=== PATIENT | male | born 1940 | race Caucasian/White ===

== ENCOUNTER 2018-03-12 12:09 | Emergency (ER) | END 2018-03-12 15:51 | disposition home or self-care (01) ==

== ENCOUNTER 2018-11-06 20:41 | Inpatient (IN) | payer MEDICARE ==
[~2018-11-06] VITALS: Ht 170.2 cm; Wt 79.5 kg
[~2018-11-06 20:41] MED LIST: ACET500C5 PO
[2018-11-06] MEDS ORDERED: SOD CHLORIDE 0.9% 500 ML IV STA (22:49)
[2018-11-06] MEDS ORDERED: morphine 2 MG INJ IV STA (22:49)
[2018-11-06] MEDS ORDERED: ONDANSETRON 4 MG INJ IV STA (22:49)
--- NOTE | 2018-11-07 02:55 | ERD ---
ER Documentation Chief Complaint Chief Complaint VOMIT/ DIARRHEA X'S 5 DAYS HPI Is an 78-year-old male brought in by family complains of vomiting diarrhea for the past 5 days with abdominal distention. His abdomen is gotten more more distended over the past 2 weeks. Vomiting is nonbilious nonbloody. Diarrhea was 3-4 episodes per day nonbilious and nonbloody. No fevers or chills. No sick contacts. No other current complaints. ROS All systems reviewed and are negative except as per history of present illness. Medications Home Meds Active Scripts Acetaminophen* (Tylophen*) 500 Mg Capsule, 1 CAP PO Q6H PRN for PAIN AND OR ELEVATED TEMP, #20 CAP Prov:JERAMY LIMA. [employer] 03/12/18 Allergies Allergies: Coded Allergies: No Known Allergy (Unverified , 03/12/18) PMhx/Soc History of Surgery: Yes (open heart surgery double bypass) Anesthesia Reaction: No Hx Neurological Disorder: No Hx Respiratory Disorders: No Hx Cardiac Disorders: Yes (HEART DISEASE ) Hx Miscellaneous Medical Probl: Yes (DM II) Hx Alcohol Use: No Hx Tobacco Use: No Smoking Status: Never smoker Physical Exam Vitals Vital Signs Date Temp Pulse Resp B/P (MAP) Pulse Ox O2 O2 Flow FiO2 Time Delivery Rate 11/06/18 97.5 86 18 156/71 98 20:52 (99) Physical Exam Const: No acute distress Head: Atraumatic Eyes: Normal Conjunctiva ENT: Normal External Ears, Nose and Mouth. Neck: Full range of motion. No meningismus. Resp: Clear to auscultation bilaterally Cardio: Regular rate and rhythm, no murmurs Abd: Soft, non tender, non distended. Normal bowel sounds Skin: No petechiae or rashes Back: No midline or flank tenderness Ext: No cyanosis, or edema Neur: Awake and alert Psych: Normal Mood and Affect Result Diagram: 11/06/18 2332 11/06/18 2332 Results 24 hrs Laboratory Tests Test 11/06/18 23:32 11/07/18 01:42 White Blood Count 7.7 10^3/ul Red Blood Count 3.84 10^6/ul Hemoglobin 11.4 g/dl Hematocrit 36.1 % Mean Corpuscular Volume 94.0 fl Mean Corpuscular Hemoglobin 29.7 pg Mean Corpuscular Hemoglobin Concent 31.6 g/dl Red Cell Distribution Width 18.2 % Platelet Count 145 10^3/UL Mean Platelet Volume 13.4 fl Immature Granulocytes % 0.400 % Neutrophils % 70.6 % Lymphocytes % 16.6 % Monocytes % 7.5 % Eosinophils % 4.0 % Basophils % 0.9 % Nucleated Red Blood Cells % 0.0 /100WBC Immature Granulocytes # 0.030 10^3/ul Neutrophils # 5.5 10^3/ul Lymphocytes # 1.3 10^3/ul Monocytes # 0.6 10^3/ul Eosinophils # 0.3 10^3/ul Basophils # 0.1 10^3/ul Nucleated Red Blood Cells # 0.0 10^3/ul Sodium Level 142 mmol/L Potassium Level 3.7 mmol/L Chloride Level 104 mmol/L Carbon Dioxide Level 25 mmol/L Anion Gap 13 Blood Urea Nitrogen 22 mg/dl Creatinine 1.13 mg/dl Est Glomerular Filtrat Rate mL/min mL/min Glucose Level 135 mg/dl Calcium Level 8.7 mg/dl Total Bilirubin 1.3 mg/dl Direct Bilirubin 0.00 mg/dl Indirect Bilirubin 1.3 mg/dl Aspartate Amino Transf (AST/SGOT) 38 IU/L Alanine Aminotransferase (ALT/SGPT) 27 IU/L Alkaline Phosphatase 196 IU/L Troponin I 0.029 ng/ml Total Protein 7.4 g/dl Albumin 3.3 g/dl Globulin 4.10 g/dl Albumin/Globulin Ratio 0.80 Lipase 55 U/L Urine Color YELLOW Urine Clarity CLEAR Urine pH 5.0 Urine Specific [place] 1.016 Urine Ketones TRACE mg/dL Urine Nitrite NEGATIVE mg/dL Urine Bilirubin NEGATIVE mg/dL Urine Urobilinogen 1+ mg/dL Urine Leukocyte Esterase NEGATIVE Jose/ul Urine Microscopic RBC 1 /HPF Urine Microscopic WBC 1 /HPF Urine Hemoglobin NEGATIVE mg/dL Urine Glucose NEGATIVE mg/dL Urine Total Protein 1+ mg/dl Current Medications Medications Dose Sig/Omari Start Time Status Last (Trade) Ordered Route PRN Stop Time Admin Dose Reason Admin Sodium 500 ml @ Q1H STAT 11/06/18 DC 11/06/18 Chloride 500 mls/hr IV 22:49 23:48 11/06/18 23:48 Morphine 2 mg ONCE STAT 11/06/18 DC Sulfate IV 22:49 (morphine) 11/06/18 22:51 Ondansetron 4 mg ONCE STAT 11/06/18 DC 11/06/18 HCl (Zofran IV 22:49 23:48 Inj) 11/06/18 22:51 Procedures/MDM EKG: Rate/Rhythm: [Normal Sinus Rhythm] QRS, ST, T-waves: [No changes consistent w/ acute ischemia] Impression: [No evidence of ischemia or arrhythmia] Chest X-ray 1V Interpreted by me: Soft Tissue: No acute abnormalities Bones: No acute abnormalities Mediastinum/Cardiac Silhouette/Lungs: [No acute abnormalities] Medical decision make: This is an 78-year-old male with abdominal pain of uncert ain etiology. 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 Given this I feel the patient needs to be admitted for further evaluation management. Hospitalist made aware. Departure Diagnosis: Primary Impression: Vomiting and diarrhea Additional Impression: Acute vomiting Condition: CURT Edwards Nov 07, 2018 02:55
[2018-11-07 03:20] VITALS: BP 153/89; PULSE 72; RESP 18
[2018-11-07] MEDS ORDERED: METF500T24 PO (03:21)
[2018-11-07] MEDS ORDERED: COLC0.6C PO (03:21)
[2018-11-07] MEDS ORDERED: FURO20TA3 PO (03:21)
[2018-11-07 03:47] VITALS: Ht 170.2 cm; Wt 79.5 kg
[2018-11-07] MEDS ORDERED: ONDANSETRON 4 MG INJ IV PRN ×2 (05:00→12:00)
[2018-11-07] MEDS ORDERED: morphine 2 MG INJ IV PRN (05:00)
[2018-11-07] MEDS ORDERED: NACL 0.9% 3 ML SYG IV SCH (05:00)
[2018-11-07] MEDS: DEXTROSE 5%-0.45% NACL 1,000 ML IV SCH ×3 (05:18→19:07)
--- NOTE | 2018-11-07 06:47 | HP ---
Date/Time of Note Date/Time of Note DATE: 11/07/18 TIME: 06:41 Assessment/Plan VTE Prophylaxis Pharmacological prophylaxis: heparin Lines/Catheters IV Catheter Type (from Nrsg): Peripheral IV Assessment/Plan Assessment/Plan 1. Abdominal pain with N/V: Likely secondary to large inguinal hernia. CT however without obstruction -Keep n.p.o. for now with IV fluid. Patient is currently symptom-free and since CT shows no obstruction, we may start diet in early a.m. -Pain management and antiemetics as needed -Consider surgical consult 2. CAD with CABG: Patient home medication only includes Lasix, colchicine and metformin -Patient is to be on aspirin, statin and beta-tariq and ACEI as tolerated by his BP. Will address this when he is no longer n.p.o. 3. Type 2 diabetes: Insulin while in-house 4. History of gout: Patient had a significant tophi on both of his elbows. Resume colchicine when not n.p.o. 5. History of prostate cancer: Status post surgery 6. Decreased urine output: This could possibly be the pressure effect of the h ernia on bladder/ureters -Consider urology evaluation -Continue Lasix 7. Bilateral lower extremity pitting edema: Likely secondary to #6 -Follow-up on 2D echo -Continue Lasix Result Diagram: 11/06/18 2332 11/06/18 2332 Results 24hrs Laboratory Tests Test 11/06/18 23:32 11/07/18 01:42 White Blood Count 7.7 Red Blood Count 3.84 L Hemoglobin 11.4 L Hematocrit 36.1 L Mean Corpuscular Volume 94.0 Mean Corpuscular Hemoglobin 29.7 Mean Corpuscular Hemoglobin Concent 31.6 L Red Cell Distribution Width 18.2 H Platelet Count 145 Mean Platelet Volume 13.4 H Immature Granulocytes % 0.400 Neutrophils % 70.6 Lymphocytes % 16.6 Monocytes % 7.5 Eosinophils % 4.0 Basophils % 0.9 Nucleated Red Blood Cells % 0.0 Immature Granulocytes # 0.030 Neutrophils # 5.5 Lymphocytes # 1.3 Monocytes # 0.6 Eosinophils # 0.3 Basophils # 0.1 Nucleated Red Blood Cells # 0.0 Sodium Level 142 Potassium Level 3.7 Chloride Level 104 Carbon Dioxide Level 25 Anion Gap 13 Blood Urea Nitrogen 22 H Creatinine 1.13 Est Glomerular Filtrat Rate mL/min Glucose Level 135 Calcium Level 8.7 Total Bilirubin 1.3 Direct Bilirubin 0.00 Indirect Bilirubin 1.3 H Aspartate Amino Transf (AST/SGOT) 38 Alanine Aminotransferase (ALT/SGPT) 27 Alkaline Phosphatase 196 H Troponin I 0.029 Total Protein 7.4 Albumin 3.3 Globulin 4.10 H Albumin/Globulin Ratio 0.80 Lipase 55 Urine Color YELLOW Urine Clarity CLEAR Urine pH 5.0 Urine Specific [place] 1.016 Urine Ketones TRACE A Urine Nitrite NEGATIVE Urine Bilirubin NEGATIVE Urine Urobilinogen 1+ H Urine Leukocyte Esterase NEGATIVE Urine Microscopic RBC 1 Urine Microscopic WBC 1 Urine Hemoglobin NEGATIVE Urine Glucose NEGATIVE Urine Total Protein 1+ H HPI/ROS Admit Date/Time Admit Date/Time Nov 07, 2018 at 02:03 Hx of Present Illness This is an 78-year-old male with a history of type 2 diabetes, hypertension, gout, prostate cancer status post surgery, CABG, hernia surgery. Patient presented to ER complaining of feeling of food getting stuck, abdominal distention/pain as well as nausea and vomiting. Symptoms been going on for few days. He said on a few occasions, after he ate, he felt as if food was getting stuck in his belly. After some time, he feels the food going down and at that moment the pain/discomfort results. Emesis described as nonbloody. Last bowel movement was yesterday. On further questioning, he also reported decreased urine output. He said previously the Lasix that he has been taking was effective, but not anymore. He had total prostatectomy as well as partial bladder resection for a prostate cancer. Right after surgery, as expected, he w as incontinent. Incontinence had completely resolved and now he is complaining of decreased urine output and at times hesitation when he urinates. Denies dysuria. When he presented to ER, CT abdomen pelvis was done and it shows the following: -A few prominent central mesenteric lymph nodes, probably reactive. -Large left inguinal hernia containing fat, fluid, and a non-obstructed loop of sigmoid colon. There are multiple surgical clips in this region, suggestive of prior hernia repair. There is also a small fat-containing right inguinal hernia. -Small to moderate abdominal wall hernia containing fat and fluid. -Cardiomegaly and moderate atherosclerotic arterial calcifications. . PMH/Family/Social Past Medical History Medical History: other (See HPI) Medications Current Medications Dextrose/Sodium Chloride 1,000 ml @ 80 mls/hr [id number] IV Last administered on 11/07/18at 05:18; Admin Dose 80 MLS/HR; Start 11/07/18 at 04:36 IV Flush (NS 3 ml) 3 ml PER PROTOCOL IV ; Start 11/07/18 at 05:00 Ondansetron HCl (Zofran Inj) 4 mg Q6H PRN IV NAUSEA/VOMITING; Start 11/07/18 at 05:00 Morphine Sulfate (morphine) 2 mg Q4H PRN IV .SEVERE PAIN 7-10; Start 11/07/18 at 05:00 Famotidine (Pepcid Iv) 20 mg DAILY IV ; Start 11/07/18 at 09:00 Heparin Sodium (Porcine) (Heparin (5000 Units/1ml)) 5,000 unit Q12 SC ; Start 11/07/18 at 09:00 Coded Allergies: No Known Allergy (Unverified , 11/07/18) Past Surgical History Past Surgical Hx: other (See HPI) Family History Significant Family History: no pertinent family hx Social History Alcohol Use: none Smoking Status: Never smoker Drug Use: none Exam/Review of Systems Vital Signs Vitals Vital Signs Date Temp Pulse Resp B/P (MAP) Pulse Ox O2 O2 Flow FiO2 Time Delivery Rate 11/07/18 97.6 72 18 153/89 95 Room Air 03:20 (110) Exam Constitutional: other (No acute distress. Alert and oriented and answering questions appropriately) Head: normocephalic, atraumatic Eyes: EOMI, PERRL Respiratory: clear to auscultation, normal air movement Cardiovascular: regular rate and rhythm, nl pulses Gastrointestinal: other (Slight abdominal distention. Abdominal hernia noted.) Genitourinary - Male: other (Bilateral inguinal hernia, left much larger than right) Extremities: edema, other (Large tophi on both of his elbows noted) CURT COTA MD Nov 07, 2018 06:47
[2018-11-07 07:55] VITALS: BP 128/65; PULSE 73; RESP 16
[2018-11-07] MEDS ORDERED: INSULIN ASPART [NOVOLOG] 3 ML PEN SC SCH ×2 (09:00→12:00)
[2018-11-07] MEDS ORDERED: FUROSEMIDE 20 MG TAB PO SCH (09:00)
[2018-11-07] MEDS ORDERED: HEPARIN 5,000 UNIT/1 ML VIAL SC SCH (09:00)
[2018-11-07] MEDS ORDERED: NON-FORMULARY/PATIENT OWN MED (Colchicine 0.6 MG) PO SCH (09:00)
[2018-11-07] MEDS: FAMOTIDINE 20 MG INJ IV SCH (09:51)
--- NOTE | 2018-11-07 11:55 | PN ---
Date/Time of Note Date/Time of Note DATE: 11/07/18 TIME: 11:51 Assessment/Plan VTE Prophylaxis SCD contraindicated: low risk/ambulating Pharmacological prophylaxis: NA/contraindicated Pharm contraindication: surgical contra Lines/Catheters IV Catheter Type (from Nrsg): Peripheral IV Assessment/Plan Hospital Course A/P 1. Abdominal pain, ileus? Consult GI or surgery 2. Ascites. Unknown etiology, rule out hepatitis may need liver MRI at some point 3. CAD, CABG [KP] status, no recent anginal-like equivalent. Check echo 4. Chronic hypertension 5. Type 2 diabetes 6. Abdominal ventral umbilical hernia 7. History of right inguinal hernia repair. Present hernia noted 8.. History of prostate cancer surgery 9. Oliguria? 10. Chronic gout 11. Peptic ulcer dz [asa assoc] status post stomach/duodenal surgery. 12. Anemia state unknown etiology stable observe S: gas-like discomfort heartburn abdominal pain for maybe 1 week. Over the last 2 days he is not passing gas. No nausea vomiting fever. No alcohol. No nuts no seeds. No history of colonoscopy O: Vital signs stable sinus rhythm poor R wave progression through anteroseptal leads PE No pallor icterus adenopathy Reg bs diminished mild diffuse tenderness mostly around the umbilicus. No rigidity no rebound no guarding hernias noted No edema Result Diagram: 11/06/18 2332 11/06/18 2332 Results 24hrs Laboratory Tests Test 11/06/18 23:32 11/07/18 01:42 11/07/18 09:49 White Blood Count 7.7 Red Blood Count 3.84 L Hemoglobin 11.4 L Hematocrit 36.1 L Mean Corpuscular Volume 94.0 Mean Corpuscular Hemoglobin 29.7 Mean Corpuscular Hemoglobin Concent 31.6 L Red Cell Distribution Width 18.2 H Platelet Count 145 Mean Platelet Volume 13.4 H Immature Granulocytes % 0.400 Neutrophils % 70.6 Lymphocytes % 16.6 Monocytes % 7.5 Eosinophils % 4.0 Basophils % 0.9 Nucleated Red Blood Cells % 0.0 Immature Granulocytes # 0.030 Neutrophils # 5.5 Lymphocytes # 1.3 Monocytes # 0.6 Eosinophils # 0.3 Basophils # 0.1 Nucleated Red Blood Cells # 0.0 Sodium Level 142 Potassium Level 3.7 Chloride Level 104 Carbon Dioxide Level 25 Anion Gap 13 Blood Urea Nitrogen 22 H Creatinine 1.13 Est Glomerular Filtrat Rate mL/min Glucose Level 135 Calcium Level 8.7 Total Bilirubin 1.3 Direct Bilirubin 0.00 Indirect Bilirubin 1.3 H Aspartate Amino Transf (AST/SGOT) 38 Alanine Aminotransferase (ALT/SGPT) 27 Alkaline Phosphatase 196 H Troponin I 0.029 Total Protein 7.4 Albumin 3.3 Globulin 4.10 H Albumin/Globulin Ratio 0.80 Lipase 55 Urine Color YELLOW Urine Clarity CLEAR Urine pH 5.0 Urine Specific [place] 1.016 Urine Ketones TRACE A Urine Nitrite NEGATIVE Urine Bilirubin NEGATIVE Urine Urobilinogen 1+ H Urine Leukocyte Esterase NEGATIVE Urine Microscopic RBC 1 Urine Microscopic WBC 1 Urine Hemoglobin NEGATIVE Urine Glucose NEGATIVE Urine Total Protein 1+ H Bedside Glucose 137 Exam/Review of Systems Exam Vitals Vital Signs Date Temp Pulse Resp B/P (MAP) Pulse Ox O2 O2 Flow FiO2 Time Delivery Rate 11/07/18 98.1 73 16 128/65 93 07:55 (86) 11/07/18 Room Air 03:20 Intake and Output 11/06/18 11/06/18 11/07/18 1515:00 23:00 07:00 IntakeIntake Total 80 ml OutputOutput Total 150 ml BalanceBalance -70 ml Results Results 24hrs Laboratory Tests Test 11/06/18 23:32 11/07/18 01:42 11/07/18 09:49 White Blood Count 7.7 Red Blood Count 3.84 L Hemoglobin 11.4 L Hematocrit 36.1 L Mean Corpuscular Volume 94.0 Mean Corpuscular Hemoglobin 29.7 Mean Corpuscular Hemoglobin Concent 31.6 L Red Cell Distribution Width 18.2 H Platelet Count 145 Mean Platelet Volume 13.4 H Immature Granulocytes % 0.400 Neutrophils % 70.6 Lymphocytes % 16.6 Monocytes % 7.5 Eosinophils % 4.0 Basophils % 0.9 Nucleated Red Blood Cells % 0.0 Immature Granulocytes # 0.030 Neutrophils # 5.5 Lymphocytes # 1.3 Monocytes # 0.6 Eosinophils # 0.3 Basophils # 0.1 Nucleated Red Blood Cells # 0.0 Sodium Level 142 Potassium Level 3.7 Chloride Level 104 Carbon Dioxide Level 25 Anion Gap 13 Blood Urea Nitrogen 22 H Creatinine 1.13 Est Glomerular Filtrat Rate mL/min Glucose Level 135 Calcium Level 8.7 Total Bilirubin 1.3 Direct Bilirubin 0.00 Indirect Bilirubin 1.3 H Aspartate Amino Transf (AST/SGOT) 38 Alanine Aminotransferase (ALT/SGPT) 27 Alkaline Phosphatase 196 H Troponin I 0.029 Total Protein 7.4 Albumin 3.3 Globulin 4.10 H Albumin/Globulin Ratio 0.80 Lipase 55 Urine Color YELLOW Urine Clarity CLEAR Urine pH 5.0 Urine Specific [place] 1.016 Urine Ketones TRACE A Urine Nitrite NEGATIVE Urine Bilirubin NEGATIVE Urine Urobilinogen 1+ H Urine Leukocyte Esterase NEGATIVE Urine Microscopic RBC 1 Urine Microscopic WBC 1 Urine Hemoglobin NEGATIVE Urine Glucose NEGATIVE Urine Total Protein 1+ H Bedside Glucose 137 Medications Medication Current Medications Dextrose/Sodium Chloride 1,000 ml @ 80 mls/hr [id number] IV Last administered on 11/07/18at 05:18; Admin Dose 80 MLS/HR; Start 11/07/18 at 04:36 IV Flush (NS 3 ml) 3 ml PER PROTOCOL IV ; Start 11/07/18 at 05:00 Ondansetron HCl (Zofran Inj) 4 mg Q6H PRN IV NAUSEA/VOMITING; Start 11/07/18 at 05:00 Morphine Sulfate (morphine) 2 mg Q4H PRN IV .SEVERE PAIN 7-10; Start 11/07/18 at 05:00 Famotidine (Pepcid Iv) 20 mg DAILY IV Last administered on 11/07/18at 09:51; Admin Dose 20 MG; Start 11/07/18 at 09:00 Heparin Sodium (Porcine) (Heparin (5000 Units/1ml)) 5,000 unit Q12 SC ; Start 11/07/18 at 09:00 Diagnostic Test (Pha) (Accu-Chek) 1 ea 02 XX ; Start 11/08/18 at 02:00 Furosemide (Lasix) 20 mg DAILY PO Last administered on 11/07/18at 09:52; Admin Dose 20 MG; Start 11/07/18 at 09:00 Miscellaneous Information 0.6 mg BID PO ; Start 11/07/18 at 09:00; Status UNV Insulin Aspart (Novolog Insulin Pen) NOVOLOG *MILD* ALGORI... AC MEALS AND BEDTIME SC ; Start 11/07/18 at 12:00; Status UNV GARRETT DIOR MD Nov 07, 2018 11:55
[2018-11-07] MEDS ORDERED: NA PHOSPHATE/BIPHOS 133 ML ENEMA PR PRN (12:00)
[2018-11-07] MEDS ORDERED: BISACODYL 10 MG SUPP PR PRN (12:00)
[2018-11-07] MEDS: INSULIN ASPART [NOVOLOG] 3 ML PEN SC SCH ×3 (13:00→21:00)
[2018-11-07 14:30] VITALS: BP 135/66; PULSE 70; RESP 18
--- NOTE | 2018-11-07 15:20 | QN ---
Documentation Comment Patient currently off the floor, will assess in near future. INGRID MAST Nov 07, 2018 15:20
[2018-11-07] MEDS ORDERED: BARIUM SULFATE 135 ML (E-Z HD) PO ONE (15:25)
[2018-11-07 20:48] VITALS: BP 96/51; PULSE 81; RESP 16
[2018-11-08] VITALS (8 sets, daily range): BP systolic 132–179; BP diastolic 68–89; PULSE 66–85; RESP 16–18
[2018-11-08] MEDS: INSULIN ASPART [NOVOLOG] 3 ML PEN SC SCH ×6 (01:00→21:16)
[2018-11-08] MEDS: ACCU-CHEK XX SCH (01:43)
[2018-11-08] MEDS: DEXTROSE 5%-0.45% NACL 1,000 ML IV SCH (06:43)
[2018-11-08] MEDS: FAMOTIDINE 20 MG INJ IV SCH (10:16)
[2018-11-08] MEDS ORDERED: LIDOCAINE 1% (MPF) 5 ML VIAL ONE (11:27)
[2018-11-08] MEDS ORDERED: POTASSIUM CHLORIDE 100 ML IVPB ONE (11:30)
--- NOTE | 2018-11-08 11:50 | PN ---
Date/Time of Note Date/Time of Note DATE: 11/08/18 TIME: 11:47 Assessment/Plan VTE Prophylaxis Risk score (from Ns)>0 risk: 6 SCD applied (from Ns): Yes Pharmacological prophylaxis: LMWH Lines/Catheters IV Catheter Type (from Nrsg): Peripheral IV Urinary Cath still in place: No Assessment/Plan Hospital Course A/P 1. Abd pain, ileus? Consulted GI. Small bowel series appears unremarkable, stable Will restart diet. May need outpatient colonoscopy 2. Ascites. Ukn etio, rule out hepatitis; paracentesis done. May need liver MRI at some point it could also be cardiac ascites 3. CAD, CABG [KP] status, no recent anginal-like equivalent. Check echo 4. Chronic hypertension, maybe if tolerable, start beta-tariq or ACEi. 5. Type 2 diabetes 6. Abdominal ventral umbilical hernia 7. History of right inguinal hernia repair. Present hernia noted 8.. History of prostate cancer surgery 9. Oliguria? 10. Chronic gout 11. Peptic ulcer dz [asa assoc] status post stomach/duodenal surgery. 12. Anemia state unknown etiology stable observe S: 11/07 gas-like discomfort heartburn abdominal pain for maybe 1 week. Over the last 2 days he is not passing gas. No nausea vomiting fever. No alcohol. No nuts no seeds. No history of colonoscopy 11/08: Appetite back. Wants to eat/hungry. No chest pain dyspnea. Status post 2-1/2 L paracentesis O: Vss; poor R wave progression through anteroseptal leads PE No pallor JVD Reg no murmur rub gallop bs dimin, mild diffuse tenderness mostly around the umbilicus. No r/r/g. hernias noted No edema Result Diagram: 11/08/1824 11/08/18 0624 Results 24hrs Laboratory Tests Test 11/07/18 13:04 11/07/18 14:26 11/07/18 17:37 11/07/18 18:56 Bedside Glucose 131 108 Prothrombin Time 14.2 Prothrombin Time 1.1 Ratio INR International 1.09 Normalized Ratio Activated 32.6 Partial Thromboplast Time Lactic Acid Level 1.7 Troponin I 0.030 Test 11/07/18 20:51 11/08/18 00:46 11/08/18 05:33 11/08/18 06:24 Bedside Glucose 105 129 120 White Blood Count 5.6 # Red Blood Count 3.38 L Hemoglobin 10.3 L Hematocrit 32.1 L Mean Corpuscular 95.0 Volume Mean Corpuscular 30.5 Hemoglobin Mean Corpuscular 32.1 Hemoglobin Concent Red Cell 18.1 H Distribution Width Platelet Count 112 #L Mean Platelet Volume 12.9 H Immature 0.400 Granulocytes % Neutrophils % 63.8 Lymphocytes % 20.4 Monocytes % 9.5 Eosinophils % 5.2 Basophils % 0.7 Nucleated Red Blood 0.0 Cells % Immature 0.020 Granulocytes # Neutrophils # 3.6 Lymphocytes # 1.1 Monocytes # 0.5 Eosinophils # 0.3 Basophils # 0.0 Nucleated Red Blood 0.0 Cells # Sodium Level 139 Potassium Level 3.2 L Chloride Level 103 Carbon Dioxide Level 28 Anion Gap 8 Blood Urea Nitrogen 15 Creatinine 1.12 Est Glomerular Filtrat Rate mL/min Glucose Level 133 Calcium Level 8.1 L Phosphorus Level 2.6 Magnesium Level 1.2 L Total Bilirubin 1.2 Direct Bilirubin 0.00 Indirect Bilirubin 1.2 H Aspartate Amino 31 Transf (AST/SGOT) Alanine 32 Aminotransferase (AL T/SGPT) Alkaline Phosphatase 152 H Total Protein 6.0 #L Albumin 2.7 L Globulin 3.30 H Albumin/Globulin 0.81 Ratio Lipase 59 Alpha Fetoprotein < 0.83 Carcinoembryonic 10.1 H Antigen Thyroid Stimulating 2.830 Hormone (TSH) Test 11/08/18 09:45 Bedside Glucose 139 Exam/Review of Systems Exam Vitals Vital Signs Date Temp Pulse Resp B/P (MAP) Pulse Ox O2 O2 Flow FiO2 Time Delivery Rate 11/08/18 98.3 79 18 151/89 93 Room Air 08:30 (109) Intake and Output 11/07/18 11/07/18 11/08/18 1515:00 23:00 07:00 IntakeIntake Total 1000 ml 1000 ml OutputOutput Total 550 ml 275 ml 300 ml BalanceBalance -550 ml 725 ml 700 ml Results Results 24hrs Laboratory Tests Test 11/07/18 13:04 11/07/18 14:26 11/07/18 17:37 11/07/18 18:56 Bedside Glucose 131 108 Prothrombin Time 14.2 Prothrombin Time 1.1 Ratio INR International 1.09 Normalized Ratio Activated 32.6 Partial Thromboplast Time Lactic Acid Level 1.7 Troponin I 0.030 Test 11/07/18 20:51 11/08/18 00:46 11/08/18 05:33 11/08/18 06:24 Bedside Glucose 105 129 120 White Blood Count 5.6 # Red Blood Count 3.38 L Hemoglobin 10.3 L Hematocrit 32.1 L Mean Corpuscular 95.0 Volume Mean Corpuscular 30.5 Hemoglobin Mean Corpuscular 32.1 Hemoglobin Concent Red Cell 18.1 H Distribution Width Platelet Count 112 #L Mean Platelet Volume 12.9 H Immature 0.400 Granulocytes % Neutrophils % 63.8 Lymphocytes % 20.4 Monocytes % 9.5 Eosinophils % 5.2 Basophils % 0.7 Nucleated Red Blood 0.0 Cells % Immature 0.020 Granulocytes # Neutrophils # 3.6 Lymphocytes # 1.1 Monocytes # 0.5 Eosinophils # 0.3 Basophils # 0.0 Nucleated Red Blood 0.0 Cells # Sodium Level 139 Potassium Level 3.2 L Chloride Level 103 Carbon Dioxide Level 28 Anion Gap 8 Blood Urea Nitrogen 15 Creatinine 1.12 Est Glomerular Filtrat Rate mL/min Glucose Level 133 Calcium Level 8.1 L Phosphorus Level 2.6 Magnesium Level 1.2 L Total Bilirubin 1.2 Direct Bilirubin 0.00 Indirect Bilirubin 1.2 H Aspartate Amino 31 Transf (AST/SGOT) Alanine 32 Aminotransferase (AL T/SGPT) Alkaline Phosphatase 152 H Total Protein 6.0 #L Albumin 2.7 L Globulin 3.30 H Albumin/Globulin 0.81 Ratio Lipase 59 Alpha Fetoprotein < 0.83 Carcinoembryonic 10.1 H Antigen Thyroid Stimulating 2.830 Hormone (TSH) Test 11/08/18 09:45 Bedside Glucose 139 Medications Medication Current Medications Dextrose/Sodium Chloride 1,000 ml @ 80 mls/hr [id number] IV Last administered on 11/08/18at 06:43; Admin Dose 80 MLS/HR; Start 11/07/18 at 04:36 IV Flush (NS 3 ml) 3 ml PER PROTOCOL IV ; Start 11/07/18 at 05:00 Morphine Sulfate (morphine) 2 mg Q4H PRN IV .SEVERE PAIN 7-10; Start 11/07/18 at 05:00 Famotidine (Pepcid Iv) 20 mg DAILY IV Last administered on 11/08/18at 10:16; Admin Dose 20 MG; Start 11/07/18 at 09:00 Diagnostic Test (Pha) (Accu-Chek) 1 ea 02 XX ; Start 11/08/18 at 02:00 Ondansetron HCl (Zofran Inj) 4 mg Q4 PRN IV NAUSEA/VOMITING; Start 11/07/18 at 12:00 Bisacodyl (Dulcolax Supp) 10 mg DAILY PRN RI CONSTIPATION; Start 11/07/18 at 12:00 Sodium Biphosphate/ Sodium Phosphate (Fleet Enema) 133 ml DAILY PRN RI CONSTIPATION; Start 11/07/18 at 12:00 Insulin Aspart (Novolog Insulin Pen) NOVOLOG *MILD* ALGORI... Q4 SC ; Start 11/07/18 at 13:00 Potassium Chloride 100 ml @ 50 mls/hr ONCE ONCE IVPB ; Start 11/08/18 at 11:3 0; Stop 11/08/18 at 13:29 Metoclopramide HCl (Reglan) 5 mg Q6 IV ; Start 11/08/18 at 09:00 Carvedilol (Coreg) 3.125 mg BID PO ; Start 11/08/18 at 09:00 GARRETT DIOR MD Nov 08, 2018 11:50
[2018-11-08] MEDS: METOCLOPRAMIDE 10 MG INJ IV SCH ×3 (12:00→18:04)
--- NOTE | 2018-11-08 14:01 | RADRPT ---
Echocardiogram Report Patient Name: Anat SUEtient ID: [id number] : [id number] ([id number])Study Date: 11/08/2018 7:23:24 AM Gender: [place] #: [id number] Tech: [place] Location: Ref.Physician: GARRETT DIOR Height(Cm): BSA: Weight(Kg): Quality: AdequateAccount #: Procedures: Echocardiographic Report: Transthoracic echocardiogram with complete 2D, M-Mode, and doppler examination. Indications: Abnormal EKG, and Pre-op. Hx of CABG. Measurements: 2D/M Mode Doppler Measurement Value Normal Range Measurement Value Normal Range LVIDd 2D 5.3 [ 4.2 - 5.8 ] cm ROYA Vmax 1.4 [ 2.0 - 4.0 ] cm2 LVIDs 2D 3.9 [ 2.5 - 4.0 ] cm ROYA VTI 1.4 [ 2.0 - 4.0 ] cm2 LVPWd 2D 1.1 [ 0.6 - 1.0 ] cm AV Mean Yoseph 1.7 [ 70.0 - 90.0 ] cm/sec IVSd 2D 1.1 [ 0.6 - 1.0 ] cm AV Mean PG 14.0 [ 2.0 - 4.0 ] mmHg IVS/LVPW 2D 0.9 ratio AV Peak Yoseph 2.5 [ 100.0 - 170.0 ] cm/sec AoR Diam 2D 2.8 [ 2.6 - 3.4 ] cm AV Peak PG 25.0 [ 2.0 - 9.0 ] mmHg LA/Ao 2D 2 ratio AV VTI 52.1 cm LA Dimen 2D 4.4 [ 3.0 - 4.0 ] cm LVOT Mean Yoseph 0.6 [ 60.0 - 80.0 ] cm/sec LVOT Diam 2.2 [ 2.3 - 2.9 ] cm LVOT Mean PG 2.0 [ 1.0 - 3.0 ] mmHg LVOT Area 3.8 cm2 LVOT Peak Yoseph 0.9 [ 70.0 - 110.0 ] cm/sec LVOT Peak PG 3.0 [ 2.0 - 6.0 ] mmHg LVOT VTI 18.5 [ 20.0 - 30.0 ] cm MV E Peak Yoseph 0.8 [ 60.0 - 130.0 ] cm/sec MV A Peak Yoseph 0.7 [ 100.0 - 120.0 ] cm/sec MV E/A 1.2 [ 0.8 - 1.5 ] ratio MV Decel Time 134 [ 104 - 258 ] msec Lat E` Yoseph 0.1 [ 10.0 - 15.0 ] cm/sec MV E/A 1.2 [ 0.8 - 1.5 ] ratio TR Peak Yoseph 3.6 [ 100.0 - 280.0 ] cm/sec TR Peak PG 52.0 mmHg RVSP 55.0 [ 10.0 - 36.0 ] mmHg RA Pressure 3.0 mmHg Findings: Left Ventricle: Normal left ventricular systolic function. Normal left ventricular cavity size. Normal left ventricular wall thickness. Ejection fraction is visually estimated at 55 %. Tissue Doppler/Mitral Doppler indices are consistent with impaired relaxation (Stage I diastolic dysfunction). Right Ventricle: Normal right ventricular size. Normal right ventricular systolic function. Left Atrium: There is mild enlargement of left atrium. Right Atrium: The right atrium is normal in size. Mitral Valve: Normal appearance of the mitral valve. Mild mitral annular calcification. Moderate mitral valve regurgitation. Aortic Valve: Mild to moderate aortic stenosis. Aortic valve Max velocity 2.52 m/sec. Max PG 25.00 mmHg. Mean PG 14.00 mmHg. Aortic valve area 1.35 cm2. Aortic cusps appear moderately calcified. Trace aortic valve regurgitation. Tricuspid Valve: Normal appearance of the tricuspid valve. Estimated peak PA systolic pressure 55 mmHg. There is mild to moderate tricuspid regurgitation. Pulmonic Valve: Normal pulmonic valve appearance. Pericardium: Normal pericardium with no significant pericardial effusion. Aorta: Normal aortic root. IVC: Normal size and normal respiratory collapse consistent with normal right atrial pressure. Conclusions: Normal left ventricular systolic function. Normal left ventricular cavity size. Normal left ventricular wall thickness. Ejection fraction is visually estimated at 55 %. Tissue Doppler/Mitral Doppler indices are consistent with impaired relaxation (Stage I diastolic dysfunction). There is mild enlargement of left atrium. Normal appearance of the mitral valve. Mild mitral annular calcification. Moderate mitral valve regurgitation. Mild to moderate aortic stenosis. Aortic valve Max velocity 2.52 m/sec. Max PG 25.00 mmHg. Mean PG 14.00 mmHg. Aortic valve area 1.35 cm2. Aortic cusps appear moderately calcified. Trace aortic valve regurgitation. Normal appearance of the tricuspid valve. Estimated peak PA systolic pressure 55 mmHg. There is mild to moderate tricuspid regurgitation. Electronically Signed By: Yaron Burkett 2018-11-08 14:01:23 PDT
--- NOTE | 2018-11-08 14:14 | CONS ---
Assessment/Plan Assessment/Plan Hospital Course (Demo Recall) Summary Assessment and Plan: Assessment: Abdominal pain -With a feeling of "abdominal obstruction"- this sx has greatly improved -SBFT- slow but otherwise unremarkable flow of contrast through the small bowel. Nausea and vomiting- resolved Normocytic anemia- Stable Isolated elevated Alk phos with indirect hyperbilirubinemia- mild Hx of PUD with perforation -S/p resection of the distal stomach and proximal duodenum. Liver cirrhosis on imaging with ascites -S/p paracentesis with removal of 2.5 liters -Unclear etiology- cardiogenic vs viral vs cryptogenic vs other -Pt denies ETOH use Thrombocytopenia CAD- s/p CABG x2 vessels about 1 year ago HTN DM Abdominal hernia History of prostate cancer surgery Plan: Monitor Labs- currently Alk phos trending down- will additionally check AMA Will also order ROCÍO, ASMA- r/o AIH as cause of liver cirrhosis, although will likely be negative Hepatitis serology has been ordered and is currently pending No plan for endoscopic evaluation/intervention at this time- Continue Reglan and H2 tariq Patient seen in collaboration with Dr. Harvey/Manasa CC: JOSE L GUAJARDO ; Consultation Date/Type/Reason Admit Date/Time Nov 07, 2018 at 02:03 Date of Consultation: Nov 08, 2018 Type of Consult GI Reason for Consultation Abdominal pain, r/o obstruction Date/Time of Note DATE: 11/08/18 TIME: 13:46 Hx of Present Illness This is an 78-year-old male with a history of type 2 diabetes, hypertension, gout, prostate cancer status post surgery, CABG, hernia surgery. Who presented to ED with c/o , abdominal distention with an overall feeling of food being stuck in his stomach. This was associate with nausea and non-bloody vomiting, which has since resolved. Imaging was obtained a CT abdomen/pelvis without contrast revealed cirrhosis, splenomegaly, and abdominal varices with moderate amount of ascites and diffuse peritoneal anasarca. Status post resection of the distal stomach and proximal duodenum, cholelithiasis, a few prominent central mesenteric lymph nodes, probably reactive. Large left inguinal hernia containing fat, fluid, and nonobstructive loop of sigmoid colon there are multiple surgical clips in this region suggestive of prior hernia repair. There is also a small fat-containing right inguinal hernia, small to moderate abdominal wall hernia containing fat and fluid, cardiomegaly and moderate atherosclerotic arterial calcifications. Additionally a small bowel follow- through was obtained showing slow transition but otherwise unremarkable flow of contrast through the small bowel. Patient underwent a paracentesis removal of 2.5 L and lastly a KUB was completed showing no evidence of obstruction. Patient states after small bowel follow-through he did have 1-2 episodes of diarrhea he has no previous knowledge of liver cirrhosis. Labs show normocytic anemia with thrombocytopenia today as well as an isolated alkaline phosphatase, mild at 152 and a mild indirect hyperbilirubinemia. He denies overt signs of GI bleed including melena, hematochezia, hematemesis. Really states he is feeling much better the feeling of food being stopped has almost resolved he is eating chicken soup tolerating well he denies abdominal pain further episodes of nausea vomiting. Review of Systems: A 12 system, review was conducted and is negative except as noted in the HPI or here. Past Medical History Medical History: other (See HPI) Home Meds Reported Medications Furosemide* (Furosemide*) 20 Mg Tablet, 20 MG PO DAILY, #60 TAB 11/07/18 Metformin Hcl* (Metformin Hcl*) 500 Mg Tablet, 500 MG PO WITH BREAKFAST DINNE, #60 TAB 11/07/18 Colchicine (Colchicine) 0.6 Mg Capsule, 0.6 MG PO BID for 50 Days, #100 TAKE 1 CAPSULE BY MOUTH TWICE A DAY 11/07/18 Discontinued Scripts Acetaminophen* (Tylophen*) 500 Mg Capsule, 1 CAP PO Q6H PRN for PAIN AND OR ELEVATED TEMP, #20 CAP Prov:JERAMY LIMA. [employer] 03/12/18 Medications Current Medications Dextrose/Sodium Chloride 1,000 ml @ 50 mls/hr Q20H IV Last administered on 11/08/18at 06:43; Admin Dose 80 MLS/HR; Start 11/07/18 at 04:36 IV Flush (NS 3 ml) 3 ml PER PROTOCOL IV ; Start 11/07/18 at 05:00 Morphine Sulfate (morphine) 2 mg Q4H PRN IV .SEVERE PAIN 7-10; Start 11/07/18 at 05:00 Famotidine (Pepcid Iv) 20 mg DAILY IV Last administered on 11/08/18at 10:16; Admin Dose 20 MG; Start 11/07/18 at 09:00 Diagnostic Test (Pha) (Accu-Chek) 1 ea 02 XX ; Start 11/08/18 at 02:00 Ondansetron HCl (Zofran Inj) 4 mg Q4 PRN IV NAUSEA/VOMITING; Start 11/07/18 at 12:00 Bisacodyl (Dulcolax Supp) 10 mg DAILY PRN NE CONSTIPATION; Start 11/07/18 at 12:00 Sodium Biphosphate/ Sodium Phosphate (Fleet Enema) 133 ml DAILY PRN NE CONSTIPATION; Start 11/07/18 at 12:00 Insulin Aspart (Novolog Insulin Pen) NOVOLOG *MILD* ALGORI... Q4 SC ; Start 11/07/18 at 13:00 Metoclopramide HCl (Reglan) 5 mg Q6 IV Last administered on 11/08/18at 13:17; Admin Dose 5 MG; Start 11/08/18 at 09:00 Carvedilol (Coreg) 3.125 mg BID PO Last administered on 11/08/18at 13:18; Admin Dose 3.125 MG; Start 11/08/18 at 09:00 Allergies: Coded Allergies: No Known Allergy (Unverified , 11/07/18) Past Surgical History Past Surgical Hx: other (See HPI) Social History Alcohol Use: none Smoking Status: Never smoker Drug Use: none Exam/Review of Systems Exam Vitals Vital Signs Date Temp Pulse Resp B/P (MAP) Pulse Ox O2 O2 Flow FiO2 Time Delivery Rate 11/08/18 98.7 78 16 166/83 96 Room Air 12:15 (110) Intake and Output 11/07/18 11/07/18 11/08/18 1515:00 23:00 07:00 IntakeIntake Total 1000 ml 1000 ml OutputOutput Total 550 ml 275 ml 300 ml BalanceBalance -550 ml 725 ml 700 ml Exam PHYSICAL EXAMINATION: GENERAL: Well developed, well nourished, alert & oriented x 3, in no acute distress SKIN: facial growths HEAD: Normocephalic, atraumatic, no tenderness. EYES: Pupils equal reactive to light, no discharge. EARS/NOSE AND THROAT: Ears normal, nose normal, oropharynx normal NECK: Supple, no masses CHEST: Inspection within normal limits. CARDIOVASCULAR: Heart: Regular rate and rhythm RESPIRATORY: Lungs clear to auscultation and percussion, no wheezing, no rubs GASTROINTESTINAL AND LIVER: Abdomen: Soft, non tenderness, slightly distended, abdominal hernia, no masses, + ascites- s/p paracentesis, no guarding, no rebound tenderness, normoactive bowel sounds. Rectal: Deferred. EXTREMITIES: BLE edema Results Result Diagram: 11/08/18 0624 11/08/18 0624 Results 24hrs Laboratory Tests Test 11/07/18 14:26 11/07/18 17:37 11/07/18 18:56 11/07/18 20:51 Prothrombin Time 14.2 Prothrombin Time 1.1 Ratio INR International 1.09 Normalized Ratio Activated 32.6 Partial Thromboplast Time Lactic Acid Level 1.7 Bedside Glucose 108 105 Troponin I 0.030 Test 11/08/18 00:46 11/08/18 05:33 11/08/18 06:24 11/08/18 09:45 Bedside Glucose 129 120 139 White Blood Count 5.6 # Red Blood Count 3.38 L Hemoglobin 10.3 L Hematocrit 32.1 L Mean Corpuscular 95.0 Volume Mean Corpuscular 30.5 Hemoglobin Mean Corpuscular 32.1 Hemoglobin Concent Red Cell 18.1 H Distribution Width Platelet Count 112 #L Mean Platelet Volume 12.9 H Immature 0.400 Granulocytes % Neutrophils % 63.8 Lymphocytes % 20.4 Monocytes % 9.5 Eosinophils % 5.2 Basophils % 0.7 Nucleated Red Blood 0.0 Cells % Immature 0.020 Granulocytes # Neutrophils # 3.6 Lymphocytes # 1.1 Monocytes # 0.5 Eosinophils # 0.3 Basophils # 0.0 Nucleated Red Blood 0.0 Cells # Sodium Level 139 Potassium Level 3.2 L Chloride Level 103 Carbon Dioxide Level 28 Anion Gap 8 Blood Urea Nitrogen 15 Creatinine 1.12 Est Glomerular Filtrat Rate mL/min Glucose Level 133 Calcium Level 8.1 L Phosphorus Level 2.6 Magnesium Level 1.2 L Total Bilirubin 1.2 Direct Bilirubin 0.00 Indirect Bilirubin 1.2 H Aspartate Amino 31 Transf (AST/SGOT) Alanine 32 Aminotransferase (AL T/SGPT) Alkaline Phosphatase 152 H Total Protein 6.0 #L Albumin 2.7 L Globulin 3.30 H Albumin/Globulin 0.81 Ratio Lipase 59 Alpha Fetoprotein < 0.83 Carcinoembryonic 10.1 H Antigen Thyroid Stimulating 2.830 Hormone (TSH) Test 11/08/18 12:40 Bedside Glucose 113 Medications Medication Current Medications Dextrose/Sodium Chloride 1,000 ml @ 50 mls/hr Q20H IV Last administered on 11/08/18at 06:43; Admin Dose 80 MLS/HR; Start 11/07/18 at 04:36 IV Flush (NS 3 ml) 3 ml PER PROTOCOL IV ; Start 11/07/18 at 05:00 Morphine Sulfate (morphine) 2 mg Q4H PRN IV .SEVERE PAIN 7-10; Start 11/07/18 at 05:00 Famotidine (Pepcid Iv) 20 mg DAILY IV Last administered on 11/08/18at 10:16; Admin Dose 20 MG; Start 11/07/18 at 09:00 Diagnostic Test (Pha) (Accu-Chek) 1 ea 02 XX ; Start 11/08/18 at 02:00 Ondansetron HCl (Zofran Inj) 4 mg Q4 PRN IV NAUSEA/VOMITING; Start 11/07/18 at 12:00 Bisacodyl (Dulcolax Supp) 10 mg DAILY PRN NE CONSTIPATION; Start 11/07/18 at 12:00 Sodium Biphosphate/ Sodium Phosphate (Fleet Enema) 133 ml DAILY PRN NE CONSTIPATION; Start 11/07/18 at 12:00 Insulin Aspart (Novolog Insulin Pen) NOVOLOG *MILD* ALGORI... Q4 SC ; Start 11/07/18 at 13:00 Metoclopramide HCl (Reglan) 5 mg Q6 IV Last administered on 11/08/18at 13:17; Admin Dose 5 MG; Start 11/08/18 at 09:00 Carvedilol (Coreg) 3.125 mg BID PO Last administered on 11/08/18at 13:18; Admin Dose 3.125 MG; Start 11/08/18 at 09:00 INGRID MAST Nov 08, 2018 13:57
[2018-11-08] MEDS ORDERED: GLUCAGON 1 MG INJ IM PRN (23:00)
[2018-11-08] MEDS ORDERED: DEXTROSE 50% 50 ML SYRINGE IV PRN ×2 (23:00)
[2018-11-08] MEDS ORDERED: GLUCOSE GEL 15 GRAM TUBE BUCCAL PRN (23:00)
[2018-11-08] MEDS ORDERED: GLUCOSE GEL 15 GRAM TUBE PO PRN ×2 (23:00)
[2018-11-09] MEDS: ACCU-CHEK XX SCH (02:32)
[2018-11-09 06:00] VITALS: BP 159/81; PULSE 79; RESP 18
[2018-11-09] MEDS: DEXTROSE 5%-0.45% NACL 1,000 ML IV SCH (06:07)
[2018-11-09] MEDS: METOCLOPRAMIDE 10 MG INJ IV SCH ×3 (06:07→12:00)
[2018-11-09 07:40] VITALS: BP 154/76; PULSE 73; RESP 17
[2018-11-09] MEDS: INSULIN ASPART [NOVOLOG] 3 ML PEN SC SCH ×3 (07:51→17:17)
[2018-11-09] MEDS: FAMOTIDINE 20 MG INJ IV SCH (09:00)
[2018-11-09] MEDS ORDERED: METOCLOPRAMIDE 5 MG TAB PO SCH (13:30)
[2018-11-09 14:55] VITALS: BP 156/73; PULSE 81; RESP 16
[2018-11-09] MEDS ORDERED: COLCHICINE 0.6 MG TAB PO SCH (15:00)
--- NOTE | 2018-11-09 16:26 | PDOCDIS ---
Discharge Instructions CONDITION [id number] Patient Condition: [id number] Stable HOME CARE INSTRUCTIONS: [id number] Diet Instructions: Avtrk1x Low Fat /Cholesterol (no added salt) ACTIVITY: Slile1Pq Activity Restrictions: [id number] Slowly Increase Activity Do not Drive FOLLOW UP/APPOINTMENTS Follow-up Plan Appt PCP * Dr Harvey 1-2wks Cardiology 1-2wks GARRETT DIOR MD Nov 09, 2018 16:26
[2018-11-09] MEDS ORDERED: METO5TAB2 PO (16:28)
[2018-11-09] MEDS ORDERED: CARV3.1260 PO (16:28)
[2018-11-09] MEDS ORDERED: SIME80TA60 PO (16:28)
[2018-11-09] MEDS ORDERED: THIA100T56 PO (16:28)
[2018-11-09] MEDS ORDERED: ASPI-1046 PO (16:29)
[2018-11-09] MEDS ORDERED: IBUPROFEN 600 MG TAB PO PRN (16:30)
[2018-11-09] MEDS ORDERED: COLCHICINE 0.6 MG TAB PO ONE (17:30)
== END 2018-11-09 18:30 | disposition home or self-care (01) | DRG 392 ==
LOC: E/R 20:41 → PP2 11-07 02:03 → OBSVTOIN 11-08 16:58
PROVIDERS: ADMIT Internal Medicine; ATTEND Internal Medicine
PROC: 0W9G3ZX Drainage of Peritoneal Cavity, Percutaneous Approach, Diagnostic (ICD-10-PCS; principal; 2018-11-08)
DX: R10.815 Periumbilic abdominal tenderness (principal); R18.8 Other ascites; E11.9 Type 2 diabetes mellitus without complications; D64.9 Anemia, unspecified; I25.10 Atherosclerotic heart disease of native coronary artery without angina pectoris; I10 Essential (primary) hypertension; Z95.1 Presence of aortocoronary bypass graft; R11.10 Vomiting, unspecified; M1A.9XX0 Chronic gout, unspecified, without tophus (tophi); Z79.4 Long term (current) use of insulin; Z85.46 Personal history of malignant neoplasm of prostate
CPT/HCPCS: 36415; 71045; 74018; 74176; 74250; 80053; 81001; 82042; 82105; 82378; 82962; 83605; 83690; 83735; 84100; 84443; 84484; 85025; 85610; 85730; 86038; 86255; 86704; 86706; 86803; 87070; 87102; 87116; 87340; 88104; 88305; 93005; 93306; 96374; G0378; J1644; J1815; J2270; J2405; J2765; J3480; J7040; J7042

== ENCOUNTER 2019-02-03 07:31 | Inpatient (IN) | payer MEDICARE ==
[~2019-02-03] VITALS: Ht 177.8 cm; Wt 73.4 kg
[~2019-02-03 07:31] MED LIST changes: -ACET500C5 PO; +ASPI-1046 PO; +CARV3.1260 PO; +COLC0.6C PO; +FURO20TA3 PO; +METF500T24 PO; +METO5TAB2 PO; +SIME80TA60 PO; +THIA100T56 PO
[2019-02-03] MEDS ORDERED: ONDANSETRON 4 MG INJ IV STA (08:27)
[2019-02-03] MEDS ORDERED: SOD CHLORIDE 0.9% 0 ML IV ONE (09:13)
--- NOTE | 2019-02-03 09:47 | ERD ---
ER Documentation Chief Complaint Chief Complaint AP & VOMITING SINCE YESTERDAY AFTERNOON HPI This is a 78-year-old male with a prior history of liver cirrhosis who presents for evaluation of generalized weakness, and vomiting. He has intermittent right upper quadrant pain. Patient states that he is felt very weak and has been hav ing trouble keeping things down, he had a syncopal episode in triage, he did not have any head trauma. He denies any chest pain or shortness of breath. Endorses a history of coronary artery disease. ROS All systems reviewed and are negative except as per history of present illness. Medications Home Meds Active Scripts Aspirin* (Aspirin* (EC)) 81 Mg Tablet.dr, 81 MG PO DAILY for 30 Days, TAB Prov:GARRETT DIOR MD 11/09/18 Thiamine* (Vitamin B-1*) 100 Mg Tablet, 100 MG PO DAILY for 30 Days, TAB Prov:GARRETT DIOR MD 11/09/18 Simethicone* (Mylicon*) 80 Mg Tab, 80 MG PO Q6H PRN for bloating/Gas for 1 Day, TAB Prov:GARRETT DIOR MD 11/09/18 Metoclopramide Hcl* (Metoclopramide Hcl*) 5 Mg Tablet, 5 MG PO TID for 7 Days, #20 TAB Prov:GARRETT DIOR MD 11/09/18 Carvedilol* (Carvedilol*) 3.125 Mg Tablet, 3.125 MG PO BID for 14 Days, #30 TAB Prov:GARRETT DIOR MD 11/09/18 Reported Medications Furosemide* (Furosemide*) 20 Mg Tablet, 20 MG PO DAILY, #60 TAB 11/07/18 Metformin Hcl* (Metformin Hcl*) 500 Mg Tablet, 500 MG PO WITH BREAKFAST DINNE, #60 TAB 11/07/18 Colchicine (Colchicine) 0.6 Mg Capsule, 0.6 MG PO BID for 50 Days, #100 TAKE 1 CAPSULE BY MOUTH TWICE A DAY 11/07/18 Allergies Allergies: Coded Allergies: No Known Allergy (Unverified , 11/07/18) PMhx/Soc History of Surgery: Yes (groin hernia sx; abdominal sx (2000); open heart sx (09/25/2017); prostate ) Anesthesia Reaction: No Hx Neurological Disorder: No Hx Respiratory Disorders: No Hx Cardiac Disorders: Yes (HTN, heart disease (2018()) Hx Psychiatric Problems: No Hx Miscellaneous Medical Probl: No Hx Alcohol Use: No Hx Substance Use: No Hx Tobacco Use: No Smoking Status: Never smoker Physical Exam Vitals Vital Signs Date Temp Pulse Resp B/P (MAP) Pulse Ox O2 O2 Flow FiO2 Time Delivery Rate 02/03/19 77 20 96/45 (62) 97 Room Air 07:53 02/03/19 98.6 85 20 100 07:34 Physical Exam Const: Elderly appearing male, chronically ill-appearing Head: Atraumatic Eyes: Normal Conjunctiva ENT: Normal External Ears, Nose and Mouth. Neck: Full range of motion. No meningismus. Resp: Clear to auscultation bilaterally Cardio: Regular rate and rhythm, no murmurs Abd: Soft, non tender, non distended, no rebound or guarding, no McBurney's point tenderness. Normal bowel sounds Skin: Pale, no petechia rashes Back: No midline or flank tenderness Ext: No cyanosis, or edema Neur: Awake and alert Psych: Normal Mood and Affect Result Diagram: 02/03/19 0810 02/03/19 0810 Results 24 hrs Laboratory Tests Test 02/03/19 08:10 White Blood Count 10.1 10^3/ul Red Blood Count 2.36 10^6/ul Hemoglobin 7.2 g/dl Hematocrit 23.8 % Mean Corpuscular Volume 100.8 fl Mean Corpuscular Hemoglobin 30.5 pg Mean Corpuscular Hemoglobin Concent 30.3 g/dl Red Cell Distribution Width 17.2 % Platelet Count 200 10^3/UL Mean Platelet Volume 12.4 fl Immature Granulocytes % 0.300 % Neutrophils % 74.3 % Lymphocytes % 20.6 % Monocytes % 3.3 % Eosinophils % 0.7 % Basophils % 0.8 % Nucleated Red Blood Cells % 0.0 /100WBC Immature Granulocytes # 0.030 10^3/ul Neutrophils # 7.5 10^3/ul Lymphocytes # 2.1 10^3/ul Monocytes # 0.3 10^3/ul Eosinophils # 0.1 10^3/ul Basophils # 0.1 10^3/ul Nucleated Red Blood Cells # 0.0 10^3/ul Sodium Level 140 mmol/L Potassium Level 5.4 mmol/L Chloride Level 109 mmol/L Carbon Dioxide Level 23 mmol/L Anion Gap 8 Blood Urea Nitrogen 38 mg/dl Creatinine 1.24 mg/dl Est Glomerular Filtrat Rate mL/min mL/min Glucose Level 173 mg/dl Calcium Level 8.3 mg/dl Total Bilirubin 0.8 mg/dl Direct Bilirubin 0.00 mg/dl Indirect Bilirubin 0.8 mg/dl Aspartate Amino Transf (AST/SGOT) 33 IU/L Alanine Aminotransferase (ALT/SGPT) 43 IU/L Alkaline Phosphatase 146 IU/L Troponin I Pending Total Protein 5.8 g/dl Albumin 2.6 g/dl Globulin 3.20 g/dl Albumin/Globulin Ratio 0.81 Lipase 34 U/L Current Medications Medications Dose Sig/Omari Start Time Status Last (Trade) Ordered Route PRN Stop Time Admin Dose Reason Admin Ondansetron 4 mg ONCE STAT 02/03/19 DC 02/03/19 HCl (Zofran IV 08:27 02/03/19 08:36 Inj) 08:33 Sodium 0 ml @ 0 Q0M ONCE 02/03/19 DC Chloride mls/hr IV 09:13 02/03/19 09:15 Procedures/MDM This is an 78-year-old male who presents for evaluation of generalized weakness and syncope. On exam, patient had no peritoneal signs, and at the time of evaluation he had no abdominal pain. His labs were significant for a drop in his hemoglobin to 7.2, in the setting of syncope, I am concerned that the patient could be symptomatically anemic. Thus he will be transfused 1 unit and will be admitted for further work-up. On rectal exam, the patient had no evidence of hematochezia, or melena. He remained hemodynamically stable, will be admitted to telemetry EKG: Rate/Rhythm: Normal Sinus Rhythm QRS, ST, T-waves: No changes consistent w/ acute ischemia Impression: No evidence of ischemia or arrhythmia Accepting Care Team: Current data and ongoing care discussed. Primary: Caleb Consulting: none Outstanding Data: none Departure Diagnosis: Primary Impression: Syncope Syncope type: unspecified Qualified Codes: R55 - Syncope and collapse Additional Impression: Anemia Anemia type: unspecified type Qualified Codes: D64.9 - Anemia, unspecified Condition: Stable DOUGLAS CALDERON MD Feb 03, 2019 09:47
[2019-02-03] MEDS ORDERED: METF850T13 PO (10:02)
[2019-02-03] MEDS ORDERED: FURO40TA4 PO (10:02)
[2019-02-03] MEDS ORDERED: LEVO25TA50 PO (10:02)
[2019-02-03] MEDS ORDERED: SPIR25TA PO (10:03)
--- NOTE | 2019-02-03 13:38 | HP ---
Date/Time of Note Date/Time of Note DATE: 02/03/19 TIME: 13:30 Assessment/Plan VTE Prophylaxis SCD applied (from Nsg): Yes Pharmacological prophylaxis: NA/contraindicated Pharm contraindication: bleeding Lines/Catheters IV Catheter Type (from Nrsg): Saline Lock Assessment/Plan Hospital Course 1. 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 Gout Hold home colchicine 4. Hypothyroidism Continue home Synthroid 5. Diabetes Patient on metformin at home, hold for now due to liver disease Sliding scale 6. History of coronary disease No acute issues Prophylaxis: SCDs Result Diagram: 02/03/19 0810 02/03/19 0810 Results 24hrs Laboratory Tests Test 02/03/19 08:10 02/03/19 11:50 White Blood Count 10.1 # Red Blood Count 2.36 #L Hemoglobin 7.2 #L Hematocrit 23.8 #L Mean Corpuscular Volume 100.8 Mean Corpuscular Hemoglobin 30.5 Mean Corpuscular Hemoglobin Concent 30.3 L Red Cell Distribution Width 17.2 H Platelet Count 200 # Mean Platelet Volume 12.4 H Immature Granulocytes % 0.300 Neutrophils % 74.3 Lymphocytes % 20.6 Monocytes % 3.3 Eosinophils % 0.7 Basophils % 0.8 Nucleated Red Blood Cells % 0.0 Immature Granulocytes # 0.030 Neutrophils # 7.5 Lymphocytes # 2.1 Monocytes # 0.3 Eosinophils # 0.1 Basophils # 0.1 Nucleated Red Blood Cells # 0.0 Sodium Level 140 Potassium Level 5.4 H Chloride Level 109 Carbon Dioxide Level 23 Anion Gap 8 Blood Urea Nitrogen 38 H Creatinine 1.24 Est Glomerular Filtrat Rate mL/min Glucose Level 173 Calcium Level 8.3 L Total Bilirubin 0.8 Direct Bilirubin 0.00 Indirect Bilirubin 0.8 Aspartate Amino Transf (AST/SGOT) 33 Alanine Aminotransferase (ALT/SGPT) 43 Alkaline Phosphatase 146 H Troponin I < 0.012 Total Protein 5.8 L Albumin 2.6 L Globulin 3.20 Albumin/Globulin Ratio 0.81 Lipase 34 Urine Color YELLOW Urine Clarity CLEAR Urine pH 5.0 Urine Specific [place] 1.016 Urine Ketones TRACE A Urine Nitrite NEGATIVE Urine Bilirubin NEGATIVE Urine Urobilinogen NEGATIVE Urine Leukocyte Esterase NEGATIVE Urine Hemoglobin NEGATIVE Urine Glucose NEGATIVE Urine Total Protein NEGATIVE HPI/ROS Admit Date/Time Admit Date/Time January 03, 2019 Hx of Present Illness Patient is an 78-year-old male with a history of cryptogenic cirrhosis with ascites status post paracentesis in the past, diabetes, hypertension, CAD status post CABG, right inguinal hernia repair, prostate cancer surgery, gout, peptic ulcer disease, hypertension. Patient presents with abdominal pain and weakness and had a syncopal episode in triage. Patient was noted to be anemic and was given 1 unit of blood in the ER. Patient states that he has been having abdominal pain for the past month and been taking an Alleve nightly, patient denies any melena or sohail bleed. Patient has no other complaints this time. ROS Constitutional: no complaints, improved Eyes: no complaints ENT: no complaints Respiratory: no complaints Cardiovascular: no complaints Gastrointestinal: pain Genitourinary: no complaints Musculoskeletal: no complaints Skin: no complaints Neurologic: no complaints Endocrine: no complaints Lymphatic: no complaints Psychological: no complaints, nl mood/affect Immunologic: no complaints PMH/Family/Social Past Medical History As per HPI Coded Allergies: No Known Allergy (Unverified , 02/03/19) Past Surgical History Past Surgical Hx: other Family History Significant Family History: no pertinent family hx Social History Alcohol Use: rarely Smoking Status: Never smoker Drug Use: none Exam/Review of Systems Vital Signs Vitals Vital Signs Date Temp Pulse Resp B/P (MAP) Pulse Ox O2 O2 Flow FiO2 Time Delivery Rate 02/03/19 88 20 121/58 98 Room Air 09:43 (79) 02/03/19 98.6 07:34 Exam Constitutional: alert, oriented Respiratory: clear to auscultation Cardiovascular: regular rate and rhythm Gastrointestinal: soft; No distended Musculoskeletal: nl extremities to inspection SUDHIR BARRINETOS Feb 03, 2019 13:38
[2019-02-03] MEDS ORDERED: NACL 0.9% 3 ML SYG IV SCH (14:00)
[2019-02-03] MEDS ORDERED: ZOLPIDEM 5 MG TAB PO PRN (14:00)
[2019-02-03] MEDS ORDERED: PANTOPRAZOLE 40 MG INJ IV ONE (14:00)
[2019-02-03] MEDS ORDERED: ONDANSETRON 4 MG INJ IV PRN (14:00)
[2019-02-03] MEDS ORDERED: ACETAMINOPHEN 325 MG TAB PO PRN (14:00)
[2019-02-03] MEDS ORDERED: DOCUSATE SODIUM 100 MG CAP PO PRN (14:00)
[2019-02-03 16:00] VITALS: BP 163/74; PULSE 81; PULSE 82; RESP 18; Ht 177.8 cm; Wt 73.4 kg
[2019-02-03] MEDS: PANTOPRAZOLE 40 MG INJ IV SCH (18:08)
--- NOTE | 2019-02-03 18:08 | CONS ---
Assessment/Plan Assessment/Plan Assessment/Plan (Daily) Assessment: Anemia - suspected GI bleeding Melena Hx of cryptogenic cirrhosis Hx of perforated gastric ulcer s/p repair Ventral hernia Plan: Will plan for EGD upper endoscopy tomorrow in am. Benefits, alternatives and risk of procedure discussed with patient who is agreeable to proceed. NPO p MN. Continue PPI protonix BID. Add carafate QID Avoid NSAID use. Transfused for Hgb less than 7.5 May need surveillance colonoscopy. Patient seen in collaboration with Dr. Harvey. CC: KIRIT HARVEY MD ; Consultation Date/Type/Reason Admit Date/Time January 03, 2019 Date of Consultation: Feb 03, 2019 Type of Consult gastroenterology Reason for Consultation anemia, possible GI bleeding Requesting Provider: SUDHIR BARRIENTOS Date/Time of Note DATE: 02/03/19 TIME: 17:57 Hx of Present Illness Mr. Pichardo is an 78 y/o male a history of cirrhosis, perforated gastric ulcer status post repair in 2000, anemia, diabetes, hypothyroidism, and CAD, admitted with nausea and vomiting, and epigastric abdominal pain. He reports he came to the hospital because he can't eat due to his liver condition. He also notes black stools over the past several weeks. He was found to have anemia with Hgb of 7. He was given 1 unit PRBC. He reports daily NSAID use with Aleve for the abdominal pain. He denies chest pain, shortness of breath, and palpitations. He denies ever having an upper endoscopy or colonoscopy. A 10 point review of systems is otherwise negative except as mentioned in the above HPI Past Medical History Home Meds Reported Medications Spironolactone* (Aldactone*) 25 Mg Tablet, 25 MG PO DAILY, #30 TAB 02/03/19 Furosemide* (Furosemide*) 40 Mg Tablet, 40 MG PO DAILY, TAB 02/03/19 Levothyroxine Sodium* (Levoxyl*) 25 Mcg Tablet, 25 MCG PO BEFORE BREAKFAST, #30 TAB 02/03/19 Metformin Hcl* (Metformin Hcl*) 850 Mg Tablet, 850 MG PO WITH BREAKFAST, #30 TAB 02/03/19 Colchicine (Colchicine) 0.6 Mg Capsule, 0.6 MG PO BID for 50 Days, #100 TAKE 1 CAPSULE BY MOUTH TWICE A DAY 11/07/18 Discontinued Reported Medications Furosemide* (Furosemide*) 20 Mg Tablet, 20 MG PO DAILY, #60 TAB 11/07/18 Metformin Hcl* (Metformin Hcl*) 500 Mg Tablet, 500 MG PO WITH BREAKFAST DINNE, #60 TAB 11/07/18 Discontinued Scripts Aspirin* (Aspirin* (EC)) 81 Mg Tablet.dr, 81 MG PO DAILY for 30 Days, TAB Prov:GARRETT DIOR MD 11/09/18 Thiamine* (Vitamin B-1*) 100 Mg Tablet, 100 MG PO DAILY for 30 Days, TAB Prov:GARRETT DIOR MD 11/09/18 Simethicone* (Mylicon*) 80 Mg Tab, 80 MG PO Q6H PRN for bloating/Gas for 1 Day, TAB Prov:GARRETT DIOR MD 11/09/18 Metoclopramide Hcl* (Metoclopramide Hcl*) 5 Mg Tablet, 5 MG PO TID for 7 Days, #20 TAB Prov:GARRETT DIOR MD 11/09/18 Carvedilol* (Carvedilol*) 3.125 Mg Tablet, 3.125 MG PO BID for 14 Days, #30 TAB Prov:GARRETT DIRO MD 11/09/18 Medications Current Medications IV Flush (NS 3 ml) 3 ml PER PROTOCOL IV ; Start 02/03/19 at 14:00 Ondansetron HCl (Zofran Inj) 4 mg Q6H PRN IV NAUSEA/VOMITING; Start 02/03/19 at 14:00 Acetaminophen (Tylenol Tab) 650 mg Q6H PRN PO .PAIN 1-3 OR TEMP; Start 02/03/19 at 14:00 Acetaminophen/ Hydrocodone Bitart ([place] (5/325)) 1 tab Q6H PRN PO .MOD PAIN 4- 6; Start 02/03/19 at 14:00 Morphine Sulfate (morphine) 2 mg Q4H PRN IV .SEVERE PAIN 7-10; Start 02/03/19 at 14:00 Docusate Sodium (Colace) 100 mg Q12H PRN PO .CONSTIPATION; Start 02/03/19 at 14:00 Zolpidem Tartrate (Ambien) 5 mg QHS PRN PO .INSOMNIA; Start 02/03/19 at 14:00 Pantoprazole (Protonix Iv) 40 mg BID@06,18 IV ; Start 02/03/19 at 18:00 Furosemide (Lasix) 40 mg DAILY PO ; Start 02/04/19 at 09:00 Levothyroxine Sodium (Synthroid) 25 mcg BEFORE BREAKFAST PO ; Start 02/04/19 at 07:00 Spironolactone (Aldactone) 25 mg DAILY PO ; Start 02/04/19 at 09:00 Allergies: Coded Allergies: No Known Allergy (Unverified , 02/03/19) Past Surgical History Past Surgical Hx: other (perforated gastric ulcer repair) Social History Alcohol Use: rarely Smoking Status: Never smoker Drug Use: none Exam/Review of Systems Exam Vitals Vital Signs Date Temp Pulse Resp B/P (MAP) Pulse Ox O2 O2 Flow FiO2 Time Delivery Rate 02/03/19 82 16:00 02/03/19 97.0 18 138/74 100 Room Air 15:35 (95) Constitutional: alert, oriented Psych: no complaints, nl mood/affect Head: normocephalic, atraumatic Eyes: nl conjunctiva, EOMI, nl lids ENMT: nl external ears & nose, nl lips & teeth, nl nasal mucosa & septum Neck: supple Respiratory: clear to auscultation, normal air movement Cardiovascular: regular rate and rhythm, nl pulses Gastrointestinal: soft, nl liver, spleen, bowel sounds, surgical scars (lower abdominal surgcial scar), tender (moderate epigastric tenderness), other (ventral hernia, easily reducible) Musculoskeletal: nl extremities to inspection Extremities: normal pulses Neurological: RN DOCUMENT IMPROVEMENT II-XII intact, nl mental status, nl speech, nl strength Skin: nl turgor Results Result Diagram: 02/03/19 0810 02/03/19 0810 Results 24hrs Laboratory Tests Test 02/03/19 08:10 02/03/19 11:50 White Blood Count 10.1 # Red Blood Count 2.36 #L Hemoglobin 7.2 #L Hematocrit 23.8 #L Mean Corpuscular Volume 100.8 Mean Corpuscular Hemoglobin 30.5 Mean Corpuscular Hemoglobin Concent 30.3 L Red Cell Distribution Width 17.2 H Platelet Count 200 # Mean Platelet Volume 12.4 H Immature Granulocytes % 0.300 Neutrophils % 74.3 Lymphocytes % 20.6 Monocytes % 3.3 Eosinophils % 0.7 Basophils % 0.8 Nucleated Red Blood Cells % 0.0 Immature Granulocytes # 0.030 Neutrophils # 7.5 Lymphocytes # 2.1 Monocytes # 0.3 Eosinophils # 0.1 Basophils # 0.1 Nucleated Red Blood Cells # 0.0 Sodium Level 140 Potassium Level 5.4 H Chloride Level 109 Carbon Dioxide Level 23 Anion Gap 8 Blood Urea Nitrogen 38 H Creatinine 1.24 Est Glomerular Filtrat Rate mL/min Glucose Level 173 Calcium Level 8.3 L Total Bilirubin 0.8 Direct Bilirubin 0.00 Indirect Bilirubin 0.8 Aspartate Amino Transf (AST/SGOT) 33 Alanine Aminotransferase (ALT/SGPT) 43 Alkaline Phosphatase 146 H Troponin I < 0.012 Total Protein 5.8 L Albumin 2.6 L Globulin 3.20 Albumin/Globulin Ratio 0.81 Lipase 34 Urine Color YELLOW Urine Clarity CLEAR Urine pH 5.0 Urine Specific [place] 1.016 Urine Ketones TRACE A Urine Nitrite NEGATIVE Urine Bilirubin NEGATIVE Urine Urobilinogen NEGATIVE Urine Leukocyte Esterase NEGATIVE Urine Hemoglobin NEGATIVE Urine Glucose NEGATIVE Urine Total Protein NEGATIVE Medications Medication Current Medications IV Flush (NS 3 ml) 3 ml PER PROTOCOL IV ; Start 02/03/19 at 14:00 Ondansetron HCl (Zofran Inj) 4 mg Q6H PRN IV NAUSEA/VOMITING; Start 02/03/19 at 14:00 Acetaminophen (Tylenol Tab) 650 mg Q6H PRN PO .PAIN 1-3 OR TEMP; Start 02/03/19 at 14:00 Acetaminophen/ Hydrocodone Bitart ([place] (5/325)) 1 tab Q6H PRN PO .MOD PAIN 4- 6; Start 02/03/19 at 14:00 Morphine Sulfate (morphine) 2 mg Q4H PRN IV .SEVERE PAIN 7-10; Start 02/03/19 at 14:00 Docusate Sodium (Colace) 100 mg Q12H PRN PO .CONSTIPATION; Start 02/03/19 at 14:00 Zolpidem Tartrate (Ambien) 5 mg QHS PRN PO .INSOMNIA; Start 02/03/19 at 14:00 Pantoprazole (Protonix Iv) 40 mg BID@06,18 IV ; Start 02/03/19 at 18:00 Furosemide (Lasix) 40 mg DAILY PO ; Start 02/04/19 at 09:00 Levothyroxine Sodium (Synthroid) 25 mcg BEFORE BREAKFAST PO ; Start 02/04/19 at 07:00 Spironolactone (Aldactone) 25 mg DAILY PO ; Start 02/04/19 at 09:00 JOSE PATEL [employer] Feb 03, 2019 18:07
[2019-02-03] MEDS: HYDROCODONE/APAP (5/325) TAB PO PRN (18:15)
[2019-02-03 20:00] VITALS: BP 126/58; PULSE 79; PULSE 86; RESP 19
[2019-02-03] MEDS ORDERED: SODIUM POLYSTYRENE 15 GM KIT (POWDER + SORBITOL) PO ONE (22:30)
[2019-02-04] VITALS (19 sets, daily range): BP systolic 100–149; BP diastolic 56–74; PULSE 62–94; RESP 16–28
[2019-02-04] MEDS: morphine 2 MG INJ IV PRN (02:56)
[2019-02-04] MEDS: PANTOPRAZOLE 40 MG INJ IV SCH ×2 (06:00→18:42)
[2019-02-04] MEDS: LEVOTHYROXINE 25 MCG TAB PO SCH (06:09)
[2019-02-04] MEDS: HYDROCODONE/APAP (5/325) TAB PO PRN (06:09)
[2019-02-04] MEDS ORDERED: SOD CHLORIDE 0.9% 250 ML IV* ONE (07:04)
[2019-02-04] MEDS ORDERED: FUROSEMIDE 40 MG TAB PO SCH (09:00)
[2019-02-04] MEDS: SPIRONOLACTONE 25 MG TAB PO SCH (09:24)
[2019-02-04] MEDS: SALINE 0.65% 45 ML NAS SPRAY NASAL SCH ×2 (13:12→20:32)
--- NOTE | 2019-02-04 13:37 | PN ---
Date/Time of Note Date/Time of Note DATE: 02/04/19 TIME: 13:31 Assessment/Plan VTE Prophylaxis Risk score (from Ns)>0 risk: 4 SCD applied (from Ns): Yes Pharmacological prophylaxis: NA/contraindicated Pharm contraindication: bleeding Lines/Catheters IV Catheter Type (from Nrs): Saline Lock Assessment/Plan Assessment/Plan 1. Acute GI bleed - admits to dark stool prior to admission - GI consulted and will plan for EGD today - continue PPI and Carafate 2. Symptomatic anemia secondary to acute blood loss - H/H noted and 2 units PRBC ordered this am - no sohail bleeding noted - GI on board 3. 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 no need for paracentesis at this time 4. Hypothyroidism - On Synthroid 5. Diabetes - ISS and accuchecks 6. ANTONIETTA - most likely secondary to hypovolemia and NSAID use - will continue IVF - avoid nephrotoxic agents 7. History of coronary disease - stable - no chest pain noted 8. Disposition - Monitor H/H and renal function - EGD planned for today to assess LGIB Result Diagram: 02/04/19 0543 02/04/19 0543 Results 24hrs Laboratory Tests Test 02/04/19 05:43 White Blood Count 8.8 Red Blood Count 2.00 L Hemoglobin 6.1 *L Hematocrit 19.4 L Mean Corpuscular Volume 97.0 Mean Corpuscular Hemoglobin 30.5 Mean Corpuscular Hemoglobin Concent 31.4 L Red Cell Distribution Width 17.7 H Platelet Count 151 # Mean Platelet Volume 12.8 H Immature Granulocytes % 0.500 H Neutrophils % 67.5 Segmented Neutrophils % (Manual) 69 Band Neutrophils % (Manual) 5 H Lymphocytes % 23.1 Lymphocytes % (Manual) 21 Monocytes % 7.3 Monocytes % (Manual) 5 Eosinophils % 1.1 Basophils % 0.5 Nucleated Red Blood Cells % 1 H Immature Granulocytes # 0.040 H Neutrophils # 5.9 Neutrophils # (Manual) 6.1 Band Neutrophils # 0.4 Lymphocytes (Manual) 1.8 Lymphocytes # 2.0 Monocytes # 0.6 Monocytes # (Manual) 0.4 Eosinophils # 0.1 Basophils # 0.0 Nucleated Red Blood Cells # 0.0 Platelet Estimate NORMAL Polychromasia 3+ Poikilocytosis 1+ Anisocytosis 1+ Microcytosis 1+ Ovalocytes 1+ Sodium Level 140 Potassium Level 5.0 Chloride Level 112 H Carbon Dioxide Level 24 Anion Gap 4 L Blood Urea Nitrogen 56 H Creatinine 1.28 H Est Glomerular Filtrat Rate mL/min Glucose Level 129 # Hemoglobin A1c Calcium Level 8.2 L Phosphorus Level 3.2 Magnesium Level 1.7 Total Bilirubin 0.7 Direct Bilirubin 0.00 Indirect Bilirubin 0.7 Aspartate Amino Transf (AST/SGOT) 22 Alanine Aminotransferase (ALT/SGPT) 36 Alkaline Phosphatase 106 Total Protein 4.7 #L Albumin 2.1 L Globulin 2.60 Albumin/Globulin Ratio 0.80 Free Thyroxine Index 2.33 Thyroxine (T4) 4.9 L Triiodothyronine (T3) Uptake 47.5 H Subjective 24 Hr Interval Summary Free Text/Dictation Patient is complaining of congestion in right nare and feels as if unable to get rid of mucous buildup. does admit to dark stools for a couple weeks but no sohail bleeding. h/o ulcers in the past. Exam/Review of Systems Exam Vitals Vital Signs Date Temp Pulse Resp B/P (MAP) Pulse Ox O2 O2 Flow FiO2 Time Delivery Rate 02/04/19 94 12:00 02/04/19 98.0 19 109/57 97 11:40 (74) 02/04/19 2.0 08:30 02/03/19 Room Air 15:35 Intake and Output 02/03/19 02/03/19 02/04/19 1515:00 23:00 07:00 IntakeIntake Total 500 ml 300 ml OutputOutput Total 400 ml 600 ml BalanceBalance 100 ml -300 ml Exam General: no acute distress. temporal wasting HEENT: NC/AT. PERRL. EOM intact Neck: supple CVS: S1, S2, regular rate and rhythm. no murmurs Lungs: clear to auscultation bilaterally. no wheezing or rhonchi Abd: soft, nontender, nondistended. no rebound or guarding. bowel sounds present diffusely Ext: moving all extremities. no cyanosis, clubbing, or edema SKin: warm, dry. no rashes or lesions appreciated Results Results 24hrs Laboratory Tests Test 02/04/19 05:43 White Blood Count 8.8 Red Blood Count 2.00 L Hemoglobin 6.1 *L Hematocrit 19.4 L Mean Corpuscular Volume 97.0 Mean Corpuscular Hemoglobin 30.5 Mean Corpuscular Hemoglobin Concent 31.4 L Red Cell Distribution Width 17.7 H Platelet Count 151 # Mean Platelet Volume 12.8 H Immature Granulocytes % 0.500 H Neutrophils % 67.5 Segmented Neutrophils % (Manual) 69 Band Neutrophils % (Manual) 5 H Lymphocytes % 23.1 Lymphocytes % (Manual) 21 Monocytes % 7.3 Monocytes % (Manual) 5 Eosinophils % 1.1 Basophils % 0.5 Nucleated Red Blood Cells % 1 H Immature Granulocytes # 0.040 H Neutrophils # 5.9 Neutrophils # (Manual) 6.1 Band Neutrophils # 0.4 Lymphocytes (Manual) 1.8 Lymphocytes # 2.0 Monocytes # 0.6 Monocytes # (Manual) 0.4 Eosinophils # 0.1 Basophils # 0.0 Nucleated Red Blood Cells # 0.0 Platelet Estimate NORMAL Polychromasia 3+ Poikilocytosis 1+ Anisocytosis 1+ Microcytosis 1+ Ovalocytes 1+ Sodium Level 140 Potassium Level 5.0 Chloride Level 112 H Carbon Dioxide Level 24 Anion Gap 4 L Blood Urea Nitrogen 56 H Creatinine 1.28 H Est Glomerular Filtrat Rate mL/min Glucose Level 129 # Hemoglobin A1c Calcium Level 8.2 L Phosphorus Level 3.2 Magnesium Level 1.7 Total Bilirubin 0.7 Direct Bilirubin 0.00 Indirect Bilirubin 0.7 Aspartate Amino Transf (AST/SGOT) 22 Alanine Aminotransferase (ALT/SGPT) 36 Alkaline Phosphatase 106 Total Protein 4.7 #L Albumin 2.1 L Globulin 2.60 Albumin/Globulin Ratio 0.80 Free Thyroxine Index 2.33 Thyroxine (T4) 4.9 L Triiodothyronine (T3) Uptake 47.5 H Medications Medication Current Medications IV Flush (NS 3 ml) 3 ml PER PROTOCOL IV ; Start 02/03/19 at 14:00 Ondansetron HCl (Zofran Inj) 4 mg Q6H PRN IV NAUSEA/VOMITING; Start 02/03/19 at 14:00 Acetaminophen (Tylenol Tab) 650 mg Q6H PRN PO .PAIN 1-3 OR TEMP; Start 02/03/19 at 14:00 Acetaminophen/ Hydrocodone Bitart ([place] (5/325)) 1 tab Q6H PRN PO .MOD PAIN 4- 6 Last administered on 6/10/19at 06:09; Admin Dose 1 TAB; Start 02/03/19 at 14:00 Morphine Sulfate (morphine) 2 mg Q4H PRN IV .SEVERE PAIN 7-10 Last administered on 02/04/19 02:56; Admin Dose 2 MG; Start 02/03/19 at 14:00 Docusate Sodium (Colace) 100 mg Q12H PRN PO .CONSTIPATION; Start 02/03/19 at 14:00 Zolpidem Tartrate (Ambien) 5 mg QHS PRN PO .INSOMNIA; Start 02/03/19 at 14:00 Pantoprazole (Protonix Iv) 40 mg BID@18 IV Last administered on 02/03/19 18:08; Admin Dose 40 MG; Start 02/03/19 at 18:00 Furosemide (Lasix) 40 mg DAILY PO Last administered on 02/04/19 09:24; Admin Dose 40 MG; Start 02/04/19 at 09:00 Levothyroxine Sodium (Synthroid) 25 mcg BEFORE BREAKFAST PO Last administered on 02/04/19 06:09; Admin Dose 25 MCG; Start 02/04/19 at 07:00 Spironolactone (Aldactone) 25 mg DAILY PO Last administered on 02/04/19 09:24; Admin Dose 25 MG; Start 02/04/19 at 09:00 Sodium Chloride ([place]) 2 spray BID NASAL Last administered on 02/04/19 13:12; Admin Dose 2 SPRAY; Start 02/04/19 at 11:00 BROCK VAN MD Feb 04, 2019 13:37
--- NOTE | 2019-02-04 14:35 | PREAC ---
Date/Time of Note Date/Time of Note DATE: 02/04/19 TIME: 14:33 Anesthesia Eval and Record Evaluation Time Pre-Procedure Interview DATE: 02/04/19 TIME: 14:33 Age 78 Sex male NPO: 8 hrs Preoperative diagnosis Anemia Planned procedure EGD Past Medical History Past Medical History: Includes Cardio: Dyslipidemia, CAD Endo: Diabetes, Hypothyroid Pulm: Other (Gout) Renal: CKD Hepatic: Cirrhosis Heme: Anemia Surgery & Anesthesia Issues No known issue Meds Anticoagulation: No Beta Cindi within 24 hr: No Reason Beta Cindi not given: Pt. not on B-Cindi Reported Medications Spironolactone* (Aldactone*) 25 Mg Tablet, 25 MG PO DAILY, #30 TAB 02/03/19 Furosemide* (Furosemide*) 40 Mg Tablet, 40 MG PO DAILY, TAB 02/03/19 Levothyroxine Sodium* (Levoxyl*) 25 Mcg Tablet, 25 MCG PO BEFORE BREAKFAST, #30 TAB 02/03/19 Metformin Hcl* (Metformin Hcl*) 850 Mg Tablet, 850 MG PO WITH BREAKFAST, #30 TAB 02/03/19 Colchicine (Colchicine) 0.6 Mg Capsule, 0.6 MG PO BID for 50 Days, #100 TAKE 1 CAPSULE BY MOUTH TWICE A DAY 11/07/18 Discontinued Reported Medications Furosemide* (Furosemide*) 20 Mg Tablet, 20 MG PO DAILY, #60 TAB 11/07/18 Metformin Hcl* (Metformin Hcl*) 500 Mg Tablet, 500 MG PO WITH BREAKFAST DINNE, #60 TAB 11/07/18 Discontinued Scripts Aspirin* (Aspirin* (EC)) 81 Mg Tablet.dr, 81 MG PO DAILY for 30 Days, TAB Prov:GARRETT DIOR MD 11/09/18 Thiamine* (Vitamin B-1*) 100 Mg Tablet, 100 MG PO DAILY for 30 Days, TAB Prov:GARRETT DIOR MD 11/09/18 Simethicone* (Mylicon*) 80 Mg Tab, 80 MG PO Q6H PRN for bloating/Gas for 1 Day, TAB Prov:GARRETT DIOR MD 11/09/18 Metoclopramide Hcl* (Metoclopramide Hcl*) 5 Mg Tablet, 5 MG PO TID for 7 Days, #20 TAB Prov:GARRETT DIOR MD 11/09/18 Carvedilol* (Carvedilol*) 3.125 Mg Tablet, 3.125 MG PO BID for 14 Days, #30 TAB Prov:GARRETT DIOR MD 11/09/18 Current Medications IV Flush (NS 3 ml) 3 ml PER PROTOCOL IV ; Start 02/03/19 at 14:00 Ondansetron HCl (Zofran Inj) 4 mg Q6H PRN IV NAUSEA/VOMITING; Start 02/03/19 at 14:00 Acetaminophen (Tylenol Tab) 650 mg Q6H PRN PO .PAIN 1-3 OR TEMP; Start 02/03/19 at 14:00 Acetaminophen/ Hydrocodone Bitart ([place] (5/325)) 1 tab Q6H PRN PO .MOD PAIN 4- 6 Last administered on 02/04/19 06:09; Admin Dose 1 TAB; Start 02/03/19 at 14:00 Morphine Sulfate (morphine) 2 mg Q4H PRN IV .SEVERE PAIN 7-10 Last administered on 02/04/19at 02:56; Admin Dose 2 MG; Start 02/03/19 at 14:00 Docusate Sodium (Colace) 100 mg Q12H PRN PO .CONSTIPATION; Start 02/03/19 at 14:00 Zolpidem Tartrate (Ambien) 5 mg QHS PRN PO .INSOMNIA; Start 02/03/19 at 14:00 Pantoprazole (Protonix Iv) 40 mg BID@,18 IV Last administered on 02/03/19at 18:08; Admin Dose 40 MG; Start 02/03/19 at 18:00 Furosemide (Lasix) 40 mg DAILY PO Last administered on 02/04/19 09:24; Admin Dose 40 MG; Start 02/04/19 at 09:00 Levothyroxine Sodium (Synthroid) 25 mcg BEFORE BREAKFAST PO Last administered on 02/04/19 06:09; Admin Dose 25 MCG; Start 02/04/19 at 07:00 Spironolactone (Aldactone) 25 mg DAILY PO Last administered on 02/04/19 09:24; Admin Dose 25 MG; Start 02/04/19 at 09:00 Sodium Chloride ([place]) 2 spray BID NASAL Last administered on 02/04/19at 13:12; Admin Dose 2 SPRAY; Start 02/04/19 at 11:00 Meds reviewed: Yes Allergies Coded Allergies: No Known Allergy (Unverified , 02/03/19) Allergies Reviewed: Yes Labs/Studies Labs Reviewed: Reviewed by anesthesiologist Result Diagram: 02/04/19 0543 02/04/19 0543 Laboratory Tests 02/04/19 05:43 test: N/A Studies: ECG (n/a), CXR (n/a) Pre-procedure Exam Last vitals Vital Signs Date Temp Pulse Resp B/P (MAP) Pulse Ox O2 O2 Flow FiO2 Time Delivery Rate 02/04/19 94 12:00 02/04/19 98.0 19 109/57 97 11:40 (74) 02/04/19 2.0 08:30 02/03/19 Room Air 15:35 Airway: Adequate mouth opening, Adequate thyromental dist Mallampati: Mallampati II Teeth: Normal Lung: Normal Heart: Normal ASA Physical Status ASA physical status: 4 Emergency: None Planned Anesthetic General/MAC: MAC Planned Pain Management Parenteral pain med Pre-operative Attestations Prior to commencing anesthesia and surgery, the patient was re-evaluated, there was verification of: *The patient's identity *The results of appropriate recent lab work and preoperative vital signs *The above evaluation not changing prior to induction *Anesthetic plan, risk benefits, alternative and complications discussed with patient/family; questions answered; patient/family understands, accepts and wishes to proceed. YASH MORALES MD Feb 04, 2019 14:35
[2019-02-04] MEDS ORDERED: FENTAnyl 50 MCG/ML VIAL IV PRN ×2 (15:00)
[2019-02-04] MEDS ORDERED: EPHEDrine 25 MG/5 ML SYG IV PRN (15:00)
[2019-02-04] MEDS ORDERED: hydrALAzine 20 MG INJ IV PRN (15:00)
[2019-02-04] MEDS ORDERED: ONDANSETRON 4 MG INJ IV PRN (15:00)
[2019-02-04] MEDS ORDERED: LABETALOL HCL 20MG INJ IV PRN (15:00)
[2019-02-04] MEDS ORDERED: HYDROmorphONE 1 MG/5 ML IV SYRINGE IV PRN (15:00)
--- NOTE | 2019-02-04 15:02 | PAC ---
Date/Time of Note Date/Time of Note DATE: 02/04/19 TIME: 15:01 Post-Anesthesia Notes Post-Anesthesia Note Last documented vital signs Vital Signs Date Temp Pulse Resp B/P (MAP) Pulse Ox O2 O2 Flow FiO2 Time Delivery Rate 02/04/19 94 12:00 02/04/19 98.0 74 19 109/57 97 face mask 15:00 (74) 02/04/19 2.0 08:30 02/03/19 Room Air 15:35 Activity: WNL Respiratory function: WNL Cardiovascular function: WNL Mental status: Baseline Pain reasonably controlled: Yes Hydration appropriate: Yes Nausea/Vomiting absent: Yes YASH MORALES MD Feb 04, 2019 15:02
[2019-02-04] MEDS ORDERED: PHENYLephrine (100 MCG/ML) 10ML SYG ONE (15:13)
[2019-02-04] MEDS ORDERED: PROPOFOL 20 ML ONE (15:13)
[2019-02-04] MEDS: SUCRALFATE 1 GM TAB PO SCH ×2 (18:42→20:32)
[2019-02-05] VITALS (11 sets, daily range): BP systolic 102–130; BP diastolic 51–92; PULSE 78–115; RESP 18–20
[2019-02-05] MEDS: PANTOPRAZOLE 40 MG INJ IV SCH ×2 (05:43→17:34)
[2019-02-05] MEDS: LEVOTHYROXINE 25 MCG TAB PO SCH (05:43)
[2019-02-05] MEDS: morphine 2 MG INJ IV PRN ×2 (06:45→21:59)
[2019-02-05] MEDS ORDERED: SOD CHLORIDE 0.9% 500 ML IV ONE (09:00)
[2019-02-05] MEDS: SALINE 0.65% 45 ML NAS SPRAY NASAL SCH ×2 (09:00→21:03)
[2019-02-05] MEDS: SUCRALFATE 1 GM TAB PO SCH ×4 (10:09→21:00)
[2019-02-05] MEDS: SPIRONOLACTONE 25 MG TAB PO SCH (10:09)
--- NOTE | 2019-02-05 12:50 | PN ---
Date/Time of Note Date/Time of Note DATE: 02/05/19 TIME: 12:31 Assessment/Plan VTE Prophylaxis Risk score (from Ns)>0 risk: 4 SCD applied (from Ns): Yes Pharmacological prophylaxis: other (scds) Lines/Catheters IV Catheter Type (from [facility]): Peripheral IV Assessment/Plan Hospital Course Assessment: Anemia - suspected GI bleeding Melena -EGD 02/04/19 Extensive ulceration in the jejunal side of the gastrojejunal Billroth II anastomosis. No stigmata recent bleeding no visible vessel. Distal esophagitis with ulceration. No stigmata. Recent bleeding. Post distal gastrectomy distal to anastomosis Hx of cryptogenic cirrhosis Hx of perforated gastric ulcer s/p repair Ventral hernia Renal insufficiency Plan: Continue PPI Protonix BID/Carafate QID Avoid NSAID use Transfused for Hgb less than 7.5 Patient seen in collaboration with Dr. Harvey Subjective: Course reviewed with nursing staff Patient interviewed and examined All labs, imaging and other results reviewed The patient more confused today, HGB improved Pt received morphine today. Continue current plan of care. Constitutional: more lethargic today- O2 in place Psych: no complaints, nl mood/affect Head: normocephalic, atraumatic Eyes: nl conjunctiva, EOMI, nl lids ENMT: nl external ears & nose, nl lips & teeth, nl nasal mucosa & septum Neck: supple Respiratory: clear to auscultation, normal air movement Cardiovascular: regular rate and rhythm, nl pulses Gastrointestinal: soft, nl liver, spleen, bowel sounds, surgical scars (lower abdominal surgcial scar), tender (moderate epigastric tenderness), other ( ventral hernia, easily reducible) Musculoskeletal: nl extremities to inspection Extremities: normal pulses Result Diagram: 02/05/19 0457 02/05/19 0457 Results 24hrs Laboratory Tests Test 02/05/19 04:57 02/05/19 07:51 02/05/19 08:24 02/05/19 09:24 White Blood 10.5 Count Red Blood Count 2.84 #L Hemoglobin 8.4 #L Hematocrit 26.1 #L Mean Corpuscular 91.9 Volume Mean Corpuscular 29.6 Hemoglobin Mean Corpuscular 32.2 Hemoglobin Frida nt Red Cell 17.2 H Distribution Width Platelet Count 153 Mean Platelet 12.2 H Volume Immature 0.400 Granulocytes % Neutrophils % 80.7 H Lymphocytes % 13.7 L Monocytes % 4.7 Eosinophils % 0.2 Basophils % 0.3 Nucleated Red 0.0 Blood Cells % Immature 0.040 H Granulocytes # Neutrophils # 8.5 H Lymphocytes # 1.4 Monocytes # 0.5 Eosinophils # 0.0 Basophils # 0.0 Nucleated Red 0.0 Blood Cells # Sodium Level 143 Potassium Level 4.2 Chloride Level 111 H Carbon Dioxide 23 Level Anion Gap 9 # Blood Urea 58 H Nitrogen Creatinine 1.39 H Glucose Level 174 Calcium Level 8.3 L Phosphorus Level 3.2 Magnesium Level 1.7 Albumin 2.7 L Bedside Glucose 225 H Lab Scanned BLOOD TRANSFUSI REFERENCE LAB Report ON Exam/Review of Systems Exam Vitals Vital Signs Date Temp Pulse Resp B/P (MAP) Pulse Ox O2 O2 Flow FiO2 Time Delivery Rate 02/05/19 98.0 78 18 102/51 98 12:14 (68) 02/04/19 2.0 20:00 02/04/19 Nasal 15:33 Cannula Intake and Output 02/04/19 02/04/19 02/05/19 1515:00 23:00 07:00 IntakeIntake Total 400 ml 550 ml 200 ml OutputOutput Total 1100 ml 1000 ml 750 ml BalanceBalance -700 ml -450 ml -550 ml Results Results 24hrs Laboratory Tests Test 02/05/19 04:57 02/05/19 07:51 02/05/19 08:24 02/05/19 09:24 White Blood 10.5 Count Red Blood Count 2.84 #L Hemoglobin 8.4 #L Hematocrit 26.1 #L Mean Corpuscular 91.9 Volume Mean Corpuscular 29.6 Hemoglobin Mean Corpuscular 32.2 Hemoglobin Frida nt Red Cell 17.2 H Distribution Width Platelet Count 153 Mean Platelet 12.2 H Volume Immature 0.400 Granulocytes % Neutrophils % 80.7 H Lymphocytes % 13.7 L Monocytes % 4.7 Eosinophils % 0.2 Basophils % 0.3 Nucleated Red 0.0 Blood Cells % Immature 0.040 H Granulocytes # Neutrophils # 8.5 H Lymphocytes # 1.4 Monocytes # 0.5 Eosinophils # 0.0 Basophils # 0.0 Nucleated Red 0.0 Blood Cells # Sodium Level 143 Potassium Level 4.2 Chloride Level 111 H Carbon Dioxide 23 Level Anion Gap 9 # Blood Urea 58 H Nitrogen Creatinine 1.39 H Glucose Level 174 Calcium Level 8.3 L Phosphorus Level 3.2 Magnesium Level 1.7 Albumin 2.7 L Bedside Glucose 225 H Lab Scanned BLOOD TRANSFUSI REFERENCE LAB Report ON Medications Medication Current Medications IV Flush (NS 3 ml) 3 ml PER PROTOCOL IV ; Start 02/03/19 at 14:00 Ondansetron HCl (Zofran Inj) 4 mg Q6H PRN IV NAUSEA/VOMITING; Start 02/03/19 at 14:00 Acetaminophen (Tylenol Tab) 650 mg Q6H PRN PO .PAIN 1-3 OR TEMP; Start 02/03/19 at 14:00 Acetaminophen/ Hydrocodone Bitart ([place] (5/325)) 1 tab Q6H PRN PO .MOD PAIN 4- 6 Last administered on 02/04/19 06:09; Admin Dose 1 TAB; Start 02/03/19 at 14:00 Morphine Sulfate (morphine) 2 mg Q4H PRN IV .SEVERE PAIN 7-10 Last administered on 02/05/19 06:45; Admin Dose 2 MG; Start 02/03/19 at 14:00 Docusate Sodium (Colace) 100 mg Q12H PRN PO .CONSTIPATION; Start 02/03/19 at 14:00 Zolpidem Tartrate (Ambien) 5 mg QHS PRN PO .INSOMNIA Last administered on 02/04/19 22:35; Admin Dose 5 MG; Start 02/03/19 at 14:00 Pantoprazole (Protonix Iv) 40 mg BID@06,18 IV Last administered on 02/05/19 05:43; Admin Dose 40 MG; Start 02/03/19 at 18:00 Furosemide (Lasix) 40 mg DAILY PO Last administered on 02/04/19 09:24; Admin Dose 40 MG; Start 02/04/19 at 09:00; Status Hold Levothyroxine Sodium (Synthroid) 25 mcg BEFORE BREAKFAST PO Last administered on 02/05/19 05:43; Admin Dose 25 MCG; Start 02/04/19 at 07:00 Spironolactone (Aldactone) 25 mg DAILY PO Last administered on 02/05/19 10:09; Admin Dose 25 MG; Start 02/04/19 at 09:00 Sodium Chloride (Deep Sea) 2 spray BID NASAL Last administered on 02/05/19 09:00; Admin Dose 2 SPRAY; Start 02/04/19 at 11:00 Sucralfate (Carafate) 1 gm QID PO Last administered on 02/05/19at 10:09; Admin Dose 1 GM; Start 02/04/19 at 17:00 INGRID MAST Feb 05, 2019 12:41
--- NOTE | 2019-02-05 12:54 | PN ---
Date/Time of Note Date/Time of Note DATE: 02/05/19 TIME: 12:41 Assessment/Plan VTE Prophylaxis Risk score (from Ns)>0 risk: 4 SCD applied (from Ns): Yes Pharmacological prophylaxis: NA/contraindicated Pharm contraindication: bleeding Lines/Catheters [facility]from [facility] Peripheral IV Assessment/Plan Assessment/Plan 1. Acute GI bleed s/p EGD - GI on board and appreciate recommendations. EGD 02/04 shows extensive ulcerations in jejunal side of GJ. distal esophagitis - continue on PPI and Carafate - admits to dark stool prior to admission 2. Symptomatic anemia secondary to acute blood loss - H/H noted - no sohail bleeding noted - GI on board 3. 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 continue Aldactone - previous work-up was negative for autoimmune and viral etiologies - US abd noted. no need for paracentesis at this time 4. Hypothyroidism - On Synthroid 5. Diabetes - ISS and accuchecks 6. ANTONIETTA - hold lasix at this time given appears dehydrated and will give a fluid bolus - most likely secondary to hypovolemia and NSAID use - will continue IVF - avoid nephrotoxic agents 7. History of coronary disease - stable - no chest pain noted 8. Disposition - Monitor for improvement in renal function. Once tolerating PO intake, H/H remains stable and ANTONIETTA resolves, will d/c Result Diagram: 02/05/19 0457 02/05/19 0457 Results 24hrs Laboratory Tests Test 02/05/19 04:57 02/05/19 07:51 02/05/19 08:24 02/05/19 09:24 White Blood 10.5 Count Red Blood Count 2.84 #L Hemoglobin 8.4 #L Hematocrit 26.1 #L Mean Corpuscular 91.9 Volume Mean Corpuscular 29.6 Hemoglobin Mean Corpuscular 32.2 Hemoglobin Frida nt Red Cell 17.2 H Distribution Width Platelet Count 153 Mean Platelet 12.2 H Volume Immature 0.400 Granulocytes % Neutrophils % 80.7 H Lymphocytes % 13.7 L Monocytes % 4.7 Eosinophils % 0.2 Basophils % 0.3 Nucleated Red 0.0 Blood Cells % Immature 0.040 H Granulocytes # Neutrophils # 8.5 H Lymphocytes # 1.4 Monocytes # 0.5 Eosinophils # 0.0 Basophils # 0.0 Nucleated Red 0.0 Blood Cells # Sodium Level 143 Potassium Level 4.2 Chloride Level 111 H Carbon Dioxide 23 Level Anion Gap 9 # Blood Urea 58 H Nitrogen Creatinine 1.39 H Glucose Level 174 Calcium Level 8.3 L Phosphorus Level 3.2 Magnesium Level 1.7 Albumin 2.7 L Bedside Glucose 225 H Lab Scanned BLOOD TRANSFUSI REFERENCE LAB Report ON Subjective 24 Hr Interval Summary Free Text/Dictation Patient tired this am but still arousable and answering questions appropriately. Denies any abdominal pain or N/V. Exam/Review of Systems Exam Vitals Vital Signs Date Temp Pulse Resp B/P (MAP) Pulse Ox O2 O2 Flow FiO2 Time Delivery Rate 02/05/19 98.0 78 18 102/51 98 12:14 (68) 02/04/19 2.0 20:00 02/04/19 Nasal 15:33 Cannula Intake and Output 02/04/19 02/04/19 02/05/19 1515:00 23:00 07:00 IntakeIntake Total 400 ml 550 ml 200 ml OutputOutput Total 1100 ml 1000 ml 750 ml BalanceBalance -700 ml -450 ml -550 ml Exam General: no acute distress. fatigued HEENT: NC/AT. PERRL. EOM intact Neck: supple CVS: S1, S2, regular rate and rhythm. no murmurs Lungs: clear to auscultation bilaterally. no wheezing or rhonchi Abd: soft, nontender, nondistended. no rebound or guarding. bowel sounds present diffusely Ext: moving all extremities. no cyanosis, clubbing, or edema SKin: warm, dry. no rashes or lesions appreciated Results Results 24hrs Laboratory Tests Test 02/05/19 04:57 02/05/19 07:51 02/05/19 08:24 02/05/19 09:24 White Blood 10.5 Count Red Blood Count 2.84 #L Hemoglobin 8.4 #L Hematocrit 26.1 #L Mean Corpuscular 91.9 Volume Mean Corpuscular 29.6 Hemoglobin Mean Corpuscular 32.2 Hemoglobin Frida nt Red Cell 17.2 H Distribution Width Platelet Count 153 Mean Platelet 12.2 H Volume Immature 0.400 Granulocytes % Neutrophils % 80.7 H Lymphocytes % 13.7 L Monocytes % 4.7 Eosinophils % 0.2 Basophils % 0.3 Nucleated Red 0.0 Blood Cells % Immature 0.040 H Granulocytes # Neutrophils # 8.5 H Lymphocytes # 1.4 Monocytes # 0.5 Eosinophils # 0.0 Basophils # 0.0 Nucleated Red 0.0 Blood Cells # Sodium Level 143 Potassium Level 4.2 Chloride Level 111 H Carbon Dioxide 23 Level Anion Gap 9 # Blood Urea 58 H Nitrogen Creatinine 1.39 H Glucose Level 174 Calcium Level 8.3 L Phosphorus Level 3.2 Magnesium Level 1.7 Albumin 2.7 L Bedside Glucose 225 H Lab Scanned BLOOD TRANSFUSI REFERENCE LAB Report ON Medications Medication Current Medications IV Flush (NS 3 ml) 3 ml PER PROTOCOL IV ; Start 02/03/19 at 14:00 Ondansetron HCl (Zofran Inj) 4 mg Q6H PRN IV NAUSEA/VOMITING; Start 02/03/19 at 14:00 Acetaminophen (Tylenol Tab) 650 mg Q6H PRN PO .PAIN 1-3 OR TEMP; Start 02/03/19 at 14:00 Acetaminophen/ Hydrocodone Bitart ([place] (5/325)) 1 tab Q6H PRN PO .MOD PAIN 4- 6 Last administered on 02/04/19 06:09; Admin Dose 1 TAB; Start 02/03/19 at 14:00 Morphine Sulfate (morphine) 2 mg Q4H PRN IV .SEVERE PAIN 7-10 Last administered on 02/05/19 06:45; Admin Dose 2 MG; Start 02/03/19 at 14:00 Docusate Sodium (Colace) 100 mg Q12H PRN PO .CONSTIPATION; Start 02/03/19 at 14:00 Zolpidem Tartrate (Ambien) 5 mg QHS PRN PO .INSOMNIA Last administered on 02/04/19 22:35; Admin Dose 5 MG; Start 02/03/19 at 14:00 Pantoprazole (Protonix Iv) 40 mg BID@06,18 IV Last administered on 02/05/19 05:43; Admin Dose 40 MG; Start 02/03/19 at 18:00 Furosemide (Lasix) 40 mg DAILY PO Last administered on 02/04/19 09:24; Admin Dose 40 MG; Start 02/04/19 at 09:00; Status Hold Levothyroxine Sodium (Synthroid) 25 mcg BEFORE BREAKFAST PO Last administered on 02/05/19 05:43; Admin Dose 25 MCG; Start 02/04/19 at 07:00 Spironolactone (Aldactone) 25 mg DAILY PO Last administered on 02/05/19at 10:09; Admin Dose 25 MG; Start 02/04/19 at 09:00 Sodium Chloride (Deep Sea) 2 spray BID NASAL Last administered on 02/05/19 09:00; Admin Dose 2 SPRAY; Start 02/04/19 at 11:00 Sucralfate (Carafate) 1 gm QID PO Last administered on 02/05/19at 12:38; Admin Dose 1 GM; Start 02/04/19 at 17:00 BROCK VAN MD Feb 05, 2019 12:54
[2019-02-05] MEDS ORDERED: morphine 2 MG INJ IV STA (23:38)
[2019-02-06] VITALS (13 sets, daily range): BP systolic 111–147; BP diastolic 59–89; PULSE 23–186; RESP 18–21
--- NOTE | 2019-02-06 00:46 | EN ---
Date/Time of Note Date/Time of Note DATE: 02/06/19 TIME: 00:46 Event Note Medicine Medicine Event Note acute event note Patient seen and examined at the bedside. Family requested physician to see patient as he is more confused. Patient appears to be altered. He does wake up to his name but is very limited in his communication given his confusion at the current time. He does appear to moan every few minutes and appears to be in pain. Abdomen is soft and nontender to palpation. He was given morphine earlier which did give him some relief for a brief period of time. Family reports that he was not like this yesterday and it was after his procedure EGD that he seems to have become like this. Vitals:Temperature 98.4 heart rate 88 blood pressure 111/59 SPO2 99% on room air General: Patient appears to be altered, he does appear to be in pain as he moans every few minutes CVS: Regular rate rhythm Lungs: Clear to auscultation bilaterally Abdomen: Soft nontender, normal bowel sounds, nondistended, no rebound or guarding Neuro: Awake, but confused. Assessment and plan: #1 acute encephalopathy: Possibly toxic metabolic, delirium. Stat ABG level was ordered however RT was unable to obtain this due to patient being noncompliant moving around. Stat ammonia level will be ordered given patient's history of c irrhosis. While at this point I would like to avoid sedation given his already altered status, his distress is concerning. We will give him PRN morphine in small doses to see if this helps him. Family is in agreement with this. Greater than 30 minutes of critical care time was spent on the care rendered this patient. ALYCIA THOMPSON Feb 06, 2019 00:46
[2019-02-06] MEDS ORDERED: LORAZEPAM 2 MG INJ IV ONE (01:00)
[2019-02-06] MEDS: SOD CHLORIDE 0.9% 1,000 ML IV SCH ×2 (01:04→17:44)
[2019-02-06] MEDS: LACTULOSE 30ML CUP PO SCH ×5 (03:23→21:19)
[2019-02-06] MEDS: LEVOTHYROXINE 25 MCG TAB PO SCH (05:42)
[2019-02-06] MEDS: PANTOPRAZOLE 40 MG INJ IV SCH ×2 (06:00→18:00)
[2019-02-06] MEDS: SUCRALFATE 1 GM TAB PO SCH (09:19)
[2019-02-06] MEDS: SPIRONOLACTONE 25 MG TAB PO SCH (09:19)
[2019-02-06] MEDS: SALINE 0.65% 45 ML NAS SPRAY NASAL SCH ×2 (09:20→21:20)
--- NOTE | 2019-02-06 11:29 | PN ---
Date/Time of Note Date/Time of Note DATE: 02/06/19 TIME: 11:11 Assessment/Plan VTE Prophylaxis Risk score (from Ns)>0 risk: 5 SCD applied (from Ns): Yes Pharmacological prophylaxis: other (scds) Lines/Catheters [facility] (from [facility]): Peripheral IV Assessment/Plan Hospital Course Assessment: Anemia - suspected GI bleeding Melena -EGD 02/04/19 Extensive ulceration in the jejunal side of the gastrojejunal Billroth II anastomosis. No stigmata recent bleeding no visible vessel. Distal esophagitis with ulceration. No stigmata. Recent bleeding. Post distal gastrectomy distal to anastomosis Hx of cryptogenic cirrhosis Hx of perforated gastric ulcer s/p repair Ventral hernia Renal insufficiency Acute encephalopathy - Toxic metabolic vs delirium -Elevated ammonia noted Plan: Continue PPI Protonix BID/Carafate QID [id number] g Q 8hr will add Xifaxan 550 mg vis NG BID Will order KUB if neg will start TF today Recheck h/h at 1200- transfuse as needed Patient seen in collaboration with Dr. Harvey Subjective: Course reviewed with nursing staff Patient interviewed and examined All labs, imaging and other results reviewed Pt confused- NGT- in place Spoke to the nurse- no overt signs of GI bleed Decrease in HGB- plan to recheck H/H at 1200 Constitutional: more lethargic today- O2 in place Psych: no complaints, nl mood/affect Head: normocephalic, atraumatic Eyes: nl conjunctiva, EOMI, nl lids ENMT: nl external ears & nose, nl lips & teeth, nl nasal mucosa & septum Neck: supple Respiratory: clear to auscultation, normal air movement Cardiovascular: regular rate and rhythm, nl pulses Gastrointestinal: soft, nl liver, spleen, bowel sounds, surgical scars (lower abdominal surgcial scar), tender (moderate epigastric tenderness), other (ventral hernia, easily reducible) Musculoskeletal: nl extremities to inspection Extremities: normal pulses Result Diagram: 02/06/19 0540 02/06/19 0540 Results 24hrs Laboratory Tests Test 02/05/19 23:14 02/05/19 23:31 02/06/19 05:40 Ammonia 135 H Blood Gas Specimen Source Blood arterial Arterial Blood Date Drawn 02/06/2019 12:25:00 AM Arterial Blood pH 7.469 H (Temp corrected) Arterial Blood pCO2 30.6 L (Temp correct) Arterial Blood pO2 134.3 H (Temp corrected) Arterial Blood HCO3 21.7 L Arterial Blood Base Excess -1.5 Arterial Blood 97.5 Oxygen Saturation Christian Test N/A Arterial Blood Gas Right Brachial Puncture Site Arterial 0.3 Blood Carboxyhemoglobin Arterial Blood 0.1 Methemoglobin Blood Gas A-a O2 43.6 H Differential Oxyhemoglobin Percent 97.1 Blood Gas Temperature 37.0 Blood Gas Actual 24 Respiration Rate Blood Gas Modality NASAL CANNULA FiO2 30.0 Blood Gas Notified Marit[facility] Blood Gas Notified Time 02/06/2019 12:39:00 AM White Blood Count 15.5 #H Red Blood Count 2.25 #L Hemoglobin 7.0 L Hematocrit 21.6 L Mean Corpuscular Volume 96.0 Mean Corpuscular Hemoglobin 31.1 Mean Corpuscular 32.4 Hemoglobin Concent Red Cell Distribution Width 17.3 H Platelet Count 136 L Mean Platelet Volume 12.6 H Immature Granulocytes % 0.700 H Neutrophils % 83.5 H Lymphocytes % 10.6 L Monocytes % 5.0 Eosinophils % 0.0 Basophils % 0.2 Nucleated Red Blood Cells % 0.0 Immature Granulocytes # 0.110 H Neutrophils # 12.9 H Lymphocytes # 1.6 Monocytes # 0.8 Eosinophils # 0.0 Basophils # 0.0 Nucleated Red Blood Cells # 0.0 Sodium Level 146 H Potassium Level 3.7 Chloride Level 115 H Carbon Dioxide Level 24 Anion Gap 7 Blood Urea Nitrogen 53 H Creatinine 1.33 H Glucose Level 185 Calcium Level 8.3 L Phosphorus Level 3.2 Magnesium Level 1.8 Albumin 2.4 L Exam/Review of Systems Exam Vitals Vital Signs Date Temp Pulse Resp B/P (MAP) Pulse Ox O2 O2 Flow FiO2 Time Delivery Rate 02/06/19 85 08:00 02/06/19 98.5 21 124/66 99 Nasal 07:50 (85) Cannula 02/05/19 2.0 19:36 Intake and Output 02/05/19 02/05/19 02/06/19 1515:00 23:00 07:00 IntakeIntake Total 400 ml 300 ml OutputOutput Total 800 ml 5 ml BalanceBalance -400 ml 295 ml Results Results 24hrs Laboratory Tests Test 02/05/19 23:14 02/05/19 23:31 02/06/19 05:40 Ammonia 135 H Blood Gas Specimen Source Blood arterial Arterial Blood Date Drawn 02/06/2019 12:25:00 AM Arterial Blood pH 7.469 H (Temp corrected) Arterial Blood pCO2 30.6 L (Temp correct) Arterial Blood pO2 134.3 H (Temp corrected) Arterial Blood HCO3 21.7 L Arterial Blood Base Excess -1.5 Arterial Blood 97.5 Oxygen Saturation Christian Test N/A Arterial Blood Gas Right Brachial Puncture Site Arterial 0.3 Blood Carboxyhemoglobin Arterial Blood 0.1 Methemoglobin Blood Gas A-a O2 43.6 H Differential Oxyhemoglobin Percent 97.1 Blood Gas Temperature 37.0 Blood Gas Actual 24 Respiration Rate Blood Gas Modality NASAL CANNULA FiO2 30.0 Blood Gas Notified Whom [facility] [facility] Blood Gas Notified Time 02/06/2019 12:39:00 AM White Blood Count 15.5 #H Red Blood Count 2.25 #L Hemoglobin 7.0 L Hematocrit 21.6 L Mean Corpuscular Volume 96.0 Mean Corpuscular Hemoglobin 31.1 Mean Corpuscular 32.4 Hemoglobin Concent Red Cell Distribution Width 17.3 H Platelet Count 136 L Mean Platelet Volume 12.6 H Immature Granulocytes % 0.700 H Neutrophils % 83.5 H Lymphocytes % 10.6 L Monocytes % 5.0 Eosinophils % 0.0 Basophils % 0.2 Nucleated Red Blood Cells % 0.0 Immature Granulocytes # 0.110 H Neutrophils # 12.9 H Lymphocytes # 1.6 Monocytes # 0.8 Eosinophils # 0.0 Basophils # 0.0 Nucleated Red Blood Cells # 0.0 Sodium Level 146 H Potassium Level 3.7 Chloride Level 115 H Carbon Dioxide Level 24 Anion Gap 7 Blood Urea Nitrogen 53 H Creatinine 1.33 H Glucose Level 185 Calcium Level 8.3 L Phosphorus Level 3.2 Magnesium Level 1.8 Albumin 2.4 L Medications Medication Current Medications IV Flush (NS 3 ml) 3 ml PER PROTOCOL IV ; Start 02/03/19 at 14:00 Ondansetron HCl (Zofran Inj) 4 mg Q6H PRN IV NAUSEA/VOMITING; Start 02/03/19 at 14:00 Acetaminophen (Tylenol Tab) 650 mg Q6H PRN PO .PAIN 1-3 OR TEMP; Start 02/03/19 at 14:00 Acetaminophen/ Hydrocodone Bitart ([place] (5/325)) 1 tab Q6H PRN PO .MOD PAIN 4- 6 Last administered on 02/04/19 06:09; Admin Dose 1 TAB; Start 02/03/19 at 14:00 Docusate Sodium (Colace) 100 mg Q12H PRN PO .CONSTIPATION; Start 02/03/19 at 14:00 Zolpidem Tartrate (Ambien) 5 mg QHS PRN PO .INSOMNIA Last administered on 02/04/19 22:35; Admin Dose 5 MG; Start 02/03/19 at 14:00 Pantoprazole (Protonix Iv) 40 mg BID@,18 IV Last administered on 02/05/19 17:34; Admin Dose 40 MG; Start 02/03/19 at 18:00 Furosemide (Lasix) 40 mg DAILY PO Last administered on 02/04/19 09:24; Admin Dose 40 MG; Start 02/04/19 at 09:00; Status Hold Levothyroxine Sodium (Synthroid) 25 mcg BEFORE BREAKFAST PO Last administered on 02/06/19 05:42; Admin Dose 25 MCG; Start 02/04/19 at 07:00 Spironolactone (Aldactone) 25 mg DAILY PO Last administered on 02/06/19 09:19; Admin Dose 25 MG; Start 02/04/19 at 09:00 Sodium Chloride (Deep Sea) 2 spray BID NASAL Last administered on 02/06/19 09:20; Admin Dose 2 SPRAY; Start 02/04/19 at 11:00 Sucralfate (Carafate) 1 gm QID PO Last administered on 02/06/19 09:19; Admin Dose 1 GM; Start 02/04/19 at 17:00 Morphine Sulfate (morphine) 1 mg Q4H PRN IV .SEVERE PAIN 7-10 Last administered on 02/05/19 21:59; Admin Dose 1 MG; Start 02/05/19 at 14:00 Lactulose (Enulose) 20 gm Q4 PO Last administered on 02/06/19 09:19; Admin Dose 20 GM; Start 02/06/19 at 01:00 Sodium Chloride 1,000 ml @ 60 mls/hr [id number] IV Last administered on 02/06/19 01:04; Admin Dose 60 MLS/HR; Start 02/06/19 at 01:00; Stop 02/09/19 at 00:59 INGRID MAST Feb 06, 2019 11:22
[2019-02-06] MEDS ORDERED: MAGNESIUM SULFATE 2 GM/50 ML 50 ML IVPB ONE (12:30)
[2019-02-06] MEDS ORDERED: ADENOSINE 6 MG INJ IV ONE (12:30)
[2019-02-06] MEDS ORDERED: POTASSIUM CHLORIDE 100 ML IVPB ONE (12:30)
[2019-02-06] MEDS: SUCRALFATE (100 MG/ML) 10ML CUP NGT SCH ×3 (13:08→21:19)
--- NOTE | 2019-02-06 15:57 | PN ---
Date/Time of Note Date/Time of Note DATE: 02/06/19 TIME: 15:40 Assessment/Plan VTE Prophylaxis Risk score (from Ns)>0 risk: 5 SCD applied (from Ns): Yes Pharmacological prophylaxis: NA/contraindicated Pharm contraindication: bleeding Lines/Catheters IV Catheter Type (from Nrs): Saline Lock Assessment/Plan Assessment/Plan 1. Acute GI bleed s/p EGD - hx heavy NSAID use - still with dark stools but discussed with family most likely residual blood. no sohail bleeding appreciated - Hgb 7.3 this am and will transfuse another PRBC. - GI on board and appreciate recommendations. EGD 02/04 shows extensive ulcerations in jejunal side of GJ. distal esophagitis - continue on PPI and Carafate 2. Acute hepatic encephalopathy - Ammonia levels noted with improvement in trend. Still altered - continue on lactulose and rifaximin - NG tube in place and will keep NPO for now until more awake - GI recommendations appreciated 3. SVT with aberrancy - Cardiology consulted - adenosine given with resolution - will replace K and M with goal 4 and 2 4. Symptomatic anemia secondary to acute blood loss - goal hgb >7.5 - will transfuse another until today 5. Cryptogenic cirrhosis with refractory ascites - per daughter cirrhosis is due to heavy Tylenol use - continue Aldactone and will restart Lasix when renal function normalizes - previous work-up was negative for autoimmune and viral etiologies - US abd noted. no need for paracentesis at this time 4. Hypothyroidism - On Synthroid 5. Diabetes - ISS and accuchecks 6. [place]- improving - continue holding Lasix - most likely secondary to hypovolemia and NSAID use - avoid nephrotoxic agents 7. History of coronary disease - stable - no chest pain noted 8. Disposition - Continue monitoring for improvement in mental status. - Transfusion 1 PRBC given low hgb Result Diagram: 02/06/19 1156 02/06/19 0540 Results 24hrs Laboratory Tests Test 02/05/19 23:14 02/05/19 23:31 02/06/19 05:40 02/06/19 11:56 Ammonia 135 H 80 H Blood Gas Blood arterial Specimen Source Arterial Blood 02/06/2019 12:25: Date Drawn 00 AM Arterial Blood pH 7.469 H (Temp corrected) Arterial Blood 30.6 L pCO2 (Temp correct) Arterial Blood 134.3 H pO2 (Temp corrected) Arterial Blood 21.7 L HCO3 Arterial Blood -1.5 Base Excess Arterial Blood 97.5 Oxygen Saturation Christian Test N/A Arterial Blood Right Brachial Gas Puncture Site Arterial 0.3 Blood Carboxyhemo globin Arterial Blood 0.1 Methemoglobin Blood Gas A-a O2 43.6 H Differential Oxyhemoglobin 97.1 Percent Blood Gas 37.0 Temperature Blood Gas Actual 24 Respiration Rate Blood Gas NASAL CANNULA Modality FiO2 30.0 Blood Gas [facility] Notified Whom Blood Gas 02/06/2019 12:39: Notified Time 00 AM White Blood Count 15.5 #H Red Blood Count 2.25 #L Hemoglobin 7.0 L 7.3 L Hematocrit 21.6 L 22.8 L Mean Corpuscular 96.0 Volume Mean Corpuscular 31.1 Hemoglobin Mean Corpuscular 32.4 Hemoglobin Concen t Red Cell 17.3 H Distribution Width Platelet Count 136 L Mean Platelet 12.6 H Volume Immature 0.700 H Granulocytes % Neutrophils % 83.5 H Lymphocytes % 10.6 L Monocytes % 5.0 Eosinophils % 0.0 Basophils % 0.2 Nucleated Red 0.0 Blood Cells % Immature 0.110 H Granulocytes # Neutrophils # 12.9 H Lymphocytes # 1.6 Monocytes # 0.8 Eosinophils # 0.0 Basophils # 0.0 Nucleated Red 0.0 Blood Cells # Sodium Level 146 H Potassium Level 3.7 Chloride Level 115 H Carbon Dioxide 24 Level Anion Gap 7 Blood Urea 53 H Nitrogen Creatinine 1.33 H Glucose Level 185 Calcium Level 8.3 L Phosphorus Level 3.2 Magnesium Level 1.8 Albumin 2.4 L Subjective 24 Hr Interval Summary Free Text/Dictation Patient remains somnolent and moaning. Had an episode of SVT which broke after adenosine. Daughter and son in law at bedside. Exam/Review of Systems Exam Vitals Vital Signs Date Temp Pulse Resp B/P (MAP) Pulse Ox O2 O2 Flow FiO2 Time Delivery Rate 02/06/19 98.3 90 19 147/67 100 Nasal 11:25 (93) Cannula 02/05/19 2.0 19:36 Intake and Output 02/05/19 02/05/19 02/06/19 1515:00 23:00 07:00 IntakeIntake Total 400 ml 300 ml OutputOutput Total 800 ml 5 ml BalanceBalance -400 ml 295 ml Exam General: somnolent, moaning. not following commands HEENT: NC/AT. PERRL. EOM intact Neck: supple CVS: S1, S2, tachycardia, regular rhythm. no murmurs Lungs: clear to auscultation bilaterally. no wheezing or rhonchi Abd: soft, nontender, nondistended. no rebound or guarding. bowel sounds present diffusely Ext: moving all extremities. no cyanosis, clubbing, or edema SKin: warm, dry. no rashes or lesions appreciated Results Results 24hrs Laboratory Tests Test 02/05/19 23:14 02/05/19 23:31 02/06/19 05:40 02/06/19 11:56 Ammonia 135 H 80 H Blood Gas Blood arterial Specimen Source Arterial Blood 02/06/2019 12:25: Date Drawn 00 AM Arterial Blood pH 7.469 H (Temp corrected) Arterial Blood 30.6 L pCO2 (Temp correct) Arterial Blood 134.3 H pO2 (Temp corrected) Arterial Blood 21.7 L HCO3 Arterial Blood -1.5 Base Excess Arterial Blood 97.5 Oxygen Saturation Christian Test N/A Arterial Blood Right Brachial Gas Puncture Site Arterial 0.3 Blood Carboxyhemo globin Arterial Blood 0.1 Methemoglobin Blood Gas A-a O2 43.6 H Differential Oxyhemoglobin 97.1 Percent Blood Gas 37.0 Temperature Blood Gas Actual 24 Respiration Rate Blood Gas NASAL CANNULA Modality FiO2 30.0 Blood Gas [facility] Notified Whom Blood Gas 02/06/2019 12:39: Notified Time 00 AM White Blood Count 15.5 #H Red Blood Count 2.25 #L Hemoglobin 7.0 L 7.3 L Hematocrit 21.6 L 22.8 L Mean Corpuscular 96.0 Volume Mean Corpuscular 31.1 Hemoglobin Mean Corpuscular 32.4 Hemoglobin Concen t Red Cell 17.3 H Distribution Width Platelet Count 136 L Mean Platelet 12.6 H Volume Immature 0.700 H Granulocytes % Neutrophils % 83.5 H Lymphocytes % 10.6 L Monocytes % 5.0 Eosinophils % 0.0 Basophils % 0.2 Nucleated Red 0.0 Blood Cells % Immature 0.110 H Granulocytes # Neutrophils # 12.9 H Lymphocytes # 1.6 Monocytes # 0.8 Eosinophils # 0.0 Basophils # 0.0 Nucleated Red 0.0 Blood Cells # Sodium Level 146 H Potassium Level 3.7 Chloride Level 115 H Carbon Dioxide 24 Level Anion Gap 7 Blood Urea 53 H Nitrogen Creatinine 1.33 H Glucose Level 185 Calcium Level 8.3 L Phosphorus Level 3.2 Magnesium Level 1.8 Albumin 2.4 L Medications Medication Current Medications IV Flush (NS 3 ml) 3 ml PER PROTOCOL IV ; Start 02/03/19 at 14:00 Ondansetron HCl (Zofran Inj) 4 mg Q6H PRN IV NAUSEA/VOMITING; Start 02/03/19 at 14:00 Acetaminophen (Tylenol Tab) 650 mg Q6H PRN PO .PAIN 1-3 OR TEMP; Start 02/03/19 at 14:00 Acetaminophen/ Hydrocodone Bitart ([place] (5/325)) 1 tab Q6H PRN PO .MOD PAIN 4- 6 Last administered on 02/04/19 06:09; Admin Dose 1 TAB; Start 02/03/19 at 14:00 Docusate Sodium (Colace) 100 mg Q12H PRN PO .CONSTIPATION; Start 02/03/19 at 14:00 Zolpidem Tartrate (Ambien) 5 mg QHS PRN PO .INSOMNIA Last administered on 02/04/19 22:35; Admin Dose 5 MG; Start 02/03/19 at 14:00 Pantoprazole (Protonix Iv) 40 mg BID@06,18 IV Last administered on 02/05/19 17:34; Admin Dose 40 MG; Start 02/03/19 at 18:00 Furosemide (Lasix) 40 mg DAILY PO Last administered on 02/04/19 09:24; Admin Dose 40 MG; Start 02/04/19 at 09:00; Status Hold Levothyroxine Sodium (Synthroid) 25 mcg BEFORE BREAKFAST PO Last administered on 02/06/19 05:42; Admin Dose 25 MCG; Start 02/04/19 at 07:00 Spironolactone (Aldactone) 25 mg DAILY PO Last administered on 02/06/19 09:19; Admin Dose 25 MG; Start 02/04/19 at 09:00 Sodium Chloride ([place]) 2 spray BID NASAL Last administered on 02/06/19 09:20; Admin Dose 2 SPRAY; Start 02/04/19 at 11:00 Morphine Sulfate (morphine) 1 mg Q4H PRN IV .SEVERE PAIN 7-10 Last administered on 02/05/19at 21:59; Admin Dose 1 MG; Start 02/05/19 at 14:00 Lactulose (Enulose) 20 gm Q4 PO Last administered on 02/06/19at 13:08; Admin Dose 20 GM; Start 02/06/19 at 01:00 Sodium Chloride 1,000 ml @ 60 mls/hr [id number] IV Last administered on 02/06/19at 01:04; Admin Dose 60 MLS/HR; Start 02/06/19 at 01:00; Stop 02/09/19 at 00:59 Rifaximin (Xifaxan) 550 mg BID NGT ; Start 02/06/19 at 21:00 Sucralfate (Carafate Susp) 1 gm QID NGT Last administered on 02/06/19at 13:08; Admin Dose 1 GM; Start 02/06/19 at 13:00 BROCK VAN MD Feb 06, 2019 15:57
[2019-02-06] MEDS ORDERED: METOPROLOL 5 MG INJ IV PRN (17:30)
[2019-02-06] MEDS: METOCLOPRAMIDE 10 MG INJ IV SCH (17:43)
--- NOTE | 2019-02-06 20:43 | CONS ---
DATE OF ADMISSION: 02/03/2019 DATE OF CONSULTATION: 02/06/2019 REASON FOR CONSULTATION: Wide complex tachycardia. Rule out NSVT. Assess for SVT. REQUESTING PHYSICIAN: Marlene Phillips MD from the hospitalist service. HISTORY OF PRESENT ILLNESS: Mr. Pichardo is an 78-year-old male with history of coronary artery disease , status post coronary bypass graft surgery 2018 at [facility], gout hypothyroidism, diabetes mellitus, recent history of cryptogenic cirrhosis who presented with abdominal pain, generalized weak ness and had a syncopal episode while in triage. Initially upon arrival, temperature of 98.6, blood pressure 96/45, pulse of 77, respiratory rate 20, sat 97%. The patient's labs were notable for white count of 10.1, hemoglobin 7.2, dropped to 6.1 thereafter, a platelet count of 200. Sodium of 140, p otassium 5.4, creatinine 1.24, BUN of 38. ABG with a pH of 7.469, a PaO2 of 134, pCO2 of 30. UA neg ative. The patient underwent abdominal ultrasound revealing small volume ascites, a KUB revealing no nobstructive bowel gas pattern and a chest x-ray that revealed no evidence of congestive heart failur e or pneumonia. The patient's electrocardiogram revealed a sinus rhythm, rate of 73 with sinus arrhy thmia, a borderline IVCD with secondary repolarization abnormalities and borderline septal Q's. The patient admitted to the floor and since admit to the floor has been evaluated by GI and has undergone an EGD revealing ulcerations in the jejunum and has had the onset of worsening mental status a nd the onset of true acute encephalopathy, not responsive to family at this time. Today, the patient has been monitored on telemetry, had the onset of a wide complex tachyarrhythmia, regular at approxi mately 171/80 which was broke with adenosine. Therefore, likely consistent with supraventricular tac hycardia. Given these findings, cardiac consult requested. PAST MEDICAL HISTORY: As above in HPI with additionally patient has a history of heavy Tylenol use t hought to be one of the possible reasons for his cryptogenic cirrhosis, right inguinal hernia, status repair, prostate cancer status post surgery, prior history of peptic ulcer disease. MEDICATIONS CURRENTLY IN HOSPITAL: 1. Lactulose 20 grams q. 8. 2. Rifaximin 500 mg b.i.d. 3. Reglan 10 mg IV q. 6. 4. Zinc Sucralfate 1 gram q.i.d. 5. IV fluid hydration 60 mL an hour. 6. Sodium chloride spray. 7. Synthroid 50 mcg daily. 8. Aldactone 25 mg daily. 9. Protonix 40 mg IV b.i.d. 10. Zofran p.r.n. 11. Tylenol p.r.n. 12. Colace p.r.n. ALLERGIES: NO KNOWN DRUG ALLERGIES. SOCIAL HISTORY: No current tobacco, ETOH or illicit drug use. FAMILY HISTORY: No sudden cardiac or early CAD. REVIEW OF SYSTEMS: As above in HPI. CONSTITUTIONAL: No fevers, chills. PULMONARY: No current signs of respiratory compromise. GASTROINTESTINAL: Cirrhosis, ascites. GENITOURINARY: Renal failure. PSYCHIATRIC: No documented psychiatric history. NEUROLOGIC: Encephalopathy. HEMATOLOGIC: Anemia requiring transfusions and worsening thrombocytopenia. PHYSICAL EXAMINATION: VITAL SIGNS: Temperature 98.1, blood pressure 144/66, pulse 93, respiratory rate 20, satting 99%. GENERAL: The patient is encephalopathic, nonresponsive. NECK: JVP approximately 9 cm of water. CHEST: Decreased breath sounds at base bilaterally. HEART: Regular rate and rhythm. Normal S1, S2, I/ systolic murmur. ABDOMEN: Soft, hypoactive bowel sounds. EXTREMITIES: No significant pitting edema, 1+ pulses bilateral posterior tibial. LABORATORIES: Most recently from today, white blood count 15.5, hemoglobin 7, platelet count of 136. Sodium 146, potassium of 3.7, creatinine 0.33, BUN of 53. IMAGING STUDIES: As above in HPI. No further imaging studies for my review at this time. ECG: As above in HPI. No further electrocardiograms for my review at this time. IMPRESSION: 1. Wide complex tachycardia, likely consistent with supraventricular tachycardia with a baseline bun dle branch block. 2. Abnormal electrocardiogram with baseline bundle branch block. 3. Syncope on admit. Rule out cardiac etiology. Rule out cardiac arrhythmia as etiology versus ane mat. 4. Cirrhosis. 5. Gastrointestinal bleed with melenic stools. 6. Peptic ulcer disease by endoscopy. 7. Renal failure. 8. Hyponatremia. 9. Thrombocytopenia. 10. Anemia. 11. Encephalopathy. RECOMMENDATIONS: 1. At this time, we would maintain the patient on telemetry monitoring to follow rhythm and rate con trol closely. 2. Would check a TSH to be sure subclinical hyperthyroid is not contributing to bouts of tachyarrhyt hmias. 3. Would continue to with packed RBCs follow the patient's volume status and hemoglobin closel y. 4. I will write for p.r.n. IV push beta tariq as necessary and if the patient is able to take p.o., we will start patient on p.o. beta tariq, propranolol nonselective to help with portal hypertensio n. 5. Continue patient's lactulose. Continue to follow mental status closely. 6. Continue the patient's IV fluid hydration, following sodium closely. 7. Ongoing GI evaluation. 8. Check a 2D echo to further assess patient's ejection fraction, wall motion, and major abnormalit ies. Thank you for allowing me to take part in the care of this patient. I will continue to follow along very closely with you, with recommendations to be made as the patient progresses through his [facility] clinical course. Dictated By: LUZMARIA MAIER/QUAN Conf#: [id number] DID#: [id number] CC: SUDHIR BARRIENTOS MD; MARLENE PHILLIPS MD;*End*
[2019-02-06] MEDS ORDERED: RIFAXIMIN 550 MG TAB PO SCH (21:00)
[2019-02-06] MEDS: FAMOTIDINE 20 MG INJ IV SCH (21:19)
[2019-02-06] MEDS: RIFAXIMIN 550 MG TAB NGT SCH (21:19)
[2019-02-06] MEDS: PROPRANOLOL 20 MG TAB PO SCH (21:24)
[2019-02-07] VITALS (8 sets, daily range): BP systolic 123–159; BP diastolic 58–74; PULSE 56–84; RESP 18–20
[2019-02-07] MEDS: METOCLOPRAMIDE 10 MG INJ IV SCH ×4 (00:37→17:57)
[2019-02-07] MEDS: morphine 2 MG INJ IV PRN ×2 (02:05→08:14)
[2019-02-07] MEDS: LACTULOSE 30ML CUP PO SCH ×3 (06:57→22:00)
[2019-02-07] MEDS: LEVOTHYROXINE 25 MCG TAB PO SCH (06:58)
[2019-02-07] MEDS: SALINE 0.65% 45 ML NAS SPRAY NASAL SCH ×2 (08:13→20:13)
[2019-02-07] MEDS: SUCRALFATE (100 MG/ML) 10ML CUP NGT SCH ×4 (08:14→20:06)
[2019-02-07] MEDS: SPIRONOLACTONE 25 MG TAB PO SCH (08:15)
[2019-02-07] MEDS: PROPRANOLOL 20 MG TAB PO SCH ×2 (08:15→20:12)
[2019-02-07] MEDS: FAMOTIDINE 20 MG INJ IV SCH ×2 (08:16→20:13)
[2019-02-07] MEDS: RIFAXIMIN 550 MG TAB NGT SCH ×2 (08:16→20:12)
[2019-02-07] MEDS ORDERED: POTASSIUM CHLORIDE 20 MEQ POWDER FOR ORAL SOLN NGT ONE (09:00)
[2019-02-07] MEDS ORDERED: DEXTROSE 5%-0.45% NACL 1,000 ML IV SCH (09:00)
--- NOTE | 2019-02-07 13:07 | PN ---
Date/Time of Note Date/Time of Note DATE: 02/07/19 TIME: 13:05 Assessment/Plan VTE Prophylaxis Risk score (from Ns)>0 risk: 9 SCD applied (from Ns): Yes Pharmacological prophylaxis: other (scds) Lines/Catheters IV Catheter Type (from [facility]): Saline Lock Assessment/Plan Hospital Course Assessment: Anemia - suspected GI bleeding Melena -EGD 02/04/19 Extensive ulceration in the jejunal side of the gastrojejunal Billroth II anastomosis. No stigmata recent bleeding no visible vessel. Distal esophagitis with ulceration. No stigmata. Recent bleeding. Post distal gastrectomy distal to anastomosis Hx of cryptogenic cirrhosis Hx of perforated gastric ulcer s/p repair Ventral hernia Renal insufficiency Acute encephalopathy - Toxic metabolic vs delirium -Elevated ammonia noted Plan: Continue PPI Protonix BID/Carafate QID/[id number] g Q 8hr will add Xifaxan 550 mg vis NG BID KUB- reviewed : Evolving ileus or early obstruction. Additionally NG tube the region of the GE junction with his advancement of approximately 4 cm Blood has been started and repeat KUB has been ordered To monitor labs Patient seen in collaboration with Dr. Harvey Subjective: Course reviewed with nursing staff Patient interviewed and examined All labs, imaging and other results reviewed Patient more awake today responds to some commands At bedside discussed plan to continue current regimen No overt signs of GI bleed. Currently hemoglobin stable status post 1 unit transfusion yesterday Constitutional: More awake/confused today Psych: no complaints, nl mood/affect Head: normocephalic, atraumatic Eyes: nl conjunctiva, EOMI, nl lids ENMT: nl external ears & nose, nl lips & teeth, nl nasal mucosa & septum Neck: supple Respiratory: clear to auscultation, normal air movement Cardiovascular: regular rate and rhythm, nl pulses Gastrointestinal: soft, nl liver, spleen, bowel sounds, surgical scars (lower abdominal surgcial scar), tender (moderate epigastric tenderness), other (ventral hernia, easily reducible) Musculoskeletal: nl extremities to inspection Extremities: normal pulses Result Diagram: 02/07/1915 02/07/1915 Results 24hrs Laboratory Tests Test 02/07/19 05:15 White Blood Count 15.1 H Red Blood Count 2.58 L Hemoglobin 8.1 L Hematocrit 25.2 L Mean Corpuscular Volume 97.7 Mean Corpuscular Hemoglobin 31.4 Mean Corpuscular Hemoglobin Concent 32.1 Red Cell Distribution Width 18.6 H Platelet Count 146 Mean Platelet Volume 12.8 H Immature Granulocytes % 0.500 H Neutrophils % 85.2 H Lymphocytes % 9.2 L Monocytes % 5.0 Eosinophils % 0.0 Basophils % 0.1 Nucleated Red Blood Cells % 0.0 Immature Granulocytes # 0.070 H Neutrophils # 12.9 H Lymphocytes # 1.4 Monocytes # 0.8 Eosinophils # 0.0 Basophils # 0.0 Nucleated Red Blood Cells # 0.0 Sodium Level 149 H Potassium Level 3.7 Chloride Level 119 H Carbon Dioxide Level 24 Anion Gap 6 Blood Urea Nitrogen 41 #H Creatinine 1.26 H Glucose Level 180 Calcium Level 8.3 L Phosphorus Level 2.9 Magnesium Level 2.3 Ammonia < 9 #L Albumin 2.4 L Exam/Review of Systems Exam Vitals Vital Signs Date Temp Pulse Resp B/P (MAP) Pulse Ox O2 O2 Flow FiO2 Time Delivery Rate 02/07/19 97.3 58 18 146/65 100 Nasal 11:10 (92) Cannula 02/07/19 2.0 09:00 Intake and Output 02/06/19 02/06/19 02/07/19 1515:00 23:00 07:00 IntakeIntake Total 100 ml 50 ml OutputOutput Total 3 ml 4 ml BalanceBalance 97 ml 46 ml Results Results 24hrs Laboratory Tests Test 02/07/19 05:15 White Blood Count 15.1 H Red Blood Count 2.58 L Hemoglobin 8.1 L Hematocrit 25.2 L Mean Corpuscular Volume 97.7 Mean Corpuscular Hemoglobin 31.4 Mean Corpuscular Hemoglobin Concent 32.1 Red Cell Distribution Width 18.6 H Platelet Count 146 Mean Platelet Volume 12.8 H Immature Granulocytes % 0.500 H Neutrophils % 85.2 H Lymphocytes % 9.2 L Monocytes % 5.0 Eosinophils % 0.0 Basophils % 0.1 Nucleated Red Blood Cells % 0.0 Immature Granulocytes # 0.070 H Neutrophils # 12.9 H Lymphocytes # 1.4 Monocytes # 0.8 Eosinophils # 0.0 Basophils # 0.0 Nucleated Red Blood Cells # 0.0 Sodium Level 149 H Potassium Level 3.7 Chloride Level 119 H Carbon Dioxide Level 24 Anion Gap 6 Blood Urea Nitrogen 41 #H Creatinine 1.26 H Glucose Level 180 Calcium Level 8.3 L Phosphorus Level 2.9 Magnesium Level 2.3 Ammonia < 9 #L Albumin 2.4 L Medications Medication Current Medications IV Flush (NS 3 ml) 3 ml PER PROTOCOL IV ; Start 02/03/19 at 14:00 Ondansetron HCl (Zofran Inj) 4 mg Q6H PRN IV NAUSEA/VOMITING; Start 02/03/19 at 14:00 Acetaminophen (Tylenol Tab) 650 mg Q6H PRN PO .PAIN 1-3 OR TEMP; Start 02/03/19 at 14:00 Acetaminophen/ Hydrocodone Bitart ([place] (5/325)) 1 tab Q6H PRN PO .MOD PAIN 4- 6 Last administered on 02/04/19 06:09; Admin Dose 1 TAB; Start 02/03/19 at 14:00 Docusate Sodium (Colace) 100 mg Q12H PRN PO .CONSTIPATION; Start 02/03/19 at 14:00 Zolpidem Tartrate (Ambien) 5 mg QHS PRN PO .INSOMNIA Last administered on 02/04/19 22:35; Admin Dose 5 MG; Start 02/03/19 at 14:00 Furosemide (Lasix) 40 mg DAILY PO Last administered on 02/04/19 09:24; Admin Dose 40 MG; Start 02/04/19 at 09:00; Status Hold Levothyroxine Sodium (Synthroid) 25 mcg BEFORE BREAKFAST PO Last administered on 02/07/19 06:58; Admin Dose 25 MCG; Start 02/04/19 at 07:00 Spironolactone (Aldactone) 25 mg DAILY PO Last administered on 02/07/19 08:15; Admin Dose 25 MG; Start 02/04/19 at 09:00 Sodium Chloride ([place]) 2 spray BID NASAL Last administered on 02/07/19 08:13; Admin Dose 2 SPRAY; Start 02/04/19 at 11:00 Rifaximin (Xifaxan) 550 mg BID NGT Last administered on 02/07/19 08:16; Admin Dose 550 MG; Start 02/06/19 at 21:00 Sucralfate (Carafate Susp) 1 gm QID NGT Last administered on 02/07/19 12:19; Admin Dose 1 GM; Start 02/06/19 at 13:00 Lactulose (Enulose) 20 gm Q8 PO Last administered on 02/07/19 06:57; Admin Dose 20 GM; Start 02/06/19 at 22:00 Metoclopramide HCl (Reglan) 10 mg Q6 IV Last administered on 02/07/19 12:19; Admin Dose 10 MG; Start 02/06/19 at 18:00 Propranolol HCl (Inderal) 20 mg BID PO Last administered on 02/07/19 08:15; Admin Dose 20 MG; Start 02/06/19 at 21:00 Metoprolol Tartrate (Lopressor) 5 mg Q4H PRN IV HR>110 Hold SBP<100 Last administered on 02/06/19at 21:57; Admin Dose 5 MG; Start 02/06/19 at 17:30 Famotidine (Pepcid Iv) 20 mg BID IV Last administered on 02/07/19 08:16; Admin Dose 20 MG; Start 02/06/19 at 21:00 Dextrose/Sodium Chloride 1,000 ml @ 60 mls/hr [id number] IV Last administered on 02/07/19 09:13; Admin Dose 60 MLS/HR; Start 02/07/19 at 09:00 Morphine Sulfate (morphine) 0.5 mg Q4H PRN IV .SEVERE PAIN 7-10; Start 02/07/19 at 14:00 INGRID MAST Feb 07, 2019 13:07
--- NOTE | 2019-02-07 14:05 | CONS ---
Assessment/Plan Assessment/Plan Hospital Course (Demo Recall) IMPRESSION: 1. Wide complex tachycardia, likely consistent with supraventricular tachycardia with a baseline bundle branch block.-TSH WNL. NO recurrence last 24 hours 2. Abnormal electrocardiogram with baseline bundle branch block. 3. Syncope on admit. Rule out cardiac etiology. Rule out cardiac arrhythmia as etiology versus anemia. 4. Cirrhosis. 5. Gastrointestinal bleed with melenic stools. 6. Peptic ulcer disease by endoscopy. 7. Renal failure. 8. Hyponatremia. 9. Thrombocytopenia. 10. Anemia. 11. Encephalopathy. Recc: -Tele -Contineu propranolol -Contineu lactulose -Continue aldactone -Follow MS -Follow HGb clsoely with further tansfusions as necessary -will f/u echo Consultation Date/Type/Reason Admit Date/Time Feb 03, 2019 at 09:30 Initial Consult Date 02/03/19 Type of Consult Cardiology Reason for Consultation SVT Requesting Provider: SUDHIR BARRIENTOS Date/Time of Note DATE: 02/07/19 TIME: 14:00 Exam/Review of Systems Vital Signs Vitals Vital Signs Date Temp Pulse Resp B/P (MAP) Pulse Ox O2 O2 Flow FiO2 Time Delivery Rate 02/07/19 97.3 58 18 146/65 100 Nasal 11:10 (92) Cannula 02/07/19 2.0 09:00 Intake and Output 02/06/19 02/06/19 02/07/19 1515:00 23:00 07:00 IntakeIntake Total 100 ml 50 ml OutputOutput Total 3 ml 4 ml BalanceBalance 97 ml 46 ml Exam Exam Review of Systems: CONSTITUTIONAL: No fevers, chills. PULMONARY: No sob CARDIOVASCULAR: No chest pain/palpitations GASTROINTESTINAL: No nausea/vomiting. GENITOURINARY: No hematuria/dysuria. MUSCULOSKELETAL: No myagias/arthalgias. PSYCHIATRIC: The patient denies depression. NEUROLOGIC: confused/lethargic Constitutional: other (confused) Head: normocephalic ENMT: mucosa pink and moist Neck: supple, jvd (9 cm water) Respiratory: diminished breath sounds (at bases/B) Cardiovascular: regular rate and rhythm Gastrointestinal: soft, non-tender Musculoskeletal: muscle weakness (generalized) Extremities: other (no focal defcits) Neurological: confused Labs Result Diagram: 6/13/19 0515 6/13/19 0515 Results 24hrs Laboratory Tests Test 02/07/19 05:15 White Blood Count 15.1 H Red Blood Count 2.58 L Hemoglobin 8.1 L Hematocrit 25.2 L Mean Corpuscular Volume 97.7 Mean Corpuscular Hemoglobin 31.4 Mean Corpuscular Hemoglobin Concent 32.1 Red Cell Distribution Width 18.6 H Platelet Count 146 Mean Platelet Volume 12.8 H Immature Granulocytes % 0.500 H Neutrophils % 85.2 H Lymphocytes % 9.2 L Monocytes % 5.0 Eosinophils % 0.0 Basophils % 0.1 Nucleated Red Blood Cells % 0.0 Immature Granulocytes # 0.070 H Neutrophils # 12.9 H Lymphocytes # 1.4 Monocytes # 0.8 Eosinophils # 0.0 Basophils # 0.0 Nucleated Red Blood Cells # 0.0 Sodium Level 149 H Potassium Level 3.7 Chloride Level 119 H Carbon Dioxide Level 24 Anion Gap 6 Blood Urea Nitrogen 41 #H Creatinine 1.26 H Glucose Level 180 Calcium Level 8.3 L Phosphorus Level 2.9 Magnesium Level 2.3 Ammonia < 9 #L Albumin 2.4 L Medications Medications Current Medications IV Flush (NS 3 ml) 3 ml PER PROTOCOL IV ; Start 02/03/19 at 14:00 Ondansetron HCl (Zofran Inj) 4 mg Q6H PRN IV NAUSEA/VOMITING; Start 02/03/19 at 14:00 Acetaminophen (Tylenol Tab) 650 mg Q6H PRN PO .PAIN 1-3 OR TEMP; Start 02/03/19 at 14:00 Acetaminophen/ Hydrocodone Bitart ([place] (5/325)) 1 tab Q6H PRN PO .MOD PAIN 4- 6 Last administered on 02/04/19at 06:09; Admin Dose 1 TAB; Start 02/03/19 at 14:00 Docusate Sodium (Colace) 100 mg Q12H PRN PO .CONSTIPATION; Start 02/03/19 at 14:00 Zolpidem Tartrate (Ambien) 5 mg QHS PRN PO .INSOMNIA Last administered on 02/04/19at 22:35; Admin Dose 5 MG; Start 02/03/19 at 14:00 Furosemide (Lasix) 40 mg DAILY PO Last administered on 02/04/19at 09:24; Admin Dose 40 MG; Start 02/04/19 at 09:00; Status Hold Levothyroxine Sodium (Synthroid) 25 mcg BEFORE BREAKFAST PO Last administered on 02/07/19 06:58; Admin Dose 25 MCG; Start 02/04/19 at 07:00 Spironolactone (Aldactone) 25 mg DAILY PO Last administered on 02/07/19 08:15; Admin Dose 25 MG; Start 02/04/19 at 09:00 Sodium Chloride (Deep Sea) 2 spray BID NASAL Last administered on 02/07/19 08:13; Admin Dose 2 SPRAY; Start 02/04/19 at 11:00 Rifaximin (Xifaxan) 550 mg BID NGT Last administered on 02/07/19 08:16; Admin Dose 550 MG; Start 02/06/19 at 21:00 Sucralfate (Carafate Susp) 1 gm QID NGT Last administered on 02/07/19 12:19; Admin Dose 1 GM; Start 02/06/19 at 13:00 Lactulose (Enulose) 20 gm Q8 PO Last administered on 02/07/19 06:57; Admin Dose 20 GM; Start 02/06/19 at 22:00 Metoclopramide HCl (Reglan) 10 mg Q6 IV Last administered on 02/07/19 12:19; Admin Dose 10 MG; Start 02/06/19 at 18:00 Propranolol HCl (Inderal) 20 mg BID PO Last administered on 02/07/19 08:15; Admin Dose 20 MG; Start 02/06/19 at 21:00 Metoprolol Tartrate (Lopressor) 5 mg Q4H PRN IV HR>110 Hold SBP<100 Last administered on 02/06/19 21:57; Admin Dose 5 MG; Start 02/06/19 at 17:30 Famotidine (Pepcid Iv) 20 mg BID IV Last administered on 02/07/19 08:16; Admin Dose 20 MG; Start 02/06/19 at 21:00 Dextrose/Sodium Chloride 1,000 ml @ 60 mls/hr [id number] IV Last administered on 02/07/19 09:13; Admin Dose 60 MLS/HR; Start 02/07/19 at 09:00 Morphine Sulfate (morphine) 0.5 mg Q4H PRN IV .SEVERE PAIN 7-10; Start 6/13/19 at 14:00 LUZMARIA KEVIN Feb 07, 2019 14:05
--- NOTE | 2019-02-07 14:31 | PN ---
Date/Time of Note Date/Time of Note DATE: 02/07/19 TIME: 14:31 Assessment/Plan VTE Prophylaxis Risk score (from Ns)>0 risk: 9 SCD applied (from Ns): Yes Pharmacological prophylaxis: NA/contraindicated Pharm contraindication: bleeding Lines/Catheters IV C[facility]ter Type [facility]from [facility] [place] Assessment/Plan Assessment/Plan 1. Acute GI bleed s/p EGD- stable - Hgb stable this am and no need for further transfusions - hx heavy NSAID use - GI on board and appreciate recommendations. EGD 02/04 shows extensive ulcerations in jejunal side of GJ. distal esophagitis - continue on PPI and Carafate 2. Acute hepatic encephalopathy- improving - ammonia levels normalized. continue on Rifaximin and Lactulose at this time - if NG in proper place, will start tube feeds - GI recommendations appreciated 3. SVT with aberrancy- resolved - Cardiology consultation appreciated 4. Symptomatic anemia secondary to acute blood loss - goal hgb >7.5 5. Cryptogenic cirrhosis with refractory ascites - per daughter cirrhosis is due to heavy Tylenol use - continue Aldactone and will restart Lasix when renal function normalizes - previous work-up was negative for autoimmune and viral etiologies - US abd noted. no need for paracentesis at this time 4. Hypothyroidism - On Synthroid 5. Diabetes - ISS and accuchecks 6. AN[place]- improving - continue holding Lasix - most likely secondary to hypovolemia and NSAID use - avoid nephrotoxic agents 7. History of coronary disease - stable - no chest pain noted 8. Disposition - Will check position of NG tube and start tube feeds - monitor for improvement in mental function Result Diagram: 02/07/19 0515 02/07/19 0515 Results 24hrs Laboratory Tests Test 02/07/19 05:15 White Blood Count 15.1 H Red Blood Count 2.58 L Hemoglobin 8.1 L Hematocrit 25.2 L Mean Corpuscular Volume 97.7 Mean Corpuscular Hemoglobin 31.4 Mean Corpuscular Hemoglobin Concent 32.1 Red Cell Distribution Width 18.6 H Platelet Count 146 Mean Platelet Volume 12.8 H Immature Granulocytes % 0.500 H Neutrophils % 85.2 H Lymphocytes % 9.2 L Monocytes % 5.0 Eosinophils % 0.0 Basophils % 0.1 Nucleated Red Blood Cells % 0.0 Immature Granulocytes # 0.070 H Neutrophils # 12.9 H Lymphocytes # 1.4 Monocytes # 0.8 Eosinophils # 0.0 Basophils # 0.0 Nucleated Red Blood Cells # 0.0 Sodium Level 149 H Potassium Level 3.7 Chloride Level 119 H Carbon Dioxide Level 24 Anion Gap 6 Blood Urea Nitrogen 41 #H Creatinine 1.26 H Glucose Level 180 Calcium Level 8.3 L Phosphorus Level 2.9 Magnesium Level 2.3 Ammonia < 9 #L Albumin 2.4 L Subjective 24 Hr Interval Summary Free Text/Dictation Per nurse, patient was more awake and screaming due to pain this am and given Morphine. Very somnolent but answering yes and no questions with eyes closed. Exam/Review of Systems Exam Vitals Vital Signs Date Temp Pulse Resp B/P (MAP) Pulse Ox O2 O2 Flow FiO2 Time Delivery Rate 02/07/19 97.3 58 18 146/65 100 Nasal 11:10 (92) Cannula 02/07/19 2.0 09:00 Intake and Output 02/06/19 02/06/19 02/07/19 1414:59 22:59 06:59 IntakeIntake Total 100 ml 50 ml OutputOutput Total 3 ml 4 ml BalanceBalance 97 ml 46 ml Exam General: somnolent, answering simple questions Neck: supple CVS: S1, S2, regular rate and rhythm. no murmurs Lungs: clear to auscultation bilaterally. no wheezing or rhonchi Abd: soft, nontender, nondistended. no rebound or guarding. bowel sounds present diffusely Ext: moving all extremities. no cyanosis, clubbing, or edema SKin: warm, dry. no rashes or lesions appreciated Results Results 24hrs Laboratory Tests Test 02/07/19 05:15 White Blood Count 15.1 H Red Blood Count 2.58 L Hemoglobin 8.1 L Hematocrit 25.2 L Mean Corpuscular Volume 97.7 Mean Corpuscular Hemoglobin 31.4 Mean Corpuscular Hemoglobin Concent 32.1 Red Cell Distribution Width 18.6 H Platelet Count 146 Mean Platelet Volume 12.8 H Immature Granulocytes % 0.500 H Neutrophils % 85.2 H Lymphocytes % 9.2 L Monocytes % 5.0 Eosinophils % 0.0 Basophils % 0.1 Nucleated Red Blood Cells % 0.0 Immature Granulocytes # 0.070 H Neutrophils # 12.9 H Lymphocytes # 1.4 Monocytes # 0.8 Eosinophils # 0.0 Basophils # 0.0 Nucleated Red Blood Cells # 0.0 Sodium Level 149 H Potassium Level 3.7 Chloride Level 119 H Carbon Dioxide Level 24 Anion Gap 6 Blood Urea Nitrogen 41 #H Creatinine 1.26 H Glucose Level 180 Calcium Level 8.3 L Phosphorus Level 2.9 Magnesium Level 2.3 Ammonia < 9 #L Albumin 2.4 L Medications Medication Current Medications IV Flush (NS 3 ml) 3 ml PER PROTOCOL IV ; Start 02/03/19 at 14:00 Ondansetron HCl (Zofran Inj) 4 mg Q6H PRN IV NAUSEA/VOMITING; Start 02/03/19 at 14:00 Acetaminophen (Tylenol Tab) 650 mg Q6H PRN PO .PAIN 1-3 OR TEMP; Start 02/03/19 at 14:00 Acetaminophen/ Hydrocodone Bitart ([place] (5/325)) 1 tab Q6H PRN PO .MOD PAIN 4- 6 Last administered on 02/04/19 06:09; Admin Dose 1 TAB; Start 02/03/19 at 14:00 Docusate Sodium (Colace) 100 mg Q12H PRN PO .CONSTIPATION; Start 02/03/19 at 14:00 Zolpidem Tartrate (Ambien) 5 mg QHS PRN PO .INSOMNIA Last administered on 02/04/19 22:35; Admin Dose 5 MG; Start 02/03/19 at 14:00 Furosemide (Lasix) 40 mg DAILY PO Last administered on 02/04/19 09:24; Admin Dose 40 MG; Start 02/04/19 at 09:00; Status Hold Levothyroxine Sodium (Synthroid) 25 mcg BEFORE BREAKFAST PO Last administered on 02/07/19 06:58; Admin Dose 25 MCG; Start 02/04/19 at 07:00 Spironolactone (Aldactone) 25 mg DAILY PO Last administered on 02/07/19 08:15; Admin Dose 25 MG; Start 02/04/19 at 09:00 Sodium Chloride (Deep Sea) 2 spray BID NASAL Last administered on 02/07/19 08:13; Admin Dose 2 SPRAY; Start 02/04/19 at 11:00 Rifaximin (Xifaxan) 550 mg BID NGT Last administered on 02/07/19 08:16; Admin Dose 550 MG; Start 02/06/19 at 21:00 Sucralfate (Carafate Susp) 1 gm QID NGT Last administered on 02/07/19 12:19; Admin Dose 1 GM; Start 02/06/19 at 13:00 Lactulose (Enulose) 20 gm Q8 PO Last administered on 02/07/19 06:57; Admin Dose 20 GM; Start 02/06/19 at 22:00 Metoclopramide HCl (Reglan) 10 mg Q6 IV Last administered on 02/07/19 12:19; Admin Dose 10 MG; Start 02/06/19 at 18:00 Propranolol HCl (Inderal) 20 mg BID PO Last administered on 02/07/19 08:15; Admin Dose 20 MG; Start 02/06/19 at 21:00 Metoprolol Tartrate (Lopressor) 5 mg Q4H PRN IV HR>110 Hold SBP<100 Last administered on 02/06/19 21:57; Admin Dose 5 MG; Start 02/06/19 at 17:30 Famotidine (Pepcid Iv) 20 mg BID IV Last administered on 02/07/19 08:16; Admin Dose 20 MG; Start 02/06/19 at 21:00 Dextrose/Sodium Chloride 1,000 ml @ 60 mls/hr [id number] IV Last administered on 02/07/19 09:13; Admin Dose 60 MLS/HR; Start 02/07/19 at 09:00 Morphine Sulfate (morphine) 0.5 mg Q4H PRN IV .SEVERE PAIN 7-10; Start 02/07/19 at 14:00 BROCK VAN MD Feb 07, 2019 14:31
--- NOTE | 2019-02-07 14:59 | RADRPT ---
Vent Rate: 102 bpm RR Interval: 592 msec [place] Interval: 171 msec QRS Duration: 128 msec QT Interval: 360 msec QTC Interval: 468 msec P-R-T [place]: 44 - -49 - 108 degrees Sinus tachycardia...rate> 99 Atrial premature complex...SV complex w/ short R-R interval Left bundle branch block...QRSd>120, broad/notched R Electronically Signed By: Pop Souza
[2019-02-07] MEDS ORDERED: DEXTROSE 5% 1,000 ML IV SCH (17:30)
--- NOTE | 2019-02-07 22:28 | RADRPT ---
Echocardiogram Report Patient Name: Anat SUEtient ID: [id number] : [id number] (78y 11m)Study Date: 02/07/2019 9:07:28 AM Gender: MAccession #: [id number] Tech: Jethro Rene [facility] Location: 632-A Ref.Physician: LUZMARIA BURKETT Height(Cm): BSA: Weight(Kg): Quality: AdequateOrder Physician: LUZMARIA BURKETT Account #: Procedures: Echocardiographic Report: Transthoracic echocardiogram with complete 2D, M-Mode, and doppler examination. Indications: SVT. Measurements: 2D/M Mode Doppler Measurement Value Normal Range Measurement Value Normal Range LVIDd 2D 3.5 [ 4.2 - 5.8 ] cm ROYA VTI 1.3 [ 2.0 - 4.0 ] cm2 LVIDs 2D 3.1 [ 2.5 - 4.0 ] cm AV Mean Yoseph 1.7 [ 70.0 - 90.0 ] cm/sec LVPWd 2D 1.3 [ 0.6 - 1.0 ] cm AV Mean PG 12.0 [ 2.0 - 4.0 ] mmHg IVSd 2D 1.4 [ 0.6 - 1.0 ] cm AV VTI 52.9 cm AoR Diam 2D 2.3 [ 2.6 - 3.4 ] cm LVOT Mean Yoseph 0.6 [ 60.0 - 80.0 ] cm/sec EDV 2D 52.6 [ 62.0 - 150.0 ] ml LVOT Mean PG 2.0 [ 1.0 - 3.0 ] mmHg ESV 2D 38.5 [ 21.0 - 61.0 ] ml LVOT Peak Yoseph 0.9 [ 70.0 - 110.0 ] cm/sec EF 2D 26.8 [ 52.0 - 72.0 ] percent LVOT Peak PG 3.0 [ 2.0 - 6.0 ] mmHg LA Dimen 2D 4.3 [ 3.0 - 4.0 ] cm LVOT VTI 22.4 [ 20.0 - 30.0 ] cm LVOT Diam 2.0 [ 2.3 - 2.9 ] cm MV E Peak Yoseph 0.5 [ 60.0 - 130.0 ] cm/sec MV A Peak Yoseph 0.7 [ 100.0 - 120.0 ] cm/sec MV E/A 0.8 [ 0.8 - 1.5 ] ratio MV Decel Time 268 [ 104 - 258 ] msec Lat E` Yoseph 0.1 [ 10.0 - 15.0 ] cm/sec Lateral E/E` 5.2 [ 1.0 - 2.0 ] ratio MV E/A 0.8 [ 0.8 - 1.5 ] ratio TR Peak Yoseph 2.4 [ 100.0 - 280.0 ] cm/sec TR Peak PG 23.0 mmHg RVSP 38.0 [ 10.0 - 36.0 ] mmHg Findings: Left Ventricle: Lower limits of normal systolic function. Normal left ventricular cavity size. Mild concentric left ventricular hypertrophy. Ejection fraction is visually estimated at 50 %. Tissue Doppler/Mitral Doppler indices are consistent with pseudonormalization with mildly elevated left atrial pressure (Stage II diastolic dysfunction). Right Ventricle: Normal right ventricular size. Normal right ventricular systolic function. Left Atrium: There is mild enlargement of left atrium. Right Atrium: The right atrium is normal in size. Mitral Valve: Mild mitral leaflet calcification. Mild mitral annular calcification. Trace mitral regurgitation. Aortic Valve: Mild to moderate aortic stenosis. Aortic valve Max velocity 2.24 m/sec. Max PG 20.00 mmHg. Mean PG 12.00 mmHg. Aortic valve area 1.01 cm2. Aortic cusps appear moderately calcified. Tricuspid Valve: Normal appearance of the tricuspid valve. The estimated Peak RVSP is 38 mmHg. There is mild tricuspid regurgitation. Pericardium: Normal pericardium with no significant pericardial effusion. Aorta: Normal aortic root. IVC: Dilated IVC without respiratory collapse consistent with elevated right atrial pressure. Conclusions: Lower limits of normal systolic function. Normal left ventricular cavity size. Mild concentric left ventricular hypertrophy. Ejection fraction is visually estimated at 50 %. Tissue Doppler/Mitral Doppler indices are consistent with pseudonormalization with mildly elevated left atrial pressure (Stage II diastolic dysfunction). There is mild enlargement of left atrium. Mild mitral leaflet calcification. Mild mitral annular calcification. Trace mitral regurgitation. Given significant mismatch between calculated aortic valve area and derived gradient across the valve likely consistent with mild to moderate aortic stenosis. Aortic valve Max velocity 2.24 m/sec. Mean PG 12.00 mmHg. Aortic valve area 1.01 cm2. Aortic cusps appear moderately calcified. Normal appearance of the tricuspid valve. The estimated Peak RVSP is 38 mmHg. There is mild tricuspid regurgitation. Electronically Signed By: Luzmaria Burkett 2019-02-07 22:27:41 PDT
[2019-02-08] VITALS (12 sets, daily range): BP systolic 93–164; BP diastolic 50–79; PULSE 57–84; RESP 18–22
[2019-02-08] MEDS: METOCLOPRAMIDE 10 MG INJ IV SCH ×4 (00:30→17:47)
[2019-02-08] MEDS ORDERED: HALOPERIDOL 5 MG INJ IM ONE (04:00)
[2019-02-08] MEDS ORDERED: LORAZEPAM 2 MG INJ IV ONE (05:00)
[2019-02-08] MEDS: LACTULOSE 30ML CUP PO SCH ×3 (05:19→21:21)
[2019-02-08] MEDS: LEVOTHYROXINE 25 MCG TAB PO SCH (06:01)
[2019-02-08] MEDS: FAMOTIDINE 20 MG INJ IV SCH (08:33)
[2019-02-08] MEDS: SUCRALFATE (100 MG/ML) 10ML CUP NGT SCH ×4 (08:34→21:04)
[2019-02-08] MEDS: SPIRONOLACTONE 25 MG TAB PO SCH (08:34)
[2019-02-08] MEDS: PROPRANOLOL 20 MG TAB PO SCH ×2 (08:34→21:10)
[2019-02-08] MEDS: RIFAXIMIN 550 MG TAB NGT SCH ×2 (08:34→21:05)
[2019-02-08] MEDS: SALINE 0.65% 45 ML NAS SPRAY NASAL SCH ×2 (09:40→21:11)
[2019-02-08] MEDS: POTASSIUM CHLORIDE 10 MEQ in SOD CHLORIDE 0.45% 1,000 ML IV SCH (11:19)
--- NOTE | 2019-02-08 14:31 | CONS ---
Assessment/Plan Assessment/Plan Hospital Course (Demo Recall) IMPRESSION: 1. Wide complex tachycardia, likely consistent with supraventricular tachycardia with a baseline bundle branch block.-TSH WNL. NO recurrence last 24 hours. NL EF by eco this admit 2. Abnormal electrocardiogram with baseline bundle branch block. 3. Syncope on admit. Rule out cardiac etiology. Rule out cardiac arrhythmia as etiology versus anemia. 4. Cirrhosis. 5. Gastrointestinal bleed with melenic stools. 6. Peptic ulcer disease by endoscopy. 7. Renal failure. 8. Hyponatremia. 9. Thrombocytopenia. 10. Anemia. 11. Encephalopathy. 12. -mild to moderate by echo this admit Recc: -Tele -Contineu propranolol -Contineu lactulose -Continue aldactone -add hydralazine to improve BP control -Follow MS -Follow HGb clsoely with further tansfusions as necessary Consultation Date/Type/Reason Admit Date/Time Feb 03, 2019 at 09:30 Initial Consult Date 02/03/19 Type of Consult Cardiology Reason for Consultation SVT/WCT Requesting Provider: SUDHIR BARRIENTOS Date/Time of Note DATE: 02/08/19 TIME: 14:29 Exam/Review of Systems Vital Signs Vitals Vital Signs Date Temp Pulse Resp B/P (MAP) Pulse Ox O2 O2 Flow FiO2 Time Delivery Rate 02/08/19 74 12:26 02/08/19 3.0 11:41 02/08/19 97.8 20 149/67 100 Nasal 10:58 (94) Cannula Intake and Output 02/07/19 02/07/19 02/08/19 1515:00 23:00 07:00 IntakeIntake Total 250 ml 1080 ml BalanceBalance 250 ml 1080 ml Exam Exam Review of Systems: CONSTITUTIONAL: No fevers, chills. PULMONARY: No sob CARDIOVASCULAR: No chest pain/palpitations GASTROINTESTINAL: No nausea/vomiting. GENITOURINARY: No hematuria/dysuria. MUSCULOSKELETAL: No myagias/arthalgias. PSYCHIATRIC: The patient denies depression. NEUROLOGIC: No weakness Constitutional: alert Psych: no complaints Head: normocephalic ENMT: mucosa pink and moist Neck: supple, jvd (9 cm water) Respiratory: clear to auscultation Cardiovascular: regular rate and rhythm Gastrointestinal: soft, non-tender Musculoskeletal: muscle tone (normal) Extremities: edema (none) Neurological: other (No focal deficits) Labs Result Diagram: 02/08/19 0558 02/08/19 0558 Results 24hrs Laboratory Tests Test 02/08/19 05:58 White Blood Count 11.5 #H Red Blood Count 2.92 L Hemoglobin 8.9 L Hematocrit 28.5 L Mean Corpuscular Volume 97.6 Mean Corpuscular Hemoglobin 30.5 Mean Corpuscular Hemoglobin Concent 31.2 L Red Cell Distribution Width 18.4 H Platelet Count 136 L Mean Platelet Volume 12.6 H Immature Granulocytes % 0.400 Neutrophils % 82.5 H Lymphocytes % 9.8 L Monocytes % 5.4 Eosinophils % 1.6 Basophils % 0.3 Nucleated Red Blood Cells % 0.0 Immature Granulocytes # 0.050 H Neutrophils # 9.5 H Lymphocytes # 1.1 Monocytes # 0.6 Eosinophils # 0.2 Basophils # 0.0 Nucleated Red Blood Cells # 0.0 Sodium Level 144 Potassium Level 3.7 Chloride Level 113 H Carbon Dioxide Level 23 Anion Gap 8 Blood Urea Nitrogen 36 H Creatinine 1.11 Glucose Level 226 H Calcium Level 8.5 Phosphorus Level 2.0 L Magnesium Level 2.1 Albumin 2.9 L Medications Medications Current Medications IV Flush (NS 3 ml) 3 ml PER PROTOCOL IV ; Start 02/03/19 at 14:00 Ondansetron HCl (Zofran Inj) 4 mg Q6H PRN IV NAUSEA/VOMITING; Start 02/03/19 at 14:00 Acetaminophen (Tylenol Tab) 650 mg Q6H PRN PO .PAIN 1-3 OR TEMP; Start 02/03/19 at 14:00 Acetaminophen/ Hydrocodone Bitart ([place] (5/325)) 1 tab Q6H PRN PO .MOD PAIN 4- 6 Last administered on 02/04/19at 06:09; Admin Dose 1 TAB; Start 02/03/19 at 14:00 Docusate Sodium (Colace) 100 mg Q12H PRN PO .CONSTIPATION; Start 02/03/19 at 14:00 Zolpidem Tartrate (Ambien) 5 mg QHS PRN PO .INSOMNIA Last administered on 02/04/19at 22:35; Admin Dose 5 MG; Start 02/03/19 at 14:00 Furosemide (Lasix) 40 mg DAILY PO Last administered on 02/04/19at 09:24; Admin Dose 40 MG; Start 02/04/19 at 09:00; Status Hold Levothyroxine Sodium (Synthroid) 25 mcg BEFORE BREAKFAST PO Last administered on 02/08/19 06:01; Admin Dose 25 MCG; Start 02/04/19 at 07:00 Spironolactone (Aldactone) 25 mg DAILY PO Last administered on 02/08/19 08:34; Admin Dose 25 MG; Start 02/04/19 at 09:00 Sodium Chloride (Deep Sea) 2 spray BID NASAL Last administered on 02/08/19 09:40; Admin Dose 2 SPRAY; Start 02/04/19 at 11:00 Rifaximin (Xifaxan) 550 mg BID NGT Last administered on 02/08/19 08:34; Admin Dose 550 MG; Start 02/06/19 at 21:00 Sucralfate (Carafate Susp) 1 gm QID NGT Last administered on 02/08/19 12:34; Admin Dose 1 GM; Start 02/06/19 at 13:00 Lactulose (Enulose) 20 gm Q8 PO Last administered on 02/07/19 06:57; Admin Dose 20 GM; Start 02/06/19 at 22:00 Metoclopramide HCl (Reglan) 10 mg Q6 IV Last administered on 02/08/19 11:19; Admin Dose 10 MG; Start 02/06/19 at 18:00 Propranolol HCl (Inderal) 20 mg BID PO Last administered on 02/08/19 08:34; Admin Dose 20 MG; Start 02/06/19 at 21:00 Metoprolol Tartrate (Lopressor) 5 mg Q4H PRN IV HR>110 Hold SBP<100 Last administered on 02/06/19 21:57; Admin Dose 5 MG; Start 02/06/19 at 17:30 Morphine Sulfate (morphine) 0.5 mg Q4H PRN IV .SEVERE PAIN 7-10; Start 02/07/19 at 14:00 Quetiapine Fumarate (Seroquel) 25 mg QHS PO ; Start 02/08/19 at 21:00 Potassium Chloride 10 meq/ Sodium Chloride 1,005 ml @ 60 mls/hr [id number] IV Last administered on 02/08/19 11:19; Admin Dose 60 MLS/HR; Start 02/08/19 at 10:00 Famotidine (Pepcid) 20 mg BID PO ; Start 02/08/19 at 21:00 LUZMARIA KEVIN Feb 08, 2019 14:31
--- NOTE | 2019-02-08 14:31 | PN ---
Date/Time of Note Date/Time of Note DATE: 02/08/19 TIME: 14:24 Assessment/Plan VTE Prophylaxis Risk score (from Ns)>0 risk: 8 SCD applied (from Ns): Yes Pharmacological prophylaxis: NA/contraindicated Pharm contraindication: bleeding Lines/Catheters IV Catheter Type (from [facility]): Peripheral IV Urinary Cath still in place: No Assessment/Plan Assessment/Plan 1. Acute GI bleed s/p EGD- stable - Hgb remains stable - hx heavy NSAID use - GI on board and appreciate recommendations. EGD 02/04 shows extensive ulcerations in jejunal side of GJ. distal esophagitis - continue on PPI and Carafate 2. Acute hepatic encephalopathy- resolving - confusion is mostly medication induced. Given Haldol this am - ammonia levels normalized. continue on Rifaximin and Lactulose at this time - GI recommendations appreciated 3. SVT with aberrancy- resolved - Cardiology consultation appreciated 4. Symptomatic anemia secondary to acute blood loss - hemoglobin remains stable - goal hgb >7.5 5. Cryptogenic cirrhosis with refractory ascites - per daughter cirrhosis is due to heavy Tylenol use - continue Aldactone and Lasix - previous work-up was negative for autoimmune and viral etiologies - US abd noted. no need for paracentesis at this time 6. Hypothyroidism - On Synthroid 7. Diabetes - ISS and accuchecks 8. ANTONIETTA- resolved - most likely secondary to hypovolemia and NSAID use - avoid nephrotoxic agents 9. History of coronary disease - stable - no chest pain noted 10. Disposition - Speech on board and maintain NPO for now until more awake - When mentation improves, will discuss ARU with patient and family Result Diagram: 02/08/19 0558 02/08/19 0558 Results 24hrs Laboratory Tests Test 02/08/19 05:58 White Blood Count 11.5 #H Red Blood Count 2.92 L Hemoglobin 8.9 L Hematocrit 28.5 L Mean Corpuscular Volume 97.6 Mean Corpuscular Hemoglobin 30.5 Mean Corpuscular Hemoglobin Concent 31.2 L Red Cell Distribution Width 18.4 H Platelet Count 136 L Mean Platelet Volume 12.6 H Immature Granulocytes % 0.400 Neutrophils % 82.5 H Lymphocytes % 9.8 L Monocytes % 5.4 Eosinophils % 1.6 Basophils % 0.3 Nucleated Red Blood Cells % 0.0 Immature Granulocytes # 0.050 H Neutrophils # 9.5 H Lymphocytes # 1.1 Monocytes # 0.6 Eosinophils # 0.2 Basophils # 0.0 Nucleated Red Blood Cells # 0.0 Sodium Level 144 Potassium Level 3.7 Chloride Level 113 H Carbon Dioxide Level 23 Anion Gap 8 Blood Urea Nitrogen 36 H Creatinine 1.11 Glucose Level 226 H Calcium Level 8.5 Phosphorus Level 2.0 L Magnesium Level 2.1 Albumin 2.9 L Subjective 24 Hr Interval Summary Free Text/Dictation Patient is more awake this am and complaining of hunger. States he needs help and when asked what he needs, states he wants to go home. No acute overnight events. Exam/Review of Systems Exam Vitals Vital Signs Date Temp Pulse Resp B/P (MAP) Pulse Ox O2 O2 Flow FiO2 Time Delivery Rate 02/08/19 74 12:26 02/08/19 3.0 11:41 02/08/19 97.8 20 149/67 100 Nasal 10:58 (94) Cannula Intake and Output 02/07/19 02/07/19 02/08/19 1515:00 23:00 07:00 IntakeIntake Total 250 ml 1080 ml BalanceBalance 250 ml 1080 ml Exam General: mildly confused. answering some questions appropriately Neck: supple CVS: S1, S2, regular rate and rhythm. no murmurs Lungs: clear to auscultation bilaterally. no wheezing or rhonchi Abd: soft, nontender, nondistended. no rebound or guarding. bowel sounds present diffusely Ext: moving all extremities. no cyanosis, clubbing, or edema SKin: warm, dry. no rashes or lesions appreciated Results Results 24hrs Laboratory Tests Test 02/08/19 05:58 White Blood Count 11.5 #H Red Blood Count 2.92 L Hemoglobin 8.9 L Hematocrit 28.5 L Mean Corpuscular Volume 97.6 Mean Corpuscular Hemoglobin 30.5 Mean Corpuscular Hemoglobin Concent 31.2 L Red Cell Distribution Width 18.4 H Platelet Count 136 L Mean Platelet Volume 12.6 H Immature Granulocytes % 0.400 Neutrophils % 82.5 H Lymphocytes % 9.8 L Monocytes % 5.4 Eosinophils % 1.6 Basophils % 0.3 Nucleated Red Blood Cells % 0.0 Immature Granulocytes # 0.050 H Neutrophils # 9.5 H Lymphocytes # 1.1 Monocytes # 0.6 Eosinophils # 0.2 Basophils # 0.0 Nucleated Red Blood Cells # 0.0 Sodium Level 144 Potassium Level 3.7 Chloride Level 113 H Carbon Dioxide Level 23 Anion Gap 8 Blood Urea Nitrogen 36 H Creatinine 1.11 Glucose Level 226 H Calcium Level 8.5 Phosphorus Level 2.0 L Magnesium Level 2.1 Albumin 2.9 L Medications Medication Current Medications IV Flush (NS 3 ml) 3 ml PER PROTOCOL IV ; Start 02/03/19 at 14:00 Ondansetron HCl (Zofran Inj) 4 mg Q6H PRN IV NAUSEA/VOMITING; Start 02/03/19 at 14:00 Acetaminophen (Tylenol Tab) 650 mg Q6H PRN PO .PAIN 1-3 OR TEMP; Start 02/03/19 at 14:00 Acetaminophen/ Hydrocodone Bitart ([place] (5/325)) 1 tab Q6H PRN PO .MOD PAIN 4- 6 Last administered on 02/04/19 06:09; Admin Dose 1 TAB; Start 02/03/19 at 14:00 Docusate Sodium (Colace) 100 mg Q12H PRN PO .CONSTIPATION; Start 02/03/19 at 14:00 Zolpidem Tartrate (Ambien) 5 mg QHS PRN PO .INSOMNIA Last administered on 02/04/19 22:35; Admin Dose 5 MG; Start 02/03/19 at 14:00 Furosemide (Lasix) 40 mg DAILY PO Last administered on 02/04/19 09:24; Admin Dose 40 MG; Start 02/04/19 at 09:00; Status Hold Levothyroxine Sodium (Synthroid) 25 mcg BEFORE BREAKFAST PO Last administered on 02/08/19 06:01; Admin Dose 25 MCG; Start 02/04/19 at 07:00 Spironolactone (Aldactone) 25 mg DAILY PO Last administered on 02/08/19 08:34; Admin Dose 25 MG; Start 02/04/19 at 09:00 Sodium Chloride (Deep Sea) 2 spray BID NASAL Last administered on 02/08/19 09:40; Admin Dose 2 SPRAY; Start 02/04/19 at 11:00 Rifaximin (Xifaxan) 550 mg BID NGT Last administered on 02/08/19 08:34; Admin Dose 550 MG; Start 02/06/19 at 21:00 Sucralfate (Carafate Susp) 1 gm QID NGT Last administered on 02/08/19 12:34; Admin Dose 1 GM; Start 02/06/19 at 13:00 Lactulose (Enulose) 20 gm Q8 PO Last administered on 02/07/19at 06:57; Admin Dose 20 GM; Start 02/06/19 at 22:00 Metoclopramide HCl (Reglan) 10 mg Q6 IV Last administered on 02/08/19 11:19; Admin Dose 10 MG; Start 02/06/19 at 18:00 Propranolol HCl (Inderal) 20 mg BID PO Last administered on 02/08/19 08:34; Admin Dose 20 MG; Start 02/06/19 at 21:00 Metoprolol Tartrate (Lopressor) 5 mg Q4H PRN IV HR>110 Hold SBP<100 Last administered on 02/06/19 21:57; Admin Dose 5 MG; Start 02/06/19 at 17:30 Morphine Sulfate (morphine) 0.5 mg Q4H PRN IV .SEVERE PAIN 7-10; Start 02/07/19 at 14:00 Quetiapine Fumarate (Seroquel) 25 mg QHS PO ; Start 02/08/19 at 21:00 Potassium Chloride 10 meq/ Sodium Chloride 1,005 ml @ 60 mls/hr [id number] IV Last administered on 02/08/19 11:19; Admin Dose 60 MLS/HR; Start 02/08/19 at 10:00 Famotidine (Pepcid) 20 mg BID PO ; Start 02/08/19 at 21:00 BROCK VAN MD Feb 08, 2019 14:31
--- NOTE | 2019-02-08 16:41 | PN ---
Date/Time of Note Date/Time of Note DATE: 02/08/19 TIME: 16:26 Assessment/Plan VTE Prophylaxis Risk score (from Ns)>0 risk: 8 SCD applied (from Ns): Yes Pharmacological prophylaxis: NA/contraindicated Pharm contraindication: liver dx Lines/Catheters IV [facility] (from [facility]): Peripheral IV Urinary Cath still in place: No Assessment/Plan Assessment/Plan Assessment: Anemia - suspected GI bleeding Melena -EGD 02/04/19 Extensive ulceration in the jejunal side of the gastrojejunal Billroth II anastomosis. No stigmata recent bleeding no visible vessel. Distal esophagitis with ulceration. No stigmata. Recent bleeding. 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 Additionally NG tube the r egion of the GE junction with his advancement of approximately 4 cm Blood has been started and repeat KUB has been ordered Monitor labs Patient seen in collaboration with Dr. Harvey Subjective: Course reviewed with nursing staff Patient interviewed and examined All labs, imaging and other results reviewed Patient is sitting in bed, awake and alert today . He responds to questions appropriately. There is no evidence of overt GI bleeding. Hemoglobin is trending up. Discussed the plan for future pain management of abdominal cramps with the daughter at the bedside. Recommend antispasmodics rather than Tylenol or NSAIDs. Constitutional: More awake today, frail, chronically ill. In no acute distress. Psych: no complaints, nl mood/affect Head: normocephalic, atraumatic Eyes: nl conjunctiva, EOMI, nl lids ENMT: nl external ears & nose, nl lips & teeth, nl nasal mucosa & septum Neck: supple Respiratory: clear to auscultation, normal air movement Cardiovascular: regular rate and rhythm, nl pulses Gastrointestinal: soft, nontender, active bowel sounds, ascites, surgical scars (lower abdominal surgcial scar), tender (moderate epigastric tenderness), other (ventral hernia, easily reducible) Musculoskeletal: nl extremities to inspection Extremities: normal pulses Result Diagram: 02/08/1958 02/08/19 0558 Results 24hrs Laboratory Tests Test 02/08/19 05:58 White Blood Count 11.5 #H Red Blood Count 2.92 L Hemoglobin 8.9 L Hematocrit 28.5 L Mean Corpuscular Volume 97.6 Mean Corpuscular Hemoglobin 30.5 Mean Corpuscular Hemoglobin Concent 31.2 L Red Cell Distribution Width 18.4 H Platelet Count 136 L Mean Platelet Volume 12.6 H Immature Granulocytes % 0.400 Neutrophils % 82.5 H Lymphocytes % 9.8 L Monocytes % 5.4 Eosinophils % 1.6 Basophils % 0.3 Nucleated Red Blood Cells % 0.0 Immature Granulocytes # 0.050 H Neutrophils # 9.5 H Lymphocytes # 1.1 Monocytes # 0.6 Eosinophils # 0.2 Basophils # 0.0 Nucleated Red Blood Cells # 0.0 Sodium Level 144 Potassium Level 3.7 Chloride Level 113 H Carbon Dioxide Level 23 Anion Gap 8 Blood Urea Nitrogen 36 H Creatinine 1.11 Glucose Level 226 H Calcium Level 8.5 Phosphorus Level 2.0 L Magnesium Level 2.1 Albumin 2.9 L CC: KIRIT HARVEY MD ; Exam/Review of Systems Exam Vitals Vital Signs Date Temp Pulse Resp B/P (MAP) Pulse Ox O2 O2 Flow FiO2 Time Delivery Rate 02/08/19 97.7 74 20 147/68 100 Nasal 15:24 (94) Cannula 02/08/19 3.0 11:41 Intake and Output 02/07/19 02/07/19 02/08/19 1414:59 22:59 06:59 IntakeIntake Total 250 ml 1080 ml BalanceBalance 250 ml 1080 ml Results Results 24hrs Laboratory Tests Test 02/08/19 05:58 White Blood Count 11.5 #H Red Blood Count 2.92 L Hemoglobin 8.9 L Hematocrit 28.5 L Mean Corpuscular Volume 97.6 Mean Corpuscular Hemoglobin 30.5 Mean Corpuscular Hemoglobin Concent 31.2 L Red Cell Distribution Width 18.4 H Platelet Count 136 L Mean Platelet Volume 12.6 H Immature Granulocytes % 0.400 Neutrophils % 82.5 H Lymphocytes % 9.8 L Monocytes % 5.4 Eosinophils % 1.6 Basophils % 0.3 Nucleated Red Blood Cells % 0.0 Immature Granulocytes # 0.050 H Neutrophils # 9.5 H Lymphocytes # 1.1 Monocytes # 0.6 Eosinophils # 0.2 Basophils # 0.0 Nucleated Red Blood Cells # 0.0 Sodium Level 144 Potassium Level 3.7 Chloride Level 113 H Carbon Dioxide Level 23 Anion Gap 8 Blood Urea Nitrogen 36 H Creatinine 1.11 Glucose Level 226 H Calcium Level 8.5 Phosphorus Level 2.0 L Magnesium Level 2.1 Albumin 2.9 L Medications Medication Current Medications IV Flush (NS 3 ml) 3 ml PER PROTOCOL IV ; Start 02/03/19 at 14:00 Ondansetron HCl (Zofran Inj) 4 mg Q6H PRN IV NAUSEA/VOMITING; Start 02/03/19 at 14:00 Acetaminophen (Tylenol Tab) 650 mg Q6H PRN PO .PAIN 1-3 OR TEMP; Start 02/03/19 at 14:00 Acetaminophen/ Hydrocodone Bitart ([place] (5/325)) 1 tab Q6H PRN PO .MOD PAIN 4- 6 Last administered on 02/04/19 06:09; Admin Dose 1 TAB; Start 02/03/19 at 14:00 Docusate Sodium (Colace) 100 mg Q12H PRN PO .CONSTIPATION; Start 02/03/19 at 14:00 Zolpidem Tartrate (Ambien) 5 mg QHS PRN PO .INSOMNIA Last administered on 22:35; Admin Dose 5 MG; Start 02/03/19 at 14:00 Furosemide (Lasix) 40 mg DAILY PO Last administered on 02/04/19 09:24; Admin Dose 40 MG; Start 02/04/19 at 09:00; Status Hold Levothyroxine Sodium (Synthroid) 25 mcg BEFORE BREAKFAST PO Last administered on 02/08/19 06:01; Admin Dose 25 MCG; Start 02/04/19 at 07:00 Spironolactone (Aldactone) 25 mg DAILY PO Last administered on 02/08/19 08:34; Admin Dose 25 MG; Start 02/04/19 at 09:00 Sodium Chloride (Deep Sea) 2 spray BID NASAL Last administered on 02/08/19 09:40; Admin Dose 2 SPRAY; Start 02/04/19 at 11:00 Rifaximin (Xifaxan) 550 mg BID NGT Last administered on 02/08/19 08:34; Admin Dose 550 MG; Start 02/06/19 at 21:00 Sucralfate (Carafate Susp) 1 gm QID NGT Last administered on 02/08/19 12:34; Admin Dose 1 GM; Start 02/06/19 at 13:00 Lactulose (Enulose) 20 gm Q8 PO Last administered on 02/07/19at 06:57; Admin Dose 20 GM; Start 02/06/19 at 22:00 Metoclopramide HCl (Reglan) 10 mg Q6 IV Last administered on 02/08/19at 11:19; Admin Dose 10 MG; Start 02/06/19 at 18:00 Propranolol HCl (Inderal) 20 mg BID PO Last administered on 02/08/19 08:34; Admin Dose 20 MG; Start 02/06/19 at 21:00 Metoprolol Tartrate (Lopressor) 5 mg Q4H PRN IV HR>110 Hold SBP<100 Last administered on 02/06/19 21:57; Admin Dose 5 MG; Start 02/06/19 at 17:30 Morphine Sulfate (morphine) 0.5 mg Q4H PRN IV .SEVERE PAIN 7-10; Start 02/07/19 at 14:00 Quetiapine Fumarate (Seroquel) 25 mg QHS PO ; Start 02/08/19 at 21:00 Potassium Chloride 10 meq/ Sodium Chloride 1,005 ml @ 60 mls/hr [id number] IV Last administered on 02/08/19at 11:19; Admin Dose 60 MLS/HR; Start 02/08/19 at 10:00 Famotidine (Pepcid) 20 mg BID PO ; Start 02/08/19 at 21:00 Furosemide (Lasix) 20 mg DAILY IV ; Start 02/09/19 at 09:00 Hydralazine HCl (Apresoline) 25 mg Q12 PO ; Start 02/08/19 at 21:00 JAVIER MURRIETA NP Feb 08, 2019 16:40
[2019-02-08] MEDS: FAMOTIDINE 20 MG TAB PO SCH (21:09)
[2019-02-08] MEDS: QUETIAPINE 25 MG TAB PO SCH (21:09)
[2019-02-09] VITALS (13 sets, daily range): BP systolic 88–138; BP diastolic 49–68; PULSE 62–98; RESP 17–24
[2019-02-09] MEDS: METOCLOPRAMIDE 10 MG INJ IV SCH ×4 (00:36→18:33)
[2019-02-09] MEDS: POTASSIUM CHLORIDE 10 MEQ in SOD CHLORIDE 0.45% 1,000 ML IV SCH (02:59)
[2019-02-09] MEDS: LACTULOSE 30ML CUP PO SCH ×3 (06:07→21:23)
[2019-02-09] MEDS: LEVOTHYROXINE 25 MCG TAB PO SCH (06:07)
[2019-02-09] MEDS ORDERED: NEUTRA-PHOS 250 MG PACKET NGT ONE (08:30)
--- NOTE | 2019-02-09 09:25 | PN ---
Date/Time of Note Date/Time of Note DATE: 02/09/19 TIME: 09:21 Assessment/Plan VTE Prophylaxis Risk score (from Ns)>0 risk: 8 SCD applied (from Ns): Yes Pharmacological prophylaxis: NA/contraindicated Pharm contraindication: bleeding Lines/Catheters [facility] Peripheral IV Urinary Cath still in place: No Assessment/Plan Assessment/Plan 1. Acute GI bleed s/p EGD - still with dark stools but hgb remains stable - Per GI recommending d/c on Levsin PRN for abdominal discomfort given patient was self medicating with NSAIDs at home - GI on board and appreciate recommendations. EGD 02/04 shows extensive ulcerations in jejunal side of GJ. distal esophagitis - continue on PPI and Carafate 2. Acute hepatic encephalopathy- resolving - lethargic this am but answering questions appropriately - continue on Rifaximin and Lactulose at this time - GI recommendations appreciated 3. SVT with aberrancy- resolved - Cardiology consultation appreciated 4. Symptomatic anemia secondary to acute blood loss - hemoglobin remains stable - goal hgb >7.5 5. Cryptogenic cirrhosis with refractory ascites - per daughter cirrhosis is due to heavy Tylenol use - continue Aldactone and Lasix - previous work-up was negative for autoimmune and viral etiologies - US abd noted. no need for paracentesis at this time 6. Hypothyroidism - On Synthroid 7. Diabetes - ISS and accuchecks 8. ANTONIETTA- resolved - most likely secondary to hemodynamics - avoid nephrotoxic agents 9. History of coronary disease - stable - no chest pain noted 10. Disposition - Speech on board and maintain NPO for now until more awake. When able to advance diet, will d/c - Will continue monitoring H/H Result Diagram: 02/09/1952002/09/19 05 Results 24hrs Laboratory Tests Test 02/09/19 05:21 White Blood Count 13.8 H Red Blood Count 2.85 L Hemoglobin 8.9 L Hematocrit 27.8 L Mean Corpuscular Volume 97.5 Mean Corpuscular Hemoglobin 31.2 Mean Corpuscular Hemoglobin Concent 32.0 Red Cell Distribution Width 17.6 H Platelet Count 128 L Mean Platelet Volume 12.8 H Immature Granulocytes % 0.800 H Neutrophils % 84.6 H Lymphocytes % 7.0 L Monocytes % 4.9 Eosinophils % 2.5 Basophils % 0.2 Nucleated Red Blood Cells % 0.0 Immature Granulocytes # 0.110 H Neutrophils # 11.6 H Lymphocytes # 1.0 Monocytes # 0.7 Eosinophils # 0.3 Basophils # 0.0 Nucleated Red Blood Cells # 0.0 Sodium Level 141 Potassium Level 4.3 Chloride Level 110 Carbon Dioxide Level 24 Anion Gap 7 Blood Urea Nitrogen 35 H Creatinine 1.03 Glucose Level 286 H Calcium Level 8.3 L Phosphorus Level 1.4 L Magnesium Level 2.1 Albumin 2.8 L Subjective 24 Hr Interval Summary Free Text/Dictation Patient lethargic this am but answering questions appropriately. No acute overnight events. Exam/Review of Systems Exam Vitals Vital Signs Date Temp Pulse Resp B/P (MAP) Pulse Ox O2 O2 Flow FiO2 Time Delivery Rate 02/09/19 98.1 85 20 117/65 99 Nasal 07:35 (82) Cannula 02/09/19 3.0 01:04 Intake and Output 02/08/19 02/08/19 02/09/19 1515:00 23:00 07:00 IntakeIntake Total 900 ml 1260 ml OutputOutput Total 1 ml 3 ml BalanceBalance 899 ml 1257 ml Exam General: lethargic. answering some questions appropriately Neck: supple CVS: S1, S2, regular rate and rhythm. no murmurs Lungs: clear to auscultation bilaterally. no wheezing or rhonchi Abd: soft, nontender, nondistended. no rebound or guarding. bowel sounds present diffusely Ext: moving all extremities. no cyanosis, clubbing, or edema SKin: warm, dry. no rashes or lesions appreciated Results Results 24hrs Laboratory Tests Test 02/09/19 05:21 White Blood Count 13.8 H Red Blood Count 2.85 L Hemoglobin 8.9 L Hematocrit 27.8 L Mean Corpuscular Volume 97.5 Mean Corpuscular Hemoglobin 31.2 Mean Corpuscular Hemoglobin Concent 32.0 Red Cell Distribution Width 17.6 H Platelet Count 128 L Mean Platelet Volume 12.8 H Immature Granulocytes % 0.800 H Neutrophils % 84.6 H Lymphocytes % 7.0 L Monocytes % 4.9 Eosinophils % 2.5 Basophils % 0.2 Nucleated Red Blood Cells % 0.0 Immature Granulocytes # 0.110 H Neutrophils # 11.6 H Lymphocytes # 1.0 Monocytes # 0.7 Eosinophils # 0.3 Basophils # 0.0 Nucleated Red Blood Cells # 0.0 Sodium Level 141 Potassium Level 4.3 Chloride Level 110 Carbon Dioxide Level 24 Anion Gap 7 Blood Urea Nitrogen 35 H Creatinine 1.03 Glucose Level 286 H Calcium Level 8.3 L Phosphorus Level 1.4 L Magnesium Level 2.1 Albumin 2.8 L Medications Medication Current Medications IV Flush (NS 3 ml) 3 ml PER PROTOCOL IV ; Start 02/03/19 at 14:00 Ondansetron HCl (Zofran Inj) 4 mg Q6H PRN IV NAUSEA/VOMITING; Start 02/03/19 at 14:00 Acetaminophen (Tylenol Tab) 650 mg Q6H PRN PO .PAIN 1-3 OR TEMP; Start 02/03/19 at 14:00 Acetaminophen/ Hydrocodone Bitart ([place] (5/325)) 1 tab Q6H PRN PO .MOD PAIN 4- 6 Last administered on 02/04/19 06:09; Admin Dose 1 TAB; Start 02/03/19 at 14:00 Docusate Sodium (Colace) 100 mg Q12H PRN PO .CONSTIPATION; Start 02/03/19 at 14:00 Zolpidem Tartrate (Ambien) 5 mg QHS PRN PO .INSOMNIA Last administered on 02/04/19 22:35; Admin Dose 5 MG; Start 02/03/19 at 14:00 Furosemide (Lasix) 40 mg DAILY PO Last administered on 02/04/19 09:24; Admin Dose 40 MG; Start 02/04/19 at 09:00; Status Hold Levothyroxine Sodium (Synthroid) 25 mcg BEFORE BREAKFAST PO Last administered on 02/09/19 06:07; Admin Dose 25 MCG; Start 02/04/19 at 07:00 Spironolactone (Aldactone) 25 mg DAILY PO Last administered on 02/08/19 08:34; Admin Dose 25 MG; Start 02/04/19 at 09:00 Sodium Chloride ([place]) 2 spray BID NASAL Last administered on 02/08/19 21:11; Admin Dose 2 SPRAY; Start 02/04/19 at 11:00 Rifaximin (Xifaxan) 550 mg BID NGT Last administered on 02/08/19 21:05; Admin Dose 550 MG; Start 02/06/19 at 21:00 Sucralfate (Carafate Susp) 1 gm QID NGT Last administered on 02/08/19 21:04; A dmin Dose 1 GM; Start 02/06/19 at 13:00 Lactulose (Enulose) 20 gm Q8 PO Last administered on 02/09/19 06:07; Admin Dose 20 GM; Start 02/06/19 at 22:00 Metoclopramide HCl (Reglan) 10 mg Q6 IV Last administered on 02/09/19 06:07; Admin Dose 10 MG; Start 02/06/19 at 18:00 Propranolol HCl (Inderal) 20 mg BID PO Last administered on 02/08/19 21:10; Admin Dose 20 MG; Start 02/06/19 at 21:00 Metoprolol Tartrate (Lopressor) 5 mg Q4H PRN IV HR>110 Hold SBP<100 Last administered on 02/06/19at 21:57; Admin Dose 5 MG; Start 02/06/19 at 17:30 Morphine Sulfate (morphine) 0.5 mg Q4H PRN IV .SEVERE PAIN 7-10; Start 02/07/19 at 14:00 Quetiapine Fumarate (Seroquel) 25 mg QHS PO Last administered on 02/08/19 21:09; Admin Dose 25 MG; Start 02/08/19 at 21:00 Famotidine (Pepcid) 20 mg BID PO Last administered on 02/08/19 21:09; Admin Dose 20 MG; Start 02/08/19 at 21:00 Furosemide (Lasix) 20 mg DAILY IV ; Start 02/09/19 at 09:00 Hydralazine HCl (Apresoline) 25 mg Q12 PO Last administered on 02/08/19 21:09; Admin Dose 25 MG; Start 02/08/19 at 21:00 BROCK VAN MD Feb 09, 2019 09:25
[2019-02-09] MEDS: SUCRALFATE (100 MG/ML) 10ML CUP NGT SCH ×4 (10:22→21:12)
[2019-02-09] MEDS: RIFAXIMIN 550 MG TAB NGT SCH ×2 (10:22→21:15)
[2019-02-09] MEDS: SPIRONOLACTONE 25 MG TAB PO SCH (10:23)
[2019-02-09] MEDS: FAMOTIDINE 20 MG TAB PO SCH ×2 (10:23→21:14)
[2019-02-09] MEDS: FUROSEMIDE 20 MG INJ IV SCH (10:23)
[2019-02-09] MEDS: PROPRANOLOL 20 MG TAB PO SCH ×2 (10:25→21:00)
[2019-02-09] MEDS: SALINE 0.65% 45 ML NAS SPRAY NASAL SCH ×2 (10:26→21:15)
--- NOTE | 2019-02-09 13:32 | PN ---
Date/Time of Note Date/Time of Note DATE: 02/09/19 TIME: 13:09 Assessment/Plan VTE Prophylaxis Risk score (from Ns)>0 risk: 8 [place] [facility] [place] Pharmacological prophylaxis: NA/contraindicated Pharm contraindication: liver dx Lines/Catheters IV Catheter Type (from [facility]): Peripheral IV Urinary Cath still in place: No Assessment/Plan Assessment/Plan Assessment: Anemia - suspected GI bleeding Melena -EGD 02/04/19 Extensive ulceration in the jejunal side of the gastrojejunal Billroth II anastomosis. No stigmata recent bleeding no visible vessel. Distal esophagitis with ulceration. No stigmata. Recent bleeding. Post distal gastrectomy distal to anastomosis Hx of cryptogenic cirrhosis Hx of perforated gastric ulcer s/p repair Ventral hernia Renal insufficiency Acute encephalopathy - Toxic metabolic vs delirium -Elevated ammonia noted Plan: Continue PPI Protonix BID/Carafate QID/Oyllxxfmo59 g Q 8hr will add Xifaxan 550 mg vis NG BID NG tube feeding at 50 cc/hr Urine culture Monitor labs Patient seen in collaboration with Dr. Harvey Subjective: Course reviewed with nursing staff Patient interviewed and examined All labs, imaging and other results reviewed Patient is more lethargic today, however able to questions appropriately. Patient is still having melanotic stools. Hemoglobin is stable. Complaining of generalized abdominal pain. White blood count is trending up. Will check urine cultures and chest x-ray to rule out infection. Discussed the plan for future pain management of abdominal cramps with the daughter at the bedside. Recommend antispasmodics rather than Tylenol or NSAIDs. Constitutional: More awake today, frail, chronically ill. In no acute distress. Psych: no complaints, nl mood/affect Head: normocephalic, atraumatic Eyes: nl conjunctiva, EOMI, nl lids ENMT: nl external ears & nose, nl lips & teeth, nl nasal mucosa & septum Neck: supple Respiratory: clear to auscultation, normal air movement Cardiovascular: regular rate and rhythm, nl pulses Gastrointestinal: soft, nontender, active bowel sounds, ascites, surgical scars (lower abdominal surgcial scar), tender (moderate epigastric tenderness), other (ventral hernia, easily reducible) Musculoskeletal: nl extremities to inspection Extremities: normal pulses Result Diagram: 02/09/1952002/09/19 05 Results 24hrs Laboratory Tests Test 02/09/19 05:21 White Blood Count 13.8 H Red Blood Count 2.85 L Hemoglobin 8.9 L Hematocrit 27.8 L Mean Corpuscular Volume 97.5 Mean Corpuscular Hemoglobin 31.2 Mean Corpuscular Hemoglobin Concent 32.0 Red Cell Distribution Width 17.6 H Platelet Count 128 L Mean Platelet Volume 12.8 H Immature Granulocytes % 0.800 H Neutrophils % 84.6 H Lymphocytes % 7.0 L Monocytes % 4.9 Eosinophils % 2.5 Basophils % 0.2 Nucleated Red Blood Cells % 0.0 Immature Granulocytes # 0.110 H Neutrophils # 11.6 H Lymphocytes # 1.0 Monocytes # 0.7 Eosinophils # 0.3 Basophils # 0.0 Nucleated Red Blood Cells # 0.0 Sodium Level 141 Potassium Level 4.3 Chloride Level 110 Carbon Dioxide Level 24 Anion Gap 7 Blood Urea Nitrogen 35 H Creatinine 1.03 Glucose Level 286 H Calcium Level 8.3 L Phosphorus Level 1.4 L Magnesium Level 2.1 Albumin 2.8 L CC: KIRIT HARVEY MD ; Exam/Review of Systems Exam Vitals Vital Signs Date Temp Pulse Resp B/P (MAP) Pulse Ox O2 O2 Flow FiO2 Time Delivery Rate 02/09/19 3.0 13:06 02/09/19 98.9 72 20 98/56 (70) 100 Nasal 11:42 Cannula Intake and Output 02/08/19 02/08/19 02/09/19 1515:00 23:00 07:00 IntakeIntake Total 900 ml 1260 ml OutputOutput Total 1 ml 3 ml BalanceBalance 899 ml 1257 ml Results Results 24hrs Laboratory Tests Test 02/09/19 05:21 White Blood Count 13.8 H Red Blood Count 2.85 L Hemoglobin 8.9 L Hematocrit 27.8 L Mean Corpuscular Volume 97.5 Mean Corpuscular Hemoglobin 31.2 Mean Corpuscular Hemoglobin Concent 32.0 Red Cell Distribution Width 17.6 H Platelet Count 128 L Mean Platelet Volume 12.8 H Immature Granulocytes % 0.800 H Neutrophils % 84.6 H Lymphocytes % 7.0 L Monocytes % 4.9 Eosinophils % 2.5 Basophils % 0.2 Nucleated Red Blood Cells % 0.0 Immature Granulocytes # 0.110 H Neutrophils # 11.6 H Lymphocytes # 1.0 Monocytes # 0.7 Eosinophils # 0.3 Basophils # 0.0 Nucleated Red Blood Cells # 0.0 Sodium Level 141 Potassium Level 4.3 Chloride Level 110 Carbon Dioxide Level 24 Anion Gap 7 Blood Urea Nitrogen 35 H Creatinine 1.03 Glucose Level 286 H Calcium Level 8.3 L Phosphorus Level 1.4 L Magnesium Level 2.1 Albumin 2.8 L Medications Medication Current Medications IV Flush (NS 3 ml) 3 ml PER PROTOCOL IV ; Start 02/03/19 at 14:00 Ondansetron HCl (Zofran Inj) 4 mg Q6H PRN IV NAUSEA/VOMITING; Start 02/03/19 at 14:00 Acetaminophen (Tylenol Tab) 650 mg Q6H PRN PO .PAIN 1-3 OR TEMP; Start 02/03/19 at 14:00 Acetaminophen/ Hydrocodone Bitart ([place] (5/325)) 1 tab Q6H PRN PO .MOD PAIN 4- 6 Last administered on 02/04/19 06:09; Admin Dose 1 TAB; Start 02/03/19 at 14:00 Docusate Sodium (Colace) 100 mg Q12H PRN PO .CONSTIPATION; Start 02/03/19 at 14 :00 Zolpidem Tartrate (Ambien) 5 mg QHS PRN PO .INSOMNIA Last administered on 02/04/19 22:35; Admin Dose 5 MG; Start 02/03/19 at 14:00 Furosemide (Lasix) 40 mg DAILY PO Last administered on 02/04/19 09:24; Admin Dose 40 MG; Start 02/04/19 at 09:00; Status Hold Levothyroxine Sodium (Synthroid) 25 mcg BEFORE BREAKFAST PO Last administered on 02/09/19 06:07; Admin Dose 25 MCG; Start 02/04/19 at 07:00 Spironolactone (Aldactone) 25 mg DAILY PO Last administered on 02/09/19 10:23; Admin Dose 25 MG; Start 02/04/19 at 09:00 Sodium Chloride ([place]) 2 spray BID NASAL Last administered on 02/09/19 10:26; Admin Dose 2 SPRAY; Start 02/04/19 at 11:00 Rifaximin (Xifaxan) 550 mg BID NGT Last administered on 02/09/19 10:22; Admin Dose 550 MG; Start 02/06/19 at 21:00 Sucralfate (Carafate Susp) 1 gm QID NGT Last administered on 02/09/19 10:22; Admin Dose 1 GM; Start 02/06/19 at 13:00 Lactulose (Enulose) 20 gm Q8 PO Last administered on 02/09/19 06:07; Admin Dose 20 GM; Start 02/06/19 at 22:00 Metoclopramide HCl (Reglan) 10 mg Q6 IV Last administered on 02/09/19 06:07; Admin Dose 10 MG; Start 02/06/19 at 18:00 Propranolol HCl (Inderal) 20 mg BID PO Last administered on 02/09/19 10:25; Admin Dose 20 MG; Start 02/06/19 at 21:00 Metoprolol Tartrate (Lopressor) 5 mg Q4H PRN IV HR>110 Hold SBP<100 Last administered on 02/06/19 21:57; Admin Dose 5 MG; Start 02/06/19 at 17:30 Morphine Sulfate (morphine) 0.5 mg Q4H PRN IV .SEVERE PAIN 7-10; Start 02/07/19 at 14:00 Quetiapine Fumarate (Seroquel) 25 mg QHS PO Last administered on 02/08/19 21:09; Admin Dose 25 MG; Start 02/08/19 at 21:00 Famotidine (Pepcid) 20 mg BID PO Last administered on 02/09/19 10:23; Admin Dose 20 MG; Start 02/08/19 at 21:00 Furosemide (Lasix) 20 mg DAILY IV Last administered on 02/09/19 10:23; Admin Dose 20 MG; Start 02/09/19 at 09:00 Hydralazine HCl (Apresoline) 25 mg Q12 PO Last administered on 02/09/19 10:23; Admin Dose 25 MG; Start 02/08/19 at 21:00 JAVIER MURRIETA NP Feb 09, 2019 13:19
--- NOTE | 2019-02-09 15:51 | CONS ---
Assessment/Plan Assessment/Plan Assessment/Plan (Daily) SVT Abnormal electrocardiogram with baseline bundle branch block. Syncope Cirrhosis. GI bleed Peptic Ulcer Renal failure. Thrombocytopenia. Anemia. Encephalopathy. Aortic stenosis Continue Propranolol Continue Aldactone Continue Lasix Continue Hydralazine Continue Pepcid Continue Lactulose Consultation Date/Type/Reason Admit Date/Time Feb 03, 2019 at 09:30 Type of Consult Cardiology Date/Time of Note DATE: 02/09/19 TIME: 15:47 Past Medical History Home Meds Reported Medications Spironolactone* (Aldactone*) 25 Mg Tablet, 25 MG PO DAILY, #30 TAB 02/03/19 Furosemide* (Furosemide*) 40 Mg Tablet, 40 MG PO DAILY, TAB 02/03/19 Levothyroxine Sodium* (Levoxyl*) 25 Mcg Tablet, 25 MCG PO BEFORE BREAKFAST, #30 TAB 02/03/19 Metformin Hcl* (Metformin Hcl*) 850 Mg Tablet, 850 MG PO WITH BREAKFAST, #30 TAB 02/03/19 Colchicine (Colchicine) 0.6 Mg Capsule, 0.6 MG PO BID for 50 Days, #100 TAKE 1 CAPSULE BY MOUTH TWICE A DAY 11/07/18 Discontinued Reported Medications Furosemide* (Furosemide*) 20 Mg Tablet, 20 MG PO DAILY, #60 TAB 11/07/18 Metformin Hcl* (Metformin Hcl*) 500 Mg Tablet, 500 MG PO WITH BREAKFAST DINNE, #60 TAB 11/07/18 Discontinued Scripts Aspirin* (Aspirin* (EC)) 81 Mg Tablet.dr, 81 MG PO DAILY for 30 Days, TAB Prov:GARRETT DIOR MD 11/09/18 Thiamine* (Vitamin B-1*) 100 Mg Tablet, 100 MG PO DAILY for 30 Days, TAB Prov:GARRETT DIOR MD 11/09/18 Simethicone* (Mylicon*) 80 Mg Tab, 80 MG PO Q6H PRN for bloating/Gas for 1 Day, TAB Prov:GARRETT DIOR MD 11/09/18 Metoclopramide Hcl* (Metoclopramide Hcl*) 5 Mg Tablet, 5 MG PO TID for 7 Days, #20 TAB Prov:GARRETT DIOR MD 11/09/18 Carvedilol* (Carvedilol*) 3.125 Mg Tablet, 3.125 MG PO BID for 14 Days, #30 TAB Prov:GARRETT DIOR MD 11/09/18 Medications Current Medications IV Flush (NS 3 ml) 3 ml PER PROTOCOL IV ; Start 02/03/19 at 14:00 Ondansetron HCl (Zofran Inj) 4 mg Q6H PRN IV NAUSEA/VOMITING; Start 02/03/19 at 14:00 Acetaminophen (Tylenol Tab) 650 mg Q6H PRN PO .PAIN 1-3 OR TEMP; Start 02/03/19 at 14:00 Acetaminophen/ Hydrocodone Bitart ([place] (5/325)) 1 tab Q6H PRN PO .MOD PAIN 4- 6 Last administered on 02/04/19 06:09; Admin Dose 1 TAB; Start 02/03/19 at 14:00 Docusate Sodium (Colace) 100 mg Q12H PRN PO .CONSTIPATION; Start 02/03/19 at 14:00 Zolpidem Tartrate (Ambien) 5 mg QHS PRN PO .INSOMNIA Last administered on 02/04/19 22:35; Admin Dose 5 MG; Start 02/03/19 at 14:00 Furosemide (Lasix) 40 mg DAILY PO Last administered on 02/04/19 09:24; Admin Dose 40 MG; Start 02/04/19 at 09:00; Status Hold Levothyroxine Sodium (Synthroid) 25 mcg BEFORE BREAKFAST PO Last administered on 02/09/19 06:07; Admin Dose 25 MCG; Start 02/04/19 at 07:00 Spironolactone (Aldactone) 25 mg DAILY PO Last administered on 02/09/19 10:23; Admin Dose 25 MG; Start 02/04/19 at 09:00 Sodium Chloride ([place]) 2 spray BID NASAL Last administered on 02/09/19 10:26; Admin Dose 2 SPRAY; Start 02/04/19 at 11:00 Rifaximin (Xifaxan) 550 mg BID NGT Last administered on 02/09/19 10:22; Admin Dose 550 MG; Start 02/06/19 at 21:00 Sucralfate (Carafate Susp) 1 gm QID NGT Last administered on 02/09/19 14:48; Admin Dose 1 GM; Start 02/06/19 at 13:00 Lactulose (Enulose) 20 gm Q8 PO Last administered on 02/09/19 14:48; Admin Dose 20 GM; Start 02/06/19 at 22:00 Metoclopramide HCl (Reglan) 10 mg Q6 IV Last administered on 02/09/19 14:48; Admin Dose 10 MG; Start 02/06/19 at 18:00 Propranolol HCl (Inderal) 20 mg BID PO Last administered on 02/09/19 10:25; Admin Dose 20 MG; Start 02/06/19 at 21:00 Metoprolol Tartrate (Lopressor) 5 mg Q4H PRN IV HR>110 Hold SBP<100 Last administered on 02/06/19 21:57; Admin Dose 5 MG; Start 02/06/19 at 17:30 Morphine Sulfate (morphine) 0.5 mg Q4H PRN IV .SEVERE PAIN 7-10; Start 02/07/19 at 14:00 Quetiapine Fumarate (Seroquel) 25 mg QHS PO Last administered on 02/08/19at 21:09; Admin Dose 25 MG; Start 02/08/19 at 21:00 Famotidine (Pepcid) 20 mg BID PO Last administered on 02/09/19 10:23; Admin Dose 20 MG; Start 02/08/19 at 21:00 Furosemide (Lasix) 20 mg DAILY IV Last administered on 02/09/19 10:23; Admin Dose 20 MG; Start 02/09/19 at 09:00 Hydralazine HCl (Apresoline) 25 mg Q12 PO Last administered on 02/09/19 10:23; Admin Dose 25 MG; Start 02/08/19 at 21:00 Allergies: Coded Allergies: No Known Allergy (Unverified , 02/03/19) Past Surgical History Past Surgical Hx: other (perforated gastric ulcer repair) Social History Alcohol Use: rarely Smoking Status: Never smoker Drug Use: none Exam/Review of Systems Vital Signs Vitals Vital Signs Date Temp Pulse Resp B/P (MAP) Pulse Ox O2 O2 Flow FiO2 Time Delivery Rate 02/09/19 98.1 83 24 138/67 100 Nasal 15:16 (90) Cannula 02/09/19 3.0 13:06 Intake and Output 02/08/19 02/08/19 02/09/19 1515:00 23:00 07:00 IntakeIntake Total 900 ml 1260 ml OutputOutput Total 1 ml 3 ml BalanceBalance 899 ml 1257 ml Exam Constitutional: alert Head: normocephalic, atraumatic Neck: supple, non-tender Respiratory: clear to auscultation Cardiovascular: regular rate and rhythm (no m/r/g) Gastrointestinal: soft, non-tender Extremities: normal pulses Labs Result Diagram: 02/09/1921 02/09/19 0521 Results 24hrs Laboratory Tests Test 02/09/19 05:21 White Blood Count 13.8 H Red Blood Count 2.85 L Hemoglobin 8.9 L Hematocrit 27.8 L Mean Corpuscular Volume 97.5 Mean Corpuscular Hemoglobin 31.2 Mean Corpuscular Hemoglobin Concent 32.0 Red Cell Distribution Width 17.6 H Platelet Count 128 L Mean Platelet Volume 12.8 H Immature Granulocytes % 0.800 H Neutrophils % 84.6 H Lymphocytes % 7.0 L Monocytes % 4.9 Eosinophils % 2.5 Basophils % 0.2 Nucleated Red Blood Cells % 0.0 Immature Granulocytes # 0.110 H Neutrophils # 11.6 H Lymphocytes # 1.0 Monocytes # 0.7 Eosinophils # 0.3 Basophils # 0.0 Nucleated Red Blood Cells # 0.0 Sodium Level 141 Potassium Level 4.3 Chloride Level 110 Carbon Dioxide Level 24 Anion Gap 7 Blood Urea Nitrogen 35 H Creatinine 1.03 Glucose Level 286 H Calcium Level 8.3 L Phosphorus Level 1.4 L Magnesium Level 2.1 Albumin 2.8 L Medications Medications Current Medications IV Flush (NS 3 ml) 3 ml PER PROTOCOL IV ; Start 02/03/19 at 14:00 Ondansetron HCl (Zofran Inj) 4 mg Q6H PRN IV NAUSEA/VOMITING; Start 02/03/19 at 14:00 Acetaminophen (Tylenol Tab) 650 mg Q6H PRN PO .PAIN 1-3 OR TEMP; Start 02/03/19 at 14:00 Acetaminophen/ Hydrocodone Bitart ([place] (5/325)) 1 tab Q6H PRN PO .MOD PAIN 4- 6 Last administered on 02/04/19at 06:09; Admin Dose 1 TAB; Start 02/03/19 at 14:00 Docusate Sodium (Colace) 100 mg Q12H PRN PO .CONSTIPATION; Start 02/03/19 at 14:00 Zolpidem Tartrate (Ambien) 5 mg QHS PRN PO .INSOMNIA Last administered on 02/04/19 22:35; Admin Dose 5 MG; Start 02/03/19 at 14:00 Furosemide (Lasix) 40 mg DAILY PO Last administered on 02/04/19 09:24; Admin Dose 40 MG; Start 02/04/19 at 09:00; Status Hold Levothyroxine Sodium (Synthroid) 25 mcg BEFORE BREAKFAST PO Last administered on 02/09/19 06:07; Admin Dose 25 MCG; Start 02/04/19 at 07:00 Spironolactone (Aldactone) 25 mg DAILY PO Last administered on 02/09/19 10:23; Admin Dose 25 MG; Start 02/04/19 at 09:00 Sodium Chloride ([place]) 2 spray BID NASAL Last administered on 02/09/19 10:26; Admin Dose 2 SPRAY; Start 02/04/19 at 11:00 Rifaximin (Xifaxan) 550 mg BID NGT Last administered on 02/09/19 10:22; Admin Dose 550 MG; Start 02/06/19 at 21:00 Sucralfate (Carafate Susp) 1 gm QID NGT Last administered on 02/09/19 14:48; Admin Dose 1 GM; Start 02/06/19 at 13:00 Lactulose (Enulose) 20 gm Q8 PO Last administered on 02/09/19 14:48; Admin Dose 20 GM; Start 02/06/19 at 22:00 Metoclopramide HCl (Reglan) 10 mg Q6 IV Last administered on 02/09/19 14:48; Admin Dose 10 MG; Start 02/06/19 at 18:00 Propranolol HCl (Inderal) 20 mg BID PO Last administered on 02/09/19 10:25; Admin Dose 20 MG; Start 02/06/19 at 21:00 Metoprolol Tartrate (Lopressor) 5 mg Q4H PRN IV HR>110 Hold SBP<100 Last administered on 02/06/19 21:57; Admin Dose 5 MG; Start 02/06/19 at 17:30 Morphine Sulfate (morphine) 0.5 mg Q4H PRN IV .SEVERE PAIN 7-10; Start 02/07/19 at 14:00 Quetiapine Fumarate (Seroquel) 25 mg QHS PO Last administered on 02/08/19 21:09; Admin Dose 25 MG; Start 02/08/19 at 21:00 Famotidine (Pepcid) 20 mg BID PO Last administered on 02/09/19 10:23; Admin Dose 20 MG; Start 02/08/19 at 21:00 Furosemide (Lasix) 20 mg DAILY IV Last administered on 02/09/19 10:23; Admin Dose 20 MG; Start 02/09/19 at 09:00 Hydralazine HCl (Apresoline) 25 mg Q12 PO Last administered on 02/09/19 10:23; Admin Dose 25 MG; Start 02/08/19 at 21:00 SHARON RODARTE M.D. Feb 09, 2019 15:51
[2019-02-09] MEDS: QUETIAPINE 25 MG TAB PO SCH (21:14)
[2019-02-10] VITALS (10 sets, daily range): BP systolic 97–135; BP diastolic 51–68; PULSE 73–97; RESP 18–20
[2019-02-10] MEDS: METOCLOPRAMIDE 10 MG INJ IV SCH ×4 (00:29→17:58)
[2019-02-10] MEDS: LACTULOSE 30ML CUP PO SCH ×3 (05:51→22:00)
[2019-02-10] MEDS: LEVOTHYROXINE 25 MCG TAB PO SCH (06:07)
[2019-02-10] MEDS: RIFAXIMIN 550 MG TAB NGT SCH ×2 (09:15→21:00)
[2019-02-10] MEDS: SUCRALFATE (100 MG/ML) 10ML CUP NGT SCH ×4 (09:15→21:00)
[2019-02-10] MEDS: SPIRONOLACTONE 25 MG TAB PO SCH (09:15)
[2019-02-10] MEDS: FAMOTIDINE 20 MG TAB PO SCH (09:15)
[2019-02-10] MEDS: FUROSEMIDE 20 MG INJ IV SCH (09:15)
[2019-02-10] MEDS: PROPRANOLOL 20 MG TAB PO SCH ×2 (09:16→21:00)
[2019-02-10] MEDS: SALINE 0.65% 45 ML NAS SPRAY NASAL SCH ×2 (09:17→21:00)
[2019-02-10] MEDS ORDERED: POTASSIUM PHOSPHATE 30 MM in SOD CHLORIDE 0.9% 250 ML IVPB ONE (09:30)
[2019-02-10] MEDS: PIPER-TAZO 3.375 GM IV (PMX) 100 ML IVPB SCH ×2 (10:17→18:00)
[2019-02-10] MEDS ORDERED: IOHEXOL 300MG/ML 150 ML BTL ONE (10:36)
[2019-02-10] MEDS ORDERED: SOD CHLORIDE 0.9% 100 ML ONE (10:36)
--- NOTE | 2019-02-10 13:05 | PN ---
Date/Time of Note Date/Time of Note DATE: 02/10/19 TIME: 12:57 Assessment/Plan VTE Prophylaxis Risk score (from Ns)>0 risk: 9 SCD applied (from [facility]s): Yes Pharmacological prophylaxis: NA/contraindicated Pharm contraindication: bleeding Lines/Catheters IV Catheter Type (from Nrs): Peripheral IV Urinary Cath still in place: No Assessment/Plan Assessment/Plan 1. Acute encephalopathy, toxic - Unsure etiology for increasing WBC but may be infectious process in GI system. CT A/P to assess. CXR negative for acute cardiopulmonary issues and UA clean - remains afebrile - will empirically start Zosyn to treat intraabdominal infection. ID consulted for further recommendations and insight - ammonia level nl 2. Acute GI bleed s/p EGD - hgb continues to fluctuate but remains >7.5 - Per GI recommending d/c on Levsin PRN for abdominal discomfort given patient w as self medicating with NSAIDs at home - GI on board and appreciate recommendations. EGD 02/04 shows extensive ulcerations in jejunal side of GJ. distal esophagitis - continue on PPI via NG tube and Carafate 3. SVT with aberrancy- resolved - Cardiology consultation appreciated 4. Symptomatic anemia secondary to acute blood loss - hemoglobin remains stable - goal hgb >7.5 5. Cryptogenic cirrhosis with refractory ascites - per daughter cirrhosis is due to heavy Tylenol use - continue Aldactone and Lasix - previous work-up was negative for autoimmune and viral etiologies - US abd noted. no need for paracentesis at this time 6. Hypothyroidism - On Synthroid 7. Diabetes - ISS and accuchecks 8. ANTONIETTA- resolved - most likely secondary to hemodynamics - avoid nephrotoxic agents 9. History of coronary disease - stable - no chest pain noted 10. Disposition - Hold Seroquel since patient still sedated and not agitated. when more awake, speech evaluation to advance diet. Will touch base with family once ready for discharge if agreeable to ARU Result Diagram: 02/10/1951702/10/19517 Results 24hrs Laboratory Tests Test 02/09/19 14:45 02/10/19 05:18 02/10/19 11:33 Urine Color YELLOW Urine Clarity CLEAR Urine pH 5.0 Urine Specific [place] 1.015 Urine Ketones NEGATIVE Urine Nitrite NEGATIVE Urine Bilirubin NEGATIVE Urine Urobilinogen 2+ H Urine Leukocyte Esterase NEGATIVE Urine Hemoglobin NEGATIVE Urine Glucose NEGATIVE Urine Total Protein NEGATIVE White Blood Count 16.9 #H Red Blood Count 2.45 L Hemoglobin 7.7 L Hematocrit 24.0 L Mean Corpuscular Volume 98.0 Mean Corpuscular Hemoglobin 31.4 Mean Corpuscular Hemoglobin Concent 32.1 Red Cell Distribution Width 17.4 H Platelet Count 109 L Mean Platelet Volume 13.1 H Immature Granulocytes % 0.800 H Neutrophils % 83.6 H Lymphocytes % 6.6 L Monocytes % 7.2 Eosinophils % 1.6 Basophils % 0.2 Nucleated Red Blood Cells % 0.0 Immature Granulocytes # 0.130 H Neutrophils # 14.1 H Lymphocytes # 1.1 Monocytes # 1.2 H Eosinophils # 0.3 Basophils # 0.0 Nucleated Red Blood Cells # 0.0 Sodium Level 140 Potassium Level 3.7 Chloride Level 108 Carbon Dioxide Level 27 Anion Gap 5 Blood Urea Nitrogen 37 H Creatinine 1.10 Glucose Level 281 H Calcium Level 7.6 L Phosphorus Level 1.9 L Magnesium Level 2.2 Albumin 2.4 L Ammonia < 9 L Subjective 24 Hr Interval Summary Free Text/Dictation Patient still sleepy this am but given seroquel last night. Will hold medication. No noted overnight events per Nursing. Exam/Review of Systems Exam Vitals Vital Signs Date Temp Pulse Resp B/P (MAP) Pulse Ox O2 O2 Flow FiO2 Time Delivery Rate 02/10/19 83 12:01 02/10/19 98.8 20 135/68 97 04:34 (90) 02/10/19 3.0 04:08 02/09/19 Nasal 19:45 Cannula Intake and Output 02/09/19 02/09/19 02/10/19 1515:00 23:00 07:00 IntakeIntake Total 1020 ml 1020 ml OutputOutput Total 200 ml 600 ml BalanceBalance 820 ml 420 ml Exam General: lethargic. no acute distress Nose: NG tube in place Neck: supple CVS: S1, S2, regular rate and rhythm. no murmurs Lungs: clear to auscultation bilaterally. no wheezing or rhonchi Abd: soft, nontender, nondistended. no rebound or guarding. bowel sounds present diffusely Ext: moving all extremities. no cyanosis, clubbing, or edema SKin: warm, dry. no rashes or lesions appreciated Results Results 24hrs Laboratory Tests Test 02/09/19 14:45 02/10/19 05:18 02/10/19 11:33 Urine Color YELLOW Urine Clarity CLEAR Urine pH 5.0 Urine Specific [place] 1.015 Urine Ketones NEGATIVE Urine Nitrite NEGATIVE Urine Bilirubin NEGATIVE Urine Urobilinogen 2+ H Urine Leukocyte Esterase NEGATIVE Urine Hemoglobin NEGATIVE Urine Glucose NEGATIVE Urine Total Protein NEGATIVE White Blood Count 16.9 #H Red Blood Count 2.45 L Hemoglobin 7.7 L Hematocrit 24.0 L Mean Corpuscular Volume 98.0 Mean Corpuscular Hemoglobin 31.4 Mean Corpuscular Hemoglobin Concent 32.1 Red Cell Distribution Width 17.4 H Platelet Count 109 L Mean Platelet Volume 13.1 H Immature Granulocytes % 0.800 H Neutrophils % 83.6 H Lymphocytes % 6.6 L Monocytes % 7.2 Eosinophils % 1.6 Basophils % 0.2 Nucleated Red Blood Cells % 0.0 Immature Granulocytes # 0.130 H Neutrophils # 14.1 H Lymphocytes # 1.1 Monocytes # 1.2 H Eosinophils # 0.3 Basophils # 0.0 Nucleated Red Blood Cells # 0.0 Sodium Level 140 Potassium Level 3.7 Chloride Level 108 Carbon Dioxide Level 27 Anion Gap 5 Blood Urea Nitrogen 37 H Creatinine 1.10 Glucose Level 281 H Calcium Level 7.6 L Phosphorus Level 1.9 L Magnesium Level 2.2 Albumin 2.4 L Ammonia < 9 L Medications Medication Current Medications IV Flush (NS 3 ml) 3 ml PER PROTOCOL IV ; Start 02/03/19 at 14:00 Ondansetron HCl (Zofran Inj) 4 mg Q6H PRN IV NAUSEA/VOMITING; Start 02/03/19 at 14:00 Acetaminophen (Tylenol Tab) 650 mg Q6H PRN PO .PAIN 1-3 OR TEMP; Start 02/03/19 at 14:00 Acetaminophen/ Hydrocodone Bitart ([place] (5/325)) 1 tab Q6H PRN PO .MOD PAIN 4- 6 Last administered on 02/04/19at 06:09; Admin Dose 1 TAB; Start 02/03/19 at 14:00 Docusate Sodium (Colace) 100 mg Q12H PRN PO .CONSTIPATION; Start 02/03/19 at 14:00 Furosemide (Lasix) 40 mg DAILY PO Last administered on 02/04/19at 09:24; Admin Dose 40 MG; Start 02/04/19 at 09:00; Status Hold Levothyroxine Sodium (Synthroid) 25 mcg BEFORE BREAKFAST PO Last administered on 02/10/19 06:07; Admin Dose 25 MCG; Start 02/04/19 at 07:00 Spironolactone (Aldactone) 25 mg DAILY PO Last administered on 02/10/19 09:15; Admin Dose 25 MG; Start 02/04/19 at 09:00 Sodium Chloride ([place]) 2 spray BID NASAL Last administered on 02/10/19 09:17; Admin Dose 2 SPRAY; Start 02/04/19 at 11:00 Rifaximin (Xifaxan) 550 mg BID NGT Last administered on 02/10/19 09:15; Admin Dose 550 MG; Start 02/06/19 at 21:00 Sucralfate (Carafate Susp) 1 gm QID NGT Last administered on 02/10/19 12:37; Admin Dose 1 GM; Start 02/06/19 at 13:00 Lactulose (Enulose) 20 gm Q8 PO Last administered on 02/10/19 05:51; Admin Dose 20 GM; Start 02/06/19 at 22:00 Metoclopramide HCl (Reglan) 10 mg Q6 IV Last administered on 02/10/19 12:37; Admin Dose 10 MG; Start 02/06/19 at 18:00 Propranolol HCl (Inderal) 20 mg BID PO Last administered on 02/10/19 09:16; Admin Dose 20 MG; Start 02/06/19 at 21:00 Metoprolol Tartrate (Lopressor) 5 mg Q4H PRN IV HR>110 Hold SBP<100 Last administered on 02/06/19at 21:57; Admin Dose 5 MG; Start 02/06/19 at 17:30 Morphine Sulfate (morphine) 0.5 mg Q4H PRN IV .SEVERE PAIN 7-10; Start 02/07/19 at 14:00 Famotidine (Pepcid) 20 mg BID PO Last administered on 02/10/19 09:15; Admin Dose 20 MG; Start 02/08/19 at 21:00 Furosemide (Lasix) 20 mg DAILY IV Last administered on 02/10/19 09:15; Admin Dose 20 MG; Start 02/09/19 at 09:00 Hydralazine HCl (Apresoline) 25 mg Q12 PO Last administered on 02/10/19at 09:15; Admin Dose 25 MG; Start 02/08/19 at 21:00 Potassium Phosphate 30 mm/ Sodium Chloride 260 ml @ 65 mls/hr ONCE ONCE IVPB Last administered on 02/10/19at 12:37; Admin Dose 65 MLS/HR; Start 02/10/19 at 09:30; Stop 02/10/19 at 13:29 Piperacillin Sod/ Tazobactam Sod 100 ml @ 25 mls/hr TID@02,,18 IVPB Last adm inistered on 02/10/19at 10:17; Admin Dose 25 MLS/HR; Start 02/10/19 at 10:00 BROCK VAN MD Feb 10, 2019 13:05
--- NOTE | 2019-02-10 13:20 | PN ---
Date/Time of Note Date/Time of Note DATE: 02/10/19 TIME: 13:09 Assessment/Plan VTE Prophylaxis Risk score (from [facility])>0 risk: 9 SCD applied (from [facility]): Yes Pharmacological prophylaxis: NA/contraindicated Pharm contraindication: liver dx Lines/Catheters IV Catheter Type (from [facility]): Peripheral IV Urinary Cath still in place: No Assessment/Plan Assessment/Plan Assessment: Anemia - suspected GI bleeding UTI Melena -EGD 02/04/19 Extensive ulceration in the jejunal side of the gastrojejunal Billroth II anastomosis. No stigmata recent bleeding no visible vessel. Distal esophagitis with ulceration. No stigmata. Recent bleeding. 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 Harvey Subjective: Course reviewed with nursing staff Patient interviewed and examined All labs, imaging and other results reviewed Patient is more lethargic today. White blood count is trending up. Urine cultures positive. Hemoglobin is stable. Complaining of generalized abdominal pain. Urine culture is positive for UTI. Patient has been started on antibiotics. CT scan of the abdomen has been ordered. Constitutional: More awake today, frail, chronically ill. In no acute distress. Psych: no complaints, nl mood/affect Head: normocephalic, atraumatic Eyes: nl conjunctiva, EOMI, nl lids ENMT: nl external ears & nose, nl lips & teeth, nl nasal mucosa & septum Neck: supple Respiratory: clear to auscultation, normal air movement Cardiovascular: regular rate and rhythm, nl pulses Gastrointestinal: soft, nontender, active bowel sounds, ascites, surgical scars (lower abdominal surgcial scar), generalized tenderness, other (ventral hernia, easily reducible) Musculoskeletal: nl extremities to inspection Extremities: normal pulses Result Diagram: 02/10/1918 02/10/19 0518 Results 24hrs Laboratory Tests Test 02/09/19 14:45 02/10/19 05:18 02/10/19 11:33 Urine Color YELLOW Urine Clarity CLEAR Urine pH 5.0 Urine Specific [place] 1.015 Urine Ketones NEGATIVE Urine Nitrite NEGATIVE Urine Bilirubin NEGATIVE Urine Urobilinogen 2+ H Urine Leukocyte Esterase NEGATIVE Urine Hemoglobin NEGATIVE Urine Glucose NEGATIVE Urine Total Protein NEGATIVE White Blood Count 16.9 #H Red Blood Count 2.45 L Hemoglobin 7.7 L Hematocrit 24.0 L Mean Corpuscular Volume 98.0 Mean Corpuscular Hemoglobin 31.4 Mean Corpuscular Hemoglobin Concent 32.1 Red Cell Distribution Width 17.4 H Platelet Count 109 L Mean Platelet Volume 13.1 H Immature Granulocytes % 0.800 H Neutrophils % 83.6 H Lymphocytes % 6.6 L Monocytes % 7.2 Eosinophils % 1.6 Basophils % 0.2 Nucleated Red Blood Cells % 0.0 Immature Granulocytes # 0.130 H Neutrophils # 14.1 H Lymphocytes # 1.1 Monocytes # 1.2 H Eosinophils # 0.3 Basophils # 0.0 Nucleated Red Blood Cells # 0.0 Sodium Level 140 Potassium Level 3.7 Chloride Level 108 Carbon Dioxide Level 27 Anion Gap 5 Blood Urea Nitrogen 37 H Creatinine 1.10 Glucose Level 281 H Calcium Level 7.6 L Phosphorus Level 1.9 L Magnesium Level 2.2 Albumin 2.4 L Ammonia < 9 L CC: KIRIT HARVEY MD ; Exam/Review of Systems Exam Vitals Vital Signs Date Temp Pulse Resp B/P (MAP) Pulse Ox O2 O2 Flow FiO2 Time Delivery Rate 02/10/19 83 12:01 02/10/19 98.8 20 135/68 97 04:34 (90) 02/10/19 3.0 04:08 02/09/19 Nasal 19:45 Cannula Intake and Output 02/09/19 02/09/19 02/10/19 1515:00 23:00 07:00 IntakeIntake Total 1020 ml 1020 ml OutputOutput Total 200 ml 600 ml BalanceBalance 820 ml 420 ml Results Results 24hrs Laboratory Tests Test 02/09/19 14:45 02/10/19 05:18 02/10/19 11:33 Urine Color YELLOW Urine Clarity CLEAR Urine pH 5.0 Urine Specific [place] 1.015 Urine Ketones NEGATIVE Urine Nitrite NEGATIVE Urine Bilirubin NEGATIVE Urine Urobilinogen 2+ H Urine Leukocyte Esterase NEGATIVE Urine Hemoglobin NEGATIVE Urine Glucose NEGATIVE Urine Total Protein NEGATIVE White Blood Count 16.9 #H Red Blood Count 2.45 L Hemoglobin 7.7 L Hematocrit 24.0 L Mean Corpuscular Volume 98.0 Mean Corpuscular Hemoglobin 31.4 Mean Corpuscular Hemoglobin Concent 32.1 Red Cell Distribution Width 17.4 H Platelet Count 109 L Mean Platelet Volume 13.1 H Immature Granulocytes % 0.800 H Neutrophils % 83.6 H Lymphocytes % 6.6 L Monocytes % 7.2 Eosinophils % 1.6 Basophils % 0.2 Nucleated Red Blood Cells % 0.0 Immature Granulocytes # 0.130 H Neutrophils # 14.1 H Lymphocytes # 1.1 Monocytes # 1.2 H Eosinophils # 0.3 Basophils # 0.0 Nucleated Red Blood Cells # 0.0 Sodium Level 140 Potassium Level 3.7 Chloride Level 108 Carbon Dioxide Level 27 Anion Gap 5 Blood Urea Nitrogen 37 H Creatinine 1.10 Glucose Level 281 H Calcium Level 7.6 L Phosphorus Level 1.9 L Magnesium Level 2.2 Albumin 2.4 L Ammonia < 9 L Medications Medication Current Medications IV Flush (NS 3 ml) 3 ml PER PROTOCOL IV ; Start 02/03/19 at 14:00 Ondansetron HCl (Zofran Inj) 4 mg Q6H PRN IV NAUSEA/VOMITING; Start 02/03/19 at 14:00 Acetaminophen (Tylenol Tab) 650 mg Q6H PRN PO .PAIN 1-3 OR TEMP; Start 02/03/19 at 14:00 Acetaminophen/ Hydrocodone Bitart ([place] (5/325)) 1 tab Q6H PRN PO .MOD PAIN 4- 6 Last administered on 02/04/19at 06:09; Admin Dose 1 TAB; Start 02/03/19 at 14:00 Docusate Sodium (Colace) 100 mg Q12H PRN PO .CONSTIPATION; Start 02/03/19 at 14:00 Furosemide (Lasix) 40 mg DAILY PO Last administered on 02/04/19at 09:24; Admin Dose 40 MG; Start 02/04/19 at 09:00; Status Hold Levothyroxine Sodium (Synthroid) 25 mcg BEFORE BREAKFAST PO Last administered on 02/10/19at 06:07; Admin Dose 25 MCG; Start 02/04/19 at 07:00 Spironolactone (Aldactone) 25 mg DAILY PO Last administered on 02/10/19at 09:15; Admin Dose 25 MG; Start 02/04/19 at 09:00 Sodium Chloride ([place]) 2 spray BID NASAL Last administered on 02/10/19 09:17; Admin Dose 2 SPRAY; Start 02/04/19 at 11:00 Rifaximin (Xifaxan) 550 mg BID NGT Last administered on 02/10/19 09:15; Admin Dose 550 MG; Start 02/06/19 at 21:00 Sucralfate (Carafate Susp) 1 gm QID NGT Last administered on 02/10/19 12:37; Admin Dose 1 GM; Start 02/06/19 at 13:00 Lactulose (Enulose) 20 gm Q8 PO Last administered on 02/10/19 05:51; Admin Dose 20 GM; Start 02/06/19 at 22:00 Metoclopramide HCl (Reglan) 10 mg Q6 IV Last administered on 02/10/19 12:37; Admin Dose 10 MG; Start 02/06/19 at 18:00 Propranolol HCl (Inderal) 20 mg BID PO Last administered on 02/10/19 09:16; Admin Dose 20 MG; Start 02/06/19 at 21:00 Metoprolol Tartrate (Lopressor) 5 mg Q4H PRN IV HR>110 Hold SBP<100 Last administered on 02/06/19 21:57; Admin Dose 5 MG; Start 02/06/19 at 17:30 Morphine Sulfate (morphine) 0.5 mg Q4H PRN IV .SEVERE PAIN 7-10; Start 02/07/19 at 14:00 Furosemide (Lasix) 20 mg DAILY IV Last administered on 02/10/19 09:15; Admin Dose 20 MG; Start 02/09/19 at 09:00 Hydralazine HCl (Apresoline) 25 mg Q12 PO Last administered on 02/10/19 09:15; Admin Dose 25 MG; Start 02/08/19 at 21:00 Potassium Phosphate 30 mm/ Sodium Chloride 260 ml @ 65 mls/hr ONCE ONCE IVPB Last administered on 02/10/19 12:37; Admin Dose 65 MLS/HR; Start 02/10/19 at 09:30; Stop 02/10/19 at 13:29 Piperacillin Sod/ Tazobactam Sod 100 ml @ 25 mls/hr TID@02,10,18 IVPB Last administered on 02/10/19at 10:17; Admin Dose 25 MLS/HR; Start 02/10/19 at 10:00 Lansoprazole (Prevacid) 30 mg BID@ NGT ; Start 02/10/19 at 18:00; Status UNV JAVIER MURRIETA NP Feb 10, 2019 13:19
--- NOTE | 2019-02-10 14:18 | CONS ---
Assessment/Plan Assessment/Plan Assessment/Plan (Daily) SVT Abnormal electrocardiogram with baseline bundle branch block. Syncope Cirrhosis. GI bleed Peptic Ulcer Renal failure. Thrombocytopenia. Anemia. Encephalopathy. Aortic stenosis Continue Propranolol Continue Aldactone Continue Lasix Continue Hydralazine Continue Pepcid Continue Lactulose Consultation Date/Type/Reason Admit Date/Time Feb 03, 2019 at 09:30 Initial Consult Date 02/03/19 Type of Consult Cardiology Requesting Provider: SUDHIR BARRIENTOS Date/Time of Note DATE: 02/10/19 TIME: 14:17 Exam/Review of Systems Vital Signs Vitals Vital Signs Date Temp Pulse Resp B/P (MAP) Pulse Ox O2 O2 Flow FiO2 Time Delivery Rate 02/10/19 83 12:01 02/10/19 98.8 20 135/68 97 04:34 (90) 02/10/19 3.0 04:08 02/09/19 Nasal 19:45 Cannula Intake and Output 02/09/19 02/09/19 02/10/19 1515:00 23:00 07:00 IntakeIntake Total 1020 ml 1020 ml OutputOutput Total 200 ml 600 ml BalanceBalance 820 ml 420 ml Exam Exam Head: normocephalic, atraumatic Neck: supple, non-tender Respiratory: clear to auscultation Cardiovascular: regular rate and rhythm no m/r/g Gastrointestinal: soft, non-tender Extremities: normal pulses Labs Result Diagram: 02/10/1918 02/10/19 0518 Results 24hrs Laboratory Tests Test 02/09/19 14:45 02/10/19 05:18 02/10/19 11:33 Urine Color YELLOW Urine Clarity CLEAR Urine pH 5.0 Urine Specific [place] 1.015 Urine Ketones NEGATIVE Urine Nitrite NEGATIVE Urine Bilirubin NEGATIVE Urine Urobilinogen 2+ H Urine Leukocyte Esterase NEGATIVE Urine Hemoglobin NEGATIVE Urine Glucose NEGATIVE Urine Total Protein NEGATIVE White Blood Count 16.9 #H Red Blood Count 2.45 L Hemoglobin 7.7 L Hematocrit 24.0 L Mean Corpuscular Volume 98.0 Mean Corpuscular Hemoglobin 31.4 Mean Corpuscular Hemoglobin Concent 32.1 Red Cell Distribution Width 17.4 H Platelet Count 109 L Mean Platelet Volume 13.1 H Immature Granulocytes % 0.800 H Neutrophils % 83.6 H Lymphocytes % 6.6 L Monocytes % 7.2 Eosinophils % 1.6 Basophils % 0.2 Nucleated Red Blood Cells % 0.0 Immature Granulocytes # 0.130 H Neutrophils # 14.1 H Lymphocytes # 1.1 Monocytes # 1.2 H Eosinophils # 0.3 Basophils # 0.0 Nucleated Red Blood Cells # 0.0 Sodium Level 140 Potassium Level 3.7 Chloride Level 108 Carbon Dioxide Level 27 Anion Gap 5 Blood Urea Nitrogen 37 H Creatinine 1.10 Glucose Level 281 H Calcium Level 7.6 L Phosphorus Level 1.9 L Magnesium Level 2.2 Albumin 2.4 L Ammonia < 9 L Medications Medications Current Medications IV Flush (NS 3 ml) 3 ml PER PROTOCOL IV ; Start 02/03/19 at 14:00 Ondansetron HCl (Zofran Inj) 4 mg Q6H PRN IV NAUSEA/VOMITING; Start 02/03/19 at 14:00 Acetaminophen (Tylenol Tab) 650 mg Q6H PRN PO .PAIN 1-3 OR TEMP; Start 02/03/19 at 14:00 Acetaminophen/ Hydrocodone Bitart ([place] (5/325)) 1 tab Q6H PRN PO .MOD PAIN 4- 6 Last administered on 02/04/19at 06:09; Admin Dose 1 TAB; Start 02/03/19 at 14:00 Docusate Sodium (Colace) 100 mg Q12H PRN PO .CONSTIPATION; Start 02/03/19 at 14:00 Furosemide (Lasix) 40 mg DAILY PO Last administered on 02/04/19at 09:24; Admin Dose 40 MG; Start 02/04/19 at 09:00; Status Hold Levothyroxine Sodium (Synthroid) 25 mcg BEFORE BREAKFAST PO Last administered on 02/10/19at 06:07; Admin Dose 25 MCG; Start 02/04/19 at 07:00 Spironolactone (Aldactone) 25 mg DAILY PO Last administered on 02/10/19 09:15; Admin Dose 25 MG; Start 02/04/19 at 09:00 Sodium Chloride ([place]) 2 spray BID NASAL Last administered on 02/10/19 09:17; Admin Dose 2 SPRAY; Start 02/04/19 at 11:00 Rifaximin (Xifaxan) 550 mg BID NGT Last administered on 02/10/19 09:15; Admin Dose 550 MG; Start 02/06/19 at 21:00 Sucralfate (Carafate Susp) 1 gm QID NGT Last administered on 02/10/19 12:37; Admin Dose 1 GM; Start 02/06/19 at 13:00 Lactulose (Enulose) 20 gm Q8 PO Last administered on 02/10/19 05:51; Admin Dose 20 GM; Start 02/06/19 at 22:00 Metoclopramide HCl (Reglan) 10 mg Q6 IV Last administered on 02/10/19 12:37; Admin Dose 10 MG; Start 02/06/19 at 18:00 Propranolol HCl (Inderal) 20 mg BID PO Last administered on 02/10/19 09:16; Admin Dose 20 MG; Start 02/06/19 at 21:00 Metoprolol Tartrate (Lopressor) 5 mg Q4H PRN IV HR>110 Hold SBP<100 Last administered on 02/06/19 21:57; Admin Dose 5 MG; Start 02/06/19 at 17:30 Morphine Sulfate (morphine) 0.5 mg Q4H PRN IV .SEVERE PAIN 7-10; Start 02/07/19 at 14:00 Furosemide (Lasix) 20 mg DAILY IV Last administered on 02/10/19 09:15; Admin Dose 20 MG; Start 02/09/19 at 09:00 Hydralazine HCl (Apresoline) 25 mg Q12 PO Last administered on 02/10/19 09:15; Admin Dose 25 MG; Start 02/08/19 at 21:00 Piperacillin Sod/ Tazobactam Sod 100 ml @ 25 mls/hr TID@02,,18 IVPB Last administered on 02/10/19 10:17; Admin Dose 25 MLS/HR; Start 02/10/19 at 10:00 Lansoprazole (Prevacid) 30 mg BID@06,18 NGT ; Start 02/10/19 at 18:00 SHARON RODARTE M.D. Feb 10, 2019 14:18
[2019-02-10] MEDS: LANSOPRAZOLE 30 MG CAP NGT SCH (17:58)
[2019-02-11] VITALS (12 sets, daily range): BP systolic 93–129; BP diastolic 54–65; PULSE 83–109; RESP 18–20
[2019-02-11] MEDS: METOCLOPRAMIDE 10 MG INJ IV SCH ×4 (00:37→17:23)
[2019-02-11] MEDS: PIPER-TAZO 3.375 GM IV (PMX) 100 ML IVPB SCH ×3 (03:15→17:23)
[2019-02-11] MEDS: LACTULOSE 30ML CUP PO SCH ×3 (06:17→20:44)
[2019-02-11] MEDS: LEVOTHYROXINE 25 MCG TAB PO SCH (06:17)
[2019-02-11] MEDS: LANSOPRAZOLE 30 MG CAP NGT SCH ×2 (06:17→17:23)
[2019-02-11] MEDS ORDERED: GLUCOSE GEL 15 GRAM TUBE PO PRN ×4 (07:30→11:00)
[2019-02-11] MEDS ORDERED: GLUCOSE GEL 15 GRAM TUBE BUCCAL PRN ×2 (07:30→11:00)
[2019-02-11] MEDS ORDERED: INSULIN ASPART [NOVOLOG] 3 ML PEN SC ONE (07:30)
[2019-02-11] MEDS ORDERED: GLUCAGON 1 MG INJ IM PRN ×2 (07:30→11:00)
[2019-02-11] MEDS ORDERED: DEXTROSE 50% 50 ML SYRINGE IV PRN ×4 (07:30→11:00)
[2019-02-11] MEDS ORDERED: INSULIN ASPART [NOVOLOG] 3 ML PEN SC SCH (08:00)
[2019-02-11] MEDS: RIFAXIMIN 550 MG TAB NGT SCH ×2 (08:24→20:43)
[2019-02-11] MEDS: PROPRANOLOL 20 MG TAB PO SCH ×2 (08:25→20:44)
[2019-02-11] MEDS: SUCRALFATE (100 MG/ML) 10ML CUP NGT SCH ×4 (08:25→20:43)
[2019-02-11] MEDS: SPIRONOLACTONE 25 MG TAB PO SCH (08:25)
[2019-02-11] MEDS: FUROSEMIDE 20 MG INJ IV SCH (08:26)
[2019-02-11] MEDS: SALINE 0.65% 45 ML NAS SPRAY NASAL SCH ×2 (08:27→20:45)
[2019-02-11] MEDS: INSULIN ASPART [NOVOLOG] 3 ML PEN SC SCH ×3 (08:30→17:33)
--- NOTE | 2019-02-11 09:05 | PN ---
Date/Time of Note Date/Time of Note DATE: 02/11/19 TIME: 08:37 Assessment/Plan VTE Prophylaxis Risk score (from [facility])>0 risk: 4 SCD applied (from [facility]): Yes Pharmacological prophylaxis: other (scds) Lines/Catheters IV Catheter Type (from [facility]rs[facility]): [place] Urinary Cath still in place: No Assessment/Plan Hospital Course Assessment: Anemia - suspected GI bleeding UTI- on Zosyn Melena-resolved -EGD 02/04/19 Extensive ulceration in the jejunal side of the gastrojejunal Billroth II anastomosis. No stigmata recent bleeding no visible vessel. Distal esophagitis with ulceration. No stigmata. Recent bleeding. 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 Harvey Subjective: Course reviewed with nursing staff Patient interviewed and examined All labs, imaging and other results reviewed Pt sleeping in bed, not easily awaken, currently tolerating TF well Pt was previously assessed by ST- not safe for trials at this time. Increase in WBCs today. CXR 02/09- No consolidative pulmonary infiltrates noted. Constitutional: Frail, chronically ill. In no acute distress. lethargic Psych: no complaints, nl mood/affect Head: normocephalic, atraumatic Eyes: nl conjunctiva, EOMI, nl lids ENMT: nl external ears & nose, nl lips & teeth, nl nasal mucosa & septum Neck: supple Respiratory: clear to auscultation, normal air movement Cardiovascular: regular rate and rhythm, systolic murmur Gastrointestinal: soft, active bowel sounds, ascites, surgical scars (lower abdominal surgcial scar), generalized tenderness, other (ventral hernia, easily reducible) Musculoskeletal: nl extremities to inspection Extremities: normal pulses Result Diagram: 02/11/19 0452 02/11/19 0452 Results 24hrs Laboratory Tests Test 02/10/19 11:33 02/11/19 04:52 02/11/19 07:00 02/11/19 08:23 Ammonia < 9 L White Blood Count 25.8 #H Red Blood Count 2.58 L Hemoglobin 8.2 L Hematocrit 25.3 L Mean Corpuscular 98.1 Volume Mean Corpuscular 31.8 Hemoglobin Mean Corpuscular 32.4 Hemoglobin Concent Red Cell 17.6 H Distribution Width Platelet Count 162 # Mean Platelet Volume 13.6 H Immature 1.000 H Granulocytes % Neutrophils % 86.5 H Lymphocytes % 4.6 L Monocytes % 7.8 Eosinophils % 0.0 Basophils % 0.1 Nucleated Red Blood 0.0 Cells % Immature 0.260 H Granulocytes # Neutrophils # 22.2 H Lymphocytes # 1.2 Monocytes # 2.0 H Eosinophils # 0.0 Basophils # 0.0 Nucleated Red Blood 0.0 Cells # Sodium Level 139 Potassium Level 3.9 Chloride Level 106 Carbon Dioxide Level 29 Anion Gap 4 L Blood Urea Nitrogen 41 H Creatinine 1.43 H Glucose Level 413 *H Hemoglobin A1c 5.7 Calcium Level 8.1 L Phosphorus Level 3.7 Magnesium Level 2.5 Albumin 2.5 L Bedside Glucose 413 *H 449 *H Exam/Review of Systems Exam Vitals Vital Signs Date Temp Pulse Resp B/P (MAP) Pulse Ox O2 O2 Flow FiO2 Time Delivery Rate 02/11/19 98.7 109 20 129/60 99 07:55 (83) 02/11/19 2.0 05:58 02/10/19 Nasal 20:00 Cannula Intake and Output 02/10/19 02/10/19 02/11/19 1515:00 23:00 07:00 IntakeIntake Total 100 ml 1040 ml 1240 ml OutputOutput Total 1150 ml 1000 ml BalanceBalance 100 ml -110 ml 240 ml Results Results 24hrs Laboratory Tests Test 02/10/19 11:33 02/11/19 04:52 02/11/19 07:00 02/11/19 08:23 Ammonia < 9 L White Blood Count 25.8 #H Red Blood Count 2.58 L Hemoglobin 8.2 L Hematocrit 25.3 L Mean Corpuscular 98.1 Volume Mean Corpuscular 31.8 Hemoglobin Mean Corpuscular 32.4 Hemoglobin Concent Red Cell 17.6 H Distribution Width Platelet Count 162 # Mean Platelet Volume 13.6 H Immature 1.000 H Granulocytes % Neutrophils % 86.5 H Lymphocytes % 4.6 L Monocytes % 7.8 Eosinophils % 0.0 Basophils % 0.1 Nucleated Red Blood 0.0 Cells % Immature 0.260 H Granulocytes # Neutrophils # 22.2 H Lymphocytes # 1.2 Monocytes # 2.0 H Eosinophils # 0.0 Basophils # 0.0 Nucleated Red Blood 0.0 Cells # Sodium Level 139 Potassium Level 3.9 Chloride Level 106 Carbon Dioxide Level 29 Anion Gap 4 L Blood Urea Nitrogen 41 H Creatinine 1.43 H Glucose Level 413 *H Hemoglobin A1c 5.7 Calcium Level 8.1 L Phosphorus Level 3.7 Magnesium Level 2.5 Albumin 2.5 L Bedside Glucose 413 *H 449 *H Medications Medication Current Medications IV Flush (NS 3 ml) 3 ml PER PROTOCOL IV ; Start 02/03/19 at 14:00 Ondansetron HCl (Zofran Inj) 4 mg Q6H PRN IV NAUSEA/VOMITING; Start 02/03/19 at 14:00 Acetaminophen (Tylenol Tab) 650 mg Q6H PRN PO .PAIN 1-3 OR TEMP; Start 02/03/19 at 14:00 Acetaminophen/ Hydrocodone Bitart ([place] (5/325)) 1 tab Q6H PRN PO .MOD PAIN 4- 6 Last administered on 02/04/19at 06:09; Admin Dose 1 TAB; Start 02/03/19 at 14:00 Docusate Sodium (Colace) 100 mg Q12H PRN PO .CONSTIPATION; Start 02/03/19 at 14:00 Furosemide (Lasix) 40 mg DAILY PO Last administered on 02/04/19at 09:24; Admin Dose 40 MG; Start 02/04/19 at 09:00; Status Hold Levothyroxine Sodium (Synthroid) 25 mcg BEFORE BREAKFAST PO Last administered on 02/11/19at 06:17; Admin Dose 25 MCG; Start 02/04/19 at 07:00 Spironolactone (Aldactone) 25 mg DAILY PO Last administered on 02/11/19at 08:25; Admin Dose 25 MG; Start 02/04/19 at 09:00 Sodium Chloride ([place]) 2 spray BID NASAL Last administered on 02/11/19at 08 :27; Admin Dose 2 SPRAY; Start 02/04/19 at 11:00 Rifaximin (Xifaxan) 550 mg BID NGT Last administered on 02/11/19at 08:24; Admin Dose 550 MG; Start 02/06/19 at 21:00 Sucralfate (Carafate Susp) 1 gm QID NGT Last administered on 02/11/19 08:25; Admin Dose 1 GM; Start 02/06/19 at 13:00 Lactulose (Enulose) 20 gm Q8 PO Last administered on 02/11/19 06:17; Admin Dose 20 GM; Start 02/06/19 at 22:00 Metoclopramide HCl (Reglan) 10 mg Q6 IV Last administered on 02/11/19 06:17; Admin Dose 10 MG; Start 02/06/19 at 18:00 Propranolol HCl (Inderal) 20 mg BID PO Last administered on 02/11/19 08:25; Ad min Dose 20 MG; Start 02/06/19 at 21:00 Metoprolol Tartrate (Lopressor) 5 mg Q4H PRN IV HR>110 Hold SBP<100 Last administered on 02/06/19at 21:57; Admin Dose 5 MG; Start 02/06/19 at 17:30 Morphine Sulfate (morphine) 0.5 mg Q4H PRN IV .SEVERE PAIN 7-10; Start 02/07/19 at 14:00 Furosemide (Lasix) 20 mg DAILY IV Last administered on 02/11/19 08:26; Admin Dose 20 MG; Start 02/09/19 at 09:00 Hydralazine HCl (Apresoline) 25 mg Q12 PO Last administered on 02/11/19 08:25; Admin Dose 25 MG; Start 02/08/19 at 21:00 Piperacillin Sod/ Tazobactam Sod 100 ml @ 25 mls/hr TID@ IVPB Last administered on 02/11/19 03:15; Admin Dose 25 MLS/HR; Start 02/10/19 at 10:00 Lansoprazole (Prevacid) 30 mg BID@18 NGT Last administered on 02/11/19 06:17; Admin Dose 30 MG; Start 02/10/19 at 18:00 Diagnostic Test (Pha) (Accu-Chek) 1 ea 02 XX ; Start 02/12/19 at 02:00 Insulin Aspart (Novolog Insulin Pen) NOVOLOG *MILD* ALGORI... Q6 SC Last administered on 02/11/19 08:30; Admin Dose 7 UNIT; Start 02/11/19 at 07:30 Diagnostic Test (Pha) (Accu-Chek) 1 ea 2 HRS AFTER NOVOLOG ONCE XX ; Start 02/11/19 at 09:30; Stop 02/11/19 at 09:31 Miscellaneous Information 1 ea NOTE XX ; Start 02/11/19 at 07:30 Glucose (Glutose) 15 gm Q15M PRN PO DECREASED GLUCOSE; Start 02/11/19 at 07:30 Glucose (Glutose) 22.5 gm Q15M PRN PO DECREASED GLUCOSE; Start 02/11/19 at 07:30 Dextrose (D50w Syringe) 25 ml Q15M PRN IV DECREASED GLUCOSE; Start 02/11/19 at 07:30 Dextrose (D50w Syringe) 50 ml Q15M PRN IV DECREASED GLUCOSE; Start 02/11/19 at 07:30 Glucagon (Glucagen) 1 mg Q15M PRN IM DECREASED GLUCOSE; Start 02/11/19 at 07:30 Glucose (Glutose) 15 gm Q15M PRN BUCCAL DECREASED GLUCOSE; Start 02/11/19 at 07:30 INGRID MAST Feb 11, 2019 08:47
[2019-02-11] MEDS ORDERED: ACCU-CHEK XX ONE (09:30)
--- NOTE | 2019-02-11 09:53 | PN ---
Date/Time of Note Date/Time of Note DATE: 02/11/19 TIME: 09:53 Assessment/Plan VTE Prophylaxis Risk score (from Ns)>0 risk: 4 SCD applied (from [facility]): Yes Pharmacological prophylaxis: NA/contraindicated Pharm contraindication: bleeding Lines/Catheters IV Catheter Type ([facility] Saline Lock Urinary Cath still in place: No Assessment/Plan Assessment/Plan 1. Acute encephalopathy, toxic - Noted with + urine culture and will continue current antibiotic tx - WBC still continues to trend up and ID consulted for further recommendations - blood cx ordered - CT head ordered to rule out any other etiology for AMS - CT A/P noted with enteritis - remains afebrile 2. Acute GI bleed s/p EGD - still with dark stools but hgb remains stable - hgb continues to fluctuate but remains >7.5 - Per GI recommending d/c on Levsin PRN for abdominal discomfort given patient was self medicating with NSAIDs at home - GI on board and appreciate recommendations. EGD 02/04 shows extensive ulcerations in jejunal side of GJ. distal esophagitis - continue on PPI via NG tube and Carafate 3. SVT with aberrancy- resolved - Cardiology consultation appreciated 4. Symptomatic anemia secondary to acute blood loss - hemoglobin remains stable - goal hgb >7.5 5. Cryptogenic cirrhosis with refractory ascites - per daughter cirrhosis is due to heavy Tylenol use - continue Aldactone. Holding Lasix for now given increase in Cr - previous work-up was negative for autoimmune and viral etiologies - US abd noted. no need for paracentesis at this time 6. Hypothyroidism - On Synthroid 7. Diabetes - ISS and accuchecks - sugars elevated while on TF - A1c 5.7 8. AN[place] - most likely secondary to hemodynamics - avoid nephrotoxic agents - holding Lasix for now 9. History of coronary disease - stable - no chest pain noted 10. Disposition - Treating UTI and enteritis which may be exacerbating altered mental status. Id consulted for antibiotic recommendations. Monitor for improvement in renal function - monitor for improvement in mental function Result Diagram: 02/11/19 0452 02/11/19 0452 Results 24hrs Laboratory Tests Test 02/10/19 11:33 02/11/19 04:52 02/11/19 07:00 02/11/19 08:23 Ammonia < 9 L White Blood Count 25.8 #H Red Blood Count 2.58 L Hemoglobin 8.2 L Hematocrit 25.3 L Mean Corpuscular 98.1 Volume Mean Corpuscular 31.8 Hemoglobin Mean Corpuscular 32.4 Hemoglobin Concent Red Cell 17.6 H Distribution Width Platelet Count 162 # Mean Platelet Volume 13.6 H Immature 1.000 H Granulocytes % Neutrophils % 86.5 H Segmented 82 H Neutrophils % (Manual) Band Neutrophils % 5 H (Manual) Lymphocytes % 4.6 L Lymphocytes % 3 L (Manual) Reactive Lymphocytes 3 H % (Manual) Monocytes % 7.8 Monocytes % (Manual) 7 Eosinophils % 0.0 Basophils % 0.1 Nucleated Red Blood 0.0 Cells % Immature 0.260 H Granulocytes # Neutrophils # 22.2 H Neutrophils # 21.5 H (Manual) Band Neutrophils # 1.2 H Lymphocytes (Manual) 0.7 L Lymphocytes # 1.2 Reactive Lymphocytes 0.7 H # Monocytes # 2.0 H Monocytes # (Manual) 1.8 H Eosinophils # 0.0 Basophils # 0.0 Nucleated Red Blood 0.0 Cells # Platelet Estimate NORMAL Giant Platelets 3 H Polychromasia 2+ Anisocytosis 1+ Sodium Level 139 Potassium Level 3.9 Chloride Level 106 Carbon Dioxide Level 29 Anion Gap 4 L Blood Urea Nitrogen 41 H Creatinine 1.43 H Glucose Level 413 *H Hemoglobin A1c 5.7 Calcium Level 8.1 L Phosphorus Level 3.7 Magnesium Level 2.5 Albumin 2.5 L Bedside Glucose 413 *H 449 *H Subjective 24 Hr Interval Summary Free Text/Dictation Patient still confused this am. Per nursing still with dark stool. No acute overnight events. Exam/Review of Systems Exam Vitals Vital Signs Date Temp Pulse Resp B/P (MAP) Pulse Ox O2 O2 Flow FiO2 Time Delivery Rate 02/11/19 98.7 109 20 129/60 99 07:55 (83) 02/11/19 2.0 05:58 02/10/19 Nasal 20:00 Cannula Intake and Output 02/10/19 02/10/19 02/11/19 1515:00 23:00 07:00 IntakeIntake Total 100 ml 1040 ml 1240 ml OutputOutput Total 1150 ml 1000 ml BalanceBalance 100 ml -110 ml 240 ml Exam General: lethargic. no acute distress Nose: NG tube in place Neck: supple CVS: S1, S2, regular rate and rhythm. no murmurs Lungs: clear to auscultation bilaterally. no wheezing or rhonchi Abd: soft, nontender, nondistended. no rebound or guarding. bowel sounds present diffusely Ext: moving all extremities. no cyanosis, clubbing, or edema SKin: warm, dry. no rashes or lesions appreciated Results Results 24hrs Laboratory Tests Test 02/10/19 11:33 02/11/19 04:52 02/11/19 07:00 02/11/19 08:23 Ammonia < 9 L White Blood Count 25.8 #H Red Blood Count 2.58 L Hemoglobin 8.2 L Hematocrit 25.3 L Mean Corpuscular 98.1 Volume Mean Corpuscular 31.8 Hemoglobin Mean Corpuscular 32.4 Hemoglobin Concent Red Cell 17.6 H Distribution Width Platelet Count 162 # Mean Platelet Volume 13.6 H Immature 1.000 H Granulocytes % Neutrophils % 86.5 H Segmented 82 H Neutrophils % (Manual) Band Neutrophils % 5 H (Manual) Lymphocytes % 4.6 L Lymphocytes % 3 L (Manual) Reactive Lymphocytes 3 H % (Manual) Monocytes % 7.8 Monocytes % (Manual) 7 Eosinophils % 0.0 Basophils % 0.1 Nucleated Red Blood 0.0 Cells % Immature 0.260 H Granulocytes # Neutrophils # 22.2 H Neutrophils # 21.5 H (Manual) Band Neutrophils # 1.2 H Lymphocytes (Manual) 0.7 L Lymphocytes # 1.2 Reactive Lymphocytes 0.7 H # Monocytes # 2.0 H Monocytes # (Manual) 1.8 H Eosinophils # 0.0 Basophils # 0.0 Nucleated Red Blood 0.0 Cells # Platelet Estimate NORMAL Giant Platelets 3 H Polychromasia 2+ Anisocytosis 1+ Sodium Level 139 Potassium Level 3.9 Chloride Level 106 Carbon Dioxide Level 29 Anion Gap 4 L Blood Urea Nitrogen 41 H Creatinine 1.43 H Glucose Level 413 *H Hemoglobin A1c 5.7 Calcium Level 8.1 L Phosphorus Level 3.7 Magnesium Level 2.5 Albumin 2.5 L Bedside Glucose 413 *H 449 *H Medications Medication Current Medications IV Flush (NS 3 ml) 3 ml PER PROTOCOL IV ; Start 02/03/19 at 14:00 Ondansetron HCl (Zofran Inj) 4 mg Q6H PRN IV NAUSEA/VOMITING; Start 02/03/19 at 14:00 Acetaminophen (Tylenol Tab) 650 mg Q6H PRN PO .PAIN 1-3 OR TEMP; Start 02/03/19 at 14:00 Acetaminophen/ Hydrocodone Bitart ([place] (5/325)) 1 tab Q6H PRN PO .MOD PAIN 4- 6 Last administered on 02/04/19 06:09; Admin Dose 1 TAB; Start 02/03/19 at 14:00 Docusate Sodium (Colace) 100 mg Q12H PRN PO .CONSTIPATION; Start 02/03/19 at 14:00 Furosemide (Lasix) 40 mg DAILY PO Last administered on 02/04/19 09:24; Admin Dose 40 MG; Start 02/04/19 at 09:00; Status Hold Levothyroxine Sodium (Synthroid) 25 mcg BEFORE BREAKFAST PO Last administered on 02/11/19 06:17; Admin Dose 25 MCG; Start 02/04/19 at 07:00 Spironolactone (Aldactone) 25 mg DAILY PO Last administered on 02/11/19 08:25; Admin Dose 25 MG; Start 02/04/19 at 09:00 Sodium Chloride (Deep Sea) 2 spray BID NASAL Last administered on 02/11/19 08:27; Admin Dose 2 SPRAY; Start 02/04/19 at 11:00 Rifaximin (Xifaxan) 550 mg BID NGT Last administered on 02/11/19 08:24; Admin Dose 550 MG; Start 02/06/19 at 21:00 Sucralfate (Carafate Susp) 1 gm QID NGT Last administered on 02/11/19 08:25; Admin Dose 1 GM; Start 02/06/19 at 13:00 Lactulose (Enulose) 20 gm Q8 PO Last administered on 02/11/19 06:17; Admin Dose 20 GM; Start 02/06/19 at 22:00 Metoclopramide HCl (Reglan) 10 mg Q6 IV Last administered on 02/11/19 06:17; Admin Dose 10 MG; Start 02/06/19 at 18:00 Propranolol HCl (Inderal) 20 mg BID PO Last administered on 02/11/19 08:25; Admin Dose 20 MG; Start 02/06/19 at 21:00 Metoprolol Tartrate (Lopressor) 5 mg Q4H PRN IV HR>110 Hold SBP<100 Last administered on 02/06/19at 21:57; Admin Dose 5 MG; Start 02/06/19 at 17:30 Morphine Sulfate (morphine) 0.5 mg Q4H PRN IV .SEVERE PAIN 7-10; Start 02/07/19 at 14:00 Furosemide (Lasix) 20 mg DAILY IV Last administered on 02/11/19at 08:26; Admin Dose 20 MG; Start 02/09/19 at 09:00 Hydralazine HCl (Apresoline) 25 mg Q12 PO Last administered on 02/11/19at 08:25; Admin Dose 25 MG; Start 02/08/19 at 21:00 Piperacillin Sod/ Tazobactam Sod 100 ml @ 25 mls/hr TID@02,,18 IVPB Last administered on 02/11/19at 03:15; Admin Dose 25 MLS/HR; Start 02/10/19 at 10:00 Lansoprazole (Prevacid) 30 mg BID@06,18 NGT Last administered on 02/11/19at 06:17; Admin Dose 30 MG; Start 02/10/19 at 18:00 Diagnostic Test (Pha) (Accu-Chek) 1 ea 02 XX ; Start 02/12/19 at 02:00 Insulin Aspart (Novolog Insulin Pen) NOVOLOG *MILD* ALGORI... Q6 SC Last administered on 02/11/19at 08:30; Admin Dose 7 UNIT; Start 02/11/19 at 07:30 Miscellaneous Information 1 ea NOTE XX ; Start 02/11/19 at 07:30 Glucose (Glutose) 15 gm Q15M PRN PO DECREASED GLUCOSE; Start 02/11/19 at 07:30 Glucose (Glutose) 22.5 gm Q15M PRN PO DECREASED GLUCOSE; Start 02/11/19 at 07:30 Dextrose (D50w Syringe) 25 ml Q15M PRN IV DECREASED GLUCOSE; Start 02/11/19 at 07:30 Dextrose (D50w Syringe) 50 ml Q15M PRN IV DECREASED GLUCOSE; Start 02/11/19 at 07:30 Glucagon (Glucagen) 1 mg Q15M PRN IM DECREASED GLUCOSE; Start 02/11/19 at 07:30 Glucose (Glutose) 15 gm Q15M PRN BUCCAL DECREASED GLUCOSE; Start 02/11/19 at 07:30 BROCK VAN MD Feb 11, 2019 09:53
[2019-02-11] MEDS ORDERED: INSULIN REGULAR, HUMAN 100 UNIT/1 ML 3ML VIAL IV ONE (11:00)
--- NOTE | 2019-02-11 13:19 | CONS ---
DATE OF ADMISSION: 02/03/2019 DATE OF CONSULTATION: 02/11/2019 TYPE OF CONSULTATION: Infectious disease. REASON FOR CONSULTATION: Antibiotic management. HISTORY OF PRESENT ILLNESS: Aguila Pichardo is an 78-year-old male who was admitted on 02/03/2019 with nausea and vomiting. The patient has a history of alcoholic cirrhosis, comes in with weakness and vo miting, intermittent right upper quadrant pain. He feels felt very weak. His past problems include status post herniorrhaphy, status post abdominal surgery, open heart surgery 09/25/2017 and prostate surgery. He has a history of hypertension as well. FAMILY HISTORY: Noncontributory. SOCIAL HISTORY: He does not smoke, drink or abuse drugs. ALLERGIES: NONE TO PENICILLIN, SULFA OR FOODS. MEDICATIONS: Per chart. REVIEW OF SYSTEMS: As per HPI.. PHYSICAL EXAMINATION: In the Emergency Room, he had no abdominal discomfort. White count was 10.1, H and H of 7.2 and 23.8, platelet count 200,000. BUN and creatinine 38/1.24 with 74% neutrophils. Th e patient had an EGD with biopsy with and without brushings. On 02/04/2019, suspected GI bleeding th at showed extensive ulceration in the jejunal side of the gastrojejunal Billroth II anastomosis which he had, no stigmata of recent bleeding. Post distal gastrectomy distal to the anastomosis, history of cryptogenic cirrhosis Perforated gastric ulcer status post repair, ventral hernia, renal insuffici ency, acute encephalopathy, toxic metabolic versus delirium. PHYSICAL EXAMINATION: NEUROLOGIC: The patient is lethargic, not verbal. He has altered mental status. As noted, he has a gastrointestinal bleed. SKIN: Without generalized rash. HEENT: Within normal limits. NECK: Supple. LYMPH NODES: None palpable. CHEST: Decreased breath sounds at the bases. HEART: Without murmur or gallop. ABDOMEN: Soft, nontender, without organosplenomegaly or masses. He has surgical scars, lower abdome n, ventral hernia, easily reducible. EXTREMITIES: Without cyanosis, clubbing, or edema. RECTAL AND GENITAL: Deferred. NEUROLOGICAL: No focal neurological abnormality. ANCILLARY LABORATORY DATA: White count of 15.5, H and H of 53 and 1.33 on the 12th. IMPRESSION AND PLAN: Currently, patient had a UTI. He is on Zosyn. Today, his white count was up t o 25.8. BUN and creatinine is 41/1.43, glucose is 413,000. A CT scan of the abdomen and pelvis was done on the with redemonstration of changes compatible with cirrhosis and portal hypertension wi th prominent left lobe of the liver, splenomegaly and varicosities and ascites, mild abdominal pelvi c ascites. No definite focal collection to suggest abscess. No bowel obstruction or ileus, left col on containing left inguinal hernia. Proximal to mid small bowel wall thickening without dilatation s uggestive of a nonspecific enteritis, status post gastric antral and duodenal surgery, diverticulosis without diverticulitis, no obstructive uropathy. Mild bilateral pelvocaliectasis and prominent uret ers likely related to distended urinary bladder, patchy right lower lobe infiltrate versus atelectasi s, cholelithiasis without evidence for cholecystitis or biliary obstruction. Otherwise, no change. Urine grew out K. pneumonia and enterococcus. Enterococcus was sensitive to ampicillin and the K. pn eumonia was sensitive to most antibiotics. The patient is currently on Zosyn and we are looking for an etiology of the elevated white count. If nothing is found, will do an indium labeled white cell s tudy to look for source of infection. A CT scan of the abdomen and pelvis was not helpful, I will di ctate my findings to the hospitalist and to Dr. Harvey, Dr. Jimmy Breen, cardiology. I will dicta te my findings as noted. Dictated By: PHI MITCHELL MD, JD/NTS Conf#: [id number] DID#: [id number] CC: SUDHIR BARRIENTOS MD;*EndCC*
--- NOTE | 2019-02-11 18:43 | CONS ---
Assessment/Plan Assessment/Plan Hospital Course (Demo Recall) IMPRESSION: 1. Wide complex tachycardia, likely consistent with supraventricular tachycardia with a baseline bundle branch block.-TSH WNL. NO recurrence. NL EF by echo this admit 2. Abnormal electrocardiogram with baseline bundle branch block. 3. Syncope on admit. Rule out cardiac etiology. Rule out cardiac arrhythmia as etiology versus anemia. 4. Cirrhosis. 5. Gastrointestinal bleed with melenic stools. 6. Peptic ulcer disease by endoscopy. 7. Renal failure-acute 8. Hyponatremia. 9. Thrombocytopenia. 10. Anemia. 11. Encephalopathy-ngoing 12. -mild to moderate by echo this admit Recc: -Tele -Contineu propranolol/hydralazine with reasonable BP control -Contineu lactulose -Continue aldactone -lasix held in the setting of ARF -Follow MS -Follow HGb clsoely with further tansfusions as necessary Consultation Date/Type/Reason Admit Date/Time Feb 03, 2019 at 09:30 Initial Consult Date 02/03/19 Type of Consult Cardiology Reason for Consultation SVT/WCT Requesting Provider: SUDHIR BARRIENTOS Date/Time of Note DATE: 02/11/19 TIME: 18:40 Exam/Review of Systems Vital Signs Vitals Vital Signs Date Temp Pulse Resp B/P (MAP) Pulse Ox O2 O2 Flow FiO2 Time Delivery Rate 02/11/19 90 16:01 02/11/19 98.7 20 127/60 99 15:41 (82) 02/11/19 Nasal 3.0 08:20 Cannula Intake and Output 02/10/19 02/10/19 02/11/19 1515:00 23:00 07:00 IntakeIntake Total 100 ml 1040 ml 1240 ml OutputOutput Total 1150 ml 1000 ml BalanceBalance 100 ml -110 ml 240 ml Exam Exam Review of Systems: CONSTITUTIONAL: No fevers, chills. PULMONARY: No sob CARDIOVASCULAR: No chest pain/palpitations GASTROINTESTINAL: No nausea/vomiting. GENITOURINARY: No hematuria/dysuria. MUSCULOSKELETAL: No myagias/arthalgias. PSYCHIATRIC: The patient denies depression. NEUROLOGIC:encephalopathic Constitutional: other (sleeping) Head: normocephalic ENMT: mucosa pink and moist Neck: supple, jvd (9 cm water) Respiratory: diminished breath sounds (at bases/B) Cardiovascular: regular rate and rhythm Gastrointestinal: soft, non-tender Musculoskeletal: muscle weakness (generalized) Extremities: edema (trace/B) Neurological: confused, lethargic Labs Result Diagram: 02/11/192 02/11/19 0452 Results 24hrs Laboratory Tests Test 02/11/19 04:52 02/11/19 07:00 02/11/19 08:23 02/11/19 10:04 White Blood Count 25.8 #H Red Blood Count 2.58 L Hemoglobin 8.2 L Hematocrit 25.3 L Mean Corpuscular 98.1 Volume Mean Corpuscular 31.8 Hemoglobin Mean Corpuscular 32.4 Hemoglobin Concent Red Cell 17.6 H Distribution Width Platelet Count 162 # Mean Platelet Volume 13.6 H Immature 1.000 H Granulocytes % Neutrophils % 86.5 H Segmented 82 H Neutrophils % (Manual) Band Neutrophils % 5 H (Manual) Lymphocytes % 4.6 L Lymphocytes % 3 L (Manual) Reactive Lymphocytes 3 H % (Manual) Monocytes % 7.8 Monocytes % (Manual) 7 Eosinophils % 0.0 Basophils % 0.1 Nucleated Red Blood 0.0 Cells % Immature 0.260 H Granulocytes # Neutrophils # 22.2 H Neutrophils # 21.5 H (Manual) Band Neutrophils # 1.2 H Lymphocytes (Manual) 0.7 L Lymphocytes # 1.2 Reactive Lymphocytes 0.7 H # Monocytes # 2.0 H Monocytes # (Manual) 1.8 H Eosinophils # 0.0 Basophils # 0.0 Nucleated Red Blood 0.0 Cells # Platelet Estimate NORMAL Giant Platelets 3 H Polychromasia 2+ Anisocytosis 1+ Sodium Level 139 Potassium Level 3.9 Chloride Level 106 Carbon Dioxide Level 29 Anion Gap 4 L Blood Urea Nitrogen 41 H Creatinine 1.43 H Glucose Level 413 *H Hemoglobin A1c 5.7 Calcium Level 8.1 L Phosphorus Level 3.7 Magnesium Level 2.5 Albumin 2.5 L Bedside Glucose 413 *H 449 *H 457 *H Test 02/11/19 10:44 02/11/19 12:15 02/11/19 17:29 Bedside Glucose 416 *H 368 H 317 H Medications Medications Current Medications IV Flush (NS 3 ml) 3 ml PER PROTOCOL IV ; Start 02/03/19 at 14:00 Ondansetron HCl (Zofran Inj) 4 mg Q6H PRN IV NAUSEA/VOMITING; Start 02/03/19 at 14:00 Acetaminophen (Tylenol Tab) 650 mg Q6H PRN PO .PAIN 1-3 OR TEMP; Start 02/03/19 at 14:00 Acetaminophen/ Hydrocodone Bitart ([place] (5/325)) 1 tab Q6H PRN PO .MOD PAIN 4- 6 Last administered on 02/04/19 06:09; Admin Dose 1 TAB; Start 02/03/19 at 14:00 Docusate Sodium (Colace) 100 mg Q12H PRN PO .CONSTIPATION; Start 02/03/19 at 14:00 Furosemide (Lasix) 40 mg DAILY PO Last administered on 02/04/19 09:24; Admin Dose 40 MG; Start 02/04/19 at 09:00; Status Hold Levothyroxine Sodium (Synthroid) 25 mcg BEFORE BREAKFAST PO Last administered on 02/11/19 06:17; Admin Dose 25 MCG; Start 02/04/19 at 07:00 Spironolactone (Aldactone) 25 mg DAILY PO Last administered on 02/11/19 08:25; Admin Dose 25 MG; Start 02/04/19 at 09:00 Sodium Chloride (Deep Sea) 2 spray BID NASAL Last administered on 02/11/19 08:27; Admin Dose 2 SPRAY; Start 02/04/19 at 11:00 Rifaximin (Xifaxan) 550 mg BID NGT Last administered on 02/11/19 08:24; Admin Dose 550 MG; Start 02/06/19 at 21:00 Sucralfate (Carafate Susp) 1 gm QID NGT Last administered on 02/11/19 17:23; Admin Dose 1 GM; Start 02/06/19 at 13:00 Lactulose (Enulose) 20 gm Q8 PO Last administered on 02/11/19 14:15; Admin Dose 20 GM; Start 02/06/19 at 22:00 Metoclopramide HCl (Reglan) 10 mg Q6 IV Last administered on 02/11/19 17:23; Admin Dose 10 MG; Start 02/06/19 at 18:00 Propranolol HCl (Inderal) 20 mg BID PO Last administered on 02/11/19 08:25; Admin Dose 20 MG; Start 02/06/19 at 21:00 Metoprolol Tartrate (Lopressor) 5 mg Q4H PRN IV HR>110 Hold SBP<100 Last administered on 02/06/19at 21:57; Admin Dose 5 MG; Start 02/06/19 at 17:30 Morphine Sulfate (morphine) 0.5 mg Q4H PRN IV .SEVERE PAIN 7-10; Start 02/07/19 at 14:00 Furosemide (Lasix) 20 mg DAILY IV Last administered on 02/11/19at 08:26; Admin Dose 20 MG; Start 02/09/19 at 09:00; Status Hold Hydralazine HCl (Apresoline) 25 mg Q12 PO Last administered on 02/11/19at 08:25; Admin Dose 25 MG; Start 02/08/19 at 21:00 Piperacillin Sod/ Tazobactam Sod 100 ml @ 25 mls/hr TID@02,10,18 IVPB Last administered on 02/11/19at 17:23; Admin Dose 25 MLS/HR; Start 02/10/19 at 10:00 Lansoprazole (Prevacid) 30 mg BID@06,18 NGT Last administered on 02/11/19at 17:23; Admin Dose 30 MG; Start 02/10/19 at 18:00 Diagnostic Test (Pha) (Accu-Chek) 1 ea 02 XX ; Start 02/12/19 at 02:00 Insulin Aspart (Novolog Insulin Pen) NOVOLOG *MILD* ALGORI... Q6 SC Last administered on 02/11/19at 17:33; Admin Dose 5 UNIT; Start 02/11/19 at 07:30 Miscellaneous Information 1 ea NOTE XX ; Start 02/11/19 at 07:30 Glucose (Glutose) 15 gm Q15M PRN PO DECREASED GLUCOSE; Start 02/11/19 at 07:30 Glucose (Glutose) 22.5 gm Q15M PRN PO DECREASED GLUCOSE; Start 02/11/19 at 07:30 Dextrose (D50w Syringe) 25 ml Q15M PRN IV DECREASED GLUCOSE; Start 02/11/19 at 07:30 Dextrose (D50w Syringe) 50 ml Q15M PRN IV DECREASED GLUCOSE; Start 02/11/19 at 07:30 Glucagon (Glucagen) 1 mg Q15M PRN IM DECREASED GLUCOSE; Start 02/11/19 at 07:30 Glucose (Glutose) 15 gm Q15M PRN BUCCAL DECREASED GLUCOSE; Start 02/11/19 at 07:30 Miscellaneous Information 1 ea NOTE XX ; Start 02/11/19 at 11:00 Glucose (Glutose) 15 gm Q15M PRN PO DECREASED GLUCOSE; Start 02/11/19 at 11:00 Glucose (Glutose) 22.5 gm Q15M PRN PO DECREASED GLUCOSE; Start 02/11/19 at 11:00 Dextrose (D50w Syringe) 25 ml Q15M PRN IV DECREASED GLUCOSE; Start 02/11/19 at 11:00 Dextrose (D50w Syringe) 50 ml Q15M PRN IV DECREASED GLUCOSE; Start 02/11/19 at 11:00 Glucagon (Glucagen) 1 mg Q15M PRN IM DECREASED GLUCOSE; Start 02/11/19 at 11:00 Glucose (Glutose) 15 gm Q15M PRN BUCCAL DECREASED GLUCOSE; Start 02/11/19 at 11:00 Insulin Glargine (Lantus) 11 units DAILY@2000 SC ; Start 02/11/19 at 20:00 LUZMARIA KEVIN Feb 11, 2019 18:43
[2019-02-11] MEDS: INSULIN GLARGINE [LANTus] (100 UNITS/ML) SYG SC SCH (21:26)
[2019-02-12] VITALS (11 sets, daily range): BP systolic 101–117; BP diastolic 55–64; PULSE 84–93; RESP 18–20
[2019-02-12] MEDS: PIPER-TAZO 3.375 GM IV (PMX) 100 ML IVPB SCH ×3 (01:39→17:18)
[2019-02-12] MEDS: ACCU-CHEK XX SCH (01:39)
[2019-02-12] MEDS: METOCLOPRAMIDE 10 MG INJ IV SCH ×5 (01:39→23:42)
[2019-02-12] MEDS: INSULIN ASPART [NOVOLOG] 3 ML PEN SC SCH ×5 (02:50→23:57)
[2019-02-12] MEDS: LEVOTHYROXINE 25 MCG TAB PO SCH (06:25)
[2019-02-12] MEDS: LANSOPRAZOLE 30 MG CAP NGT SCH ×2 (06:25→17:18)
[2019-02-12] MEDS: LACTULOSE 30ML CUP PO SCH ×2 (06:25→20:31)
--- NOTE | 2019-02-12 08:04 | CONS ---
Consult Date/Type/Reason Admit Date/Time Feb 03, 2019 at 09:30 Initial Consult Date 02/03/19 Requesting Provider: SUDHIR BARRIENTOS Date/Time of Note DATE: 02/12/19 TIME: 08:01 Subjective NO acute events - pt comfortable - no new WCT noted - NGT in - BP stable - will monitor clinically now. ROS: No fever, no chills, no nausea, no vomiting, no diarrhea/constipation - per nurse No recent weight changes No chest pain, no PND, no orthopnea No dizziness, blurred vision No thirst, no heat or cold intolerance Objective Vitals Vital Signs Date Temp Pulse Resp B/P (MAP) Pulse Ox O2 O2 Flow FiO2 Time Delivery Rate 02/12/19 Nasal 2.0 07:33 Cannula 02/12/19 97.9 86 20 101/55 97 07:07 (70) Intake and Output 02/11/19 02/11/19 02/12/19 1515:00 23:00 07:00 IntakeIntake Total 1140 ml 1140 ml OutputOutput Total 650 ml BalanceBalance 490 ml 1140 ml Exam General: WN/WD/NAD, AOx comfortable HEENT: Unicetric/atraumatic/EOMI (does not follow commands) NECK: JVD elevated, no thyromegaly - NGT in Lymph: no lymphadenopathy HEART: regular with no S3, II/ systolic murmur at apex LUNGS: Coarse sounds ABD: soft, NT, ND, +BS : Intact Neuro: non focal SKIN: chronic changes EXT: trace edema Results/Medications Result Diagram: 02/12/19 0555 02/12/19 0555 Results 24 hrs Laboratory Tests Test 02/11/19 08:23 02/11/19 10:04 02/11/19 10:44 02/11/19 12:15 Bedside Glucose 449 *H 457 *H 416 *H 368 H Test 02/11/19 17:29 02/11/19 21:12 02/12/19 01:25 02/12/19 05:55 Bedside Glucose 317 H 302 H 281 H White Blood Count 19.8 #H Red Blood Count 2.47 L Hemoglobin 7.6 L Hematocrit 24.6 L Mean Corpuscular 99.6 Volume Mean Corpuscular 30.8 Hemoglobin Mean Corpuscular 30.9 L Hemoglobin Concent Red Cell 17.5 H Distribution Width Platelet Count 193 Mean Platelet Volume 14.0 H Immature 1.400 H Granulocytes % Neutrophils % 84.4 H Lymphocytes % 6.2 L Monocytes % 7.8 Eosinophils % 0.1 Basophils % 0.1 Nucleated Red Blood 0.0 Cells % Immature 0.280 H Granulocytes # Neutrophils # 16.7 H Lymphocytes # 1.2 Monocytes # 1.6 H Eosinophils # 0.0 Basophils # 0.0 Nucleated Red Blood 0.0 Cells # Prothrombin Time 13.8 Prothrombin Time 1.1 Ratio INR International 1.05 Normalized Ratio Sodium Level 143 Potassium Level 3.8 Chloride Level 108 Carbon Dioxide Level 29 Anion Gap 6 Blood Urea Nitrogen 46 H Creatinine 1.59 H Glucose Level 268 #H Calcium Level 8.1 L Phosphorus Level 3.6 Magnesium Level 2.7 H Albumin 2.1 L Test 02/12/19 06:27 Bedside Glucose 289 H Home Meds Reported Medications Spironolactone* (Aldactone*) 25 Mg Tablet, 25 MG PO DAILY, #30 TAB 02/03/19 Furosemide* (Furosemide*) 40 Mg Tablet, 40 MG PO DAILY, TAB 02/03/19 Levothyroxine Sodium* (Levoxyl*) 25 Mcg Tablet, 25 MCG PO BEFORE BREAKFAST, #30 TAB 02/03/19 Metformin Hcl* (Metformin Hcl*) 850 Mg Tablet, 850 MG PO WITH BREAKFAST, #30 TAB 02/03/19 Colchicine (Colchicine) 0.6 Mg Capsule, 0.6 MG PO BID for 50 Days, #100 TAKE 1 CAPSULE BY MOUTH TWICE A DAY 11/07/18 Medications Current Medications IV Flush (NS 3 ml) 3 ml PER PROTOCOL IV ; Start 02/03/19 at 14:00 Ondansetron HCl (Zofran Inj) 4 mg Q6H PRN IV NAUSEA/VOMITING; Start 02/03/19 at 14:00 Acetaminophen (Tylenol Tab) 650 mg Q6H PRN PO .PAIN 1-3 OR TEMP; Start 02/03/19 at 14:00 Acetaminophen/ Hydrocodone Bitart ([place] (5/325)) 1 tab Q6H PRN PO .MOD PAIN 4- 6 Last administered on 02/04/19at 06:09; Admin Dose 1 TAB; Start 02/03/19 at 14:00 Docusate Sodium (Colace) 100 mg Q12H PRN PO .CONSTIPATION; Start 02/03/19 at 14:00 Furosemide (Lasix) 40 mg DAILY PO Last administered on 02/04/19 09:24; Admin Dose 40 MG; Start 02/04/19 at 09:00; Status Hold Levothyroxine Sodium (Synthroid) 25 mcg BEFORE BREAKFAST PO Last administered on 02/12/19 06:25; Admin Dose 25 MCG; Start 02/04/19 at 07:00 Spironolactone (Aldactone) 25 mg DAILY PO Last administered on 02/11/19 08:25; Admin Dose 25 MG; Start 02/04/19 at 09:00 Sodium Chloride (Deep Sea) 2 spray BID NASAL Last administered on 02/11/19 20:45; Admin Dose 2 SPRAY; Start 02/04/19 at 11:00 Rifaximin (Xifaxan) 550 mg BID NGT Last administered on 02/11/19 20:43; Admin Dose 550 MG; Start 02/06/19 at 21:00 Sucralfate (Carafate Susp) 1 gm QID NGT Last administered on 02/11/19 20:43; Admin Dose 1 GM; Start 02/06/19 at 13:00 Lactulose (Enulose) 20 gm Q8 PO Last administered on 02/12/19 06:25; Admin Dose 20 GM; Start 02/06/19 at 22:00 Metoclopramide HCl (Reglan) 10 mg Q6 IV Last administered on 02/12/19 06:25; Admin Dose 10 MG; Start 02/06/19 at 18:00 Propranolol HCl (Inderal) 20 mg BID PO Last administered on 02/11/19 08:25; Admin Dose 20 MG; Start 02/06/19 at 21:00 Metoprolol Tartrate (Lopressor) 5 mg Q4H PRN IV HR>110 Hold SBP<100 Last administered on 02/06/19 21:57; Admin Dose 5 MG; Start 02/06/19 at 17:30 Morphine Sulfate (morphine) 0.5 mg Q4H PRN IV .SEVERE PAIN 7-10; Start 02/07/19 at 14:00 Furosemide (Lasix) 20 mg DAILY IV Last administered on 02/11/19 08:26; Admin Dose 20 MG; Start 02/09/19 at 09:00; Status Hold Hydralazine HCl (Apresoline) 25 mg Q12 PO Last administered on 02/11/19at 08:25; Admin Dose 25 MG; Start 02/08/19 at 21:00 Piperacillin Sod/ Tazobactam Sod 100 ml @ 25 mls/hr TID@,18 IVPB Last administered on 02/12/19at 01:39; Admin Dose 25 MLS/HR; Start 02/10/19 at 10:00 Lansoprazole (Prevacid) 30 mg BID@18 NGT Last administered on 02/12/19at 06:25; Admin Dose 30 MG; Start 02/10/19 at 18:00 Diagnostic Test (Pha) (Accu-Chek) 1 ea 02 XX Last administered on 02/12/19at 01:39; Admin Dose 1 EA; Start 02/12/19 at 02:00 Insulin Aspart (Novolog Insulin Pen) NOVOLOG *MILD* ALGORI... Q6 SC Last administered on 02/12/19at 06:39; Admin Dose 4 UNIT; Start 02/11/19 at 07:30 Miscellaneous Information 1 ea NOTE XX ; Start 02/11/19 at 07:30 Glucose (Glutose) 15 gm Q15M PRN PO DECREASED GLUCOSE; Start 02/11/19 at 07:30 Glucose (Glutose) 22.5 gm Q15M PRN PO DECREASED GLUCOSE; Start 02/11/19 at 07:30 Dextrose (D50w Syringe) 25 ml Q15M PRN IV DECREASED GLUCOSE; Start 02/11/19 at 07:30 Dextrose (D50w Syringe) 50 ml Q15M PRN IV DECREASED GLUCOSE; Start 02/11/19 at 07:30 Glucagon (Glucagen) 1 mg Q15M PRN IM DECREASED GLUCOSE; Start 02/11/19 at 07:30 Glucose (Glutose) 15 gm Q15M PRN BUCCAL DECREASED GLUCOSE; Start 02/11/19 at 0 7:30 Miscellaneous Information 1 ea NOTE XX ; Start 02/11/19 at 11:00 Glucose (Glutose) 15 gm Q15M PRN PO DECREASED GLUCOSE; Start 02/11/19 at 11:00 Glucose (Glutose) 22.5 gm Q15M PRN PO DECREASED GLUCOSE; Start 02/11/19 at 11:00 Dextrose (D50w Syringe) 25 ml Q15M PRN IV DECREASED GLUCOSE; Start 02/11/19 at 11:00 Dextrose (D50w Syringe) 50 ml Q15M PRN IV DECREASED GLUCOSE; Start 02/11/19 at 11:00 Glucagon (Glucagen) 1 mg Q15M PRN IM DECREASED GLUCOSE; Start 02/11/19 at 11:00 Glucose (Glutose) 15 gm Q15M PRN BUCCAL DECREASED GLUCOSE; Start 02/11/19 at 11:00 Insulin Glargine (Lantus) 11 units DAILY@2000 SC Last administered on 02/11/19at 21:26; Admin Dose 11 UNITS; Start 02/11/19 at 20:00 Assessment/Plan Hospital Course (Demo Recall) 1. Wide complex tachycardia, likely consistent with supraventricular tachycardia with a baseline bundle branch block.-TSH WNL. NO recurrence. NL EF by echo this admit - no new WCT noted - on Rx now. 2. Abnormal electrocardiogram with baseline bundle branch block- stable. 3. Syncope on admit. Rule out cardiac etiology. Rule out cardiac arrhythmia as etiology versus anemia. REplace blood rx as needed. 4. Cirrhosis. 5. Gastrointestinal bleed with melenic stools. 6. Peptic ulcer disease by endoscopy - GI follows. 7. Renal failure-acute - Cr 1.59 - avoid nephrotoxic meds. 8. Hyponatremia. 9. Thrombocytopenia- plt better. 10. Anemia. 11. Encephalopathy-ngoing 12. -mild to moderate by echo this admit - n intervention warranted. LARISA MARADIAGA MD Feb 12, 2019 08:04
[2019-02-12] MEDS: SUCRALFATE (100 MG/ML) 10ML CUP NGT SCH ×4 (08:57→20:30)
[2019-02-12] MEDS: SPIRONOLACTONE 25 MG TAB PO SCH (08:57)
[2019-02-12] MEDS: RIFAXIMIN 550 MG TAB NGT SCH ×2 (08:57→20:31)
[2019-02-12] MEDS: PROPRANOLOL 20 MG TAB PO SCH ×2 (08:58→20:38)
[2019-02-12] MEDS: SALINE 0.65% 45 ML NAS SPRAY NASAL SCH ×2 (09:00→20:47)
[2019-02-12] MEDS ORDERED: SOD CHLORIDE 0.9% 500 ML IV ONE (09:30)
--- NOTE | 2019-02-12 11:08 | PN ---
Date/Time of Note Date/Time of Note DATE: 02/12/19 TIME: 10:55 Assessment/Plan VTE Prophylaxis Risk score (from Ns)>0 risk: 9 SCD applied (from Ns): Yes Pharmacological prophylaxis: other (scds) Lines/Catheters [facility] [place] Urinary Cath still in place: No Assessment/Plan Hospital Course Assessment: Anemia - suspected GI bleeding UTI- on Zosyn Melena-resolved -EGD 02/04/19 Extensive ulceration in the jejunal side of the gastrojejunal Billroth II anastomosis. No stigmata recent bleeding no visible vessel. Distal esophagitis with ulceration. No stigmata. Recent bleeding. 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 Harvey Subjective: Course reviewed with nursing staff Patient interviewed and examined All labs, imaging and other results reviewed Pt much more awake today- alert and oriented to name Able to follow simple commands- PHYSICAL EXAMINATION: GENERAL: Elderly, confused SKIN: No lesions HEAD: Normocephalic, atraumatic, no tenderness. EYES: Pupils equal reactive to light and accommodation, no discharge. EARS/NOSE AND THROAT: Ears normal, nose normal, NG tube in place NECK: Supple, no masses. CHEST: Inspection within normal limits. CARDIOVASCULAR: Heart: Regular rate and rhythm RESPIRATORY: Lungs clear to auscultation GASTROINTESTINAL AND LIVER: Abdomen: Soft, epigastric tenderness, non-distended, no hernias, no masses, no organomegaly, no ascites, no guarding, no rebound te nderness, normoactive bowel sounds. Rectal: Deferred. GENITOURINARY: Male genitalia within normal limits. EXTREMITIES: No cyanosis, clubbing or edema. Result Diagram: 02/12/19 0555 02/12/19 0555 Results 24hrs Laboratory Tests Test 02/11/19 12:15 02/11/19 17:29 02/11/19 21:12 02/12/19 01:25 Bedside Glucose 368 H 317 H 302 H 281 H Test 02/12/19 05:55 02/12/19 06:27 White Blood Count 19.8 #H Red Blood Count 2.47 L Hemoglobin 7.6 L Hematocrit 24.6 L Mean Corpuscular 99.6 Volume Mean Corpuscular 30.8 Hemoglobin Mean Corpuscular 30.9 L Hemoglobin Concent Red Cell 17.5 H Distribution Width Platelet Count 193 Mean Platelet Volume 14.0 H Immature 1.400 H Granulocytes % Neutrophils % 84.4 H Lymphocytes % 6.2 L Monocytes % 7.8 Eosinophils % 0.1 Basophils % 0.1 Nucleated Red Blood 0.0 Cells % Immature 0.280 H Granulocytes # Neutrophils # 16.7 H Lymphocytes # 1.2 Monocytes # 1.6 H Eosinophils # 0.0 Basophils # 0.0 Nucleated Red Blood 0.0 Cells # Prothrombin Time 13.8 Prothrombin Time 1.1 Ratio INR International 1.05 Normalized Ratio Sodium Level 143 Potassium Level 3.7 Chloride Level 108 Carbon Dioxide Level 29 Anion Gap 6 Blood Urea Nitrogen 49 H Creatinine 1.61 H Est Glomerular Filtrat Rate mL/min Glucose Level 277 H Calcium Level 8.2 L Phosphorus Level 3.6 Magnesium Level 2.7 H Total Bilirubin 0.9 Direct Bilirubin 0.00 Indirect Bilirubin 0.9 Aspartate Amino 38 Transf (AST/SGOT) Alanine 34 Aminotransferase (AL T/SGPT) Alkaline Phosphatase 134 H Total Protein 5.6 L Albumin 2.4 L Globulin 3.20 Albumin/Globulin 0.75 Ratio Bedside Glucose 289 H Exam/Review of Systems Exam Vitals Vital Signs Date Temp Pulse Resp B/P (MAP) Pulse Ox O2 O2 Flow FiO2 Time Delivery Rate 02/12/19 91 08:26 02/12/19 Nasal 2.0 07:33 Cannula 02/12/19 97.9 20 101/55 97 07:07 (70) Intake and Output 02/11/19 02/11/19 02/12/19 1515:00 23:00 07:00 IntakeIntake Total 1140 ml 1140 ml OutputOutput Total 650 ml BalanceBalance 490 ml 1140 ml Results Results 24hrs Laboratory Tests Test 02/11/19 12:15 02/11/19 17:29 02/11/19 21:12 02/12/19 01:25 Bedside Glucose 368 H 317 H 302 H 281 H Test 02/12/19 05:55 02/12/19 06:27 White Blood Count 19.8 #H Red Blood Count 2.47 L Hemoglobin 7.6 L Hematocrit 24.6 L Mean Corpuscular 99.6 Volume Mean Corpuscular 30.8 Hemoglobin Mean Corpuscular 30.9 L Hemoglobin Concent Red Cell 17.5 H Distribution Width Platelet Count 193 Mean Platelet Volume 14.0 H Immature 1.400 H Granulocytes % Neutrophils % 84.4 H Lymphocytes % 6.2 L Monocytes % 7.8 Eosinophils % 0.1 Basophils % 0.1 Nucleated Red Blood 0.0 Cells % Immature 0.280 H Granulocytes # Neutrophils # 16.7 H Lymphocytes # 1.2 Monocytes # 1.6 H Eosinophils # 0.0 Basophils # 0.0 Nucleated Red Blood 0.0 Cells # Prothrombin Time 13.8 Prothrombin Time 1.1 Ratio INR International 1.05 Normalized Ratio Sodium Level 143 Potassium Level 3.7 Chloride Level 108 Carbon Dioxide Level 29 Anion Gap 6 Blood Urea Nitrogen 49 H Creatinine 1.61 H Est Glomerular Filtrat Rate mL/min Glucose Level 277 H Calcium Level 8.2 L Phosphorus Level 3.6 Magnesium Level 2.7 H Total Bilirubin 0.9 Direct Bilirubin 0.00 Indirect Bilirubin 0.9 Aspartate Amino 38 Transf (AST/SGOT) Alanine 34 Aminotransferase (AL T/SGPT) Alkaline Phosphatase 134 H Total Protein 5.6 L Albumin 2.4 L Globulin 3.20 Albumin/Globulin 0.75 Ratio Bedside Glucose 289 H Medications Medication Current Medications IV Flush (NS 3 ml) 3 ml PER PROTOCOL IV ; Start 02/03/19 at 14:00 Ondansetron HCl (Zofran Inj) 4 mg Q6H PRN IV NAUSEA/VOMITING; Start 02/03/19 at 14:00 Acetaminophen (Tylenol Tab) 650 mg Q6H PRN PO .PAIN 1-3 OR TEMP; Start 02/03/19 at 14:00 Acetaminophen/ Hydrocodone Bitart ([place] (5/325)) 1 tab Q6H PRN PO .MOD PAIN 4- 6 Last administered on 02/04/19at 06:09; Admin Dose 1 TAB; Start 02/03/19 at 14:00 Docusate Sodium (Colace) 100 mg Q12H PRN PO .CONSTIPATION; Start 02/03/19 at 14:00 Furosemide (Lasix) 40 mg DAILY PO Last administered on 02/04/19at 09:24; Admin Dose 40 MG; Start 02/04/19 at 09:00; Status Hold Levothyroxine Sodium (Synthroid) 25 mcg BEFORE BREAKFAST PO Last administered on 02/12/19 06:25; Admin Dose 25 MCG; Start 02/04/19 at 07:00 Spironolactone (Aldactone) 25 mg DAILY PO Last administered on 02/12/19 08:57; Admin Dose 25 MG; Start 02/04/19 at 09:00 Sodium Chloride (Deep Sea) 2 spray BID NASAL Last administered on 02/11/19 20:45; Admin Dose 2 SPRAY; Start 02/04/19 at 11:00 Rifaximin (Xifaxan) 550 mg BID NGT Last administered on 02/12/19 08:57; Admin Dose 550 MG; Start 02/06/19 at 21:00 Sucralfate (Carafate Susp) 1 gm QID NGT Last administered on 02/12/19 08:57; Admin Dose 1 GM; Start 02/06/19 at 13:00 Lactulose (Enulose) 20 gm Q8 PO Last administered on 02/12/19 06:25; Admin Dose 20 GM; Start 02/06/19 at 22:00 Metoclopramide HCl (Reglan) 10 mg Q6 IV Last administered on 02/12/19 06:25; Admin Dose 10 MG; Start 02/06/19 at 18:00 Propranolol HCl (Inderal) 20 mg BID PO Last administered on 02/11/19 08:25; Admin Dose 20 MG; Start 02/06/19 at 21:00 Metoprolol Tartrate (Lopressor) 5 mg Q4H PRN IV HR>110 Hold SBP<100 Last administered on 02/06/19 21:57; Admin Dose 5 MG; Start 02/06/19 at 17:30 Morphine Sulfate (morphine) 0.5 mg Q4H PRN IV .SEVERE PAIN 7-10; Start 02/07/19 at 14:00 Furosemide (Lasix) 20 mg DAILY IV Last administered on 02/11/19 08:26; Admin Dose 20 MG; Start 02/09/19 at 09:00; Status Hold Hydralazine HCl (Apresoline) 25 mg Q12 PO Last administered on 02/11/19 08:25; Admin Dose 25 MG; Start 02/08/19 at 21:00 Piperacillin Sod/ Tazobactam Sod 100 ml @ 25 mls/hr TID@ IVPB Last administered on 02/12/19at 09:05; Admin Dose 25 MLS/HR; Start 02/10/19 at 10:00 Lansoprazole (Prevacid) 30 mg BID@ NGT Last administered on 02/12/19at 06:25; Admin Dose 30 MG; Start 02/10/19 at 18:00 Diagnostic Test (Pha) (Accu-Chek) 1 ea 02 XX Last administered on 02/12/19at 01:39; Admin Dose 1 EA; Start 02/12/19 at 02:00 Insulin Aspart (Novolog Insulin Pen) NOVOLOG *MILD* ALGORI... Q6 SC Last a dministered on 02/12/19at 06:39; Admin Dose 4 UNIT; Start 02/11/19 at 07:30 Miscellaneous Information 1 ea NOTE XX ; Start 02/11/19 at 07:30 Glucose (Glutose) 15 gm Q15M PRN PO DECREASED GLUCOSE; Start 02/11/19 at 07:30 Glucose (Glutose) 22.5 gm Q15M PRN PO DECREASED GLUCOSE; Start 02/11/19 at 07:3 0 Dextrose (D50w Syringe) 25 ml Q15M PRN IV DECREASED GLUCOSE; Start 02/11/19 at 07:30 Dextrose (D50w Syringe) 50 ml Q15M PRN IV DECREASED GLUCOSE; Start 02/11/19 at 07:30 Glucagon (Glucagen) 1 mg Q15M PRN IM DECREASED GLUCOSE; Start 02/11/19 at 07:30 Glucose (Glutose) 15 gm Q15M PRN BUCCAL DECREASED GLUCOSE; Start 02/11/19 at 07:30 Miscellaneous Information 1 ea NOTE XX ; Start 02/11/19 at 11:00 Glucose (Glutose) 15 gm Q15M PRN PO DECREASED GLUCOSE; Start 02/11/19 at 11:00 Glucose (Glutose) 22.5 gm Q15M PRN PO DECREASED GLUCOSE; Start 02/11/19 at 11:00 Dextrose (D50w Syringe) 25 ml Q15M PRN IV DECREASED GLUCOSE; Start 02/11/19 at 11:00 Dextrose (D50w Syringe) 50 ml Q15M PRN IV DECREASED GLUCOSE; Start 02/11/19 at 11:00 Glucagon (Glucagen) 1 mg Q15M PRN IM DECREASED GLUCOSE; Start 02/11/19 at 11:00 Glucose (Glutose) 15 gm Q15M PRN BUCCAL DECREASED GLUCOSE; Start 02/11/19 at 11:00 Insulin Glargine (Lantus) 11 units DAILY@2000 SC Last administered on 02/11/19at 21:26; Admin Dose 11 UNITS; Start 02/11/19 at 20:00 INGRID MAST Feb 12, 2019 11:08
--- NOTE | 2019-02-12 12:03 | PN ---
Date/Time of Note Date/Time of Note DATE: 02/12/19 TIME: 11:59 Assessment/Plan VTE Prophylaxis Risk score (from Nsg)>0 risk: 9 SCD applied (from Ns): Yes Pharmacological prophylaxis: NA/contraindicated Pharm contraindication: bleeding Lines/Catheters IV Catheter Type (from Nrsg): Saline Lock Urinary Cath still in place: No Assessment/Plan Assessment/Plan 1. Acute encephalopathy, toxic- improving - Patient worked with OT this am and following commands - continue tx UTI - WBC trending down - CT head negative for acute abnormalities - CT A/P noted with enteritis - remains afebrile 2. Acute GI bleed s/p EGD - GI on board and will repeat hgb later this afternoon - given continued dark stools and drop in hgb, considering repeat EGD in near future - GI on board and appreciate recommendations. EGD 02/04 shows extensive ulcerations in jejunal side of GJ. distal esophagitis - continue on PPI via NG tube and Carafate 3. SVT with aberrancy- resolved - Cardiology consultation appreciated 4. Symptomatic anemia secondary to acute blood loss - hemoglobin continues to fluctuate but no need for transfusions at this time - goal hgb >7.5 5. 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 no need for paracentesis at this time 6. Hypothyroidism - On Synthroid 7. Diabetes - ISS and accuchecks - sugars elevated while on TF - A1c 5.7 8. ANTONIETTA - most likely secondary to hemodynamics - avoid nephrotoxic agents - holding diuretics and given small bolus 9. History of coronary disease - stable - no chest pain noted 10. Disposition - Continue monitoring H/H and may need repeat EGD in the near future. - Will most likely need ARU once all issues resolved Result Diagram: 02/12/19 0555 02/12/19 0555 Results 24hrs Laboratory Tests Test 02/11/19 12:15 02/11/19 17:29 02/11/19 21:12 02/12/19 01:25 Bedside Glucose 368 H 317 H 302 H 281 H Test 02/12/19 05:55 02/12/19 06:27 White Blood Count 19.8 #H Red Blood Count 2.47 L Hemoglobin 7.6 L Hematocrit 24.6 L Mean Corpuscular 99.6 Volume Mean Corpuscular 30.8 Hemoglobin Mean Corpuscular 30.9 L Hemoglobin Concent Red Cell 17.5 H Distribution Width Platelet Count 193 Mean Platelet Volume 14.0 H Immature 1.400 H Granulocytes % Neutrophils % 84.4 H Lymphocytes % 6.2 L Monocytes % 7.8 Eosinophils % 0.1 Basophils % 0.1 Nucleated Red Blood 0.0 Cells % Immature 0.280 H Granulocytes # Neutrophils # 16.7 H Lymphocytes # 1.2 Monocytes # 1.6 H Eosinophils # 0.0 Basophils # 0.0 Nucleated Red Blood 0.0 Cells # Prothrombin Time 13.8 Prothrombin Time 1.1 Ratio INR International 1.05 Normalized Ratio Sodium Level 143 Potassium Level 3.7 Chloride Level 108 Carbon Dioxide Level 29 Anion Gap 6 Blood Urea Nitrogen 49 H Creatinine 1.61 H Est Glomerular Filtrat Rate mL/min Glucose Level 277 H Calcium Level 8.2 L Phosphorus Level 3.6 Magnesium Level 2.7 H Total Bilirubin 0.9 Direct Bilirubin 0.00 Indirect Bilirubin 0.9 Aspartate Amino 38 Transf (AST/SGOT) Alanine 34 Aminotransferase (AL T/SGPT) Alkaline Phosphatase 134 H Total Protein 5.6 L Albumin 2.4 L Globulin 3.20 Albumin/Globulin 0.75 Ratio Bedside Glucose 289 H Subjective 24 Hr Interval Summary Free Text/Dictation Patient is more awake this am and answering questions and following commands. Still with dark stools and GI concerned about continued bleeding. No acute overnight events. Exam/Review of Systems Exam Vitals Vital Signs Date Temp Pulse Resp B/P (MAP) Pulse Ox O2 O2 Flow FiO2 Time Delivery Rate 02/12/19 98.4 89 20 111/57 99 11:02 (75) 02/12/19 Nasal 2.0 07:33 Cannula Intake and Output 02/11/19 02/11/19 02/12/19 1414:59 22:59 06:59 IntakeIntake Total 1140 ml 1140 ml OutputOutput Total 650 ml BalanceBalance 490 ml 1140 ml Exam General: fatigued. answering some questions. following commands Nose: NG tube in place Neck: supple CVS: S1, S2, regular rate and rhythm. no murmurs Lungs: clear to auscultation bilaterally. no wheezing or rhonchi Abd: soft, nontender, nondistended. no rebound or guarding. bowel sounds present diffusely Ext: moving all extremities. no cyanosis, clubbing, or edema SKin: warm, dry. no rashes or lesions appreciated Results Results 24hrs Laboratory Tests Test 02/11/19 12:15 02/11/19 17:29 02/11/19 21:12 02/12/19 01:25 Bedside Glucose 368 H 317 H 302 H 281 H Test 02/12/19 05:55 02/12/19 06:27 White Blood Count 19.8 #H Red Blood Count 2.47 L Hemoglobin 7.6 L Hematocrit 24.6 L Mean Corpuscular 99.6 Volume Mean Corpuscular 30.8 Hemoglobin Mean Corpuscular 30.9 L Hemoglobin Concent Red Cell 17.5 H Distribution Width Platelet Count 193 Mean Platelet Volume 14.0 H Immature 1.400 H Granulocytes % Neutrophils % 84.4 H Lymphocytes % 6.2 L Monocytes % 7.8 Eosinophils % 0.1 Basophils % 0.1 Nucleated Red Blood 0.0 Cells % Immature 0.280 H Granulocytes # Neutrophils # 16.7 H Lymphocytes # 1.2 Monocytes # 1.6 H Eosinophils # 0.0 Basophils # 0.0 Nucleated Red Blood 0.0 Cells # Prothrombin Time 13.8 Prothrombin Time 1.1 Ratio INR International 1.05 Normalized Ratio Sodium Level 143 Potassium Level 3.7 Chloride Level 108 Carbon Dioxide Level 29 Anion Gap 6 Blood Urea Nitrogen 49 H Creatinine 1.61 H Est Glomerular Filtrat Rate mL/min Glucose Level 277 H Calcium Level 8.2 L Phosphorus Level 3.6 Magnesium Level 2.7 H Total Bilirubin 0.9 Direct Bilirubin 0.00 Indirect Bilirubin 0.9 Aspartate Amino 38 Transf (AST/SGOT) Alanine 34 Aminotransferase (AL T/SGPT) Alkaline Phosphatase 134 H Total Protein 5.6 L Albumin 2.4 L Globulin 3.20 Albumin/Globulin 0.75 Ratio Bedside Glucose 289 H Medications Medication Current Medications IV Flush (NS 3 ml) 3 ml PER PROTOCOL IV ; Start 02/03/19 at 14:00 Ondansetron HCl (Zofran Inj) 4 mg Q6H PRN IV NAUSEA/VOMITING; Start 02/03/19 at 14:00 Acetaminophen (Tylenol Tab) 650 mg Q6H PRN PO .PAIN 1-3 OR TEMP; Start 02/03/19 at 14:00 Acetaminophen/ Hydrocodone Bitart ([place] (5/325)) 1 tab Q6H PRN PO .MOD PAIN 4- 6 Last administered on 02/04/19 06:09; Admin Dose 1 TAB; Start 02/03/19 at 14:00 Docusate Sodium (Colace) 100 mg Q12H PRN PO .CONSTIPATION; Start 02/03/19 at 14:00 Furosemide (Lasix) 40 mg DAILY PO Last administered on 02/04/19 09:24; Admin Dose 40 MG; Start 02/04/19 at 09:00; Status Hold Levothyroxine Sodium (Synthroid) 25 mcg BEFORE BREAKFAST PO Last administered on 02/12/19 06:25; Admin Dose 25 MCG; Start 02/04/19 at 07:00 Spironolactone (Aldactone) 25 mg DAILY PO Last administered on 02/12/19 08:57; Admin Dose 25 MG; Start 02/04/19 at 09:00; Status Hold Sodium Chloride (Deep Sea) 2 spray BID NASAL Last administered on 02/11/19 20:45; Admin Dose 2 SPRAY; Start 02/04/19 at 11:00 Rifaximin (Xifaxan) 550 mg BID NGT Last administered on 02/12/19 08:57; Admin Dose 550 MG; Start 02/06/19 at 21:00 Sucralfate (Carafate Susp) 1 gm QID NGT Last administered on 02/12/19 08:57; Admin Dose 1 GM; Start 02/06/19 at 13:00 Metoclopramide HCl (Reglan) 10 mg Q6 IV Last administered on 02/12/19 06:25; Admin Dose 10 MG; Start 02/06/19 at 18:00 Propranolol HCl (Inderal) 20 mg BID PO Last administered on 02/11/19 08:25; Admin Dose 20 MG; Start 02/06/19 at 21:00 Metoprolol Tartrate (Lopressor) 5 mg Q4H PRN IV HR>110 Hold SBP<100 Last administered on 02/06/19 21:57; Admin Dose 5 MG; Start 02/06/19 at 17:30 Morphine Sulfate (morphine) 0.5 mg Q4H PRN IV .SEVERE PAIN 7-10; Start 02/07/19 at 14:00 Furosemide (Lasix) 20 mg DAILY IV Last administered on 02/11/19at 08:26; Admin Dose 20 MG; Start 02/09/19 at 09:00; Status Hold Hydralazine HCl (Apresoline) 25 mg Q12 PO Last administered on 02/11/19at 08:25; Admin Dose 25 MG; Start 02/08/19 at 21:00 Piperacillin Sod/ Tazobactam Sod 100 ml @ 25 mls/hr TID@ IVPB Last administered on 02/12/19at 09:05; Admin Dose 25 MLS/HR; Start 02/10/19 at 10:00 Lansoprazole (Prevacid) 30 mg BID@18 NGT Last administered on 02/12/19at 06:25; Admin Dose 30 MG; Start 02/10/19 at 18:00 Diagnostic Test (Pha) (Accu-Chek) 1 ea 02 XX Last administered on 02/12/19at 01:39; Admin Dose 1 EA; Start 02/12/19 at 02:00 Insulin Aspart (Novolog Insulin Pen) NOVOLOG *MILD* ALGORI... Q6 SC Last administered on 02/12/19at 06:39; Admin Dose 4 UNIT; Start 02/11/19 at 07:30 Miscellaneous Information 1 ea NOTE XX ; Start 02/11/19 at 07:30 Glucose (Glutose) 15 gm Q15M PRN PO DECREASED GLUCOSE; Start 02/11/19 at 07:30 Glucose (Glutose) 22.5 gm Q15M PRN PO DECREASED GLUCOSE; Start 02/11/19 at 07:30 Dextrose (D50w Syringe) 25 ml Q15M PRN IV DECREASED GLUCOSE; Start 02/11/19 at 07:30 Dextrose (D50w Syringe) 50 ml Q15M PRN IV DECREASED GLUCOSE; Start 02/11/19 at 07:30 Glucagon (Glucagen) 1 mg Q15M PRN IM DECREASED GLUCOSE; Start 02/11/19 at 07:30 Glucose (Glutose) 15 gm Q15M PRN BUCCAL DECREASED GLUCOSE; Start 02/11/19 at 07:30 Miscellaneous Information 1 ea NOTE XX ; Start 02/11/19 at 11:00 Glucose (Glutose) 15 gm Q15M PRN PO DECREASED GLUCOSE; Start 02/11/19 at 11:00 Glucose (Glutose) 22.5 gm Q15M PRN PO DECREASED GLUCOSE; Start 02/11/19 at 11:00 Dextrose (D50w Syringe) 25 ml Q15M PRN IV DECREASED GLUCOSE; Start 02/11/19 at 11:00 Dextrose (D50w Syringe) 50 ml Q15M PRN IV DECREASED GLUCOSE; Start 02/11/19 at 11:00 Glucagon (Glucagen) 1 mg Q15M PRN IM DECREASED GLUCOSE; Start 02/11/19 at 11:00 Glucose (Glutose) 15 gm Q15M PRN BUCCAL DECREASED GLUCOSE; Start 02/11/19 at 11:00 Insulin Glargine (Lantus) 11 units DAILY@2000 SC Last administered on 02/11/19at 21:26; Admin Dose 11 UNITS; Start 02/11/19 at 20:00 Lactulose (Enulose) 20 gm BID PO ; Start 02/12/19 at 21:00 BROCK VAN MD Feb 12, 2019 12:03
[2019-02-12] MEDS ORDERED: INSULIN ASPART [NOVOLOG] 3 ML PEN SC SCH (13:00)
--- NOTE | 2019-02-12 14:48 | CONS ---
Assessment/Plan Assessment/Plan Hospital Course (Demo Recall) Patient is lying comfortably in bed she is lethargic but responsive in no distress afebrile WBC 19.8 platelets 193 neutrophils 84.4 BUN 49 creatinine 1.61 Blood cultures from yesterday negative. Urine culture grew Klebsiella and enterococcus species Antimicrobials: Patient remains on Zosyn day #3 CT of the brain yesterday revealed no acute abnormalities Physical examination this is a chronically ill-appearing wasted elderly man who is in no distress head atraumatic normocephalic sclera nonicteric vehicle mucosa dry neck is supple chest rise symmetrical breath sounds diminished bases heart: S1-S2 abdomen distended soft bowel sounds hypoactive extremities with trace edema and cyanosis Assessment: 1. Ongoing leukocytosis 2. Possible aspiration 3. Polymicrobial UTI 4. Acute encephalopathy 5. Cryptogenic cirrhosis 6. Diabetes Plan: Continue on current antibiotics check procalcitonin level repeat chest x- ray in a.m. Consultation Date/Type/Reason Admit Date/Time Feb 03, 2019 at 09:30 Initial Consult Date 02/03/19 Type of Consult id Requesting Provider: SUDHIR BARRIENTOS Date/Time of Note DATE: 02/12/19 TIME: 14:47 Exam/Review of Systems Exam Vitals Vital Signs Date Temp Pulse Resp B/P (MAP) Pulse Ox O2 O2 Flow FiO2 Time Delivery Rate 02/12/19 89 12:14 02/12/19 98.4 20 111/57 99 11:02 (75) 02/12/19 Nasal 2.0 07:33 Cannula Intake and Output 02/11/19 02/11/19 02/12/19 1515:00 23:00 07:00 IntakeIntake Total 1140 ml 1140 ml OutputOutput Total 650 ml BalanceBalance 490 ml 1140 ml Results Result Diagram: 02/12/19 0555 02/12/19 0555 Results 24hrs Laboratory Tests Test 02/11/19 17:29 02/11/19 21:12 02/12/19 01:25 02/12/19 05:55 Bedside Glucose 317 H 302 H 281 H White Blood Count 19.8 #H Red Blood Count 2.47 L Hemoglobin 7.6 L Hematocrit 24.6 L Mean Corpuscular 99.6 Volume Mean Corpuscular 30.8 Hemoglobin Mean Corpuscular 30.9 L Hemoglobin Concent Red Cell 17.5 H Distribution Width Platelet Count 193 Mean Platelet Volume 14.0 H Immature 1.400 H Granulocytes % Neutrophils % 84.4 H Lymphocytes % 6.2 L Monocytes % 7.8 Eosinophils % 0.1 Basophils % 0.1 Nucleated Red Blood 0.0 Cells % Immature 0.280 H Granulocytes # Neutrophils # 16.7 H Lymphocytes # 1.2 Monocytes # 1.6 H Eosinophils # 0.0 Basophils # 0.0 Nucleated Red Blood 0.0 Cells # Prothrombin Time 13.8 Prothrombin Time 1.1 Ratio INR International 1.05 Normalized Ratio Sodium Level 143 Potassium Level 3.7 Chloride Level 108 Carbon Dioxide Level 29 Anion Gap 6 Blood Urea Nitrogen 49 H Creatinine 1.61 H Est Glomerular Filtrat Rate mL/min Glucose Level 277 H Calcium Level 8.2 L Phosphorus Level 3.6 Magnesium Level 2.7 H Total Bilirubin 0.9 Direct Bilirubin 0.00 Indirect Bilirubin 0.9 Aspartate Amino 38 Transf (AST/SGOT) Alanine 34 Aminotransferase (AL T/SGPT) Alkaline Phosphatase 134 H Total Protein 5.6 L Albumin 2.4 L Globulin 3.20 Albumin/Globulin 0.75 Ratio Test 02/12/19 06:27 02/12/19 12:11 Bedside Glucose 289 H 307 H Medications Medication Current Medications IV Flush (NS 3 ml) 3 ml PER PROTOCOL IV ; Start 02/03/19 at 14:00 Ondansetron HCl (Zofran Inj) 4 mg Q6H PRN IV NAUSEA/VOMITING; Start 02/03/19 at 14:00 Acetaminophen (Tylenol Tab) 650 mg Q6H PRN PO .PAIN 1-3 OR TEMP; Start 02/03/19 at 14:00 Acetaminophen/ Hydrocodone Bitart ([place] (5/325)) 1 tab Q6H PRN PO .MOD PAIN 4- 6 Last administered on 02/04/19at 06:09; Admin Dose 1 TAB; Start 02/03/19 at 14:00 Docusate Sodium (Colace) 100 mg Q12H PRN PO .CONSTIPATION; Start 02/03/19 at 14:00 Furosemide (Lasix) 40 mg DAILY PO Last administered on 02/04/19at 09:24; Admin Dose 40 MG; Start 02/04/19 at 09:00; Status Hold Levothyroxine Sodium (Synthroid) 25 mcg BEFORE BREAKFAST PO Last administered on 02/12/19 06:25; Admin Dose 25 MCG; Start 02/04/19 at 07:00 Spironolactone (Aldactone) 25 mg DAILY PO Last administered on 02/12/19 08:57; Admin Dose 25 MG; Start 02/04/19 at 09:00; Status Hold Sodium Chloride (Deep Sea) 2 spray BID NASAL Last administered on 02/11/19 20:45; Admin Dose 2 SPRAY; Start 02/04/19 at 11:00 Rifaximin (Xifaxan) 550 mg BID NGT Last administered on 02/12/19 08:57; Admin Dose 550 MG; Start 02/06/19 at 21:00 Sucralfate (Carafate Susp) 1 gm QID NGT Last administered on 02/12/19 12:12; Admin Dose 1 GM; Start 02/06/19 at 13:00 Metoclopramide HCl (Reglan) 10 mg Q6 IV Last administered on 02/12/19 12:12; Admin Dose 10 MG; Start 02/06/19 at 18:00 Propranolol HCl (Inderal) 20 mg BID PO Last administered on 02/11/19 08:25; Admin Dose 20 MG; Start 02/06/19 at 21:00 Metoprolol Tartrate (Lopressor) 5 mg Q4H PRN IV HR>110 Hold SBP<100 Last administered on 02/06/19 21:57; Admin Dose 5 MG; Start 02/06/19 at 17:30 Morphine Sulfate (morphine) 0.5 mg Q4H PRN IV .SEVERE PAIN 7-10; Start 02/07/19 at 14:00 Furosemide (Lasix) 20 mg DAILY IV Last administered on 02/11/19 08:26; Admin Dose 20 MG; Start 02/09/19 at 09:00; Status Hold Hydralazine HCl (Apresoline) 25 mg Q12 PO Last administered on 02/11/19 08:25; Admin Dose 25 MG; Start 02/08/19 at 21:00 Piperacillin Sod/ Tazobactam Sod 100 ml @ 25 mls/hr TID@02,10,18 IVPB Last administered on 02/12/19 09:05; Admin Dose 25 MLS/HR; Start 02/10/19 at 10:00 Lansoprazole (Prevacid) 30 mg BID@06,18 NGT Last administered on 02/12/19at 06:25; Admin Dose 30 MG; Start 02/10/19 at 18:00 Diagnostic Test (Pha) (Accu-Chek) 1 ea 02 XX Last administered on 02/12/19at 01:39; Admin Dose 1 EA; Start 02/12/19 at 02:00 Miscellaneous Information 1 ea NOTE XX ; Start 02/11/19 at 07:30 Glucose (Glutose) 15 gm Q15M PRN PO DECREASED GLUCOSE; Start 02/11/19 at 07:30 Glucose (Glutose) 22.5 gm Q15M PRN PO DECREASED GLUCOSE; Start 02/11/19 at 07:30 Dextrose (D50w Syringe) 25 ml Q15M PRN IV DECREASED GLUCOSE; Start 02/11/19 at 07:30 Dextrose (D50w Syringe) 50 ml Q15M PRN IV DECREASED GLUCOSE; Start 02/11/19 at 07:30 Glucagon (Glucagen) 1 mg Q15M PRN IM DECREASED GLUCOSE; Start 02/11/19 at 07:30 Glucose (Glutose) 15 gm Q15M PRN BUCCAL DECREASED GLUCOSE; Start 02/11/19 at 07:30 Miscellaneous Information 1 ea NOTE XX ; Start 02/11/19 at 11:00 Glucose (Glutose) 15 gm Q15M PRN PO DECREASED GLUCOSE; Start 02/11/19 at 11:00 Glucose (Glutose) 22.5 gm Q15M PRN PO DECREASED GLUCOSE; Start 02/11/19 at 11:00 Dextrose (D50w Syringe) 25 ml Q15M PRN IV DECREASED GLUCOSE; Start 02/11/19 at 11:00 Dextrose (D50w Syringe) 50 ml Q15M PRN IV DECREASED GLUCOSE; Start 02/11/19 at 11:00 Glucagon (Glucagen) 1 mg Q15M PRN IM DECREASED GLUCOSE; Start 02/11/19 at 11:00 Glucose (Glutose) 15 gm Q15M PRN BUCCAL DECREASED GLUCOSE; Start 02/11/19 at 11:00 Insulin Glargine (Lantus) 11 units DAILY@2000 SC Last administered on 02/11/19at 21:26; Admin Dose 11 UNITS; Start 02/11/19 at 20:00 Lactulose (Enulose) 20 gm BID PO ; Start 02/12/19 at 21:00 Insulin Aspart (Novolog Insulin Pen) NOVOLOG *MODERATE* ALGORI... Q6 SC ; Start 02/12/19 at 18:00 JIM ANTOINE NP Feb 12, 2019 14:48
[2019-02-12] MEDS: INSULIN GLARGINE [LANTus] (100 UNITS/ML) SYG SC SCH (21:25)
[2019-02-13] VITALS (10 sets, daily range): BP systolic 98–138; BP diastolic 55–67; PULSE 71–86; RESP 18–20
[2019-02-13] MEDS: PIPER-TAZO 3.375 GM IV (PMX) 100 ML IVPB SCH ×3 (01:20→17:22)
[2019-02-13] MEDS: ACCU-CHEK XX SCH (01:25)
[2019-02-13] MEDS: METOCLOPRAMIDE 10 MG INJ IV SCH ×4 (05:53→23:55)
[2019-02-13] MEDS: LANSOPRAZOLE 30 MG CAP NGT SCH ×2 (05:53→17:22)
[2019-02-13] MEDS: LEVOTHYROXINE 25 MCG TAB PO SCH (05:54)
[2019-02-13] MEDS: INSULIN ASPART [NOVOLOG] 3 ML PEN SC SCH ×3 (06:07→17:35)
[2019-02-13] MEDS: LACTULOSE 30ML CUP PO SCH ×2 (08:18→20:03)
[2019-02-13] MEDS: SUCRALFATE (100 MG/ML) 10ML CUP NGT SCH ×4 (08:18→20:03)
[2019-02-13] MEDS: RIFAXIMIN 550 MG TAB NGT SCH ×2 (08:19→20:03)
[2019-02-13] MEDS: PROPRANOLOL 20 MG TAB PO SCH ×2 (08:21→20:05)
[2019-02-13] MEDS: SALINE 0.65% 45 ML NAS SPRAY NASAL SCH ×2 (08:22→20:06)
--- NOTE | 2019-02-13 12:12 | PN ---
Date/Time of Note Date/Time of Note DATE: 02/13/19 TIME: 12:04 Assessment/Plan VTE Prophylaxis Risk score (from Nsg)>0 risk: 6 SCD applied (from Nsg): Yes Pharmacological prophylaxis: other (scds) Lines/Catheters IV C[facility]ter Type [facility]from [facility] Saline [place] Assessment/Plan Hospital Course Assessment: Anemia - suspected GI bleeding UTI- on Zosyn Melena-resolved -EGD 02/04/19 Extensive ulceration in the jejunal side of the gastrojejunal Billroth II anastomosis. No stigmata recent bleeding no visible vessel. Distal esophagitis with ulceration. No stigmata. Recent bleeding. Post distal gastrectomy distal to anastomosis Hx of cryptogenic cirrhosis Hx of perforated gastric ulcer s/p repair Ventral hernia Renal insufficiency Acute encephalopathy- improved - Toxic metabolic- positive UTI jg antibiotics -Elevated ammonia noted - resolved Imaging suggestive of a nonspecific enteritis Leukocytosis ANTONIETTA Plan: Continue current GI regimen Monitor labs-transfuse as needed Diuretics currently on hold TF- on hold- if can tolerate lunch and eat 50-60% -ok to remove NGT Recommend renal consult Patient seen in collaboration with Dr. Harvey Subjective: Course reviewed with nursing staff Patient interviewed and examined All labs, imaging and other results reviewed Patient is alert and oriented able to hold conversation. Currently denies nausea/vomiting or abdominal pain. No overt signs of GI bleed we will continue to monitor H/H. Leukocytosis is trending down infectious disease is following. PHYSICAL EXAMINATION: GENERAL: Elderly, alert and oriented to name, year and events SKIN: No lesions HEAD: Normocephalic, atraumatic, no tenderness. EYES: Pupils equal reactive to light and accommodation, no discharge. EARS/NOSE AND THROAT: Ears normal, nose normal, NG tube in place NECK: Supple, no masses. CHEST: Inspection within normal limits. CARDIOVASCULAR: Heart: Regular rate and rhythm RESPIRATORY: Lungs clear to auscultation GASTROINTESTINAL AND LIVER: Abdomen: Soft, epigastric tenderness- resolved, non- distended, no hernias, no masses, no organomegaly, no ascites, no guarding, no rebound tenderness, normoactive bowel sounds. Rectal: Deferred. GENITOURINARY: Male genitalia within normal limits. EXTREMITIES: No cyanosis, clubbing or edema. Result Diagram: 02/13/19 0542 02/13/19 0542 Results 24hrs Laboratory Tests Test 02/12/19 12:11 02/12/19 17:17 02/12/19 17:44 02/12/19 20:28 Bedside Glucose 307 H 336 H 248 H Hemoglobin 7.3 L Hematocrit 23.5 L Test 02/12/19 23:46 02/13/19 01:24 02/13/19 05:42 02/13/19 05:53 Bedside Glucose 254 H 193 192 White Blood Count 13.8 #H Red Blood Count 2.34 L Hemoglobin 7.3 L Hematocrit 23.3 L Mean Corpuscular 99.6 Volume Mean Corpuscular 31.2 Hemoglobin Mean Corpuscular 31.3 L Hemoglobin Concent Red Cell 17.8 H Distribution Width Platelet Count 183 Mean Platelet Volume 14.2 H Immature 0.800 H Granulocytes % Neutrophils % 82.3 H Lymphocytes % 7.8 L Monocytes % 8.3 Eosinophils % 0.7 Basophils % 0.1 Nucleated Red Blood 0.0 Cells % Immature 0.110 H Granulocytes # Neutrophils # 11.4 H Lymphocytes # 1.1 Monocytes # 1.1 H Eosinophils # 0.1 Basophils # 0.0 Nucleated Red Blood 0.0 Cells # Sodium Level 145 H Potassium Level 3.8 Chloride Level 107 Carbon Dioxide Level 28 Anion Gap 10 Blood Urea Nitrogen 60 H Creatinine 1.87 H Glucose Level 188 Calcium Level 7.8 L Phosphorus Level 4.0 Magnesium Level 2.8 H Albumin 2.4 L Exam/Review of Systems Exam Vitals Vital Signs Date Temp Pulse Resp B/P (MAP) Pulse Ox O2 O2 Flow FiO2 Time Delivery Rate 02/13/19 85 08:18 02/13/19 Nasal 2.0 08:00 Cannula 02/13/19 98.3 18 121/58 98 03:31 (79) Intake and Output 02/12/19 02/12/19 02/13/19 1515:00 23:00 07:00 IntakeIntake Total 1400 ml 340 ml OutputOutput Total 150 ml BalanceBalance 1250 ml 340 ml Results Results 24hrs Laboratory Tests Test 02/12/19 12:11 02/12/19 17:17 02/12/19 17:44 02/12/19 20:28 Bedside Glucose 307 H 336 H 248 H Hemoglobin 7.3 L Hematocrit 23.5 L Test 02/12/19 23:46 02/13/19 01:24 02/13/19 05:42 02/13/19 05:53 Bedside Glucose 254 H 193 192 White Blood Count 13.8 #H Red Blood Count 2.34 L Hemoglobin 7.3 L Hematocrit 23.3 L Mean Corpuscular 99.6 Volume Mean Corpuscular 31.2 Hemoglobin Mean Corpuscular 31.3 L Hemoglobin Concent Red Cell 17.8 H Distribution Width Platelet Count 183 Mean Platelet Volume 14.2 H Immature 0.800 H Granulocytes % Neutrophils % 82.3 H Lymphocytes % 7.8 L Monocytes % 8.3 Eosinophils % 0.7 Basophils % 0.1 Nucleated Red Blood 0.0 Cells % Immature 0.110 H Granulocytes # Neutrophils # 11.4 H Lymphocytes # 1.1 Monocytes # 1.1 H Eosinophils # 0.1 Basophils # 0.0 Nucleated Red Blood 0.0 Cells # Sodium Level 145 H Potassium Level 3.8 Chloride Level 107 Carbon Dioxide Level 28 Anion Gap 10 Blood Urea Nitrogen 60 H Creatinine 1.87 H Glucose Level 188 Calcium Level 7.8 L Phosphorus Level 4.0 Magnesium Level 2.8 H Albumin 2.4 L Medications Medication Current Medications IV Flush (NS 3 ml) 3 ml PER PROTOCOL IV ; Start 02/03/19 at 14:00 Ondansetron HCl (Zofran Inj) 4 mg Q6H PRN IV NAUSEA/VOMITING; Start 02/03/19 at 14:00 Acetaminophen (Tylenol Tab) 650 mg Q6H PRN PO .PAIN 1-3 OR TEMP; Start 02/03/19 at 14:00 Acetaminophen/ Hydrocodone Bitart ([place] (5/325)) 1 tab Q6H PRN PO .MOD PAIN 4- 6 Last administered on 02/04/19at 06:09; Admin Dose 1 TAB; Start 02/03/19 at 14:00 Docusate Sodium (Colace) 100 mg Q12H PRN PO .CONSTIPATION; Start 02/03/19 at 14:00 Furosemide (Lasix) 40 mg DAILY PO Last administered on 02/04/19at 09:24; Admin Dose 40 MG; Start 02/04/19 at 09:00; Status Hold Levothyroxine Sodium (Synthroid) 25 mcg BEFORE BREAKFAST PO Last administered on 02/13/19at 05:54; Admin Dose 25 MCG; Start 02/04/19 at 07:00 Spironolactone (Aldactone) 25 mg DAILY PO Last administered on 02/12/19 08:57; Admin Dose 25 MG; Start 02/04/19 at 09:00; Status Hold Sodium Chloride (Deep Sea) 2 spray BID NASAL Last administered on 02/13/19 08:22; Admin Dose 2 SPRAY; Start 02/04/19 at 11:00 Rifaximin (Xifaxan) 550 mg BID NGT Last administered on 02/13/19 08:19; Admin Dose 550 MG; Start 02/06/19 at 21:00 Sucralfate (Carafate Susp) 1 gm QID NGT Last administered on 02/13/19 08:18; Admin Dose 1 GM; Start 02/06/19 at 13:00 Metoclopramide HCl (Reglan) 10 mg Q6 IV Last administered on 02/13/19 05:53; Admin Dose 10 MG; Start 02/06/19 at 18:00 Propranolol HCl (Inderal) 20 mg BID PO Last administered on 02/13/19 08:21; Admin Dose 20 MG; Start 02/06/19 at 21:00 Metoprolol Tartrate (Lopressor) 5 mg Q4H PRN IV HR>110 Hold SBP<100 Last administered on 02/06/19 21:57; Admin Dose 5 MG; Start 02/06/19 at 17:30 Morphine Sulfate (morphine) 0.5 mg Q4H PRN IV .SEVERE PAIN 7-10; Start 02/07/19 at 14:00 Furosemide (Lasix) 20 mg DAILY IV Last administered on 02/11/19 08:26; Admin Dose 20 MG; Start 02/09/19 at 09:00; Status Hold Hydralazine HCl (Apresoline) 25 mg Q12 PO Last administered on 02/13/19 08:20; Admin Dose 25 MG; Start 02/08/19 at 21:00 Piperacillin Sod/ Tazobactam Sod 100 ml @ 25 mls/hr TID@18 IVPB Last administered on 02/13/19 10:23; Admin Dose 25 MLS/HR; Start 02/10/19 at 10:00 Lansoprazole (Prevacid) 30 mg BID@06,18 NGT Last administered on 02/13/19 05:53; Admin Dose 30 MG; Start 02/10/19 at 18:00 Diagnostic Test (Pha) (Accu-Chek) 1 ea 02 XX Last administered on 02/13/19at 01:25; Admin Dose 1 EA; Start 02/12/19 at 02:00 Miscellaneous Information 1 ea NOTE XX ; Start 02/11/19 at 07:30 Glucose (Glutose) 15 gm Q15M PRN PO DECREASED GLUCOSE; Start 02/11/19 at 07:30 Glucose (Glutose) 22.5 gm Q15M PRN PO DECREASED GLUCOSE; Start 02/11/19 at 07:30 Dextrose (D50w Syringe) 25 ml Q15M PRN IV DECREASED GLUCOSE; Start 02/11/19 at 07:30 Dextrose (D50w Syringe) 50 ml Q15M PRN IV DECREASED GLUCOSE; Start 02/11/19 at 07:30 Glucagon (Glucagen) 1 mg Q15M PRN IM DECREASED GLUCOSE; Start 02/11/19 at 07:30 Glucose (Glutose) 15 gm Q15M PRN BUCCAL DECREASED GLUCOSE; Start 02/11/19 at 07:30 Miscellaneous Information 1 ea NOTE XX ; Start 02/11/19 at 11:00 Glucose (Glutose) 15 gm Q15M PRN PO DECREASED GLUCOSE; Start 02/11/19 at 11:00 Glucose (Glutose) 22.5 gm Q15M PRN PO DECREASED GLUCOSE; Start 02/11/19 at 11:00 Dextrose (D50w Syringe) 25 ml Q15M PRN IV DECREASED GLUCOSE; Start 02/11/19 at 11:00 Dextrose (D50w Syringe) 50 ml Q15M PRN IV DECREASED GLUCOSE; Start 02/11/19 at 11:00 Glucagon (Glucagen) 1 mg Q15M PRN IM DECREASED GLUCOSE; Start 02/11/19 at 11:00 Glucose (Glutose) 15 gm Q15M PRN BUCCAL DECREASED GLUCOSE; Start 02/11/19 at 11:00 Insulin Glargine (Lantus) 11 units DAILY@2000 SC Last administered on 02/12/19at 21:25; Admin Dose 11 UNITS; Start 02/11/19 at 20:00 Lactulose (Enulose) 20 gm BID PO Last administered on 02/13/19at 08:18; Admin Dose 20 GM; Start 02/12/19 at 21:00 Insulin Aspart (Novolog Insulin Pen) NOVOLOG *MODERATE* ALGORI... Q6 SC Last administered on 02/13/19at 06:07; Admin Dose 4 UNIT; Start 02/12/19 at 18:00 INGRID MAST Feb 13, 2019 12:12
--- NOTE | 2019-02-13 13:20 | CONS ---
Assessment/Plan Assessment/Plan Hospital Course (Demo Recall) IMPRESSION: 1. Wide complex tachycardia, likely consistent with supraventricular tachycardia with a baseline bundle branch block.-TSH WNL. NO recurrence. NL EF by echo this admit 2. Abnormal electrocardiogram with baseline bundle branch block. 3. Syncope on admit. Rule out cardiac etiology. Rule out cardiac arrhythmia as etiology versus anemia. 4. Cirrhosis. 5. Gastrointestinal bleed with melenic stools. 6. Peptic ulcer disease by endoscopy. 7. Renal failure-acute 8. Hyponatremia. 9. Thrombocytopenia. 10. Anemia. 11. Encephalopathy-ongoing but improving 12. -mild to moderate by echo this admit Recc: -Tele -Contineu propranolol and will decrease hydralazine given marginal BP -Contineu lactulose -Continue aldactone -lasix held in the setting of ARF -Follow MS -Follow HGb clsoely with further tansfusions as necessary Consultation Date/Type/Reason Admit Date/Time Feb 03, 2019 at 09:30 Initial Consult Date 02/03/19 Type of Consult Cardiology Reason for Consultation SVT Requesting Provider: SUDHIR BARRIENTOS Date/Time of Note DATE: 02/13/19 TIME: 13:15 Exam/Review of Systems Vital Signs Vitals Vital Signs Date Temp Pulse Resp B/P (MAP) Pulse Ox O2 O2 Flow FiO2 Time Delivery Rate 02/13/19 75 12:21 02/13/19 98.4 18 98/55 (69) 98 Nasal 2.0 12:07 Cannula Intake and Output 02/12/19 02/12/19 02/13/19 1515:00 23:00 07:00 IntakeIntake Total 1400 ml 340 ml OutputOutput Total 150 ml BalanceBalance 1250 ml 340 ml Exam Exam Review of Systems: CONSTITUTIONAL: No fevers, chills. PULMONARY: No sob CARDIOVASCULAR: No chest pain/palpitations GASTROINTESTINAL: No nausea/vomiting. GENITOURINARY: No hematuria/dysuria. MUSCULOSKELETAL: No myagias/arthalgias. PSYCHIATRIC: The patient denies depression. NEUROLOGIC: lethargic Constitutional: alert Psych: no complaints Head: normocephalic ENMT: mucosa pink and moist Neck: supple, jvd (9 cm water) Respiratory: diminished breath sounds Cardiovascular: regular rate and rhythm Gastrointestinal: soft, non-tender Musculoskeletal: muscle tone (normal) Extremities: edema (none) Neurological: other (No focal deficits) Labs Result Diagram: 02/13/19 0542 02/13/19 0542 Results 24hrs Laboratory Tests Test 02/12/19 17:17 02/12/19 17:44 02/12/19 20:28 02/12/19 23:46 Bedside Glucose 336 H 248 H 254 H Hemoglobin 7.3 L Hematocrit 23.5 L Test 02/13/19 01:24 02/13/19 05:42 02/13/19 05:53 02/13/19 11:50 Bedside Glucose 193 192 245 H White Blood Count 13.8 #H Red Blood Count 2.34 L Hemoglobin 7.3 L Hematocrit 23.3 L Mean Corpuscular 99.6 Volume Mean Corpuscular 31.2 Hemoglobin Mean Corpuscular 31.3 L Hemoglobin Concent Red Cell 17.8 H Distribution Width Platelet Count 183 Mean Platelet Volume 14.2 H Immature 0.800 H Granulocytes % Neutrophils % 82.3 H Lymphocytes % 7.8 L Monocytes % 8.3 Eosinophils % 0.7 Basophils % 0.1 Nucleated Red Blood 0.0 Cells % Immature 0.110 H Granulocytes # Neutrophils # 11.4 H Lymphocytes # 1.1 Monocytes # 1.1 H Eosinophils # 0.1 Basophils # 0.0 Nucleated Red Blood 0.0 Cells # Sodium Level 145 H Potassium Level 3.8 Chloride Level 107 Carbon Dioxide Level 28 Anion Gap 10 Blood Urea Nitrogen 60 H Creatinine 1.87 H Glucose Level 188 Calcium Level 7.8 L Phosphorus Level 4.0 Magnesium Level 2.8 H Albumin 2.4 L Medications Medications Current Medications IV Flush (NS 3 ml) 3 ml PER PROTOCOL IV ; Start 02/03/19 at 14:00 Ondansetron HCl (Zofran Inj) 4 mg Q6H PRN IV NAUSEA/VOMITING; Start 02/03/19 at 14:00 Acetaminophen (Tylenol Tab) 650 mg Q6H PRN PO .PAIN 1-3 OR TEMP; Start 02/03/19 at 14:00 Acetaminophen/ Hydrocodone Bitart ([place] (5/325)) 1 tab Q6H PRN PO .MOD PAIN 4- 6 Last administered on 02/04/19at 06:09; Admin Dose 1 TAB; Start 02/03/19 at 14:00 Docusate Sodium (Colace) 100 mg Q12H PRN PO .CONSTIPATION; Start 02/03/19 at 14:00 Furosemide (Lasix) 40 mg DAILY PO Last administered on 02/04/19 09:24; Admin Dose 40 MG; Start 02/04/19 at 09:00; Status Hold Levothyroxine Sodium (Synthroid) 25 mcg BEFORE BREAKFAST PO Last administered on 02/13/19 05:54; Admin Dose 25 MCG; Start 02/04/19 at 07:00 Spironolactone (Aldactone) 25 mg DAILY PO Last administered on 02/12/19 08:57; Admin Dose 25 MG; Start 02/04/19 at 09:00; Status Hold Sodium Chloride (Deep Sea) 2 spray BID NASAL Last administered on 02/13/19 08:22; Admin Dose 2 SPRAY; Start 02/04/19 at 11:00 Rifaximin (Xifaxan) 550 mg BID NGT Last administered on 02/13/19 08:19; Admin Dose 550 MG; Start 02/06/19 at 21:00 Sucralfate (Carafate Susp) 1 gm QID NGT Last administered on 02/13/19 12:14; Admin Dose 1 GM; Start 02/06/19 at 13:00 Metoclopramide HCl (Reglan) 10 mg Q6 IV Last administered on 02/13/19 12:14; Admin Dose 10 MG; Start 02/06/19 at 18:00 Propranolol HCl (Inderal) 20 mg BID PO Last administered on 02/13/19 08:21; Admin Dose 20 MG; Start 02/06/19 at 21:00 Metoprolol Tartrate (Lopressor) 5 mg Q4H PRN IV HR>110 Hold SBP<100 Last administered on 02/06/19 21:57; Admin Dose 5 MG; Start 02/06/19 at 17:30 Morphine Sulfate (morphine) 0.5 mg Q4H PRN IV .SEVERE PAIN 7-10; Start 02/07/19 at 14:00 Furosemide (Lasix) 20 mg DAILY IV Last administered on 02/11/19 08:26; Admin Dose 20 MG; Start 02/09/19 at 09:00; Status Hold Hydralazine HCl (Apresoline) 25 mg Q12 PO Last administered on 02/13/19 08:20; Admin Dose 25 MG; Start 02/08/19 at 21:00 Piperacillin Sod/ Tazobactam Sod 100 ml @ 25 mls/hr TID@, IVPB Last administered on 02/13/19at 10:23; Admin Dose 25 MLS/HR; Start 02/10/19 at 10:00 Lansoprazole (Prevacid) 30 mg BID@06,18 NGT Last administered on 02/13/19at 05:53; Admin Dose 30 MG; Start 02/10/19 at 18:00 Diagnostic Test (Pha) (Accu-Chek) 1 ea 02 XX Last administered on 02/13/19at 01:25; Admin Dose 1 EA; Start 02/12/19 at 02:00 Miscellaneous Information 1 ea NOTE XX ; Start 02/11/19 at 07:30 Glucose (Glutose) 15 gm Q15M PRN PO DECREASED GLUCOSE; Start 02/11/19 at 07:30 Glucose (Glutose) 22.5 gm Q15M PRN PO DECREASED GLUCOSE; Start 02/11/19 at 07:30 Dextrose (D50w Syringe) 25 ml Q15M PRN IV DECREASED GLUCOSE; Start 02/11/19 at 07:30 Dextrose (D50w Syringe) 50 ml Q15M PRN IV DECREASED GLUCOSE; Start 02/11/19 at 07:30 Glucagon (Glucagen) 1 mg Q15M PRN IM DECREASED GLUCOSE; Start 02/11/19 at 07:30 Glucose (Glutose) 15 gm Q15M PRN BUCCAL DECREASED GLUCOSE; Start 02/11/19 at 07:30 Miscellaneous Information 1 ea NOTE XX ; Start 02/11/19 at 11:00 Glucose (Glutose) 15 gm Q15M PRN PO DECREASED GLUCOSE; Start 02/11/19 at 11:00 Glucose (Glutose) 22.5 gm Q15M PRN PO DECREASED GLUCOSE; Start 02/11/19 at 11:00 Dextrose (D50w Syringe) 25 ml Q15M PRN IV DECREASED GLUCOSE; Start 02/11/19 at 11:00 Dextrose (D50w Syringe) 50 ml Q15M PRN IV DECREASED GLUCOSE; Start 02/11/19 at 11:00 Glucagon (Glucagen) 1 mg Q15M PRN IM DECREASED GLUCOSE; Start 02/11/19 at 11:00 Glucose (Glutose) 15 gm Q15M PRN BUCCAL DECREASED GLUCOSE; Start 02/11/19 at 11:00 Insulin Glargine (Lantus) 11 units DAILY@2000 SC Last administered on 02/12/19at 21:25; Admin Dose 11 UNITS; Start 02/11/19 at 20:00 Lactulose (Enulose) 20 gm BID PO Last administered on 02/13/19 08:18; Admin Dose 20 GM; Start 02/12/19 at 21:00 Insulin Aspart (Novolog Insulin Pen) NOVOLOG *MODERATE* ALGORI... Q6 SC Last administered on 02/13/19at 12:13; Admin Dose 6 UNIT; Start 02/12/19 at 18:00 LUZMARIA KEVIN Feb 13, 2019 13:20
--- NOTE | 2019-02-13 14:18 | CONS ---
Assessment/Plan Assessment/Plan Hospital Course (Demo Recall) Patient is awake looks comfortable tolerates liquid diet no fevers overnight WBC 13.8 platelets 183 neutrophils 82.3 BUN 60 creatinine 1.87 Antimicrobials: Zosyn day #4 Blood cultures from yesterday negative. Urine culture grew Klebsiella and enterococcus species Physical examination: this is a chronically ill-appearing wasted elderly man who is awake, in no distress head atraumatic normocephalic sclera nonicteric vehicle mucosa dry neck is supple chest rise symmetrical breath sounds diminished bases heart: S1-S2 abdomen distended soft bowel sounds hypoactive extremities with trace edema and cyanosis Assessment: 1. SIRS with ongoing leukocytosis procalcitonin level 2.23 2. Possible aspiration 3. Polymicrobial UTI 4. Acute encephalopathy 5. Cryptogenic cirrhosis 6. Diabetes Plan: Stable, more awake, WBC trending down, continue antibiotics, continue aspiration precautions Consultation Date/Type/Reason Admit Date/Time Feb 03, 2019 at 09:30 Initial Consult Date 02/03/19 Type of Consult id Requesting Provider: SUDHIR BARRIENTOS Date/Time of Note DATE: 02/13/19 TIME: 14:16 Exam/Review of Systems Exam Vitals Vital Signs Date Temp Pulse Resp B/P (MAP) Pulse Ox O2 O2 Flow FiO2 Time Delivery Rate 02/13/19 75 12:21 02/13/19 98.4 18 98/55 (69) 98 Nasal 2.0 12:07 Cannula Intake and Output 02/12/19 02/12/19 02/13/19 1515:00 23:00 07:00 IntakeIntake Total 1400 ml 340 ml OutputOutput Total 150 ml BalanceBalance 1250 ml 340 ml Results Result Diagram: 02/13/19 0542 02/13/19 0542 Results 24hrs Laboratory Tests Test 02/12/19 17:17 02/12/19 17:44 02/12/19 20:28 02/12/19 23:46 Bedside Glucose 336 H 248 H 254 H Hemoglobin 7.3 L Hematocrit 23.5 L Test 02/13/19 01:24 02/13/19 05:42 02/13/19 05:53 02/13/19 11:50 Bedside Glucose 193 192 245 H White Blood Count 13.8 #H Red Blood Count 2.34 L Hemoglobin 7.3 L Hematocrit 23.3 L Mean Corpuscular 99.6 Volume Mean Corpuscular 31.2 Hemoglobin Mean Corpuscular 31.3 L Hemoglobin Concent Red Cell 17.8 H Distribution Width Platelet Count 183 Mean Platelet Volume 14.2 H Immature 0.800 H Granulocytes % Neutrophils % 82.3 H Lymphocytes % 7.8 L Monocytes % 8.3 Eosinophils % 0.7 Basophils % 0.1 Nucleated Red Blood 0.0 Cells % Immature 0.110 H Granulocytes # Neutrophils # 11.4 H Lymphocytes # 1.1 Monocytes # 1.1 H Eosinophils # 0.1 Basophils # 0.0 Nucleated Red Blood 0.0 Cells # Sodium Level 145 H Potassium Level 3.8 Chloride Level 107 Carbon Dioxide Level 28 Anion Gap 10 Blood Urea Nitrogen 60 H Creatinine 1.87 H Glucose Level 188 Calcium Level 7.8 L Phosphorus Level 4.0 Magnesium Level 2.8 H Albumin 2.4 L Medications Medication Current Medications IV Flush (NS 3 ml) 3 ml PER PROTOCOL IV ; Start 02/03/19 at 14:00 Ondansetron HCl (Zofran Inj) 4 mg Q6H PRN IV NAUSEA/VOMITING; Start 02/03/19 at 14:00 Acetaminophen (Tylenol Tab) 650 mg Q6H PRN PO .PAIN 1-3 OR TEMP; Start 02/03/19 at 14:00 Acetaminophen/ Hydrocodone Bitart ([place] (5/325)) 1 tab Q6H PRN PO .MOD PAIN 4- 6 Last administered on 02/04/19at 06:09; Admin Dose 1 TAB; Start 02/03/19 at 14:00 Docusate Sodium (Colace) 100 mg Q12H PRN PO .CONSTIPATION; Start 02/03/19 at 14:00 Furosemide (Lasix) 40 mg DAILY PO Last administered on 02/04/19at 09:24; Admin Dose 40 MG; Start 02/04/19 at 09:00; Status Hold Levothyroxine Sodium (Synthroid) 25 mcg BEFORE BREAKFAST PO Last administered on 02/13/19at 05:54; Admin Dose 25 MCG; Start 02/04/19 at 07:00 Spironolactone (Aldactone) 25 mg DAILY PO Last administered on 02/12/19at 08:57; Admin Dose 25 MG; Start 02/04/19 at 09:00; Status Hold Sodium Chloride (Deep Sea) 2 spray BID NASAL Last administered on 02/13/19 08:22; Admin Dose 2 SPRAY; Start 02/04/19 at 11:00 Rifaximin (Xifaxan) 550 mg BID NGT Last administered on 02/13/19 08:19; Admin Dose 550 MG; Start 02/06/19 at 21:00 Sucralfate (Carafate Susp) 1 gm QID NGT Last administered on 02/13/19 12:14; Admin Dose 1 GM; Start 02/06/19 at 13:00 Metoclopramide HCl (Reglan) 10 mg Q6 IV Last administered on 02/13/19 12:14; Admin Dose 10 MG; Start 02/06/19 at 18:00 Propranolol HCl (Inderal) 20 mg BID PO Last administered on 02/13/19 08:21; Admin Dose 20 MG; Start 02/06/19 at 21:00 Metoprolol Tartrate (Lopressor) 5 mg Q4H PRN IV HR>110 Hold SBP<100 Last administered on 02/06/19 21:57; Admin Dose 5 MG; Start 02/06/19 at 17:30 Morphine Sulfate (morphine) 0.5 mg Q4H PRN IV .SEVERE PAIN 7-10; Start 02/07/19 at 14:00 Furosemide (Lasix) 20 mg DAILY IV Last administered on 02/11/19 08:26; Admin Dose 20 MG; Start 02/09/19 at 09:00; Status Hold Hydralazine HCl (Apresoline) 25 mg Q12 PO Last administered on 02/13/19 08:20; Admin Dose 25 MG; Start 02/08/19 at 21:00 Piperacillin Sod/ Tazobactam Sod 100 ml @ 25 mls/hr TID@18 IVPB Last a dministered on 02/13/19 10:23; Admin Dose 25 MLS/HR; Start 02/10/19 at 10:00 Lansoprazole (Prevacid) 30 mg BID@06,18 NGT Last administered on 02/13/19 05:53; Admin Dose 30 MG; Start 02/10/19 at 18:00 Diagnostic Test (Pha) (Accu-Chek) 1 ea 02 XX Last administered on 02/13/19 01:25; Admin Dose 1 EA; Start 02/12/19 at 02:00 Miscellaneous Information 1 ea NOTE XX ; Start 02/11/19 at 07:30 Glucose (Glutose) 15 gm Q15M PRN PO DECREASED GLUCOSE; Start 02/11/19 at 07:30 Glucose (Glutose) 22.5 gm Q15M PRN PO DECREASED GLUCOSE; Start 02/11/19 at 07:30 Dextrose (D50w Syringe) 25 ml Q15M PRN IV DECREASED GLUCOSE; Start 02/11/19 at 07:30 Dextrose (D50w Syringe) 50 ml Q15M PRN IV DECREASED GLUCOSE; Start 02/11/19 at 07:30 Glucagon (Glucagen) 1 mg Q15M PRN IM DECREASED GLUCOSE; Start 02/11/19 at 07:30 Glucose (Glutose) 15 gm Q15M PRN BUCCAL DECREASED GLUCOSE; Start 02/11/19 at 07:30 Miscellaneous Information 1 ea NOTE XX ; Start 02/11/19 at 11:00 Glucose (Glutose) 15 gm Q15M PRN PO DECREASED GLUCOSE; Start 02/11/19 at 11:00 Glucose (Glutose) 22.5 gm Q15M PRN PO DECREASED GLUCOSE; Start 02/11/19 at 11:00 Dextrose (D50w Syringe) 25 ml Q15M PRN IV DECREASED GLUCOSE; Start 02/11/19 at 11:00 Dextrose (D50w Syringe) 50 ml Q15M PRN IV DECREASED GLUCOSE; Start 02/11/19 at 11:00 Glucagon (Glucagen) 1 mg Q15M PRN IM DECREASED GLUCOSE; Start 02/11/19 at 11:00 Glucose (Glutose) 15 gm Q15M PRN BUCCAL DECREASED GLUCOSE; Start 02/11/19 at 11:00 Insulin Glargine (Lantus) 11 units DAILY@2000 SC Last administered on 02/12/19at 21:25; Admin Dose 11 UNITS; Start 02/11/19 at 20:00 Lactulose (Enulose) 20 gm BID PO Last administered on 02/13/19at 08:18; Admin Dose 20 GM; Start 02/12/19 at 21:00 Insulin Aspart (Novolog Insulin Pen) NOVOLOG *MODERATE* ALGORI... Q6 SC Last administered on 02/13/19at 12:13; Admin Dose 6 UNIT; Start 02/12/19 at 18:00 JIM ANTOINE NP Feb 13, 2019 14:18
--- NOTE | 2019-02-13 14:38 | PN ---
Date/Time of Note Date/Time of Note DATE: 02/13/19 TIME: 14:36 Assessment/Plan VTE Prophylaxis Risk score (from Nsg)>0 risk: 6 SCD applied (from Ns): Yes Pharmacological prophylaxis: NA/contraindicated Pharm contraindication: bleeding Lines/Catheters IV Catheter Type (from Nrsg): Saline Lock Assessment/Plan Assessment/Plan 1. Acute encephalopathy, toxic- improving - Patient worked with OT this am and following commands - continue tx UTI - WBC trending down - CT head negative for acute abnormalities - CT A/P noted with enteritis - remains afebrile 2. Acute GI bleed s/p EGD - GI on board and will repeat hgb later this afternoon - given continued dark stools and drop in hgb, considering repeat EGD in near future - GI on board and appreciate recommendations. EGD 02/04 shows extensive ulcerations in jejunal side of GJ. distal esophagitis - continue on PPI via NG tube and Carafate 3. SVT with aberrancy- resolved - Cardiology consultation appreciated 4. Symptomatic anemia secondary to acute blood loss - hemoglobin continues to fluctuate but no need for transfusions at this time - goal hgb >7.5 5. 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 no need for paracentesis at this time 6. Hypothyroidism - On Synthroid 7. Diabetes - ISS and accuchecks - sugars elevated while on TF - A1c 5.7 8. ANTONIETTA - most likely secondary to hemodynamics - avoid nephrotoxic agents - holding diuretics and given small bolus 9. History of coronary disease - stable - no chest pain noted 10. Disposition - Continue monitoring H/H and may need repeat EGD in the near future. - Will most likely need ARU once all issues resolved Result Diagram: 02/13/19 0542 02/13/19 0542 Subjective 24 Hr Interval Summary Free Text/Dictation Mental status significantly improved today. Still very weak; unable to stand with assistance today. Tolerating diet. Exam/Review of Systems Exam Vitals Vital Signs Date Temp Pulse Resp B/P (MAP) Pulse Ox O2 O2 Flow FiO2 Time Delivery Rate 02/13/19 75 12:21 02/13/19 98.4 18 98/55 (69) 98 Nasal 2.0 12:07 Cannula Intake and Output 02/12/19 02/12/19 02/13/19 1515:00 23:00 07:00 IntakeIntake Total 1400 ml 340 ml OutputOutput Total 150 ml BalanceBalance 1250 ml 340 ml Exam General: fatigued. answering some questions. following commands Nose: NG tube in place Neck: supple CVS: S1, S2, regular rate and rhythm. no murmurs Lungs: clear to auscultation bilaterally. no wheezing or rhonchi Abd: soft, nontender, nondistended. no rebound or guarding. bowel sounds present diffusely Ext: moving all extremities. no cyanosis, clubbing, or edema SKin: warm, dry. no rashes or lesions appreciated Results Results 24hrs Laboratory Tests Test 02/12/19 17:17 02/12/19 17:44 02/12/19 20:28 02/12/19 23:46 Bedside Glucose 336 H 248 H 254 H Hemoglobin 7.3 L Hematocrit 23.5 L Test 02/13/19 01:24 02/13/19 05:42 02/13/19 05:53 02/13/19 11:50 Bedside Glucose 193 192 245 H White Blood Count 13.8 #H Red Blood Count 2.34 L Hemoglobin 7.3 L Hematocrit 23.3 L Mean Corpuscular 99.6 Volume Mean Corpuscular 31.2 Hemoglobin Mean Corpuscular 31.3 L Hemoglobin Concent Red Cell 17.8 H Distribution Width Platelet Count 183 Mean Platelet Volume 14.2 H Immature 0.800 H Granulocytes % Neutrophils % 82.3 H Lymphocytes % 7.8 L Monocytes % 8.3 Eosinophils % 0.7 Basophils % 0.1 Nucleated Red Blood 0.0 Cells % Immature 0.110 H Granulocytes # Neutrophils # 11.4 H Lymphocytes # 1.1 Monocytes # 1.1 H Eosinophils # 0.1 Basophils # 0.0 Nucleated Red Blood 0.0 Cells # Sodium Level 145 H Potassium Level 3.8 Chloride Level 107 Carbon Dioxide Level 28 Anion Gap 10 Blood Urea Nitrogen 60 H Creatinine 1.87 H Glucose Level 188 Calcium Level 7.8 L Phosphorus Level 4.0 Magnesium Level 2.8 H Albumin 2.4 L Medications Medication Current Medications IV Flush (NS 3 ml) 3 ml PER PROTOCOL IV ; Start 02/03/19 at 14:00 Ondansetron HCl (Zofran Inj) 4 mg Q6H PRN IV NAUSEA/VOMITING; Start 02/03/19 at 14:00 Acetaminophen (Tylenol Tab) 650 mg Q6H PRN PO .PAIN 1-3 OR TEMP; Start 02/03/19 at 14:00 Acetaminophen/ Hydrocodone Bitart ([place] (5/325)) 1 tab Q6H PRN PO .MOD PAIN 4- 6 Last administered on 02/04/19 06:09; Admin Dose 1 TAB; Start 02/03/19 at 14:00 Docusate Sodium (Colace) 100 mg Q12H PRN PO .CONSTIPATION; Start 02/03/19 at 14:00 Furosemide (Lasix) 40 mg DAILY PO Last administered on 02/04/19 09:24; Admin Dose 40 MG; Start 02/04/19 at 09:00; Status Hold Levothyroxine Sodium (Synthroid) 25 mcg BEFORE BREAKFAST PO Last administered on 02/13/19 05:54; Admin Dose 25 MCG; Start 02/04/19 at 07:00 Spironolactone (Aldactone) 25 mg DAILY PO Last administered on 02/12/19 08:57; Admin Dose 25 MG; Start 02/04/19 at 09:00; Status Hold Sodium Chloride (Deep Sea) 2 spray BID NASAL Last administered on 02/13/19 08:22; Admin Dose 2 SPRAY; Start 02/04/19 at 11:00 Rifaximin (Xifaxan) 550 mg BID NGT Last administered on 02/13/19 08:19; Admin Dose 550 MG; Start 02/06/19 at 21:00 Sucralfate (Carafate Susp) 1 gm QID NGT Last administered on 02/13/19 12:14; Admin Dose 1 GM; Start 02/06/19 at 13:00 Metoclopramide HCl (Reglan) 10 mg Q6 IV Last administered on 02/13/19 12:14; Admin Dose 10 MG; Start 02/06/19 at 18:00 Propranolol HCl (Inderal) 20 mg BID PO Last administered on 02/13/19 08:21; Admin Dose 20 MG; Start 02/06/19 at 21:00 Metoprolol Tartrate (Lopressor) 5 mg Q4H PRN IV HR>110 Hold SBP<100 Last administered on 6/12/19at 21:57; Admin Dose 5 MG; Start 02/06/19 at 17:30 Morphine Sulfate (morphine) 0.5 mg Q4H PRN IV .SEVERE PAIN 7-10; Start 02/07/19 at 14:00 Furosemide (Lasix) 20 mg DAILY IV Last administered on 02/11/19at 08:26; Admin Dose 20 MG; Start 02/09/19 at 09:00; Status Hold Hydralazine HCl (Apresoline) 25 mg Q12 PO Last administered on 02/13/19at 08:20; Admin Dose 25 MG; Start 02/08/19 at 21:00 Piperacillin Sod/ Tazobactam Sod 100 ml @ 25 mls/hr TID@,18 IVPB Last administered on 02/13/19at 10:23; Admin Dose 25 MLS/HR; Start 02/10/19 at 10:00 Lansoprazole (Prevacid) 30 mg BID@06,18 NGT Last administered on 02/13/19at 05:53; Admin Dose 30 MG; Start 02/10/19 at 18:00 Diagnostic Test (Pha) (Accu-Chek) 1 ea 02 XX Last administered on 02/13/19at 01:25; Admin Dose 1 EA; Start 02/12/19 at 02:00 Miscellaneous Information 1 ea NOTE XX ; Start 02/11/19 at 07:30 Glucose (Glutose) 15 gm Q15M PRN PO DECREASED GLUCOSE; Start 02/11/19 at 07:30 Glucose (Glutose) 22.5 gm Q15M PRN PO DECREASED GLUCOSE; Start 02/11/19 at 07:30 Dextrose (D50w Syringe) 25 ml Q15M PRN IV DECREASED GLUCOSE; Start 02/11/19 at 07:30 Dextrose (D50w Syringe) 50 ml Q15M PRN IV DECREASED GLUCOSE; Start 02/11/19 at 07:30 Glucagon (Glucagen) 1 mg Q15M PRN IM DECREASED GLUCOSE; Start 02/11/19 at 07:30 Glucose (Glutose) 15 gm Q15M PRN BUCCAL DECREASED GLUCOSE; Start 02/11/19 at 07:30 Miscellaneous Information 1 ea NOTE XX ; Start 02/11/19 at 11:00 Glucose (Glutose) 15 gm Q15M PRN PO DECREASED GLUCOSE; Start 02/11/19 at 11:00 Glucose (Glutose) 22.5 gm Q15M PRN PO DECREASED GLUCOSE; Start 02/11/19 at 11:00 Dextrose (D50w Syringe) 25 ml Q15M PRN IV DECREASED GLUCOSE; Start 02/11/19 at 11:00 Dextrose (D50w Syringe) 50 ml Q15M PRN IV DECREASED GLUCOSE; Start 02/11/19 at 11:00 Glucagon (Glucagen) 1 mg Q15M PRN IM DECREASED GLUCOSE; Start 02/11/19 at 11:00 Glucose (Glutose) 15 gm Q15M PRN BUCCAL DECREASED GLUCOSE; Start 02/11/19 at 11:00 Insulin Glargine (Lantus) 11 units DAILY@2000 SC Last administered on 02/12/19at 21:25; Admin Dose 11 UNITS; Start 02/11/19 at 20:00 Lactulose (Enulose) 20 gm BID PO Last administered on 02/13/19at 08:18; Admin Dose 20 GM; Start 02/12/19 at 21:00 Insulin Aspart (Novolog Insulin Pen) NOVOLOG *MODERATE* ALGORI... Q6 SC Last administered on 02/13/19at 12:13; Admin Dose 6 UNIT; Start 02/12/19 at 18:00 LUZMARIA CROWE MD Feb 13, 2019 14:38
[2019-02-13] MEDS: morphine 2 MG INJ IV PRN (17:08)
[2019-02-13] MEDS: INSULIN GLARGINE [LANTus] (100 UNITS/ML) SYG SC SCH (21:27)
[2019-02-14] VITALS (10 sets, daily range): BP systolic 101–131; BP diastolic 56–65; PULSE 73–92; RESP 18–22
[2019-02-14] MEDS: INSULIN ASPART [NOVOLOG] 3 ML PEN SC SCH ×5 (00:57→22:42)
[2019-02-14] MEDS: morphine 2 MG INJ IV PRN ×2 (01:18→21:09)
[2019-02-14] MEDS: ACCU-CHEK XX SCH (02:25)
[2019-02-14] MEDS: PIPER-TAZO 3.375 GM IV (PMX) 100 ML IVPB SCH ×3 (02:25→17:42)
[2019-02-14] MEDS: LANSOPRAZOLE 30 MG CAP NGT SCH ×2 (06:03→17:42)
[2019-02-14] MEDS: METOCLOPRAMIDE 10 MG INJ IV SCH ×4 (06:03→23:32)
[2019-02-14] MEDS: LEVOTHYROXINE 25 MCG TAB PO SCH (06:03)
[2019-02-14] MEDS: RIFAXIMIN 550 MG TAB NGT SCH ×2 (08:21→21:04)
[2019-02-14] MEDS: LACTULOSE 30ML CUP PO SCH ×2 (08:21→21:06)
[2019-02-14] MEDS: SALINE 0.65% 45 ML NAS SPRAY NASAL SCH ×2 (08:21→21:15)
[2019-02-14] MEDS: SUCRALFATE (100 MG/ML) 10ML CUP NGT SCH ×4 (08:21→21:06)
[2019-02-14] MEDS: PROPRANOLOL 20 MG TAB PO SCH ×2 (08:22→21:05)
--- NOTE | 2019-02-14 11:14 | PN ---
Date/Time of Note Date/Time of Note DATE: 02/14/19 TIME: 11:11 Assessment/Plan VTE Prophylaxis Risk score (from Ns)>0 risk: 7 SCD applied (from Ns): Yes Pharmacological prophylaxis: other (scds) Lines/Catheters IV Catheter Type (from Nrs): Saline Lock Urinary Cath still in place: No (Condom catheter ) Assessment/Plan Hospital Course Assessment: Anemia - suspected GI bleeding UTI- on Zosyn Melena-resolved -EGD 02/04/19 Extensive ulceration in the jejunal side of the gastrojejunal Billroth II anastomosis. No stigmata recent bleeding no visible vessel. Distal esophagitis with ulceration. No stigmata. Recent bleeding. Post distal gastrectomy distal to anastomosis Hx of cryptogenic cirrhosis Hx of perforated gastric ulcer s/p repair Ventral hernia Renal insufficiency Acute encephalopathy- improved - Toxic metabolic- positive UTI jg antibiotics -Elevated ammonia noted - resolved Imaging suggestive of a nonspecific enteritis Leukocytosis ANTONIETTA Plan: Continue current GI regimen Recommend renal consult F/u ST recommendations Monitor labs Patient seen in collaboration with Dr. Harvey Subjective: Course reviewed with nursing staff Patient interviewed and examined All labs, imaging and other results reviewed Pt alert and oriented with some confusion noted. No overt signs of GI bleed. Hemoglobin has improved without transition. Patient currently denies nausea/vomiting or abdominal pain. He is currently tolerating full liquid diet well. Plan for speech therapy to reevaluate today we will follow-up on those recommendations. PHYSICAL EXAMINATION: GENERAL: Elderly, alert and oriented to name, year and events SKIN: No lesions HEAD: Normocephalic, atraumatic, no tenderness. EYES: Pupils equal reactive to light and accommodation, no discharge. EARS/NOSE AND THROAT: Ears normal, nose normal, NG tube in place NECK: Supple, no masses. CHEST: Inspection within normal limits. CARDIOVASCULAR: Heart: Regular rate and rhythm RESPIRATORY: Lungs clear to auscultation GASTROINTESTINAL AND LIVER: Abdomen: Soft, epigastric tenderness- resolved, non- distended, no hernias, no masses, no organomegaly, no ascites, no guarding, no rebound tenderness, normoactive bowel sounds. Rectal: Deferred. GENITOURINARY: Male genitalia within normal limits. EXTREMITIES: No cyanosis, clubbing or edema. Result Diagram: 02/14/19 1033 02/13/19 0542 Results 24hrs Laboratory Tests Test 02/13/19 11:50 02/13/19 17:27 02/13/19 20:01 02/13/19 23:54 Bedside Glucose 245 H 190 293 H 220 Test 02/14/19 02:06 02/14/19 06:02 02/14/19 08:19 02/14/19 10:33 Bedside Glucose 194 189 210 White Blood Count 16.2 H Red Blood Count 2.71 L Hemoglobin 8.4 L Hematocrit 27.1 L Mean Corpuscular 100.0 Volume Mean Corpuscular 31.0 Hemoglobin Mean Corpuscular 31.0 L Hemoglobin Concent Red Cell 17.4 H Distribution Width Platelet Count 301 # Mean Platelet Volume 13.5 H Immature 0.700 H Granulocytes % Neutrophils % 84.3 H Lymphocytes % 6.8 L Monocytes % 5.7 Eosinophils % 2.3 Basophils % 0.2 Nucleated Red Blood 0.0 Cells % Immature 0.120 H Granulocytes # Neutrophils # 13.6 H Lymphocytes # 1.1 Monocytes # 0.9 Eosinophils # 0.4 Basophils # 0.0 Nucleated Red Blood 0.0 Cells # Exam/Review of Systems Exam Vitals Vital Signs Date Temp Pulse Resp B/P (MAP) Pulse Ox O2 O2 Flow FiO2 Time Delivery Rate 02/14/19 97.8 82 22 103/56 96 Nasal 2.0 08:41 (72) Cannula Intake and Output 02/13/19 02/13/19 02/14/19 1414:59 22:59 06:59 IntakeIntake Total 240 ml OutputOutput Total 400 ml BalanceBalance 240 ml -400 ml Results Results 24hrs Laboratory Tests Test 02/13/19 11:50 02/13/19 17:27 02/13/19 20:01 02/13/19 23:54 Bedside Glucose 245 H 190 293 H 220 Test 02/14/19 02:06 02/14/19 06:02 02/14/19 08:19 02/14/19 10:33 Bedside Glucose 194 189 210 White Blood Count 16.2 H Red Blood Count 2.71 L Hemoglobin 8.4 L Hematocrit 27.1 L Mean Corpuscular 100.0 Volume Mean Corpuscular 31.0 Hemoglobin Mean Corpuscular 31.0 L Hemoglobin Concent Red Cell 17.4 H Distribution Width Platelet Count 301 # Mean Platelet Volume 13.5 H Immature 0.700 H Granulocytes % Neutrophils % 84.3 H Lymphocytes % 6.8 L Monocytes % 5.7 Eosinophils % 2.3 Basophils % 0.2 Nucleated Red Blood 0.0 Cells % Immature 0.120 H Granulocytes # Neutrophils # 13.6 H Lymphocytes # 1.1 Monocytes # 0.9 Eosinophils # 0.4 Basophils # 0.0 Nucleated Red Blood 0.0 Cells # Medications Medication Current Medications IV Flush (NS 3 ml) 3 ml PER PROTOCOL IV ; Start 02/03/19 at 14:00 Ondansetron HCl (Zofran Inj) 4 mg Q6H PRN IV NAUSEA/VOMITING; Start 02/03/19 at 14:00 Acetaminophen (Tylenol Tab) 650 mg Q6H PRN PO .PAIN 1-3 OR TEMP; Start 02/03/19 at 14:00 Acetaminophen/ Hydrocodone Bitart ([place] (5/325)) 1 tab Q6H PRN PO .MOD PAIN 4- 6 Last administered on 02/04/19at 06:09; Admin Dose 1 TAB; Start 02/03/19 at 14:00 Docusate Sodium (Colace) 100 mg Q12H PRN PO .CONSTIPATION; Start 02/03/19 at 14:00 Furosemide (Lasix) 40 mg DAILY PO Last administered on 02/04/19at 09:24; Admin Dose 40 MG; Start 02/04/19 at 09:00; Status Hold Levothyroxine Sodium (Synthroid) 25 mcg BEFORE BREAKFAST PO Last administered on 02/14/19 06:03; Admin Dose 25 MCG; Start 02/04/19 at 07:00 Spironolactone (Aldactone) 25 mg DAILY PO Last administered on 02/12/19at 08:57; Admin Dose 25 MG; Start 02/04/19 at 09:00; Status Hold Sodium Chloride (Deep Sea) 2 spray BID NASAL Last administered on 02/14/19 08:21; Admin Dose 2 SPRAY; Start 02/04/19 at 11:00 Rifaximin (Xifaxan) 550 mg BID NGT Last administered on 02/14/19 08:21; Admin Dose 550 MG; Start 02/06/19 at 21:00 Sucralfate (Carafate Susp) 1 gm QID NGT Last administered on 02/14/19 08:21; Admin Dose 1 GM; Start 02/06/19 at 13:00 Metoclopramide HCl (Reglan) 10 mg Q6 IV Last administered on 02/14/19 06:03; Admin Dose 10 MG; Start 02/06/19 at 18:00 Propranolol HCl (Inderal) 20 mg BID PO Last administered on 02/14/19 08:22; Admin Dose 20 MG; Start 02/06/19 at 21:00 Metoprolol Tartrate (Lopressor) 5 mg Q4H PRN IV HR>110 Hold SBP<100 Last administered on 02/06/19 21:57; Admin Dose 5 MG; Start 02/06/19 at 17:30 Morphine Sulfate (morphine) 0.5 mg Q4H PRN IV .SEVERE PAIN 7-10 Last administered on 02/14/19 01:18; Admin Dose 0.5 MG; Start 02/07/19 at 14:00 Furosemide (Lasix) 20 mg DAILY IV Last administered on 02/11/19 08:26; Admin Dose 20 MG; Start 02/09/19 at 09:00; Status Hold Hydralazine HCl (Apresoline) 25 mg Q12 PO Last administered on 02/14/19 08:23; Admin Dose 25 MG; Start 02/08/19 at 21:00 Piperacillin Sod/ Tazobactam Sod 100 ml @ 25 mls/hr TID@18 IVPB Last administered on 02/14/19 10:46; Admin Dose 25 MLS/HR; Start 02/10/19 at 10:00 Lansoprazole (Prevacid) 30 mg BID@06,18 NGT Last administered on 02/14/19 06:03; Admin Dose 30 MG; Start 02/10/19 at 18:00 Diagnostic Test (Pha) (Accu-Chek) 1 ea 02 XX Last administered on 02/14/19at 0 2:25; Admin Dose 1 EA; Start 02/12/19 at 02:00 Miscellaneous Information 1 ea NOTE XX ; Start 02/11/19 at 07:30 Glucose (Glutose) 15 gm Q15M PRN PO DECREASED GLUCOSE; Start 02/11/19 at 07:30 Glucose (Glutose) 22.5 gm Q15M PRN PO DECREASED GLUCOSE; Start 02/11/19 at 07:30 Dextrose (D50w Syringe) 25 ml Q15M PRN IV DECREASED GLUCOSE; Start 02/11/19 at 07:30 Dextrose (D50w Syringe) 50 ml Q15M PRN IV DECREASED GLUCOSE; Start 02/11/19 at 07:30 Glucagon (Glucagen) 1 mg Q15M PRN IM DECREASED GLUCOSE; Start 02/11/19 at 07:30 Glucose (Glutose) 15 gm Q15M PRN BUCCAL DECREASED GLUCOSE; Start 02/11/19 at 07:30 Miscellaneous Information 1 ea NOTE XX ; Start 02/11/19 at 11:00 Glucose (Glutose) 15 gm Q15M PRN PO DECREASED GLUCOSE; Start 02/11/19 at 11:00 Glucose (Glutose) 22.5 gm Q15M PRN PO DECREASED GLUCOSE; Start 02/11/19 at 11:00 Dextrose (D50w Syringe) 25 ml Q15M PRN IV DECREASED GLUCOSE; Start 02/11/19 at 11:00 Dextrose (D50w Syringe) 50 ml Q15M PRN IV DECREASED GLUCOSE; Start 02/11/19 at 11:00 Glucagon (Glucagen) 1 mg Q15M PRN IM DECREASED GLUCOSE; Start 02/11/19 at 11:00 Glucose (Glutose) 15 gm Q15M PRN BUCCAL DECREASED GLUCOSE; Start 02/11/19 at 11:00 Insulin Glargine (Lantus) 11 units DAILY@2000 SC Last administered on 02/13/19at 21:27; Admin Dose 11 UNITS; Start 02/11/19 at 20:00 Lactulose (Enulose) 20 gm BID PO Last administered on 02/14/19at 08:21; Admin Dose 20 GM; Start 02/12/19 at 21:00 Insulin Aspart (Novolog Insulin Pen) NOVOLOG *MODERATE* ALGORI... Q6 SC Last administered on 02/14/19at 06:18; Admin Dose 4 UNIT; Start 02/12/19 at 18:00 INGRID MAST Feb 14, 2019 11:14
--- NOTE | 2019-02-14 12:23 | CONS ---
Assessment/Plan Assessment/Plan Hospital Course (Demo Recall) IMPRESSION: 1. Wide complex tachycardia, likely consistent with supraventricular tachycardia with a baseline bundle branch block.-TSH WNL. NO recurrence. NL EF by echo this admit 2. Abnormal electrocardiogram with baseline bundle branch block. 3. Syncope on admit. Rule out cardiac etiology. Rule out cardiac arrhythmia as etiology versus anemia. 4. Cirrhosis. 5. Gastrointestinal bleed with melenic stools. 6. Peptic ulcer disease by endoscopy. 7. Renal failure-acute 8. Hyponatremia. 9. Thrombocytopenia. 10. Anemia. 11. Encephalopathy-ongoing but improving 12. -mild to moderate by echo this admit Recc: -Tele -Continue propranolol and will decrease hydralazine given marginal BP -Contineu lactulose -Continue aldactone -lasix held in the setting of ARF -Follow MS -Follow HGb clsoely with further transfusions as necessary Consultation Date/Type/Reason Admit Date/Time Feb 03, 2019 at 09:30 Initial Consult Date 02/03/19 Type of Consult Cardiology Reason for Consultation SVT/WCT Requesting Provider: SUDHIR BARRIENTOS Date/Time of Note DATE: 02/14/19 TIME: 12:21 Exam/Review of Systems Vital Signs Vitals Vital Signs Date Temp Pulse Resp B/P (MAP) Pulse Ox O2 O2 Flow FiO2 Time Delivery Rate 02/14/19 73 12:18 02/14/19 97.8 22 103/56 96 Nasal 2.0 08:41 (72) Cannula Intake and Output 02/13/19 02/13/19 02/14/19 1515:00 23:00 07:00 IntakeIntake Total 240 ml OutputOutput Total 400 ml BalanceBalance 240 ml -400 ml Exam Exam Review of Systems: CONSTITUTIONAL: No fevers, chills. PULMONARY: No sob CARDIOVASCULAR: No chest pain/palpitations GASTROINTESTINAL: No nausea/vomiting. GENITOURINARY: No hematuria/dysuria. MUSCULOSKELETAL: No myagias/arthalgias. PSYCHIATRIC: The patient denies depression. NEUROLOGIC: No weakness Constitutional: other (sleeping) Psych: no complaints ENMT: mucosa pink and moist Neck: supple, jvd (9 cm water) Respiratory: diminished breath sounds (at bases/B) Cardiovascular: regular rate and rhythm Gastrointestinal: soft, non-tender Musculoskeletal: muscle tone (normal) Extremities: edema (no focal deficits) Labs Result Diagram: 02/14/19 1033 02/14/19 1033 Results 24hrs Laboratory Tests Test 02/13/19 17:27 02/13/19 20:01 02/13/19 23:54 02/14/19 02:06 Bedside Glucose 190 293 H 220 194 Test 02/14/19 06:02 02/14/19 08:19 02/14/19 10:33 Bedside Glucose 189 210 White Blood Count 16.2 H Red Blood Count 2.71 L Hemoglobin 8.4 L Hematocrit 27.1 L Mean Corpuscular 100.0 Volume Mean Corpuscular 31.0 Hemoglobin Mean Corpuscular 31.0 L Hemoglobin Concent Red Cell 17.4 H Distribution Width Platelet Count 301 # Mean Platelet Volume 13.5 H Immature 0.700 H Granulocytes % Neutrophils % 84.3 H Lymphocytes % 6.8 L Monocytes % 5.7 Eosinophils % 2.3 Basophils % 0.2 Nucleated Red Blood 0.0 Cells % Immature 0.120 H Granulocytes # Neutrophils # 13.6 H Lymphocytes # 1.1 Monocytes # 0.9 Eosinophils # 0.4 Basophils # 0.0 Nucleated Red Blood 0.0 Cells # Sodium Level 141 Potassium Level 4.0 Chloride Level 108 Carbon Dioxide Level 26 Anion Gap 7 Blood Urea Nitrogen 59 H Creatinine 1.88 H Est Glomerular Filtrat Rate mL/min Glucose Level 260 H Calcium Level 7.8 L Medications Medications Current Medications IV Flush (NS 3 ml) 3 ml PER PROTOCOL IV ; Start 02/03/19 at 14:00 Ondansetron HCl (Zofran Inj) 4 mg Q6H PRN IV NAUSEA/VOMITING; Start 02/03/19 at 14:00 Acetaminophen (Tylenol Tab) 650 mg Q6H PRN PO .PAIN 1-3 OR TEMP; Start 02/03/19 at 14:00 Acetaminophen/ Hydrocodone Bitart ([place] (5/325)) 1 tab Q6H PRN PO .MOD PAIN 4- 6 Last administered on 02/04/19at 06:09; Admin Dose 1 TAB; Start 02/03/19 at 14:00 Docusate Sodium (Colace) 100 mg Q12H PRN PO .CONSTIPATION; Start 02/03/19 at 14:00 Furosemide (Lasix) 40 mg DAILY PO Last administered on 02/04/19at 09:24; Admin Dose 40 MG; Start 02/04/19 at 09:00; Status Hold Levothyroxine Sodium (Synthroid) 25 mcg BEFORE BREAKFAST PO Last administered on 02/14/19 06:03; Admin Dose 25 MCG; Start 02/04/19 at 07:00 Spironolactone (Aldactone) 25 mg DAILY PO Last administered on 02/12/19 08:57; Admin Dose 25 MG; Start 02/04/19 at 09:00; Status Hold Sodium Chloride (Deep Sea) 2 spray BID NASAL Last administered on 02/14/19 08:21; Admin Dose 2 SPRAY; Start 02/04/19 at 11:00 Rifaximin (Xifaxan) 550 mg BID NGT Last administered on 02/14/19 08:21; Admin Dose 550 MG; Start 02/06/19 at 21:00 Sucralfate (Carafate Susp) 1 gm QID NGT Last administered on 02/14/19 08:21; Admin Dose 1 GM; Start 02/06/19 at 13:00 Metoclopramide HCl (Reglan) 10 mg Q6 IV Last administered on 02/14/19 06:03; Admin Dose 10 MG; Start 02/06/19 at 18:00 Propranolol HCl (Inderal) 20 mg BID PO Last administered on 02/14/19 08:22; Admin Dose 20 MG; Start 02/06/19 at 21:00 Metoprolol Tartrate (Lopressor) 5 mg Q4H PRN IV HR>110 Hold SBP<100 Last administered on 02/06/19 21:57; Admin Dose 5 MG; Start 02/06/19 at 17:30 Morphine Sulfate (morphine) 0.5 mg Q4H PRN IV .SEVERE PAIN 7-10 Last administered on 02/14/19 01:18; Admin Dose 0.5 MG; Start 02/07/19 at 14:00 Furosemide (Lasix) 20 mg DAILY IV Last administered on 02/11/19 08:26; Admin Dose 20 MG; Start 02/09/19 at 09:00; Status Hold Hydralazine HCl (Apresoline) 25 mg Q12 PO Last administered on 02/14/19 08:23; Admin Dose 25 MG; Start 02/08/19 at 21:00 Piperacillin Sod/ Tazobactam Sod 100 ml @ 25 mls/hr TID@ IVPB Last administered on 02/14/19at 10:46; Admin Dose 25 MLS/HR; Start 02/10/19 at 10:00 Lansoprazole (Prevacid) 30 mg BID@ NGT Last administered on 02/14/19at 06:03; Admin Dose 30 MG; Start 02/10/19 at 18:00 Diagnostic Test (Pha) (Accu-Chek) 1 ea 02 XX Last administered on 02/14/19at 02:25; Admin Dose 1 EA; Start 02/12/19 at 02:00 Miscellaneous Information 1 ea NOTE XX ; Start 02/11/19 at 07:30 Glucose (Glutose) 15 gm Q15M PRN PO DECREASED GLUCOSE; Start 02/11/19 at 07:30 Glucose (Glutose) 22.5 gm Q15M PRN PO DECREASED GLUCOSE; Start 02/11/19 at 07:30 Dextrose (D50w Syringe) 25 ml Q15M PRN IV DECREASED GLUCOSE; Start 02/11/19 at 07:30 Dextrose (D50w Syringe) 50 ml Q15M PRN IV DECREASED GLUCOSE; Start 02/11/19 at 07:30 Glucagon (Glucagen) 1 mg Q15M PRN IM DECREASED GLUCOSE; Start 02/11/19 at 07:30 Glucose (Glutose) 15 gm Q15M PRN BUCCAL DECREASED GLUCOSE; Start 02/11/19 at 07:30 Miscellaneous Information 1 ea NOTE XX ; Start 02/11/19 at 11:00 Glucose (Glutose) 15 gm Q15M PRN PO DECREASED GLUCOSE; Start 02/11/19 at 11:00 Glucose (Glutose) 22.5 gm Q15M PRN PO DECREASED GLUCOSE; Start 02/11/19 at 11:00 Dextrose (D50w Syringe) 25 ml Q15M PRN IV DECREASED GLUCOSE; Start 02/11/19 at 11:00 Dextrose (D50w Syringe) 50 ml Q15M PRN IV DECREASED GLUCOSE; Start 02/11/19 at 11:00 Glucagon (Glucagen) 1 mg Q15M PRN IM DECREASED GLUCOSE; Start 02/11/19 at 11:00 Glucose (Glutose) 15 gm Q15M PRN BUCCAL DECREASED GLUCOSE; Start 02/11/19 at 11:00 Insulin Glargine (Lantus) 11 units DAILY@2000 SC Last administered on 02/13/19at 21:27; Admin Dose 11 UNITS; Start 02/11/19 at 20:00 Lactulose (Enulose) 20 gm BID PO Last administered on 02/14/19at 08:21; Admin Dose 20 GM; Start 02/12/19 at 21:00 Insulin Aspart (Novolog Insulin Pen) NOVOLOG *MODERATE* ALGORI... Q6 SC Last administered on 02/14/19at 06:18; Admin Dose 4 UNIT; Start 02/12/19 at 18:00 LUZMARIA KEVIN Feb 14, 2019 12:23
--- NOTE | 2019-02-14 13:48 | PN ---
Date/Time of Note Date/Time of Note DATE: 02/14/19 TIME: 13:45 Assessment/Plan VTE Prophylaxis Risk score (from Ns)>0 risk: 7 SCD applied (from Ns): Yes Pharmacological prophylaxis: NA/contraindicated Pharm contraindication: bleeding Lines/Catheters IV Catheter Type (from Nrsg): Saline Lock Assessment/Plan Assessment/Plan 1. Acute encephalopathy, toxic- improving - Patient awake and following commands. Still slightly disoriented. - continue tx UTI - WBC trending down - CT head negative for acute abnormalities - CT A/P noted with enteritis - remains afebrile 2. Acute GI bleed s/p EGD - GI on board and appreciate recommendations. EGD 02/04 shows extensive ulcerations in jejunal side of GJ. distal esophagitis - continue on PPI via NG tube and Carafate - Continue to trend Hgb. 3. SVT with aberrancy- resolved - Cardiology consultation appreciated 4. Symptomatic anemia secondary to acute blood loss - hemoglobin continues to fluctuate but no need for transfusions at this time - goal hgb >7.5 5. 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 no need for paracentesis at this time 6. Hypothyroidism - On Synthroid 7. Diabetes - ISS and accuchecks - sugars elevated while on TF - A1c 5.7 8. ANTONIETTA - most likely secondary to hemodynamics - avoid nephrotoxic agents - holding diuretics 9. History of coronary disease - stable - no chest pain noted 10. Disposition - Continue monitoring H/H and may need repeat EGD in the near future. - Will most likely need ARU once all issues resolved Result Diagram: 02/14/19 1033 02/14/19 1033 Subjective 24 Hr Interval Summary Free Text/Dictation No acute overnight events. Patient is awake and alert. Disoriented to time but speaks Malay, answering questions. I updated his daughter about the plan. Exam/Review of Systems Exam Vitals Vital Signs Date Temp Pulse Resp B/P (MAP) Pulse Ox O2 O2 Flow FiO2 Time Delivery Rate 02/14/19 73 12:18 02/14/19 97.8 22 103/56 96 Nasal 2.0 08:41 (72) Cannula Intake and Output 02/13/19 02/13/1919 1515:00 23:00 07:00 IntakeIntake Total 240 ml OutputOutput Total 400 ml BalanceBalance 240 ml -400 ml Exam General: frail appearing elderly man. answering some questions. following commands HEENT: Moist mucous membranes, claer oropharynx. Neck: supple CVS: S1, S2, regular rate and rhythm. no murmurs Lungs: clear to auscultation bilaterally. no wheezing or rhonchi Abd: soft, nontender, nondistended. no rebound or guarding. bowel sounds present diffusely Ext: moving all extremities. no cyanosis, clubbing, or edema Skin: warm, dry. no rashes or lesions appreciated Neuro: awake and alert. Oriented to name, location ("hospital"), but not time (says repeatedly it is the century). Results Results 24hrs Laboratory Tests Test 02/13/19 17:27 02/13/19 20:01 02/13/19 23:54 02/14/19 02:06 Bedside Glucose 190 293 H 220 194 Test 02/14/19 06:02 02/14/19 08:19 02/14/19 10:33 02/14/19 12:47 Bedside Glucose 189 210 313 H White Blood Count 16.2 H Red Blood Count 2.71 L Hemoglobin 8.4 L Hematocrit 27.1 L Mean Corpuscular 100.0 Volume Mean Corpuscular 31.0 Hemoglobin Mean Corpuscular 31.0 L Hemoglobin Concent Red Cell 17.4 H Distribution Width Platelet Count 301 # Mean Platelet Volume 13.5 H Immature 0.700 H Granulocytes % Neutrophils % 84.3 H Lymphocytes % 6.8 L Monocytes % 5.7 Eosinophils % 2.3 Basophils % 0.2 Nucleated Red Blood 0.0 Cells % Immature 0.120 H Granulocytes # Neutrophils # 13.6 H Lymphocytes # 1.1 Monocytes # 0.9 Eosinophils # 0.4 Basophils # 0.0 Nucleated Red Blood 0.0 Cells # Sodium Level 141 Potassium Level 4.0 Chloride Level 108 Carbon Dioxide Level 26 Anion Gap 7 Blood Urea Nitrogen 59 H Creatinine 1.88 H Est Glomerular Filtrat Rate mL/min Glucose Level 260 H Calcium Level 7.8 L Medications Medication Current Medications IV Flush (NS 3 ml) 3 ml PER PROTOCOL IV ; Start 02/03/19 at 14:00 Ondansetron HCl (Zofran Inj) 4 mg Q6H PRN IV NAUSEA/VOMITING; Start 02/03/19 at 14:00 Acetaminophen (Tylenol Tab) 650 mg Q6H PRN PO .PAIN 1-3 OR TEMP; Start 02/03/19 at 14:00 Acetaminophen/ Hydrocodone Bitart ([place] (5/325)) 1 tab Q6H PRN PO .MOD PAIN 4- 6 Last administered on 02/04/19 06:09; Admin Dose 1 TAB; Start 02/03/19 at 14:00 Docusate Sodium (Colace) 100 mg Q12H PRN PO .CONSTIPATION; Start 02/03/19 at 14:00 Furosemide (Lasix) 40 mg DAILY PO Last administered on 02/04/19 09:24; Admin Dose 40 MG; Start 02/04/19 at 09:00; Status Hold Levothyroxine Sodium (Synthroid) 25 mcg BEFORE BREAKFAST PO Last administered on 02/14/19 06:03; Admin Dose 25 MCG; Start 02/04/19 at 07:00 Spironolactone (Aldactone) 25 mg DAILY PO Last administered on 02/12/19 08:57; Admin Dose 25 MG; Start 02/04/19 at 09:00; Status Hold Sodium Chloride (Deep Sea) 2 spray BID NASAL Last administered on 02/14/19 08:21; Admin Dose 2 SPRAY; Start 02/04/19 at 11:00 Rifaximin (Xifaxan) 550 mg BID NGT Last administered on 02/14/19 08:21; Admin Dose 550 MG; Start 02/06/19 at 21:00 Sucralfate (Carafate Susp) 1 gm QID NGT Last administered on 02/14/19 12:48; Admin Dose 1 GM; Start 02/06/19 at 13:00 Metoclopramide HCl (Reglan) 10 mg Q6 IV Last administered on 02/14/19 12:48; Admin Dose 10 MG; Start 02/06/19 at 18:00 Propranolol HCl (Inderal) 20 mg BID PO Last administered on 02/14/19 08:22; Admin Dose 20 MG; Start 02/06/19 at 21:00 Metoprolol Tartrate (Lopressor) 5 mg Q4H PRN IV HR>110 Hold SBP<100 Last administered on 02/06/19at 21:57; Admin Dose 5 MG; Start 02/06/19 at 17:30 Morphine Sulfate (morphine) 0.5 mg Q4H PRN IV .SEVERE PAIN 7-10 Last administered on 02/14/19at 01:18; Admin Dose 0.5 MG; Start 02/07/19 at 14:00 Furosemide (Lasix) 20 mg DAILY IV Last administered on 02/11/19at 08:26; Admin Dose 20 MG; Start 02/09/19 at 09:00; Status Hold Hydralazine HCl (Apresoline) 25 mg Q12 PO Last administered on 02/14/19at 08:23; Admin Dose 25 MG; Start 02/08/19 at 21:00 Piperacillin Sod/ Tazobactam Sod 100 ml @ 25 mls/hr TID@02,,18 IVPB Last administered on 02/14/19at 10:46; Admin Dose 25 MLS/HR; Start 02/10/19 at 10:00 Lansoprazole (Prevacid) 30 mg BID@18 NGT Last administered on 02/14/19at 06:03; Admin Dose 30 MG; Start 02/10/19 at 18:00 Diagnostic Test (Pha) (Accu-Chek) 1 ea 02 XX Last administered on 02/14/19at 02:25; Admin Dose 1 EA; Start 02/12/19 at 02:00 Miscellaneous Information 1 ea NOTE XX ; Start 02/11/19 at 07:30 Glucose (Glutose) 15 gm Q15M PRN PO DECREASED GLUCOSE; Start 02/11/19 at 07:30 Glucose (Glutose) 22.5 gm Q15M PRN PO DECREASED GLUCOSE; Start 02/11/19 at 07:30 Dextrose (D50w Syringe) 25 ml Q15M PRN IV DECREASED GLUCOSE; Start 02/11/19 at 07:30 Dextrose (D50w Syringe) 50 ml Q15M PRN IV DECREASED GLUCOSE; Start 02/11/19 at 07:30 Glucagon (Glucagen) 1 mg Q15M PRN IM DECREASED GLUCOSE; Start 02/11/19 at 07:30 Glucose (Glutose) 15 gm Q15M PRN BUCCAL DECREASED GLUCOSE; Start 02/11/19 at 07:30 Miscellaneous Information 1 ea NOTE XX ; Start 02/11/19 at 11:00 Glucose (Glutose) 15 gm Q15M PRN PO DECREASED GLUCOSE; Start 02/11/19 at 11:00 Glucose (Glutose) 22.5 gm Q15M PRN PO DECREASED GLUCOSE; Start 02/11/19 at 11:00 Dextrose (D50w Syringe) 25 ml Q15M PRN IV DECREASED GLUCOSE; Start 02/11/19 at 11:00 Dextrose (D50w Syringe) 50 ml Q15M PRN IV DECREASED GLUCOSE; Start 02/11/19 at 11:00 Glucagon (Glucagen) 1 mg Q15M PRN IM DECREASED GLUCOSE; Start 02/11/19 at 11:00 Glucose (Glutose) 15 gm Q15M PRN BUCCAL DECREASED GLUCOSE; Start 02/11/19 at 11:00 Insulin Glargine (Lantus) 11 units DAILY@2000 SC Last administered on 02/13/19at 21:27; Admin Dose 11 UNITS; Start 02/11/19 at 20:00 Lactulose (Enulose) 20 gm BID PO Last administered on 02/14/19at 08:21; Admin Dose 20 GM; Start 02/12/19 at 21:00 Insulin Aspart (Novolog Insulin Pen) NOVOLOG *MODERATE* ALGORI... Q6 SC Last administered on 02/14/19at 12:54; Admin Dose 10 UNIT; Start 02/12/19 at 18:00 LUZMARIA CROWE MD Feb 14, 2019 13:48
--- NOTE | 2019-02-14 15:09 | CONS ---
Assessment/Plan Assessment/Plan Hospital Course (Demo Recall) Patient is awake and feels better today tolerates diet no fevers overnight WBC 16.2 platelets 301 neutrophils 84.3 BUN 59 creatinine 1.88 Antimicrobials: Zosyn day #5 Blood cultures from yesterday negative. Urine culture grew Klebsiella and enterococcus species Physical examination: this is a chronically ill-appearing wasted elderly man who is awake, in no distress head atraumatic normocephalic sclera nonicteric vehicle mucosa dry neck is supple chest rise symmetrical breath sounds diminished bases heart: S1-S2 abdomen distended soft bowel sounds hypoactive extremities with trace edema and cyanosis Assessment: 1. SIRS with ongoing leukocytosis procalcitonin level 2.23 2. Possible aspiration 3. Polymicrobial UTI 4. Acute encephalopathy 5. Cryptogenic cirrhosis 6. Diabetes Plan: Patient is clinically improving although still with persistent leukocytosis will order chest x-ray to evaluate for aspiration, continue antibiotics, continue aspiration precautions Consultation Date/Type/Reason Admit Date/Time Feb 03, 2019 at 09:30 Initial Consult Date 02/03/19 Type of Consult id Requesting Provider: SUDHIR BARRIENTOS Date/Time of Note DATE: 02/14/19 TIME: 15:07 Exam/Review of Systems Exam Vitals Vital Signs Date Temp Pulse Resp B/P (MAP) Pulse Ox O2 O2 Flow FiO2 Time Delivery Rate 02/14/19 73 12:18 02/14/19 97.8 22 103/56 96 Nasal 2.0 08:41 (72) Cannula Intake and Output 02/13/19 02/13/19 02/14/19 1515:00 23:00 07:00 IntakeIntake Total 240 ml OutputOutput Total 400 ml BalanceBalance 240 ml -400 ml Results Result Diagram: 02/14/19 1033 02/14/19 1033 Results 24hrs Laboratory Tests Test 02/13/19 17:27 02/13/19 20:01 02/13/19 23:54 02/14/19 02:06 Bedside Glucose 190 293 H 220 194 Test 02/14/19 06:02 02/14/19 08:19 02/14/19 10:33 02/14/19 12:47 Bedside Glucose 189 210 313 H White Blood Count 16.2 H Red Blood Count 2.71 L Hemoglobin 8.4 L Hematocrit 27.1 L Mean Corpuscular 100.0 Volume Mean Corpuscular 31.0 Hemoglobin Mean Corpuscular 31.0 L Hemoglobin Concent Red Cell 17.4 H Distribution Width Platelet Count 301 # Mean Platelet Volume 13.5 H Immature 0.700 H Granulocytes % Neutrophils % 84.3 H Lymphocytes % 6.8 L Monocytes % 5.7 Eosinophils % 2.3 Basophils % 0.2 Nucleated Red Blood 0.0 Cells % Immature 0.120 H Granulocytes # Neutrophils # 13.6 H Lymphocytes # 1.1 Monocytes # 0.9 Eosinophils # 0.4 Basophils # 0.0 Nucleated Red Blood 0.0 Cells # Sodium Level 141 Potassium Level 4.0 Chloride Level 108 Carbon Dioxide Level 26 Anion Gap 7 Blood Urea Nitrogen 59 H Creatinine 1.88 H Est Glomerular Filtrat Rate mL/min Glucose Level 260 H Calcium Level 7.8 L Medications Medication Current Medications IV Flush (NS 3 ml) 3 ml PER PROTOCOL IV ; Start 02/03/19 at 14:00 Ondansetron HCl (Zofran Inj) 4 mg Q6H PRN IV NAUSEA/VOMITING; Start 02/03/19 at 14:00 Acetaminophen (Tylenol Tab) 650 mg Q6H PRN PO .PAIN 1-3 OR TEMP; Start 02/03/19 at 14:00 Acetaminophen/ Hydrocodone Bitart ([place] (5/325)) 1 tab Q6H PRN PO .MOD PAIN 4- 6 Last administered on 02/04/19at 06:09; Admin Dose 1 TAB; Start 02/03/19 at 14:00 Docusate Sodium (Colace) 100 mg Q12H PRN PO .CONSTIPATION; Start 02/03/19 at 14:00 Furosemide (Lasix) 40 mg DAILY PO Last administered on 02/04/19at 09:24; Admin Dose 40 MG; Start 02/04/19 at 09:00; Status Hold Levothyroxine Sodium (Synthroid) 25 mcg BEFORE BREAKFAST PO Last administered on 02/14/19at 06:03; Admin Dose 25 MCG; Start 02/04/19 at 07:00 Spironolactone (Aldactone) 25 mg DAILY PO Last administered on 02/12/19at 08:57; Admin Dose 25 MG; Start 02/04/19 at 09:00; Status Hold Sodium Chloride (Deep Sea) 2 spray BID NASAL Last administered on 02/14/19at 08:21; Admin Dose 2 SPRAY; Start 02/04/19 at 11:00 Rifaximin (Xifaxan) 550 mg BID NGT Last administered on 02/14/19 08:21; Admin Dose 550 MG; Start 02/06/19 at 21:00 Sucralfate (Carafate Susp) 1 gm QID NGT Last administered on 02/14/19 12:48; Admin Dose 1 GM; Start 02/06/19 at 13:00 Metoclopramide HCl (Reglan) 10 mg Q6 IV Last administered on 02/14/19 12:48; Admin Dose 10 MG; Start 02/06/19 at 18:00 Propranolol HCl (Inderal) 20 mg BID PO Last administered on 02/14/19 08:22; A dmin Dose 20 MG; Start 02/06/19 at 21:00 Metoprolol Tartrate (Lopressor) 5 mg Q4H PRN IV HR>110 Hold SBP<100 Last administered on 02/06/19 21:57; Admin Dose 5 MG; Start 02/06/19 at 17:30 Morphine Sulfate (morphine) 0.5 mg Q4H PRN IV .SEVERE PAIN 7-10 Last administered on 02/14/19 01:18; Admin Dose 0.5 MG; Start 02/07/19 at 14:00 Furosemide (Lasix) 20 mg DAILY IV Last administered on 02/11/19 08:26; Admin Dose 20 MG; Start 02/09/19 at 09:00; Status Hold Hydralazine HCl (Apresoline) 25 mg Q12 PO Last administered on 02/14/19 08:23; Admin Dose 25 MG; Start 02/08/19 at 21:00 Piperacillin Sod/ Tazobactam Sod 100 ml @ 25 mls/hr TID@02,,18 IVPB Last administered on 02/14/19 10:46; Admin Dose 25 MLS/HR; Start 02/10/19 at 10:00 Lansoprazole (Prevacid) 30 mg BID@06,18 NGT Last administered on 02/14/19 06:03; Admin Dose 30 MG; Start 02/10/19 at 18:00 Diagnostic Test (Pha) (Accu-Chek) 1 ea 02 XX Last administered on 6/20/19at 02:25; Admin Dose 1 EA; Start 02/12/19 at 02:00 Miscellaneous Information 1 ea NOTE XX ; Start 02/11/19 at 07:30 Glucose (Glutose) 15 gm Q15M PRN PO DECREASED GLUCOSE; Start 02/11/19 at 07:30 Glucose (Glutose) 22.5 gm Q15M PRN PO DECREASED GLUCOSE; Start 02/11/19 at 07:30 Dextrose (D50w Syringe) 25 ml Q15M PRN IV DECREASED GLUCOSE; Start 02/11/19 at 07:30 Dextrose (D50w Syringe) 50 ml Q15M PRN IV DECREASED GLUCOSE; Start 02/11/19 at 07:30 Glucagon (Glucagen) 1 mg Q15M PRN IM DECREASED GLUCOSE; Start 02/11/19 at 07:30 Glucose (Glutose) 15 gm Q15M PRN BUCCAL DECREASED GLUCOSE; Start 02/11/19 at 07:30 Miscellaneous Information 1 ea NOTE XX ; Start 02/11/19 at 11:00 Glucose (Glutose) 15 gm Q15M PRN PO DECREASED GLUCOSE; Start 02/11/19 at 11:00 Glucose (Glutose) 22.5 gm Q15M PRN PO DECREASED GLUCOSE; Start 02/11/19 at 11:00 Dextrose (D50w Syringe) 25 ml Q15M PRN IV DECREASED GLUCOSE; Start 02/11/19 at 11:00 Dextrose (D50w Syringe) 50 ml Q15M PRN IV DECREASED GLUCOSE; Start 02/11/19 at 11:00 Glucagon (Glucagen) 1 mg Q15M PRN IM DECREASED GLUCOSE; Start 02/11/19 at 11:00 Glucose (Glutose) 15 gm Q15M PRN BUCCAL DECREASED GLUCOSE; Start 02/11/19 at 11:00 Insulin Glargine (Lantus) 11 units DAILY@2000 SC Last administered on 02/13/19at 21:27; Admin Dose 11 UNITS; Start 02/11/19 at 20:00 Lactulose (Enulose) 20 gm BID PO Last administered on 02/14/19at 08:21; Admin Dose 20 GM; Start 02/12/19 at 21:00 Insulin Aspart (Novolog Insulin Pen) NOVOLOG *MODERATE* ALGORI... Q6 SC Last administered on 02/14/19at 12:54; Admin Dose 10 UNIT; Start 02/12/19 at 18:00 JIM ANTOINE NP Feb 14, 2019 15:09
[2019-02-14] MEDS: INSULIN GLARGINE [LANTus] (100 UNITS/ML) SYG SC SCH (21:14)
[2019-02-14] MEDS: COLCHICINE 0.6 MG CAP PO SCH (22:38)
[2019-02-15] VITALS (10 sets, daily range): BP systolic 97–135; BP diastolic 53–65; PULSE 68–96; RESP 18–20
[2019-02-15] MEDS: ACCU-CHEK XX SCH (01:45)
[2019-02-15] MEDS: PIPER-TAZO 3.375 GM IV (PMX) 100 ML IVPB SCH ×3 (01:45→17:33)
[2019-02-15] MEDS: LANSOPRAZOLE 30 MG CAP NGT SCH ×2 (06:19→17:32)
[2019-02-15] MEDS: LEVOTHYROXINE 25 MCG TAB PO SCH (06:19)
[2019-02-15] MEDS: METOCLOPRAMIDE 10 MG INJ IV SCH ×3 (06:19→17:32)
[2019-02-15] MEDS: SUCRALFATE (100 MG/ML) 10ML CUP NGT SCH ×4 (08:20→21:17)
[2019-02-15] MEDS: COLCHICINE 0.6 MG CAP PO SCH ×2 (08:20→21:17)
[2019-02-15] MEDS: LACTULOSE 30ML CUP PO SCH ×2 (08:20→21:17)
[2019-02-15] MEDS: RIFAXIMIN 550 MG TAB NGT SCH ×2 (08:20→21:16)
[2019-02-15] MEDS: SALINE 0.65% 45 ML NAS SPRAY NASAL SCH ×2 (08:21→21:21)
[2019-02-15] MEDS: PROPRANOLOL 20 MG TAB PO SCH ×2 (08:21→21:17)
[2019-02-15] MEDS ORDERED: SOD CHLORIDE 0.9% 250 ML IV* ONE (08:25)
[2019-02-15] MEDS: INSULIN ASPART [NOVOLOG] 3 ML PEN SC SCH ×4 (08:25→21:00)
--- NOTE | 2019-02-15 10:50 | PN ---
Date/Time of Note Date/Time of Note DATE: 02/15/19 TIME: 10:44 Assessment/Plan VTE Prophylaxis Risk score (from Ns)>0 risk: 7 SCD applied (from Ns): Yes Pharmacological prophylaxis: NA/contraindicated Pharm contraindication: low risk/ambulating Lines/Catheters IV Catheter Type (from Nrs): Saline Lock Assessment/Plan Assessment/Plan Frail 78 yo man with history of cirrhosis and partial gastrectomy presents with GI bleed from anastamosis site. # Acute encephalopathy, toxic - Patient awake and following commands. Still slightly disoriented. - continue tx UTI - CT head negative for acute abnormalities - remains afebrile 2. Acute GI bleed s/p EGD - GI on board and appreciate recommendations. EGD 02/04 shows extensive ulcerations in jejunal side of GJ. distal esophagitis - continue on PPI via NG tube and Carafate - Continue to trend Hgb. 3. SVT with aberrancy- resolved - Cardiology consultation appreciated 4. Symptomatic anemia secondary to acute blood loss - hemoglobin continues to fluctuate but no need for transfusions at this time - goal hgb >7.5 5. Cryptogenic cirrhosis with refractory ascites - per daughter cirrhosis is due to heavy Tylenol use - diuretics on hold given ANTONIETTA - previous work-up was negative for autoimmune and viral etiologies - US abd with mild ascites. no need for paracentesis at this time 6. Hypothyroidism - On Synthroid 7. Diabetes - ISS and accuchecks - sugars elevated while on TF - A1c 5.7 8. ANTONIETTA - most likely secondary to hemodynamics - avoid nephrotoxic agents - holding diuretics - Consulted Dr. Garcia 9. History of coronary disease - stable - no chest pain noted 10. Disposition - Prior to this admission apparently patient was fully functional, doing all ADLs - However now, the patient is failing to make meaningful clinical improvement after almost two weeks. - Due to his advanced age, frailty, and multiple comorbidities his shelter prognosis is poor and a goals of care discussion would be appropriate. Result Diagram: 02/15/19 0451 02/15/19450 Subjective 24 Hr Interval Summary Free Text/Dictation Poor appetite. Did not eat breakfast. Somnolent but arousable. Exam/Review of Systems Exam Vitals Vital Signs Date Temp Pulse Resp B/P (MAP) Pulse Ox O2 O2 Flow FiO2 Time Delivery Rate 6/21/19 86 09:34 02/15/19 98.8 19 107/60 98 07:27 (76) 02/14/19 Nasal 2.0 20:59 Cannula Intake and Output 02/14/19 02/14/19 02/15/19 1515:00 23:00 07:00 IntakeIntake Total 600 ml 430 ml 80 ml BalanceBalance 600 ml 430 ml 80 ml Exam General: frail appearing elderly man. answering some questions. following commands HEENT: Moist mucous membranes, claer oropharynx. Neck: supple CVS: S1, S2, regular rate and rhythm. no murmurs Lungs: clear to auscultation bilaterally. no wheezing or rhonchi Abd: soft, nontender, nondistended. no rebound or guarding. bowel sounds present diffusely Ext: moving all extremities. no cyanosis, clubbing, or edema Skin: warm, dry. no rashes or lesions appreciated Neuro: awake and alert. Oriented to name, location ("hospital"), needs to look at board for date (also incorrectly read year as 2016 instead of 2018) Results Results 24hrs Laboratory Tests Test 02/14/19 12:47 02/14/19 17:16 02/14/19 21:03 02/15/19 01:44 Bedside Glucose 313 H 202 300 H 221 H Test 02/15/19 04:51 02/15/19 05:11 02/15/19 08:19 White Blood Count 20.9 #H Red Blood Count 2.55 L Hemoglobin 7.9 L Hematocrit 24.9 L Mean Corpuscular 97.6 Volume Mean Corpuscular 31.0 Hemoglobin Mean Corpuscular 31.7 L Hemoglobin Concen t Red Cell 17.2 H Distribution Width Platelet Count 275 Mean Platelet 12.7 H Volume Immature 0.800 H Granulocytes % Neutrophils % 83.7 H Lymphocytes % 7.3 L Monocytes % 6.9 Eosinophils % 1.1 Basophils % 0.2 Nucleated Red 0.0 Blood Cells % Immature 0.170 H Granulocytes # Neutrophils # 17.5 H Lymphocytes # 1.5 Monocytes # 1.5 H Eosinophils # 0.2 Basophils # 0.0 Nucleated Red 0.0 Blood Cells # Sodium Level 142 Potassium Level 3.6 Chloride Level 106 Carbon Dioxide 25 Level Anion Gap 11 Blood Urea 57 H Nitrogen Creatinine 2.17 H Est Glomerular Filtrat Rate mL/min Glucose Level 200 Calcium Level 7.3 L Phosphorus Level 4.1 Magnesium Level 2.6 H Total Bilirubin 0.7 Direct Bilirubin 0.00 Indirect 0.7 Bilirubin Aspartate Amino 44 Transf (AST/SGOT) Alanine 46 Aminotransferase (ALT/SGPT) Alkaline 153 H Phosphatase Total Protein 5.7 L Albumin 2.4 L Globulin 3.30 H Albumin/Globulin 0.72 Ratio Lab Scanned BLOOD TRANSFUSIO Report N Bedside Glucose 205 Medications Medication Current Medications IV Flush (NS 3 ml) 3 ml PER PROTOCOL IV ; Start 02/03/19 at 14:00 Ondansetron HCl (Zofran Inj) 4 mg Q6H PRN IV NAUSEA/VOMITING; Start 02/03/19 at 14:00 Acetaminophen (Tylenol Tab) 650 mg Q6H PRN PO .PAIN 1-3 OR TEMP; Start 02/03/19 at 14:00 Acetaminophen/ Hydrocodone Bitart ([place] (5/325)) 1 tab Q6H PRN PO .MOD PAIN 4- 6 Last administered on 02/04/19at 06:09; Admin Dose 1 TAB; Start 02/03/19 at 14:00 Docusate Sodium (Colace) 100 mg Q12H PRN PO .CONSTIPATION; Start 02/03/19 at 14:00 Furosemide (Lasix) 40 mg DAILY PO Last administered on 02/04/19at 09:24; Admin Dose 40 MG; Start 02/04/19 at 09:00; Status Hold Levothyroxine Sodium (Synthroid) 25 mcg BEFORE BREAKFAST PO Last administered on 02/15/19at 06:19; Admin Dose 25 MCG; Start 02/04/19 at 07:00 Spironolactone (Aldactone) 25 mg DAILY PO Last administered on 02/12/19at 08:57; Admin Dose 25 MG; Start 02/04/19 at 09:00; Status Hold Sodium Chloride (Deep Sea) 2 spray BID NASAL Last administered on 02/15/19 08:21; Admin Dose 2 SPRAY; Start 02/04/19 at 11:00 Rifaximin (Xifaxan) 550 mg BID NGT Last administered on 02/15/19 08:20; Admin Dose 550 MG; Start 02/06/19 at 21:00 Sucralfate (Carafate Susp) 1 gm QID NGT Last administered on 02/15/19 08:20; Admin Dose 1 GM; Start 02/06/19 at 13:00 Metoclopramide HCl (Reglan) 10 mg Q6 IV Last administered on 02/15/19 06:19; Admin Dose 10 MG; Start 02/06/19 at 18:00 Propranolol HCl (Inderal) 20 mg BID PO Last administered on 02/15/19 08:21; Admin Dose 20 MG; Start 02/06/19 at 21:00 Metoprolol Tartrate (Lopressor) 5 mg Q4H PRN IV HR>110 Hold SBP<100 Last administered on 02/06/19at 21:57; Admin Dose 5 MG; Start 02/06/19 at 17:30 Morphine Sulfate (morphine) 0.5 mg Q4H PRN IV .SEVERE PAIN 7-10 Last administered on 02/14/19at 21:09; Admin Dose 0.5 MG; Start 02/07/19 at 14:00 Furosemide (Lasix) 20 mg DAILY IV Last administered on 02/11/19 08:26; Admin Dose 20 MG; Start 02/09/19 at 09:00; Status Hold Hydralazine HCl (Apresoline) 25 mg Q12 PO Last administered on 02/15/19 08:20; Admin Dose 25 MG; Start 02/08/19 at 21:00 Piperacillin Sod/ Tazobactam Sod 100 ml @ 25 mls/hr TID@,18 IVPB Last administered on 02/15/19at 01:45; Admin Dose 25 MLS/HR; Start 02/10/19 at 10:00 Lansoprazole (Prevacid) 30 mg BID@18 NGT Last administered on 02/15/19at 06:19; Admin Dose 30 MG; Start 02/10/19 at 18:00 Diagnostic Test (Pha) (Accu-Chek) 1 ea 02 XX Last administered on 02/15/19at 01:45; Admin Dose 1 EA; Start 02/12/19 at 02:00 Miscellaneous Information 1 ea NOTE XX ; Start 02/11/19 at 07:30 Glucose (Glutose) 15 gm Q15M PRN PO DECREASED GLUCOSE; Start 02/11/19 at 07:30 Glucose (Glutose) 22.5 gm Q15M PRN PO DECREASED GLUCOSE; Start 02/11/19 at 07:30 Dextrose (D50w Syringe) 25 ml Q15M PRN IV DECREASED GLUCOSE; Start 02/11/19 at 07:30 Dextrose (D50w Syringe) 50 ml Q15M PRN IV DECREASED GLUCOSE; Start 02/11/19 at 07:30 Glucagon (Glucagen) 1 mg Q15M PRN IM DECREASED GLUCOSE; Start 02/11/19 at 07:30 Glucose (Glutose) 15 gm Q15M PRN BUCCAL DECREASED GLUCOSE; Start 02/11/19 at 07:30 Miscellaneous Information 1 ea NOTE XX ; Start 02/11/19 at 11:00 Glucose (Glutose) 15 gm Q15M PRN PO DECREASED GLUCOSE; Start 02/11/19 at 11:00 Glucose (Glutose) 22.5 gm Q15M PRN PO DECREASED GLUCOSE; Start 02/11/19 at 1 1:00 Dextrose (D50w Syringe) 25 ml Q15M PRN IV DECREASED GLUCOSE; Start 02/11/19 at 11:00 Dextrose (D50w Syringe) 50 ml Q15M PRN IV DECREASED GLUCOSE; Start 02/11/19 at 11:00 Glucagon (Glucagen) 1 mg Q15M PRN IM DECREASED GLUCOSE; Start 02/11/19 at 11:00 Glucose (Glutose) 15 gm Q15M PRN BUCCAL DECREASED GLUCOSE; Start 02/11/19 at 11:00 Insulin Glargine (Lantus) 11 units DAILY@2000 SC Last administered on 02/14/19at 21:14; Admin Dose 11 UNITS; Start 02/11/19 at 20:00 Lactulose (Enulose) 20 gm BID PO Last administered on 02/15/19at 08:20; Admin Dose 20 GM; Start 02/12/19 at 21:00 Colchicine (Colchicine) 0.6 mg BID PO Last administered on 02/15/19at 08:20; Admin Dose 0.6 MG; Start 02/14/19 at 22:30 Insulin Aspart (Novolog Insulin Pen) NOVOLOG *MODERATE* ALGORITHM WITH MEALS BEDTIME SC Last administered on 02/15/19at 08:25; Admin Dose 4 UNIT; Start 02/14/19 at 22:30 LUZMARIA CROWE MD Feb 15, 2019 10:50
--- NOTE | 2019-02-15 11:00 | CONS ---
Assessment/Plan Assessment/Plan Hospital Course (Demo Recall) IMPRESSION: 1. Wide complex tachycardia, likely consistent with supraventricular tachycardia with a baseline bundle branch block.-TSH WNL. NO recurrence. NL EF by echo this admit 2. Abnormal electrocardiogram with baseline bundle branch block. 3. Syncope on admit. Rule out cardiac etiology. Rule out cardiac arrhythmia as etiology versus anemia. 4. Cirrhosis. 5. Gastrointestinal bleed with melenic stools. 6. Peptic ulcer disease by endoscopy. 7. Renal failure-worsening 8. Hyponatremia. 9. Thrombocytopenia. 10. Anemia. 11. Encephalopathy-ongoing but improving 12. -mild to moderate by echo this admit Recc: -Tele -Continue propranolol and will will hold hydralazine given marginal BP -Contineu lactulose -Continue aldactone -lasix held in the setting of ARF -Follow MS -Follow HGb clsoely with further transfusions as necessary -continue abx'x and f/u cx data -started on colchicine Consultation Date/Type/Reason Admit Date/Time Feb 03, 2019 at 09:30 Initial Consult Date 02/03/19 Type of Consult Cardiology Reason for Consultation SVT Requesting Provider: SUDHIR BARRIENTOS Date/Time of Note DATE: 02/15/19 TIME: 10:58 Exam/Review of Systems Vital Signs Vitals Vital Signs Date Temp Pulse Resp B/P (MAP) Pulse Ox O2 O2 Flow FiO2 Time Delivery Rate 02/15/19 86 09:34 02/15/19 98.8 19 107/60 98 07:27 (76) 02/14/19 Nasal 2.0 20:59 Cannula Intake and Output 02/14/19 02/14/19 02/15/19 1515:00 23:00 07:00 IntakeIntake Total 600 ml 430 ml 80 ml BalanceBalance 600 ml 430 ml 80 ml Exam Exam Review of Systems: CONSTITUTIONAL: No fevers, chills. PULMONARY: No sob CARDIOVASCULAR: No chest pain/palpitations GASTROINTESTINAL: No nausea/vomiting. GENITOURINARY: No hematuria/dysuria. MUSCULOSKELETAL: No myagias/arthalgias. PSYCHIATRIC: The patient denies depression. NEUROLOGIC: lethargic Constitutional: other (sleeping) Head: normocephalic ENMT: mucosa pink and moist Neck: supple, jvd (9 cm water) Respiratory: diminished breath sounds (at bases/B) Cardiovascular: regular rate and rhythm Gastrointestinal: soft Musculoskeletal: muscle weakness (mild generalized) Extremities: edema (trace) Neurological: confused, lethargic Labs Result Diagram: 02/15/19 0451 02/15/19 0451 Results 24hrs Laboratory Tests Test 02/14/19 12:47 02/14/19 17:16 02/14/19 21:03 02/15/19 01:44 Bedside Glucose 313 H 202 300 H 221 H Test 02/15/19 04:51 02/15/19 05:11 02/15/19 08:19 White Blood Count 20.9 #H Red Blood Count 2.55 L Hemoglobin 7.9 L Hematocrit 24.9 L Mean Corpuscular 97.6 Volume Mean Corpuscular 31.0 Hemoglobin Mean Corpuscular 31.7 L Hemoglobin Concen t Red Cell 17.2 H Distribution Width Platelet Count 275 Mean Platelet 12.7 H Volume Immature 0.800 H Granulocytes % Neutrophils % 83.7 H Lymphocytes % 7.3 L Monocytes % 6.9 Eosinophils % 1.1 Basophils % 0.2 Nucleated Red 0.0 Blood Cells % Immature 0.170 H Granulocytes # Neutrophils # 17.5 H Lymphocytes # 1.5 Monocytes # 1.5 H Eosinophils # 0.2 Basophils # 0.0 Nucleated Red 0.0 Blood Cells # Sodium Level 142 Potassium Level 3.6 Chloride Level 106 Carbon Dioxide 25 Level Anion Gap 11 Blood Urea 57 H Nitrogen Creatinine 2.17 H Est Glomerular Filtrat Rate mL/min Glucose Level 200 Calcium Level 7.3 L Phosphorus Level 4.1 Magnesium Level 2.6 H Total Bilirubin 0.7 Direct Bilirubin 0.00 Indirect 0.7 Bilirubin Aspartate Amino 44 Transf (AST/SGOT) Alanine 46 Aminotransferase (ALT/SGPT) Alkaline 153 H Phosphatase Total Protein 5.7 L Albumin 2.4 L Globulin 3.30 H Albumin/Globulin 0.72 Ratio Lab Scanned BLOOD TRANSFUSIO Report N Bedside Glucose 205 Medications Medications Current Medications IV Flush (NS 3 ml) 3 ml PER PROTOCOL IV ; Start 02/03/19 at 14:00 Ondansetron HCl (Zofran Inj) 4 mg Q6H PRN IV NAUSEA/VOMITING; Start 02/03/19 at 14:00 Acetaminophen (Tylenol Tab) 650 mg Q6H PRN PO .PAIN 1-3 OR TEMP; Start 02/03/19 at 14:00 Acetaminophen/ Hydrocodone Bitart ([place] (5/325)) 1 tab Q6H PRN PO .MOD PAIN 4- 6 Last administered on 02/04/19 06:09; Admin Dose 1 TAB; Start 02/03/19 at 14:00 Docusate Sodium (Colace) 100 mg Q12H PRN PO .CONSTIPATION; Start 02/03/19 at 14:00 Furosemide (Lasix) 40 mg DAILY PO Last administered on 02/04/19 09:24; Admin Dose 40 MG; Start 02/04/19 at 09:00; Status Hold Levothyroxine Sodium (Synthroid) 25 mcg BEFORE BREAKFAST PO Last administered on 02/15/19 06:19; Admin Dose 25 MCG; Start 02/04/19 at 07:00 Spironolactone (Aldactone) 25 mg DAILY PO Last administered on 02/12/19 08:57; Admin Dose 25 MG; Start 02/04/19 at 09:00; Status Hold Sodium Chloride (Deep Sea) 2 spray BID NASAL Last administered on 02/15/19 08:21; Admin Dose 2 SPRAY; Start 02/04/19 at 11:00 Rifaximin (Xifaxan) 550 mg BID NGT Last administered on 02/15/19 08:20; Admin Dose 550 MG; Start 02/06/19 at 21:00 Sucralfate (Carafate Susp) 1 gm QID NGT Last administered on 02/15/19 08:20; Admin Dose 1 GM; Start 02/06/19 at 13:00 Metoclopramide HCl (Reglan) 10 mg Q6 IV Last administered on 02/15/19 06:19; Admin Dose 10 MG; Start 02/06/19 at 18:00 Propranolol HCl (Inderal) 20 mg BID PO Last administered on 02/15/19 08:21; Admin Dose 20 MG; Start 02/06/19 at 21:00 Metoprolol Tartrate (Lopressor) 5 mg Q4H PRN IV HR>110 Hold SBP<100 Last administered on 02/06/19 21:57; Admin Dose 5 MG; Start 02/06/19 at 17:30 Morphine Sulfate (morphine) 0.5 mg Q4H PRN IV .SEVERE PAIN 7-10 Last administered on 6/20/19at 21:09; Admin Dose 0.5 MG; Start 02/07/19 at 14:00 Furosemide (Lasix) 20 mg DAILY IV Last administered on 02/11/19at 08:26; Admin Dose 20 MG; Start 02/09/19 at 09:00; Status Hold Hydralazine HCl (Apresoline) 25 mg Q12 PO Last administered on 02/15/19at 08:20; Admin Dose 25 MG; Start 02/08/19 at 21:00 Piperacillin Sod/ Tazobactam Sod 100 ml @ 25 mls/hr TID@18 IVPB Last administered on 02/15/19at 01:45; Admin Dose 25 MLS/HR; Start 02/10/19 at 10:00 Lansoprazole (Prevacid) 30 mg BID@18 NGT Last administered on 02/15/19at 06:19; Admin Dose 30 MG; Start 02/10/19 at 18:00 Diagnostic Test (Pha) (Accu-Chek) 1 ea 02 XX Last administered on 02/15/19at 01:45; Admin Dose 1 EA; Start 02/12/19 at 02:00 Miscellaneous Information 1 ea NOTE XX ; Start 02/11/19 at 07:30 Glucose (Glutose) 15 gm Q15M PRN PO DECREASED GLUCOSE; Start 02/11/19 at 07:30 Glucose (Glutose) 22.5 gm Q15M PRN PO DECREASED GLUCOSE; Start 02/11/19 at 07:30 Dextrose (D50w Syringe) 25 ml Q15M PRN IV DECREASED GLUCOSE; Start 02/11/19 at 07:30 Dextrose (D50w Syringe) 50 ml Q15M PRN IV DECREASED GLUCOSE; Start 02/11/19 at 07:30 Glucagon (Glucagen) 1 mg Q15M PRN IM DECREASED GLUCOSE; Start 02/11/19 at 07:30 Glucose (Glutose) 15 gm Q15M PRN BUCCAL DECREASED GLUCOSE; Start 02/11/19 at 07:30 Miscellaneous Information 1 ea NOTE XX ; Start 02/11/19 at 11:00 Glucose (Glutose) 15 gm Q15M PRN PO DECREASED GLUCOSE; Start 02/11/19 at 11:00 Glucose (Glutose) 22.5 gm Q15M PRN PO DECREASED GLUCOSE; Start 02/11/19 at 11:00 Dextrose (D50w Syringe) 25 ml Q15M PRN IV DECREASED GLUCOSE; Start 02/11/19 at 11:00 Dextrose (D50w Syringe) 50 ml Q15M PRN IV DECREASED GLUCOSE; Start 02/11/19 at 11:00 Glucagon (Glucagen) 1 mg Q15M PRN IM DECREASED GLUCOSE; Start 02/11/19 at 11:00 Glucose (Glutose) 15 gm Q15M PRN BUCCAL DECREASED GLUCOSE; Start 02/11/19 at 11:00 Insulin Glargine (Lantus) 11 units DAILY@2000 SC Last administered on 02/14/19at 21:14; Admin Dose 11 UNITS; Start 02/11/19 at 20:00 Lactulose (Enulose) 20 gm BID PO Last administered on 02/15/19at 08:20; Admin Dose 20 GM; Start 02/12/19 at 21:00 Colchicine (Colchicine) 0.6 mg BID PO Last administered on 02/15/19at 08:20; Admin Dose 0.6 MG; Start 02/14/19 at 22:30 Insulin Aspart (Novolog Insulin Pen) NOVOLOG *MODERATE* ALGORITHM WITH MEALS BEDTIME SC Last administered on 02/15/19at 08:25; Admin Dose 4 UNIT; Start 02/14/19 at 22:30 LUZMARIA KEVIN Feb 15, 2019 11:00
[2019-02-15] MEDS: ALBUMIN HUMAN 25% 100 ML IV SCH ×2 (13:02→21:46)
--- NOTE | 2019-02-15 13:19 | CONS ---
Assessment/Plan Assessment/Plan Hospital Course (Demo Recall) No events overnight patient is more lethargic today arousable denies pain no fevers overnight WBC 20.9 neutrophils 83.7 BUN 57 creatinine 2.17 Antimicrobials: Zosyn day #6 Blood cultures negative. Urine culture grew Klebsiella and enterococcus species Physical examination: this is a chronically ill-appearing wasted elderly man who is awake, in no distress head atraumatic normocephalic sclera nonicteric vehicle mucosa dry neck is supple chest rise symmetrical breath sounds diminished bases heart: S1-S2 abdomen distended soft bowel sounds hypoactive extremities with trace edema and cyanosis Assessment: 1. SIRS with ongoing leukocytosis procalcitonin level 2.23 2. Possible aspiration 3. Polymicrobial UTI 4. Acute encephalopathy 5. Cryptogenic cirrhosis 6. Diabetes 7. Acute renal failure Plan: White blood cell count is up today patient is more lethargic concern for urinary retention will order bladder scan with straight caths as needed Consultation Date/Type/Reason Admit Date/Time Feb 03, 2019 at 09:30 Initial Consult Date 02/03/19 Type of Consult id Requesting Provider: SUDHIR BARRIENTOS Date/Time of Note DATE: 02/15/19 TIME: 13:18 Exam/Review of Systems Exam Vitals Vital Signs Date Temp Pulse Resp B/P (MAP) Pulse Ox O2 O2 Flow FiO2 Time Delivery Rate 02/15/19 81 12:28 02/15/19 98.7 18 109/61 99 11:56 (77) 02/14/19 Nasal 2.0 20:59 Cannula Intake and Output 02/14/19 02/14/19 02/15/19 1515:00 23:00 07:00 IntakeIntake Total 600 ml 430 ml 80 ml BalanceBalance 600 ml 430 ml 80 ml Results Result Diagram: 02/15/19 0451 02/15/19 0451 Results 24hrs Laboratory Tests Test 02/14/19 17:16 02/14/19 21:03 02/15/19 01:44 02/15/19 04:51 Bedside Glucose 202 300 H 221 H White Blood Count 20.9 #H Red Blood Count 2.55 L Hemoglobin 7.9 L Hematocrit 24.9 L Mean Corpuscular 97.6 Volume Mean Corpuscular 31.0 Hemoglobin Mean Corpuscular 31.7 L Hemoglobin Concen t Red Cell 17.2 H Distribution Width Platelet Count 275 Mean Platelet 12.7 H Volume Immature 0.800 H Granulocytes % Neutrophils % 83.7 H Lymphocytes % 7.3 L Monocytes % 6.9 Eosinophils % 1.1 Basophils % 0.2 Nucleated Red 0.0 Blood Cells % Immature 0.170 H Granulocytes # Neutrophils # 17.5 H Lymphocytes # 1.5 Monocytes # 1.5 H Eosinophils # 0.2 Basophils # 0.0 Nucleated Red 0.0 Blood Cells # Sodium Level 142 Potassium Level 3.6 Chloride Level 106 Carbon Dioxide 25 Level Anion Gap 11 Blood Urea 57 H Nitrogen Creatinine 2.17 H Est Glomerular Filtrat Rate mL/min Glucose Level 200 Calcium Level 7.3 L Phosphorus Level 4.1 Magnesium Level 2.6 H Total Bilirubin 0.7 Direct Bilirubin 0.00 Indirect 0.7 Bilirubin Aspartate Amino 44 Transf (AST/SGOT) Alanine 46 Aminotransferase (ALT/SGPT) Alkaline 153 H Phosphatase Total Protein 5.7 L Albumin 2.4 L Globulin 3.30 H Albumin/Globulin 0.72 Ratio Test 02/15/19 05:11 02/15/19 08:19 02/15/19 12:40 Lab Scanned BLOOD TRANSFUSIO Report N Bedside Glucose 205 161 Medications Medication Current Medications IV Flush (NS 3 ml) 3 ml PER PROTOCOL IV ; Start 02/03/19 at 14:00 Ondansetron HCl (Zofran Inj) 4 mg Q6H PRN IV NAUSEA/VOMITING; Start 02/03/19 at 14:00 Acetaminophen (Tylenol Tab) 650 mg Q6H PRN PO .PAIN 1-3 OR TEMP; Start 02/03/19 at 14:00 Acetaminophen/ Hydrocodone Bitart ([place] (5/325)) 1 tab Q6H PRN PO .MOD PAIN 4- 6 Last administered on 02/04/19at 06:09; Admin Dose 1 TAB; Start 02/03/19 at 14:00 Docusate Sodium (Colace) 100 mg Q12H PRN PO .CONSTIPATION; Start 02/03/19 at 14:00 Furosemide (Lasix) 40 mg DAILY PO Last administered on 02/04/19at 09:24; Admin Dose 40 MG; Start 02/04/19 at 09:00; Status Hold Levothyroxine Sodium (Synthroid) 25 mcg BEFORE BREAKFAST PO Last administered on 02/15/19at 06:19; Admin Dose 25 MCG; Start 02/04/19 at 07:00 Spironolactone (Aldactone) 25 mg DAILY PO Last administered on 02/12/19 08:57; Admin Dose 25 MG; Start 02/04/19 at 09:00; Status Hold Sodium Chloride (Deep Sea) 2 spray BID NASAL Last administered on 02/15/19 08:21; Admin Dose 2 SPRAY; Start 02/04/19 at 11:00 Rifaximin (Xifaxan) 550 mg BID NGT Last administered on 02/15/19 08:20; Admin Dose 550 MG; Start 02/06/19 at 21:00 Sucralfate (Carafate Susp) 1 gm QID NGT Last administered on 02/15/19 12:41; Admin Dose 1 GM; Start 02/06/19 at 13:00 Metoclopramide HCl (Reglan) 10 mg Q6 IV Last administered on 02/15/19 12:41; Admin Dose 10 MG; Start 02/06/19 at 18:00 Propranolol HCl (Inderal) 20 mg BID PO Last administered on 02/15/19 08:21; Admin Dose 20 MG; Start 02/06/19 at 21:00 Metoprolol Tartrate (Lopressor) 5 mg Q4H PRN IV HR>110 Hold SBP<100 Last administered on 02/06/19 21:57; Admin Dose 5 MG; Start 02/06/19 at 17:30 Morphine Sulfate (morphine) 0.5 mg Q4H PRN IV .SEVERE PAIN 7-10 Last administered on 02/14/19 21:09; Admin Dose 0.5 MG; Start 02/07/19 at 14:00 Furosemide (Lasix) 20 mg DAILY IV Last administered on 02/11/19 08:26; Admin Dose 20 MG; Start 02/09/19 at 09:00; Status Hold Hydralazine HCl (Apresoline) 25 mg Q12 PO Last administered on 02/15/19 08:20; Admin Dose 25 MG; Start 02/08/19 at 21:00; Status Hold Piperacillin Sod/ Tazobactam Sod 100 ml @ 25 mls/hr TID@02,10,18 IVPB Last administered on 02/15/19 11:02; Admin Dose 25 MLS/HR; Start 02/10/19 at 10:00 Lansoprazole (Prevacid) 30 mg BID@06,18 NGT Last administered on 02/15/19at 06:19; Admin Dose 30 MG; Start 02/10/19 at 18:00 Diagnostic Test (Pha) (Accu-Chek) 1 ea 02 XX Last administered on 02/15/19at 01:45; Admin Dose 1 EA; Start 02/12/19 at 02:00 Miscellaneous Information 1 ea NOTE XX ; Start 02/11/19 at 07:30 Glucose (Glutose) 15 gm Q15M PRN PO DECREASED GLUCOSE; Start 02/11/19 at 07:30 Glucose (Glutose) 22.5 gm Q15M PRN PO DECREASED GLUCOSE; Start 02/11/19 at 07:30 Dextrose (D50w Syringe) 25 ml Q15M PRN IV DECREASED GLUCOSE; Start 02/11/19 at 07:30 Dextrose (D50w Syringe) 50 ml Q15M PRN IV DECREASED GLUCOSE; Start 02/11/19 at 07:30 Glucagon (Glucagen) 1 mg Q15M PRN IM DECREASED GLUCOSE; Start 02/11/19 at 07:30 Glucose (Glutose) 15 gm Q15M PRN BUCCAL DECREASED GLUCOSE; Start 02/11/19 at 07:30 Miscellaneous Information 1 ea NOTE XX ; Start 02/11/19 at 11:00 Glucose (Glutose) 15 gm Q15M PRN PO DECREASED GLUCOSE; Start 02/11/19 at 11:00 Glucose (Glutose) 22.5 gm Q15M PRN PO DECREASED GLUCOSE; Start 02/11/19 at 11:00 Dextrose (D50w Syringe) 25 ml Q15M PRN IV DECREASED GLUCOSE; Start 02/11/19 at 11:00 Dextrose (D50w Syringe) 50 ml Q15M PRN IV DECREASED GLUCOSE; Start 02/11/19 at 11:00 Glucagon (Glucagen) 1 mg Q15M PRN IM DECREASED GLUCOSE; Start 02/11/19 at 11:00 Glucose (Glutose) 15 gm Q15M PRN BUCCAL DECREASED GLUCOSE; Start 02/11/19 at 11:00 Insulin Glargine (Lantus) 11 units DAILY@1999 SC Last administered on 02/14/19at 21:14; Admin Dose 11 UNITS; Start 02/11/19 at 20:00 Lactulose (Enulose) 20 gm BID PO Last administered on 02/15/19at 08:20; Admin Dose 20 GM; Start 02/12/19 at 21:00 Colchicine (Colchicine) 0.6 mg BID PO Last administered on 02/15/19at 08:20; Admin Dose 0.6 MG; Start 02/14/19 at 22:30 Insulin Aspart (Novolog Insulin Pen) NOVOLOG *MODERATE* ALGORITHM WITH MEALS BEDTIME SC Last administered on 02/15/19at 12:46; Admin Dose 2 UNIT; Start 02/14/19 at 22:30 Albumin Human 100 ml @ 100 mls/hr Q8H IV Last administered on 02/15/19at 13:02; Admin Dose 100 MLS/HR; Start 02/15/19 at 13:00; Stop 02/16/19 at 05:59 JIM ANTOINE NP Feb 15, 2019 13:19
[2019-02-15] MEDS: BALSAM PERU/CASTOR OIL 60 GM TUBE TOP SCH ×2 (16:41→21:21)
--- NOTE | 2019-02-15 16:48 | CONS ---
DATE OF ADMISSION: 02/03/2019 DATE OF CONSULTATION: 02/15/2019 TYPE OF CONSULTATION: Nephrology. REASON FOR CONSULTATION: Acute kidney injury. PHYSICIAN REQUESTING CONSULTATION: Luzmaria Burch MD HISTORY OF PRESENT ILLNESS: This is an 78-year-old male with a past medical history of cirrhosis, hi story of gout, history of hypothyroidism, history of diabetes, history of coronary artery disease, wh o presented to [facility] in early January with symptoms of abdominal pain, weakness a nd syncope. The patient was subsequently admitted. On admission, the patient was noted to have sign ificant symptomatic anemia with hemoglobin of 7.2. The patient was typed and crossed and was transfu sed PRBC. During the hospital course however, the patient was noted to have episodes of encephalopat hy felt to be hepatic in nature. The patient also was seen by gastroenterology and was noted to have stools for occult blood. The patient had EGD which showed evidence of extensive ulceration and dist al esophagitis. The patient during hospital course was also on diuretic therapy for underlying decom pensated cirrhosis and volume overload. In terms of patient's renal history, on admission the patient has creatinine of 1.24 mg/dL. The keely ent's creatinine has been fluctuating during the hospital course. Most recently in the last 3 to 4 d ays, the patient's creatinine has increased and this morning at 2.17 mg/dL. During this time, the kike felipe has been receiving diuretic therapy. The patient has also been on antibiotics for leukocytosis and SIRS and possible UTI. There have been no reports of hemoptysis, hematemesis or hematochezia. No frothy urine. No rashes. PAST MEDICAL HISTORY: As stated above, history of cirrhosis, diabetes, hypertension, history of hypo thyroidism. PAST SURGICAL HISTORY: Has been reviewed. ALLERGIES: NO KNOWN DRUG ALLERGIES. FAMILY HISTORY: No family history of kidney disease. SOCIAL HISTORY: Does not drink, smoke or do drugs. MEDICATIONS: Have been reviewed. REVIEW OF SYSTEMS: A 14-point review of systems was conducted. Pertinent positives as stated in the HPI, otherwise negative. PHYSICAL EXAMINATION: VITAL SIGNS: Blood pressure is 109/61, respiration 19, pulse 86, temperature 98.7. HEENT: Head is normocephalic. NECK: Supple. HEART: Regular rate. LUNGS: Show diminished breath sounds at the base. ABDOMEN: Soft, nontender to palpation. No rebound or guarding. EXTREMITIES: Negative for clubbing or cyanosis. No edema. DERMATOLOGIC: No rashes. MUSCULOSKELETAL: No joint effusion. NEUROLOGIC: No focal deficits. LABORATORY DATA: Have been reviewed. IMAGING STUDIES: Have been reviewed. ASSESSMENT AND PLAN: This is an 78-year-old male who presents with: 1. Nonoliguric acute kidney injury with previous baseline creatinine around 1.0 mg/dL. Etiology of acute kidney injury is secondary to hemodynamics, diuretic therapy, volume depletion. Possibility of tubular injury or interstitial nephritis is less likely given patient's clinical presentation. Plan at this point is to repeat UA with microanalysis, check urine electrolytes, calculate FENa, fraction excretion of urea. The patient will be initiated on volume expansion with IV albumin. We will othe rwise continue supportive care, renally dose all meds, avoid nephrotoxins. 2. Anemia. Monitor hemoglobin and hematocrit levels. 3. Mineral bone disorder. Monitor calcium and phosphorus levels. 4. Acute encephalopathy. Etiology is toxic metabolic, possible . Continue to monitor. 5. Acute gastrointestinal bleed, status post EGD which showed evidence of extensive ulceration. Con tinue PPI. 6. Arrhythmia. Continue to monitor. Follow up with cardiology. 7. Cryptogenic cirrhosis with ascites. Continue medical management. Holding diuretic therapy at th is time in the setting of worsening renal function. Monitor closely. Follow up with GI. 8. Diabetes. Continue current insulin regimen. 9. Hypothyroidism. Continue Synthroid. 10. History of coronary artery disease. 11. Systemic inflammatory response syndrome. The patient has elevated white count with a recent his tory of urinary tract infection, remains on antibiotic therapy. Continue to monitor. Thank you, Dr. Burch, for this interesting consult. It will be a pleasure to follow patient with you throughout the hospital course. Dictated By: CLAYTON RODRIGUEZ DO NR/NTS Conf#: [id number] DID#: [id number] CC: SUDHIR BARRIENTOS MD; LUZMARIA BURCH MD;*EndCC*
--- NOTE | 2019-02-15 17:54 | PN ---
Date/Time of Note Date/Time of Note DATE: 02/15/19 TIME: 17:50 Assessment/Plan VTE Prophylaxis Risk score (from Ns)>0 risk: 7 SCD applied (from [facility]): Yes Pharmacological prophylaxis: NA/contraindicated Pharm contraindication: bleeding Lines/Catheters IV Catheter Type (from [email or web address] Saline Lock Assessment/Plan Assessment/Plan Assessment: Anemia - suspected GI bleeding UTI- on Zosyn Melena-resolved -EGD 02/04/19 Extensive ulceration in the jejunal side of the gastrojejunal Billroth II anastomosis. No stigmata recent bleeding no visible vessel. Distal esophagitis with ulceration. No stigmata. Recent bleeding. 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 Harvey Subjective: Course reviewed with nursing staff Patient interviewed and examined All labs, imaging and other results reviewed Patient is lethargic, confused but answers some yes and no questions. White blood count keeps trending up. ID is on the case. Treatment of UTI per ID. No overt signs of GI bleed. Hemoglobin is trending down 7.9 today. Patient is tolerating pured diet well, poor appetite due to lethargy. PHYSICAL EXAMINATION: GENERAL: Elderly, alert and oriented to name, year and events SKIN: No lesions HEAD: Normocephalic, atraumatic, no tenderness. EYES: Pupils equal reactive to light and accommodation, no discharge. EARS/NOSE AND THROAT: Ears normal, nose normal, NG tube in place NECK: Supple, no masses. CHEST: Inspection within normal limits. CARDIOVASCULAR: Heart: Regular rate and rhythm RESPIRATORY: Lungs clear to auscultation GASTROINTESTINAL AND LIVER: Abdomen: Soft, epigastric tenderness- resolved, non- distended, no hernias, no masses, no organomegaly, no ascites, no guarding, no rebound tenderness, normoactive bowel sounds. Rectal: Deferred. GENITOURINARY: Male genitalia within normal limits. EXTREMITIES: No cyanosis, clubbing or edema. Result Diagram: 02/15/19 0451 02/15/19 0451 Results 24hrs Laboratory Tests Test 02/14/19:03 02/15/19 01:44 02/15/19 04:51 02/15/19 05:11 Bedside Glucose 300 H 221 H White Blood Count 20.9 #H Red Blood Count 2.55 L Hemoglobin 7.9 L Hematocrit 24.9 L Mean Corpuscular 97.6 Volume Mean Corpuscular 31.0 Hemoglobin Mean Corpuscular 31.7 L Hemoglobin Concen t Red Cell 17.2 H Distribution Width Platelet Count 275 Mean Platelet 12.7 H Volume Immature 0.800 H Granulocytes % Neutrophils % 83.7 H Lymphocytes % 7.3 L Monocytes % 6.9 Eosinophils % 1.1 Basophils % 0.2 Nucleated Red 0.0 Blood Cells % Immature 0.170 H Granulocytes # Neutrophils # 17.5 H Lymphocytes # 1.5 Monocytes # 1.5 H Eosinophils # 0.2 Basophils # 0.0 Nucleated Red 0.0 Blood Cells # Sodium Level 142 Potassium Level 3.6 Chloride Level 106 Carbon Dioxide 25 Level Anion Gap 11 Blood Urea 57 H Nitrogen Creatinine 2.17 H Est Glomerular Filtrat Rate mL/min Glucose Level 200 Calcium Level 7.3 L Phosphorus Level 4.1 Magnesium Level 2.6 H Total Bilirubin 0.7 Direct Bilirubin 0.00 Indirect 0.7 Bilirubin Aspartate Amino 44 Transf (AST/SGOT) Alanine 46 Aminotransferase (ALT/SGPT) Alkaline 153 H Phosphatase Total Protein 5.7 L Albumin 2.4 L Globulin 3.30 H Albumin/Globulin 0.72 Ratio Lab Scanned BLOOD TRANSFUSIO Report N Test 02/15/19 08:19 02/15/19 12:40 02/15/19 15:00 02/15/19 17:33 Bedside Glucose 205 161 161 Urine Color YELLOW Urine Clarity CLEAR Urine pH 5.0 Urine Specific 1.013 [place] Urine Ketones NEGATIVE Urine Nitrite NEGATIVE Urine Bilirubin NEGATIVE Urine NEGATIVE Urobilinogen Urine Leukocyte NEGATIVE Esterase Urine Hemoglobin NEGATIVE Urine Random 46.98 Creatinine Urine Random 41 Sodium Urine Glucose 1+ H Urine Total 19.0 H Protein Exam/Review of Systems Exam Vitals Vital Signs Date Temp Pulse Resp B/P (MAP) Pulse Ox O2 O2 Flow FiO2 Time Delivery Rate 02/15/19 75 16:39 02/15/19 126/59 15:58 (81) 02/15/19 98.6 18 98 15:45 02/14/19 Nasal 2.0 20:59 Cannula Intake and Output 02/14/19 02/14/19 02/15/19 1515:00 23:00 07:00 IntakeIntake Total 600 ml 430 ml 80 ml BalanceBalance 600 ml 430 ml 80 ml Results Results 24hrs Laboratory Tests Test 02/14/19 21:03 02/15/19 01:44 02/15/19 04:51 02/15/19 05:11 Bedside Glucose 300 H 221 H White Blood Count 20.9 #H Red Blood Count 2.55 L Hemoglobin 7.9 L Hematocrit 24.9 L Mean Corpuscular 97.6 Volume Mean Corpuscular 31.0 Hemoglobin Mean Corpuscular 31.7 L Hemoglobin Concen t Red Cell 17.2 H Distribution Width Platelet Count 275 Mean Platelet 12.7 H Volume Immature 0.800 H Granulocytes % Neutrophils % 83.7 H Lymphocytes % 7.3 L Monocytes % 6.9 Eosinophils % 1.1 Basophils % 0.2 Nucleated Red 0.0 Blood Cells % Immature 0.170 H Granulocytes # Neutrophils # 17.5 H Lymphocytes # 1.5 Monocytes # 1.5 H Eosinophils # 0.2 Basophils # 0.0 Nucleated Red 0.0 Blood Cells # Sodium Level 142 Potassium Level 3.6 Chloride Level 106 Carbon Dioxide 25 Level Anion Gap 11 Blood Urea 57 H Nitrogen Creatinine 2.17 H Est Glomerular Filtrat Rate mL/min Glucose Level 200 Calcium Level 7.3 L Phosphorus Level 4.1 Magnesium Level 2.6 H Total Bilirubin 0.7 Direct Bilirubin 0.00 Indirect 0.7 Bilirubin Aspartate Amino 44 Transf (AST/SGOT) Alanine 46 Aminotransferase (ALT/SGPT) Alkaline 153 H Phosphatase Total Protein 5.7 L Albumin 2.4 L Globulin 3.30 H Albumin/Globulin 0.72 Ratio Lab Scanned BLOOD TRANSFUSIO Report N Test 02/15/19 08:19 02/15/19 12:40 02/15/19 15:00 02/15/19 17:33 Bedside Glucose 205 161 161 Urine Color YELLOW Urine Clarity CLEAR Urine pH 5.0 Urine Specific 1.013 [place] Urine Ketones NEGATIVE Urine Nitrite NEGATIVE Urine Bilirubin NEGATIVE Urine NEGATIVE Urobilinogen Urine Leukocyte NEGATIVE Esterase Urine Hemoglobin NEGATIVE Urine Random 46.98 Creatinine Urine Random 41 Sodium Urine Glucose 1+ H Urine Total 19.0 H Protein Medications Medication Current Medications IV Flush (NS 3 ml) 3 ml PER PROTOCOL IV ; Start 02/03/19 at 14:00 Ondansetron HCl (Zofran Inj) 4 mg Q6H PRN IV NAUSEA/VOMITING; Start 02/03/19 at 14:00 Acetaminophen (Tylenol Tab) 650 mg Q6H PRN PO .PAIN 1-3 OR TEMP; Start 02/03/19 at 14:00 Acetaminophen/ Hydrocodone Bitart ([place] (5/325)) 1 tab Q6H PRN PO .MOD PAIN 4- 6 Last administered on 02/04/19at 06:09; Admin Dose 1 TAB; Start 02/03/19 at 14:00 Docusate Sodium (Colace) 100 mg Q12H PRN PO .CONSTIPATION; Start 02/03/19 at 14:00 Furosemide (Lasix) 40 mg DAILY PO Last administered on 02/04/19at 09:24; Admin Dose 40 MG; Start 02/04/19 at 09:00; Status Hold Levothyroxine Sodium (Synthroid) 25 mcg BEFORE BREAKFAST PO Last administered on 02/15/19 06:19; Admin Dose 25 MCG; Start 02/04/19 at 07:00 Spironolactone (Aldactone) 25 mg DAILY PO Last administered on 02/12/19 08:57; Admin Dose 25 MG; Start 02/04/19 at 09:00; Status Hold Sodium Chloride (Deep Sea) 2 spray BID NASAL Last administered on 02/15/19 08:21; Admin Dose 2 SPRAY; Start 02/04/19 at 11:00 Rifaximin (Xifaxan) 550 mg BID NGT Last administered on 02/15/19 08:20; Admin Dose 550 MG; Start 02/06/19 at 21:00 Sucralfate (Carafate Susp) 1 gm QID NGT Last administered on 02/15/19 17:32; Admin Dose 1 GM; Start 02/06/19 at 13:00 Metoclopramide HCl (Reglan) 10 mg Q6 IV Last administered on 02/15/19 17:32; Admin Dose 10 MG; Start 02/06/19 at 18:00 Propranolol HCl (Inderal) 20 mg BID PO Last administered on 02/15/19 08:21; Admin Dose 20 MG; Start 02/06/19 at 21:00 Metoprolol Tartrate (Lopressor) 5 mg Q4H PRN IV HR>110 Hold SBP<100 Last administered on 02/06/19at 21:57; Admin Dose 5 MG; Start 02/06/19 at 17:30 Morphine Sulfate (morphine) 0.5 mg Q4H PRN IV .SEVERE PAIN 7-10 Last administ ered on 02/14/19at 21:09; Admin Dose 0.5 MG; Start 02/07/19 at 14:00 Furosemide (Lasix) 20 mg DAILY IV Last administered on 02/11/19at 08:26; Admin Dose 20 MG; Start 02/09/19 at 09:00; Status Hold Hydralazine HCl (Apresoline) 25 mg Q12 PO Last administered on 02/15/19at 08:20; Admin Dose 25 MG; Start 02/08/19 at 21:00; Status Hold Piperacillin Sod/ Tazobactam Sod 100 ml @ 25 mls/hr TID@02,10,18 IVPB Last administered on 02/15/19at 17:33; Admin Dose 25 MLS/HR; Start 02/10/19 at 10:00 Lansoprazole (Prevacid) 30 mg BID@06,18 NGT Last administered on 02/15/19at 17:32; Admin Dose 30 MG; Start 02/10/19 at 18:00 Diagnostic Test (Pha) (Accu-Chek) 1 ea 02 XX Last administered on 02/15/19at 01:45; Admin Dose 1 EA; Start 02/12/19 at 02:00 Miscellaneous Information 1 ea NOTE XX ; Start 02/11/19 at 07:30 Glucose (Glutose) 15 gm Q15M PRN PO DECREASED GLUCOSE; Start 02/11/19 at 07:30 Glucose (Glutose) 22.5 gm Q15M PRN PO DECREASED GLUCOSE; Start 02/11/19 at 07:30 Dextrose (D50w Syringe) 25 ml Q15M PRN IV DECREASED GLUCOSE; Start 02/11/19 at 07:30 Dextrose (D50w Syringe) 50 ml Q15M PRN IV DECREASED GLUCOSE; Start 02/11/19 at 07:30 Glucagon (Glucagen) 1 mg Q15M PRN IM DECREASED GLUCOSE; Start 02/11/19 at 07:30 Glucose (Glutose) 15 gm Q15M PRN BUCCAL DECREASED GLUCOSE; Start 02/11/19 at 07 :30 Miscellaneous Information 1 ea NOTE XX ; Start 02/11/19 at 11:00 Glucose (Glutose) 15 gm Q15M PRN PO DECREASED GLUCOSE; Start 02/11/19 at 11:00 Glucose (Glutose) 22.5 gm Q15M PRN PO DECREASED GLUCOSE; Start 02/11/19 at 11:00 Dextrose (D50w Syringe) 25 ml Q15M PRN IV DECREASED GLUCOSE; Start 02/11/19 at 11:00 Dextrose (D50w Syringe) 50 ml Q15M PRN IV DECREASED GLUCOSE; Start 02/11/19 at 11:00 Glucagon (Glucagen) 1 mg Q15M PRN IM DECREASED GLUCOSE; Start 02/11/19 at 11:00 Glucose (Glutose) 15 gm Q15M PRN BUCCAL DECREASED GLUCOSE; Start 02/11/19 at 11:00 Insulin Glargine (Lantus) 11 units DAILY@2000 SC Last administered on 02/14/19at 21:14; Admin Dose 11 UNITS; Start 02/11/19 at 20:00 Lactulose (Enulose) 20 gm BID PO Last administered on 02/15/19at 08:20; Admin Dose 20 GM; Start 02/12/19 at 21:00 Colchicine (Colchicine) 0.6 mg BID PO Last administered on 02/15/19at 08:20; Admin Dose 0.6 MG; Start 02/14/19 at 22:30 Insulin Aspart (Novolog Insulin Pen) NOVOLOG *MODERATE* ALGORITHM WITH MEALS BEDTIME SC Last administered on 02/15/19at 17:44; Admin Dose 2 UNIT; Start 02/14/19 at 22:30 Albumin Human 100 ml @ 100 mls/hr Q8H IV Last administered on 02/15/19at 13:02; Admin Dose 100 MLS/HR; Start 02/15/19 at 13:00; Stop 02/16/19 at 05:59 JAVIER MURRIETA NP Feb 15, 2019 17:54
[2019-02-15] MEDS: INSULIN GLARGINE [LANTus] (100 UNITS/ML) SYG SC SCH (21:20)
[2019-02-16] VITALS (11 sets, daily range): BP systolic 102–126; BP diastolic 56–63; PULSE 63–80; RESP 17–19
[2019-02-16] MEDS: METOCLOPRAMIDE 10 MG INJ IV SCH ×3 (00:37→11:40)
[2019-02-16] MEDS: ACCU-CHEK XX SCH (01:34)
[2019-02-16] MEDS: PIPER-TAZO 3.375 GM IV (PMX) 100 ML IVPB SCH ×3 (01:37→17:33)
[2019-02-16] MEDS: LANSOPRAZOLE 30 MG CAP NGT SCH (05:37)
[2019-02-16] MEDS: ALBUMIN HUMAN 25% 100 ML IV SCH (05:41)
[2019-02-16] MEDS: LEVOTHYROXINE 25 MCG TAB PO SCH (05:48)
[2019-02-16] MEDS: INSULIN ASPART [NOVOLOG] 3 ML PEN SC SCH ×4 (07:46→21:17)
[2019-02-16] MEDS: LACTULOSE 30ML CUP PO SCH ×2 (08:57→21:13)
[2019-02-16] MEDS: RIFAXIMIN 550 MG TAB NGT SCH ×2 (08:57→21:13)
[2019-02-16] MEDS: COLCHICINE 0.6 MG CAP PO SCH ×2 (08:57→21:13)
[2019-02-16] MEDS: SUCRALFATE (100 MG/ML) 10ML CUP NGT SCH ×4 (08:57→21:13)
[2019-02-16] MEDS: PROPRANOLOL 20 MG TAB PO SCH ×2 (08:58→21:15)
[2019-02-16] MEDS: BALSAM PERU/CASTOR OIL 60 GM TUBE TOP SCH ×2 (09:00→21:15)
[2019-02-16] MEDS: SALINE 0.65% 45 ML NAS SPRAY NASAL SCH ×2 (09:06→21:15)
--- NOTE | 2019-02-16 11:37 | PN ---
Date/Time of Note Date/Time of Note DATE: 02/16/19 TIME: 11:33 Assessment/Plan VTE Prophylaxis Risk score (from Ns)>0 risk: 7 SCD applied (from Ns): Yes Pharmacological prophylaxis: NA/contraindicated Pharm contraindication: bleeding Lines/Catheters IV [facility]from [facility] Saline Lock Urinary Cath still in place: Yes Reason Cath still needed: other (indicate) (Monitor output) Assessment/Plan Hospital Course Assessment: Anemia - suspected GI bleeding UTI- on Zosyn Melena-resolved -EGD 02/04/19 Extensive ulceration in the jejunal side of the gastrojejunal Billroth II anastomosis. No stigmata recent bleeding no visible vessel. Distal esophagitis with ulceration. No stigmata. Recent bleeding. 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 Harvey Subjective: Course reviewed with nursing staff Patient interviewed and examined All labs, imaging and other results reviewed Patient resting in bed, able to answer simple questions asked. No c/o n/v or abd pain, HGB stable no overt signs of GI bleed. Nephrology and infectious disease following. Creatinine level and WBCs improved from yesterday PHYSICAL EXAMINATION: GENERAL: Elderly, alert and oriented to name, year and events SKIN: No lesions HEAD: Normocephalic, atraumatic, no tenderness. EYES: Pupils equal reactive to light and accommodation, no discharge. EARS/NOSE AND THROAT: Ears normal, nose normal, NG tube in place NECK: Supple, no masses. CHEST: Inspection within normal limits. CARDIOVASCULAR: Heart: Regular rate and rhythm RESPIRATORY: Lungs clear to auscultation GASTROINTESTINAL AND LIVER: Abdomen: Soft, epigastric tenderness- resolved, non- distended, no hernias, no masses, no organomegaly, no ascites, no guarding, no rebound tenderness, normoactive bowel sounds. Rectal: Deferred. GENITOURINARY: Male genitalia within normal limits. EXTREMITIES: No cyanosis, clubbing or edema. Result Diagram: 02/16/19 0501 02/16/19 0501 Results 24hrs Laboratory Tests Test 02/15/19 12:40 02/15/19 15:00 02/15/19 17:33 02/15/19 21:18 Bedside Glucose 161 161 160 Urine Color YELLOW Urine Clarity CLEAR Urine pH 5.0 Urine Specific 1.013 [place] Urine Ketones NEGATIVE Urine Nitrite NEGATIVE Urine Bilirubin NEGATIVE Urine Urobilinogen NEGATIVE Urine Leukocyte NEGATIVE Esterase Urine Hemoglobin NEGATIVE Urine Random 46.98 Creatinine Urine Random Sodium 41 Urine Glucose 1+ H Urine Total Protein 19.0 H Test 02/16/19 05:01 02/16/19 07:29 White Blood Count 14.7 #H Red Blood Count 2.58 L Hemoglobin 8.0 L Hematocrit 25.2 L Mean Corpuscular 97.7 Volume Mean Corpuscular 31.0 Hemoglobin Mean Corpuscular 31.7 L Hemoglobin Concent Red Cell 16.8 H Distribution Width Platelet Count 184 # Mean Platelet Volume 12.7 H Immature 0.700 H Granulocytes % Neutrophils % 85.9 H Lymphocytes % 6.5 L Monocytes % 5.6 Eosinophils % 1.2 Basophils % 0.1 Nucleated Red Blood 0.0 Cells % Immature 0.100 H Granulocytes # Neutrophils # 12.6 H Lymphocytes # 1.0 Monocytes # 0.8 Eosinophils # 0.2 Basophils # 0.0 Nucleated Red Blood 0.0 Cells # Sodium Level 148 H Potassium Level 3.4 L Chloride Level 110 Carbon Dioxide Level 27 Anion Gap 11 Blood Urea Nitrogen 54 H Creatinine 2.03 H Est Glomerular Filtrat Rate mL/min Glucose Level 156 Calcium Level 8.2 L Phosphorus Level 4.7 Magnesium Level 2.6 H Bedside Glucose 212 Exam/Review of Systems Exam Vitals Vital Signs Date Temp Pulse Resp B/P (MAP) Pulse Ox O2 O2 Flow FiO2 Time Delivery Rate 02/16/19 98.4 76 17 122/60 92 11:14 (80) 02/14/19 Nasal 2.0 20:59 Cannula Intake and Output 02/15/19 02/15/19 02/16/19 1515:00 23:00 07:00 IntakeIntake Total 220 ml 910 ml 580 ml OutputOutput Total 360 ml 2000 ml BalanceBalance -140 ml 910 ml -1420 ml Results Results 24hrs Laboratory Tests Test 02/15/19 12:40 02/15/19 15:00 02/15/19 17:33 02/15/19 21:18 Bedside Glucose 161 161 160 Urine Color YELLOW Urine Clarity CLEAR Urine pH 5.0 Urine Specific 1.013 [place] Urine Ketones NEGATIVE Urine Nitrite NEGATIVE Urine Bilirubin NEGATIVE Urine Urobilinogen NEGATIVE Urine Leukocyte NEGATIVE Esterase Urine Hemoglobin NEGATIVE Urine Random 46.98 Creatinine Urine Random Sodium 41 Urine Glucose 1+ H Urine Total Protein 19.0 H Test 02/16/19 05:01 02/16/19 07:29 White Blood Count 14.7 #H Red Blood Count 2.58 L Hemoglobin 8.0 L Hematocrit 25.2 L Mean Corpuscular 97.7 Volume Mean Corpuscular 31.0 Hemoglobin Mean Corpuscular 31.7 L Hemoglobin Concent Red Cell 16.8 H Distribution Width Platelet Count 184 # Mean Platelet Volume 12.7 H Immature 0.700 H Granulocytes % Neutrophils % 85.9 H Lymphocytes % 6.5 L Monocytes % 5.6 Eosinophils % 1.2 Basophils % 0.1 Nucleated Red Blood 0.0 Cells % Immature 0.100 H Granulocytes # Neutrophils # 12.6 H Lymphocytes # 1.0 Monocytes # 0.8 Eosinophils # 0.2 Basophils # 0.0 Nucleated Red Blood 0.0 Cells # Sodium Level 148 H Potassium Level 3.4 L Chloride Level 110 Carbon Dioxide Level 27 Anion Gap 11 Blood Urea Nitrogen 54 H Creatinine 2.03 H Est Glomerular Filtrat Rate mL/min Glucose Level 156 Calcium Level 8.2 L Phosphorus Level 4.7 Magnesium Level 2.6 H Bedside Glucose 212 Medications Medication Current Medications IV Flush (NS 3 ml) 3 ml PER PROTOCOL IV ; Start 02/03/19 at 14:00 Ondansetron HCl (Zofran Inj) 4 mg Q6H PRN IV NAUSEA/VOMITING; Start 02/03/19 at 14:00 Acetaminophen (Tylenol Tab) 650 mg Q6H PRN PO .PAIN 1-3 OR TEMP; Start 02/03/19 at 14:00 Acetaminophen/ Hydrocodone Bitart ([place] (5/325)) 1 tab Q6H PRN PO .MOD PAIN 4- 6 Last administered on 02/04/19at 06:09; Admin Dose 1 TAB; Start 02/03/19 at 14:00 Docusate Sodium (Colace) 100 mg Q12H PRN PO .CONSTIPATION; Start 02/03/19 at 14:00 Furosemide (Lasix) 40 mg DAILY PO Last administered on 02/04/19at 09:24; Admin Dose 40 MG; Start 02/04/19 at 09:00; Status Hold Levothyroxine Sodium (Synthroid) 25 mcg BEFORE BREAKFAST PO Last administered on 02/16/19 05:48; Admin Dose 25 MCG; Start 02/04/19 at 07:00 Spironolactone (Aldactone) 25 mg DAILY PO Last administered on 02/12/19 08:57; Admin Dose 25 MG; Start 02/04/19 at 09:00; Status Hold Sodium Chloride (Deep Sea) 2 spray BID NASAL Last administered on 02/16/19 09:06; Admin Dose 2 SPRAY; Start 02/04/19 at 11:00 Rifaximin (Xifaxan) 550 mg BID NGT Last administered on 02/16/19 08:57; Admin Dose 550 MG; Start 02/06/19 at 21:00 Sucralfate (Carafate Susp) 1 gm QID NGT Last administered on 02/16/19 08:57; Admin Dose 1 GM; Start 02/06/19 at 13:00 Metoclopramide HCl (Reglan) 10 mg Q6 IV Last administered on 02/16/19 05:40; Admin Dose 10 MG; Start 02/06/19 at 18:00 Propranolol HCl (Inderal) 20 mg BID PO Last administered on 02/16/19 08:58; Admin Dose 20 MG; Start 02/06/19 at 21:00 Metoprolol Tartrate (Lopressor) 5 mg Q4H PRN IV HR>110 Hold SBP<100 Last administered on 02/06/19 21:57; Admin Dose 5 MG; Start 02/06/19 at 17:30 Morphine Sulfate (morphine) 0.5 mg Q4H PRN IV .SEVERE PAIN 7-10 Last administered on 02/14/19 21:09; Admin Dose 0.5 MG; Start 02/07/19 at 14:00 Furosemide (Lasix) 20 mg DAILY IV Last administered on 02/11/19 08:26; Admin Dose 20 MG; Start 02/09/19 at 09:00; Status Hold Hydralazine HCl (Apresoline) 25 mg Q12 PO Last administered on 02/15/19 08:20; Admin Dose 25 MG; Start 02/08/19 at 21:00; Status Hold Piperacillin Sod/ Tazobactam Sod 100 ml @ 25 mls/hr TID@ IVPB Last administered on 02/16/19at 10:18; Admin Dose 25 MLS/HR; Start 02/10/19 at 10:00 Lansoprazole (Prevacid) 30 mg BID@ NGT Last administered on 02/16/19at 05:37; Admin Dose 30 MG; Start 02/10/19 at 18:00 Diagnostic Test (Pha) (Accu-Chek) 1 ea 02 XX Last administered on 02/15/19at 01:45; Admin Dose 1 EA; Start 02/12/19 at 02:00 Miscellaneous Information 1 ea NOTE XX ; Start 02/11/19 at 07:30 Glucose (Glutose) 15 gm Q15M PRN PO DECREASED GLUCOSE; Start 02/11/19 at 07:30 Glucose (Glutose) 22.5 gm Q15M PRN PO DECREASED GLUCOSE; Start 02/11/19 at 07:30 Dextrose (D50w Syringe) 25 ml Q15M PRN IV DECREASED GLUCOSE; Start 02/11/19 at 07:30 Dextrose (D50w Syringe) 50 ml Q15M PRN IV DECREASED GLUCOSE; Start 02/11/19 at 07:30 Glucagon (Glucagen) 1 mg Q15M PRN IM DECREASED GLUCOSE; Start 02/11/19 at 07:30 Glucose (Glutose) 15 gm Q15M PRN BUCCAL DECREASED GLUCOSE; Start 02/11/19 at 07:30 Miscellaneous Information 1 ea NOTE XX ; Start 02/11/19 at 11:00 Glucose (Glutose) 15 gm Q15M PRN PO DECREASED GLUCOSE; Start 02/11/19 at 11:00 Glucose (Glutose) 22.5 gm Q15M PRN PO DECREASED GLUCOSE; Start 02/11/19 at 11:00 Dextrose (D50w Syringe) 25 ml Q15M PRN IV DECREASED GLUCOSE; Start 02/11/19 at 11:00 Dextrose (D50w Syringe) 50 ml Q15M PRN IV DECREASED GLUCOSE; Start 02/11/19 at 11:00 Glucagon (Glucagen) 1 mg Q15M PRN IM DECREASED GLUCOSE; Start 02/11/19 at 11:00 Glucose (Glutose) 15 gm Q15M PRN BUCCAL DECREASED GLUCOSE; Start 02/11/19 at 11:00 Insulin Glargine (Lantus) 11 units DAILY@2000 SC Last administered on 02/15/19 21:20; Admin Dose 11 UNITS; Start 02/11/19 at 20:00 Lactulose (Enulose) 20 gm BID PO Last administered on 02/16/19 08:57; Admin Dose 20 GM; Start 02/12/19 at 21:00 Colchicine (Colchicine) 0.6 mg BID PO Last administered on 02/16/19 08:57; Admin Dose 0.6 MG; Start 02/14/19 at 22:30 Insulin Aspart (Novolog Insulin Pen) NOVOLOG *MODERATE* ALGORITHM WITH MEALS BEDTIME SC Last administered on 02/16/19 07:46; Admin Dose 4 UNIT; Start 02/14/19 at 22:30 INGRID MAST Feb 16, 2019 11:37
--- NOTE | 2019-02-16 12:54 | CONS ---
Consult Date/Type/Reason Admit Date/Time Feb 03, 2019 at 09:30 Initial Consult Date 02/03/19 Requesting Provider: SUDHIR BARRIENTOS Date/Time of Note DATE: 02/16/19 TIME: 12:52 Subjective NO acute events - pt comfortable - no CP now - + gout pain - con't med rx - not in CF by exam ROS: No fever, no chills, no nausea, no vomiting, no diarrhea/constipation No recent weight changes No chest pain, no PND, no orthopnea No dizziness, blurred vision + gout No thirst, no heat or cold intolerance Objective Vitals Vital Signs Date Temp Pulse Resp B/P (MAP) Pulse Ox O2 O2 Flow FiO2 Time Delivery Rate 02/16/19 98.4 76 17 122/60 92 11:14 (80) 02/14/19 Nasal 2.0 20:59 Cannula Intake and Output 02/15/19 02/15/19 02/16/19 1515:00 23:00 07:00 IntakeIntake Total 220 ml 910 ml 580 ml OutputOutput Total 360 ml 2000 ml BalanceBalance -140 ml 910 ml -1420 ml Exam General: WN/WD/NAD, AOx 3 HEENT: Unicetric/atraumatic/EOMI (follow commands) NECK: JVD elevated, no thyromegaly Lymph: no lymphadenopathy HEART: regular with no S3, II/ systolic murmur at apex, 2/6 at base with miniamly delayed upstroke LUNGS: Coarse sounds ABD: soft, NT, ND, +BS : Intact Neuro: non focal SKIN: chronic changes EXT: trace edema - Results/Medications Result Diagram: 02/16/19 0501 02/16/19 0501 Results 24 hrs Laboratory Tests Test 02/15/19 15:00 02/15/19 17:33 02/15/19 21:18 02/16/19 05:01 Urine Color YELLOW Urine Clarity CLEAR Urine pH 5.0 Urine Specific 1.013 [place] Urine Ketones NEGATIVE Urine Nitrite NEGATIVE Urine Bilirubin NEGATIVE Urine Urobilinogen NEGATIVE Urine Leukocyte NEGATIVE Esterase Urine Hemoglobin NEGATIVE Urine Random 46.98 Creatinine Urine Random Sodium 41 Urine Glucose 1+ H Urine Total Protein 19.0 H Bedside Glucose 161 160 White Blood Count 14.7 #H Red Blood Count 2.58 L Hemoglobin 8.0 L Hematocrit 25.2 L Mean Corpuscular 97.7 Volume Mean Corpuscular 31.0 Hemoglobin Mean Corpuscular 31.7 L Hemoglobin Concent Red Cell 16.8 H Distribution Width Platelet Count 184 # Mean Platelet Volume 12.7 H Immature 0.700 H Granulocytes % Neutrophils % 85.9 H Lymphocytes % 6.5 L Monocytes % 5.6 Eosinophils % 1.2 Basophils % 0.1 Nucleated Red Blood 0.0 Cells % Immature 0.100 H Granulocytes # Neutrophils # 12.6 H Lymphocytes # 1.0 Monocytes # 0.8 Eosinophils # 0.2 Basophils # 0.0 Nucleated Red Blood 0.0 Cells # Sodium Level 148 H Potassium Level 3.4 L Chloride Level 110 Carbon Dioxide Level 27 Anion Gap 11 Blood Urea Nitrogen 54 H Creatinine 2.03 H Est Glomerular Filtrat Rate mL/min Glucose Level 156 Calcium Level 8.2 L Phosphorus Level 4.7 Magnesium Level 2.6 H Test 02/16/19 07:29 02/16/19 11:39 Bedside Glucose 212 259 H Home Meds Reported Medications Spironolactone* (Aldactone*) 25 Mg Tablet, 25 MG PO DAILY, #30 TAB 02/03/19 Furosemide* (Furosemide*) 40 Mg Tablet, 40 MG PO DAILY, TAB 02/03/19 Levothyroxine Sodium* (Levoxyl*) 25 Mcg Tablet, 25 MCG PO BEFORE BREAKFAST, #30 TAB 02/03/19 Metformin Hcl* (Metformin Hcl*) 850 Mg Tablet, 850 MG PO WITH BREAKFAST, #30 TAB 02/03/19 Colchicine (Colchicine) 0.6 Mg Capsule, 0.6 MG PO BID for 50 Days, #100 TAKE 1 CAPSULE BY MOUTH TWICE A DAY 11/07/18 Medications Current Medications IV Flush (NS 3 ml) 3 ml PER PROTOCOL IV ; Start 02/03/19 at 14:00 Ondansetron HCl (Zofran Inj) 4 mg Q6H PRN IV NAUSEA/VOMITING; Start 02/03/19 at 14:00 Acetaminophen (Tylenol Tab) 650 mg Q6H PRN PO .PAIN 1-3 OR TEMP; Start 02/03/19 at 14:00 Acetaminophen/ Hydrocodone Bitart ([place] (5/325)) 1 tab Q6H PRN PO .MOD PAIN 4- 6 Last administered on 02/04/19at 06:09; Admin Dose 1 TAB; Start 02/03/19 at 14:00 Docusate Sodium (Colace) 100 mg Q12H PRN PO .CONSTIPATION; Start 02/03/19 at 14:00 Furosemide (Lasix) 40 mg DAILY PO Last administered on 02/04/19 09:24; Admin Dose 40 MG; Start 02/04/19 at 09:00; Status Hold Levothyroxine Sodium (Synthroid) 25 mcg BEFORE BREAKFAST PO Last administered on 02/16/19 05:48; Admin Dose 25 MCG; Start 02/04/19 at 07:00 Spironolactone (Aldactone) 25 mg DAILY PO Last administered on 02/12/19 08:57; Admin Dose 25 MG; Start 02/04/19 at 09:00; Status Hold Sodium Chloride (Deep Sea) 2 spray BID NASAL Last administered on 02/16/19 09:06; Admin Dose 2 SPRAY; Start 02/04/19 at 11:00 Rifaximin (Xifaxan) 550 mg BID NGT Last administered on 02/16/19 08:57; Admin Dose 550 MG; Start 02/06/19 at 21:00 Sucralfate (Carafate Susp) 1 gm QID NGT Last administered on 02/16/19 08:57; Admin Dose 1 GM; Start 02/06/19 at 13:00 Metoclopramide HCl (Reglan) 10 mg Q6 IV Last administered on 02/16/19 11:40; Admin Dose 10 MG; Start 02/06/19 at 18:00 Propranolol HCl (Inderal) 20 mg BID PO Last administered on 02/16/19 08:58; Admin Dose 20 MG; Start 02/06/19 at 21:00 Metoprolol Tartrate (Lopressor) 5 mg Q4H PRN IV HR>110 Hold SBP<100 Last administered on 02/06/19 21:57; Admin Dose 5 MG; Start 02/06/19 at 17:30 Morphine Sulfate (morphine) 0.5 mg Q4H PRN IV .SEVERE PAIN 7-10 Last administered on 02/14/19 21:09; Admin Dose 0.5 MG; Start 02/07/19 at 14:00 Furosemide (Lasix) 20 mg DAILY IV Last administered on 02/11/19 08:26; Admin Dose 20 MG; Start 02/09/19 at 09:00; Status Hold Hydralazine HCl (Apresoline) 25 mg Q12 PO Last administered on 02/15/19at 08:20; Admin Dose 25 MG; Start 02/08/19 at 21:00; Status Hold Piperacillin Sod/ Tazobactam Sod 100 ml @ 25 mls/hr TID@02,10,18 IVPB Last administered on 02/16/19at 10:18; Admin Dose 25 MLS/HR; Start 02/10/19 at 10:00 Diagnostic Test (Pha) (Accu-Chek) 1 ea 02 XX Last administered on 02/15/19at 01:45; Admin Dose 1 EA; Start 02/12/19 at 02:00 Miscellaneous Information 1 ea NOTE XX ; Start 02/11/19 at 07:30 Glucose (Glutose) 15 gm Q15M PRN PO DECREASED GLUCOSE; Start 02/11/19 at 07:30 Glucose (Glutose) 22.5 gm Q15M PRN PO DECREASED GLUCOSE; Start 02/11/19 at 07:30 Dextrose (D50w Syringe) 25 ml Q15M PRN IV DECREASED GLUCOSE; Start 02/11/19 at 07:30 Dextrose (D50w Syringe) 50 ml Q15M PRN IV DECREASED GLUCOSE; Start 02/11/19 at 07:30 Glucagon (Glucagen) 1 mg Q15M PRN IM DECREASED GLUCOSE; Start 02/11/19 at 07:30 Glucose (Glutose) 15 gm Q15M PRN BUCCAL DECREASED GLUCOSE; Start 02/11/19 at 07:30 Miscellaneous Information 1 ea NOTE XX ; Start 02/11/19 at 11:00 Glucose (Glutose) 15 gm Q15M PRN PO DECREASED GLUCOSE; Start 02/11/19 at 11:00 Glucose (Glutose) 22.5 gm Q15M PRN PO DECREASED GLUCOSE; Start 02/11/19 at 11:00 Dextrose (D50w Syringe) 25 ml Q15M PRN IV DECREASED GLUCOSE; Start 02/11/19 at 11:00 Dextrose (D50w Syringe) 50 ml Q15M PRN IV DECREASED GLUCOSE; Start 02/11/19 at 11:00 Glucagon (Glucagen) 1 mg Q15M PRN IM DECREASED GLUCOSE; Start 02/11/19 at 11:00 Glucose (Glutose) 15 gm Q15M PRN BUCCAL DECREASED GLUCOSE; Start 02/11/19 at 11:00 Insulin Glargine (Lantus) 11 units DAILY@1999 SC Last administered on 02/15/19at 21:20; Admin Dose 11 UNITS; Start 02/11/19 at 20:00 Lactulose (Enulose) 20 gm BID PO Last administered on 02/16/19at 08:57; Admin Dose 20 GM; Start 02/12/19 at 21:00 Colchicine (Colchicine) 0.6 mg BID PO Last administered on 02/16/19at 08:57; Admin Dose 0.6 MG; Start 02/14/19 at 22:30 Insulin Aspart (Novolog Insulin Pen) NOVOLOG *MODERATE* ALGORITHM WITH MEALS BEDTIME SC Last administered on 02/16/19at 11:56; Admin Dose 6 UNIT; Start 02/14/19 at 22:30 Lansoprazole (Prevacid) 30 mg BID@06,18 PO ; Start 02/16/19 at 18:00 Assessment/Plan Hospital Course (Demo Recall) 1. Wide complex tachycardia, likely consistent with supraventricular tachycardia with a baseline bundle branch block.-TSH WNL. NO recurrence. NL EF by echo this admit - no new WCT noted - on Rx now. STABLE NOW. 2. Abnormal electrocardiogram with baseline bundle branch block- stable. Treated. 3. Syncope on admit. Rule out cardiac etiology. Rule out cardiac arrhythmia as etiology versus anemia. Replace blood Rx as needed. 4. Cirrhosis. 5. Gastrointestinal bleed with melenic stools. 6. Peptic ulcer disease by endoscopy - GI follows. 7. Renal failure-acute - Cr going up to 2.03 - avoid nephrotoxic meds - will follow 8. Hyponatremia. 9. Thrombocytopenia- plt better. 10. Anemia. 11. Encephalopathy-ngoing 12. -mild to moderate by echo this admit - no intervention warranted - stable fluid status. LARISA MARADIAGA MD Feb 16, 2019 12:54
--- NOTE | 2019-02-16 13:27 | CONS ---
Assessment/Plan Assessment/Plan Hospital Course (Demo Recall) ID PROGRESS NOTE CURRENT ABX: DAY # =>Zosyn #7 02/16/19 0501 02/16/19 0501 24H INTERVAL SUMMARY * VSS, NAD, no fevers, frail elder without dyspnea on room air * Blood cultures negative. Urine culture grew Klebsiella and enterococcus species * WBC down today DIAGNOSTIC IMAGING * 02/15/19 CXR: Improving aeration with persistent retrocardiac infiltrate/pneumonia. PHYSICAL EXAMINATION: GENERAL: VSS, NAD HEENT: AT, NC, NECK: Supple, CHEST: Rise symmetrical HEART: Pulse RRR ABDOMEN: Distended EXTREMITIES: Warm, dry SKIN: No rash, no diaphoresis ID ASSESSMENT 78 yo M admit with: 1. SIRS with ongoing leukocytosis procalcitonin level 2.23 2. Possible aspiration 3. Polymicrobial UTI 4. Acute encephalopathy 5. Cryptogenic cirrhosis 6. Diabetes 7. Acute renal failure ABX ALLERGIES: KNDA INVASIVES: PIV CURRENT ABX: DAY # Zosyn #7 ID RECOMMENDATIONS/PLAN: 1. Continue Zosyn over the weekend 2. ASP precautions . Consultation Date/Type/Reason Admit Date/Time Feb 03, 2019 at 09:30 Initial Consult Date 02/03/19 Requesting Provider: SUDHIR BARRIENTOS Date/Time of Note DATE: 02/16/19 TIME: 13:26 Exam/Review of Systems Exam Vitals Vital Signs Date Temp Pulse Resp B/P (MAP) Pulse Ox O2 O2 Flow FiO2 Time Delivery Rate 02/16/19 98.4 76 17 122/60 92 11:14 (80) 02/14/19 Nasal 2.0 20:59 Cannula Intake and Output 02/15/19 02/15/19 02/16/19 1515:00 23:00 07:00 IntakeIntake Total 220 ml 910 ml 580 ml OutputOutput Total 360 ml 2000 ml BalanceBalance -140 ml 910 ml -1420 ml Results Result Diagram: 02/16/19 0501 02/16/19 0501 Results 24hrs Laboratory Tests Test 02/15/19 15:00 02/15/19 17:33 02/15/19 21:18 02/16/19 05:01 Urine Color YELLOW Urine Clarity CLEAR Urine pH 5.0 Urine Specific 1.013 [place] Urine Ketones NEGATIVE Urine Nitrite NEGATIVE Urine Bilirubin NEGATIVE Urine Urobilinogen NEGATIVE Urine Leukocyte NEGATIVE Esterase Urine Hemoglobin NEGATIVE Urine Random 46.98 Creatinine Urine Random Sodium 41 Urine Glucose 1+ H Urine Total Protein 19.0 H Bedside Glucose 161 160 White Blood Count 14.7 #H Red Blood Count 2.58 L Hemoglobin 8.0 L Hematocrit 25.2 L Mean Corpuscular 97.7 Volume Mean Corpuscular 31.0 Hemoglobin Mean Corpuscular 31.7 L Hemoglobin Concent Red Cell 16.8 H Distribution Width Platelet Count 184 # Mean Platelet Volume 12.7 H Immature 0.700 H Granulocytes % Neutrophils % 85.9 H Lymphocytes % 6.5 L Monocytes % 5.6 Eosinophils % 1.2 Basophils % 0.1 Nucleated Red Blood 0.0 Cells % Immature 0.100 H Granulocytes # Neutrophils # 12.6 H Lymphocytes # 1.0 Monocytes # 0.8 Eosinophils # 0.2 Basophils # 0.0 Nucleated Red Blood 0.0 Cells # Sodium Level 148 H Potassium Level 3.4 L Chloride Level 110 Carbon Dioxide Level 27 Anion Gap 11 Blood Urea Nitrogen 54 H Creatinine 2.03 H Est Glomerular Filtrat Rate mL/min Glucose Level 156 Calcium Level 8.2 L Phosphorus Level 4.7 Magnesium Level 2.6 H Test 02/16/19 07:29 02/16/19 11:39 Bedside Glucose 212 259 H Medications Medication Current Medications IV Flush (NS 3 ml) 3 ml PER PROTOCOL IV ; Start 02/03/19 at 14:00 Ondansetron HCl (Zofran Inj) 4 mg Q6H PRN IV NAUSEA/VOMITING; Start 02/03/19 at 14:00 Acetaminophen (Tylenol Tab) 650 mg Q6H PRN PO .PAIN 1-3 OR TEMP; Start 02/03/19 at 14:00 Acetaminophen/ Hydrocodone Bitart ([place] (5/325)) 1 tab Q6H PRN PO .MOD PAIN 4- 6 Last administered on 02/04/19at 06:09; Admin Dose 1 TAB; Start 02/03/19 at 14:00 Docusate Sodium (Colace) 100 mg Q12H PRN PO .CONSTIPATION; Start 02/03/19 at 14:00 Furosemide (Lasix) 40 mg DAILY PO Last administered on 02/04/19at 09:24; Admin D ose 40 MG; Start 02/04/19 at 09:00; Status Hold Levothyroxine Sodium (Synthroid) 25 mcg BEFORE BREAKFAST PO Last administered on 02/16/19 05:48; Admin Dose 25 MCG; Start 02/04/19 at 07:00 Spironolactone (Aldactone) 25 mg DAILY PO Last administered on 02/12/19 08:57; Admin Dose 25 MG; Start 02/04/19 at 09:00; Status Hold Sodium Chloride (Deep Sea) 2 spray BID NASAL Last administered on 02/16/19 09:06; Admin Dose 2 SPRAY; Start 02/04/19 at 11:00 Rifaximin (Xifaxan) 550 mg BID NGT Last administered on 02/16/19 08:57; Admin Dose 550 MG; Start 02/06/19 at 21:00 Sucralfate (Carafate Susp) 1 gm QID NGT Last administered on 02/16/19 08:57; Admin Dose 1 GM; Start 02/06/19 at 13:00 Metoclopramide HCl (Reglan) 10 mg Q6 IV Last administered on 02/16/19 11:40; Admin Dose 10 MG; Start 02/06/19 at 18:00 Propranolol HCl (Inderal) 20 mg BID PO Last administered on 02/16/19 08:58; Admin Dose 20 MG; Start 02/06/19 at 21:00 Metoprolol Tartrate (Lopressor) 5 mg Q4H PRN IV HR>110 Hold SBP<100 Last administered on 02/06/19 21:57; Admin Dose 5 MG; Start 02/06/19 at 17:30 Morphine Sulfate (morphine) 0.5 mg Q4H PRN IV .SEVERE PAIN 7-10 Last administered on 02/14/19 21:09; Admin Dose 0.5 MG; Start 02/07/19 at 14:00 Furosemide (Lasix) 20 mg DAILY IV Last administered on 02/11/19 08:26; Admin Dose 20 MG; Start 02/09/19 at 09:00; Status Hold Hydralazine HCl (Apresoline) 25 mg Q12 PO Last administered on 02/15/19 08:20; Admin Dose 25 MG; Start 02/08/19 at 21:00; Status Hold Piperacillin Sod/ Tazobactam Sod 100 ml @ 25 mls/hr TID@02,10,18 IVPB Last administered on 02/16/19at 10:18; Admin Dose 25 MLS/HR; Start 02/10/19 at 10:00 Diagnostic Test (Pha) (Accu-Chek) 1 ea 02 XX Last administered on 02/15/19at 01:45; Admin Dose 1 EA; Start 02/12/19 at 02:00 Miscellaneous Information 1 ea NOTE XX ; Start 02/11/19 at 07:30 Glucose (Glutose) 15 gm Q15M PRN PO DECREASED GLUCOSE; Start 02/11/19 at 07:30 Glucose (Glutose) 22.5 gm Q15M PRN PO DECREASED GLUCOSE; Start 02/11/19 at 07: 30 Dextrose (D50w Syringe) 25 ml Q15M PRN IV DECREASED GLUCOSE; Start 02/11/19 at 07:30 Dextrose (D50w Syringe) 50 ml Q15M PRN IV DECREASED GLUCOSE; Start 02/11/19 at 07:30 Glucagon (Glucagen) 1 mg Q15M PRN IM DECREASED GLUCOSE; Start 02/11/19 at 07:30 Glucose (Glutose) 15 gm Q15M PRN BUCCAL DECREASED GLUCOSE; Start 02/11/19 at 07:30 Miscellaneous Information 1 ea NOTE XX ; Start 02/11/19 at 11:00 Glucose (Glutose) 15 gm Q15M PRN PO DECREASED GLUCOSE; Start 02/11/19 at 11:00 Glucose (Glutose) 22.5 gm Q15M PRN PO DECREASED GLUCOSE; Start 02/11/19 at 11:00 Dextrose (D50w Syringe) 25 ml Q15M PRN IV DECREASED GLUCOSE; Start 02/11/19 at 11:00 Dextrose (D50w Syringe) 50 ml Q15M PRN IV DECREASED GLUCOSE; Start 02/11/19 at 11:00 Glucagon (Glucagen) 1 mg Q15M PRN IM DECREASED GLUCOSE; Start 02/11/19 at 11:00 Glucose (Glutose) 15 gm Q15M PRN BUCCAL DECREASED GLUCOSE; Start 02/11/19 at 11 :00 Insulin Glargine (Lantus) 11 units DAILY@2000 SC Last administered on 02/15/19at 21:20; Admin Dose 11 UNITS; Start 02/11/19 at 20:00 Lactulose (Enulose) 20 gm BID PO Last administered on 6/22/19at 08:57; Admin Dose 20 GM; Start 02/12/19 at 21:00 Colchicine (Colchicine) 0.6 mg BID PO Last administered on 02/16/19 08:57; Admin Dose 0.6 MG; Start 02/14/19 at 22:30 Insulin Aspart (Novolog Insulin Pen) NOVOLOG *MODERATE* ALGORITHM WITH MEALS BEDTIME SC Last administered on 02/16/19 11:56; Admin Dose 6 UNIT; Start 02/14/19 at 22:30 Lansoprazole (Prevacid) 30 mg BID@06,18 PO ; Start 02/16/19 at 18:00 PURVI EVANS NP Feb 16, 2019 13:27
--- NOTE | 2019-02-16 16:00 | PN ---
Date/Time of Note Date/Time of Note DATE: 02/16/19 TIME: 15:53 Assessment/Plan VTE Prophylaxis Risk score (from [facility])>0 risk: 7 SCD applied (from [facility]): Yes SCD contraindicated: low risk/ambulating Pharmacological prophylaxis: NA/contraindicated Pharm contraindication: bleeding, liver dx Lines/Catheters IV Catheter Type (from [place]): Saline Lock Urinary Cath still in place: Yes Reason Cath still needed: urinary retention Assessment/Plan Hospital Course Hospitalist coverage Assessment plan 1. Syncope, anemia related, stable resolved 2. Acute blood loss anemia 3. GI bleed/jejunal ulcer noted sp EGD, cont supportive care. Peptic ulcer disease/type II/ gastrectomy status. 4. Suspected cirrhosis/[place]/ cryptogenic. 5. Chronic liver disease sequently with ascites. liver MRI at some point? 6. CAD, CABG [KP] status. 7. Chr hypertension; if tolerable, start bb or ACEi. 8. Type 2 diabetes 9. Abd ventral umbilical hernia 10. Ho right inguinal hernia repair. Present hernia noted 11. History of prostate cancer surgery 12. Failure to thrive apathy? Observe treat renal failure 13. Acute renal failure, hydrate, watch for obstruction. Appreciate nephrology assistance 14. Chronic gout 15. Aortic stenosis mild to moderate 16. SVT with underlying bbb; they will watch electrolytes 17. Pulmonary hypertension? S: No distress. Not very interactive. Objective: vss No pallor Regular systolic murmur no rub/ gallop Clear Sounds present nontender nondistended no RRG No edema Result Diagram: 02/16/19 0501 02/16/19 0501 Results 24hrs Laboratory Tests Test 02/15/19 17:33 02/15/19 21:18 02/16/19 05:01 02/16/19 07:29 Bedside Glucose 161 160 212 White Blood Count 14.7 #H Red Blood Count 2.58 L Hemoglobin 8.0 L Hematocrit 25.2 L Mean Corpuscular 97.7 Volume Mean Corpuscular 31.0 Hemoglobin Mean Corpuscular 31.7 L Hemoglobin Concent Red Cell 16.8 H Distribution Width Platelet Count 184 # Mean Platelet Volume 12.7 H Immature 0.700 H Granulocytes % Neutrophils % 85.9 H Lymphocytes % 6.5 L Monocytes % 5.6 Eosinophils % 1.2 Basophils % 0.1 Nucleated Red Blood 0.0 Cells % Immature 0.100 H Granulocytes # Neutrophils # 12.6 H Lymphocytes # 1.0 Monocytes # 0.8 Eosinophils # 0.2 Basophils # 0.0 Nucleated Red Blood 0.0 Cells # Sodium Level 148 H Potassium Level 3.4 L Chloride Level 110 Carbon Dioxide Level 27 Anion Gap 11 Blood Urea Nitrogen 54 H Creatinine 2.03 H Est Glomerular Filtrat Rate mL/min Glucose Level 156 Calcium Level 8.2 L Phosphorus Level 4.7 Magnesium Level 2.6 H Test 02/16/19 11:39 Bedside Glucose 259 H Exam/Review of Systems Exam Vitals Vital Signs Date Temp Pulse Resp B/P (MAP) Pulse Ox O2 O2 Flow FiO2 Time Delivery Rate 02/16/19 97.9 63 17 117/56 93 15:05 (76) 02/14/19 Nasal 2.0 20:59 Cannula Intake and Output 02/15/19 02/15/19 02/16/19 1515:00 23:00 07:00 IntakeIntake Total 220 ml 910 ml 580 ml OutputOutput Total 360 ml 2000 ml BalanceBalance -140 ml 910 ml -1420 ml Results Results 24hrs Laboratory Tests Test 02/15/19 17:33 02/15/19 21:18 02/16/19 05:01 02/16/19 07:29 Bedside Glucose 161 160 212 White Blood Count 14.7 #H Red Blood Count 2.58 L Hemoglobin 8.0 L Hematocrit 25.2 L Mean Corpuscular 97.7 Volume Mean Corpuscular 31.0 Hemoglobin Mean Corpuscular 31.7 L Hemoglobin Concent Red Cell 16.8 H Distribution Width Platelet Count 184 # Mean Platelet Volume 12.7 H Immature 0.700 H Granulocytes % Neutrophils % 85.9 H Lymphocytes % 6.5 L Monocytes % 5.6 Eosinophils % 1.2 Basophils % 0.1 Nucleated Red Blood 0.0 Cells % Immature 0.100 H Granulocytes # Neutrophils # 12.6 H Lymphocytes # 1.0 Monocytes # 0.8 Eosinophils # 0.2 Basophils # 0.0 Nucleated Red Blood 0.0 Cells # Sodium Level 148 H Potassium Level 3.4 L Chloride Level 110 Carbon Dioxide Level 27 Anion Gap 11 Blood Urea Nitrogen 54 H Creatinine 2.03 H Est Glomerular Filtrat Rate mL/min Glucose Level 156 Calcium Level 8.2 L Phosphorus Level 4.7 Magnesium Level 2.6 H Test 02/16/19 11:39 Bedside Glucose 259 H Medications Medication Current Medications IV Flush (NS 3 ml) 3 ml PER PROTOCOL IV ; Start 02/03/19 at 14:00 Ondansetron HCl (Zofran Inj) 4 mg Q6H PRN IV NAUSEA/VOMITING; Start 02/03/19 at 14:00 Acetaminophen (Tylenol Tab) 650 mg Q6H PRN PO .PAIN 1-3 OR TEMP; Start 02/03/19 at 14:00 Acetaminophen/ Hydrocodone Bitart ([place] (5/325)) 1 tab Q6H PRN PO .MOD PAIN 4- 6 Last administered on 02/04/19 06:09; Admin Dose 1 TAB; Start 02/03/19 at 14:00 Docusate Sodium (Colace) 100 mg Q12H PRN PO .CONSTIPATION; Start 02/03/19 at 14:00 Furosemide (Lasix) 40 mg DAILY PO Last administered on 02/04/19 09:24; Admin Dose 40 MG; Start 02/04/19 at 09:00; Status Hold Levothyroxine Sodium (Synthroid) 25 mcg BEFORE BREAKFAST PO Last administered on 02/16/19 05:48; Admin Dose 25 MCG; Start 02/04/19 at 07:00 Spironolactone (Aldactone) 25 mg DAILY PO Last administered on 02/12/19 08:57; Admin Dose 25 MG; Start 02/04/19 at 09:00; Status Hold Sodium Chloride (Deep Sea) 2 spray BID NASAL Last administered on 02/16/19 09:06; Admin Dose 2 SPRAY; Start 02/04/19 at 11:00 Rifaximin (Xifaxan) 550 mg BID NGT Last administered on 02/16/19 08:57; Admin Dose 550 MG; Start 02/06/19 at 21:00 Sucralfate (Carafate Susp) 1 gm QID NGT Last administered on 02/16/19 13:33; Admin Dose 1 GM; Start 02/06/19 at 13:00 Metoclopramide HCl (Reglan) 10 mg Q6 IV Last administered on 02/16/19 11:40; Admin Dose 10 MG; Start 02/06/19 at 18:00 Propranolol HCl (Inderal) 20 mg BID PO Last administered on 6/22/19at 08:58; Admin Dose 20 MG; Start 02/06/19 at 21:00 Metoprolol Tartrate (Lopressor) 5 mg Q4H PRN IV HR>110 Hold SBP<100 Last administered on 02/06/19at 21:57; Admin Dose 5 MG; Start 02/06/19 at 17:30 Morphine Sulfate (morphine) 0.5 mg Q4H PRN IV .SEVERE PAIN 7-10 Last administered on 02/14/19at 21:09; Admin Dose 0.5 MG; Start 02/07/19 at 14:00 Furosemide (Lasix) 20 mg DAILY IV Last administered on 02/11/19at 08:26; Admin Dose 20 MG; Start 02/09/19 at 09:00; Status Hold Hydralazine HCl (Apresoline) 25 mg Q12 PO Last administered on 02/15/19at 08:20; Admin Dose 25 MG; Start 02/08/19 at 21:00; Status Hold Piperacillin Sod/ Tazobactam Sod 100 ml @ 25 mls/hr TID@02,10,18 IVPB Last administered on 02/16/19at 10:18; Admin Dose 25 MLS/HR; Start 02/10/19 at 10:00 Diagnostic Test (Pha) (Accu-Chek) 1 ea 02 XX Last administered on 02/15/19at 01:45; Admin Dose 1 EA; Start 02/12/19 at 02:00 Miscellaneous Information 1 ea NOTE XX ; Start 02/11/19 at 07:30 Glucose (Glutose) 15 gm Q15M PRN PO DECREASED GLUCOSE; Start 02/11/19 at 07:30 Glucose (Glutose) 22.5 gm Q15M PRN PO DECREASED GLUCOSE; Start 02/11/19 at 07:30 Dextrose (D50w Syringe) 25 ml Q15M PRN IV DECREASED GLUCOSE; Start 02/11/19 at 07:30 Dextrose (D50w Syringe) 50 ml Q15M PRN IV DECREASED GLUCOSE; Start 02/11/19 at 07:30 Glucagon (Glucagen) 1 mg Q15M PRN IM DECREASED GLUCOSE; Start 02/11/19 at 07:30 Glucose (Glutose) 15 gm Q15M PRN BUCCAL DECREASED GLUCOSE; Start 02/11/19 at 07:30 Miscellaneous Information 1 ea NOTE XX ; Start 02/11/19 at 11:00 Glucose (Glutose) 15 gm Q15M PRN PO DECREASED GLUCOSE; Start 02/11/19 at 11:00 Glucose (Glutose) 22.5 gm Q15M PRN PO DECREASED GLUCOSE; Start 02/11/19 at 11:00 Dextrose (D50w Syringe) 25 ml Q15M PRN IV DECREASED GLUCOSE; Start 02/11/19 at 11:00 Dextrose (D50w Syringe) 50 ml Q15M PRN IV DECREASED GLUCOSE; Start 02/11/19 at 11:00 Glucagon (Glucagen) 1 mg Q15M PRN IM DECREASED GLUCOSE; Start 02/11/19 at 11:00 Glucose (Glutose) 15 gm Q15M PRN BUCCAL DECREASED GLUCOSE; Start 02/11/19 at 11:00 Insulin Glargine (Lantus) 11 units DAILY@2000 SC Last administered on 02/15/19at 21:20; Admin Dose 11 UNITS; Start 02/11/19 at 20:00 Lactulose (Enulose) 20 gm BID PO Last administered on 02/16/19at 08:57; Admin Dose 20 GM; Start 02/12/19 at 21:00 Colchicine (Colchicine) 0.6 mg BID PO Last administered on 02/16/19at 08:57; Admin Dose 0.6 MG; Start 02/14/19 at 22:30 Insulin Aspart (Novolog Insulin Pen) NOVOLOG *MODERATE* ALGORITHM WITH MEALS BEDTIME SC Last administered on 02/16/19at 11:56; Admin Dose 6 UNIT; Start 02/14/19 at 22:30 Lansoprazole (Prevacid) 30 mg BID@06,18 PO ; Start 02/16/19 at 18:00 GARRETT DIOR MD Feb 16, 2019 16:00
[2019-02-16] MEDS ORDERED: POTASSIUM CHLORIDE 20 MEQ POWDER FOR ORAL SOLN PO ONE (16:30)
[2019-02-16] MEDS: LANSOPRAZOLE 30 MG CAP PO SCH (17:33)
[2019-02-16] MEDS: LACTOBACILLUS RHAMNOSUS CAP PO SCH (21:13)
[2019-02-16] MEDS: METOCLOPRAMIDE 5 MG TAB PO SCH (21:15)
[2019-02-16] MEDS: INSULIN GLARGINE [LANTus] (100 UNITS/ML) SYG SC SCH (21:17)
[2019-02-17] VITALS (11 sets, daily range): BP systolic 113–157; BP diastolic 54–75; PULSE 56–83; RESP 16–19
[2019-02-17] MEDS: PIPER-TAZO 3.375 GM IV (PMX) 100 ML IVPB SCH ×3 (01:45→17:17)
[2019-02-17] MEDS: ACCU-CHEK XX SCH (01:48)
[2019-02-17] MEDS: LANSOPRAZOLE 30 MG CAP PO SCH ×2 (06:12→17:17)
[2019-02-17] MEDS: LEVOTHYROXINE 25 MCG TAB PO SCH (06:12)
[2019-02-17] MEDS: INSULIN ASPART [NOVOLOG] 3 ML PEN SC SCH ×4 (07:52→21:23)
--- NOTE | 2019-02-17 09:51 | CONS ---
Consult Date/Type/Reason Admit Date/Time Feb 03, 2019 at 09:30 Initial Consult Date 02/03/19 Requesting Provider: SUDHIR BARRIENTOS Date/Time of Note DATE: 02/17/19 TIME: 09:46 Subjective 78-year-old male with a past medical history of cirrhosis, history of gout, history of hypothyroidism, history of diabetes, history of coronary artery disease, who presented to [facility] in early January with symptoms of abdominal pain, weakness and syncope. hospital course however, the patient was noted to have episodes of encephalopathy felt to be hepatic in nature. The patient also was seen by gastroenterology and was noted to have stools for occult blood. The patient had EGD which showed evidence of extensive ulceration and distal esophagitis. The patient during hospital course was also on diuretic therapy for underlying decompensated cirrhosis and volume overload. on admission the patient has creatinine of 1.24 mg/dL. The patient's creatinine has been fluctuating during the hospital course. continues good uo poc reviewd with dr. franklin. HEENT: Head is normocephalic. NECK: Supple. HEART: Regular rate. LUNGS: Show diminished breath sounds at the base. ABDOMEN: Soft, nontender to palpation. No rebound or guarding. EXTREMITIES: Negative for clubbing or cyanosis. No edema. DERMATOLOGIC: No rashes. MUSCULOSKELETAL: No joint effusion. NEUROLOGIC: No focal deficits. Objective Vitals Vital Signs Date Temp Pulse Resp B/P (MAP) Pulse Ox O2 O2 Flow FiO2 Time Delivery Rate 02/17/19 83 09:14 02/17/19 97.7 18 135/66 98 07:52 (89) 02/14/19 Nasal 2.0 20:59 Cannula Intake and Output 02/16/19 02/16/19 02/17/19 1515:00 23:00 07:00 IntakeIntake Total 1000 ml 440 ml 420 ml OutputOutput Total 700 ml 900 ml BalanceBalance 300 ml 440 ml -480 ml Results/Medications Result Diagram: 02/17/19 0515 02/17/19 0515 Results 24 hrs Laboratory Tests Test 02/16/19 11:39 02/16/19 17:32 02/16/19 21:11 02/17/19 01:48 Bedside Glucose 259 H 256 H 204 159 Test 02/17/19 05:15 02/17/19 07:44 White Blood Count 19.0 #H Red Blood Count 2.93 L Hemoglobin 9.0 L Hematocrit 28.5 L Mean Corpuscular 97.3 Volume Mean Corpuscular 30.7 Hemoglobin Mean Corpuscular 31.6 L Hemoglobin Concent Red Cell 16.7 H Distribution Width Platelet Count 242 # Mean Platelet Volume 12.6 H Immature 0.800 H Granulocytes % Neutrophils % 87.3 H Lymphocytes % 5.4 L Monocytes % 5.1 Eosinophils % 1.3 Basophils % 0.1 Nucleated Red Blood 0.0 Cells % Immature 0.150 H Granulocytes # Neutrophils # 16.6 H Lymphocytes # 1.0 Monocytes # 1.0 H Eosinophils # 0.3 Basophils # 0.0 Nucleated Red Blood 0.0 Cells # Sodium Level 145 H Potassium Level 3.6 Chloride Level 111 H Carbon Dioxide Level 26 Anion Gap 8 Blood Urea Nitrogen 44 H Creatinine 1.74 H Est Glomerular Filtrat Rate mL/min Glucose Level 149 Calcium Level 8.2 L Phosphorus Level 3.1 Total Bilirubin 1.0 Direct Bilirubin 0.00 Indirect Bilirubin 1.0 Aspartate Amino 32 Transf (AST/SGOT) Alanine 31 Aminotransferase (AL T/SGPT) Alkaline Phosphatase 184 H Total Protein 6.2 Albumin 2.9 L Globulin 3.30 H Albumin/Globulin 0.87 Ratio Thyroid Stimulating Pending Hormone (TSH) Bedside Glucose 198 Home Meds Reported Medications Spironolactone* (Aldactone*) 25 Mg Tablet, 25 MG PO DAILY, #30 TAB 02/03/19 Furosemide* (Furosemide*) 40 Mg Tablet, 40 MG PO DAILY, TAB 02/03/19 Levothyroxine Sodium* (Levoxyl*) 25 Mcg Tablet, 25 MCG PO BEFORE BREAKFAST, #30 TAB 02/03/19 Metformin Hcl* (Metformin Hcl*) 850 Mg Tablet, 850 MG PO WITH BREAKFAST, #30 TAB 02/03/19 Colchicine (Colchicine) 0.6 Mg Capsule, 0.6 MG PO BID for 50 Days, #100 TAKE 1 CAPSULE BY MOUTH TWICE A DAY 11/07/18 Medications Current Medications IV Flush (NS 3 ml) 3 ml PER PROTOCOL IV ; Start 02/03/19 at 14:00 Ondansetron HCl (Zofran Inj) 4 mg Q6H PRN IV NAUSEA/VOMITING; Start 02/03/19 at 14:00 Acetaminophen (Tylenol Tab) 650 mg Q6H PRN PO .PAIN 1-3 OR TEMP; Start 02/03/19 at 14:00 Acetaminophen/ Hydrocodone Bitart ([place] (5/325)) 1 tab Q6H PRN PO .MOD PAIN 4- 6 Last administered on 02/04/19 06:09; Admin Dose 1 TAB; Start 02/03/19 at 14:00 Docusate Sodium (Colace) 100 mg Q12H PRN PO .CONSTIPATION; Start 02/03/19 at 14:00 Furosemide (Lasix) 40 mg DAILY PO Last administered on 02/04/19 09:24; Admin Dose 40 MG; Start 02/04/19 at 09:00; Status Hold Levothyroxine Sodium (Synthroid) 25 mcg BEFORE BREAKFAST PO Last administered on 02/17/19 06:12; Admin Dose 25 MCG; Start 02/04/19 at 07:00 Spironolactone (Aldactone) 25 mg DAILY PO Last administered on 02/12/19 08:57; Admin Dose 25 MG; Start 02/04/19 at 09:00; Status Hold Sodium Chloride (Deep Sea) 2 spray BID NASAL Last administered on 02/16/19 21:15; Admin Dose 2 SPRAY; Start 02/04/19 at 11:00 Rifaximin (Xifaxan) 550 mg BID NGT Last administered on 02/16/19 21:13; Admin Dose 550 MG; Start 02/06/19 at 21:00 Sucralfate (Carafate Susp) 1 gm QID NGT Last administered on 02/16/19 21:13; Admin Dose 1 GM; Start 02/06/19 at 13:00 Propranolol HCl (Inderal) 20 mg BID PO Last administered on 02/16/19 21:15; Admin Dose 20 MG; Start 02/06/19 at 21:00 Metoprolol Tartrate (Lopressor) 5 mg Q4H PRN IV HR>110 Hold SBP<100 Last administered on 02/06/19 21:57; Admin Dose 5 MG; Start 02/06/19 at 17:30 Morphine Sulfate (morphine) 0.5 mg Q4H PRN IV .SEVERE PAIN 7-10 Last admin istered on 02/14/19 21:09; Admin Dose 0.5 MG; Start 02/07/19 at 14:00 Furosemide (Lasix) 20 mg DAILY IV Last administered on 02/11/19at 08:26; Admin Dose 20 MG; Start 02/09/19 at 09:00; Status Hold Hydralazine HCl (Apresoline) 25 mg Q12 PO Last administered on 02/15/19at 08:20; Admin Dose 25 MG; Start 02/08/19 at 21:00; Status Hold Piperacillin Sod/ Tazobactam Sod 100 ml @ 25 mls/hr TID@,18 IVPB Last administered on 02/17/19at 01:45; Admin Dose 25 MLS/HR; Start 02/10/19 at 10:00 Diagnostic Test (Pha) (Accu-Chek) 1 ea 02 XX Last administered on 02/17/19at 01:48; Admin Dose 1 EA; Start 02/12/19 at 02:00 Miscellaneous Information 1 ea NOTE XX ; Start 02/11/19 at 07:30 Glucose (Glutose) 15 gm Q15M PRN PO DECREASED GLUCOSE; Start 02/11/19 at 07:30 Glucose (Glutose) 22.5 gm Q15M PRN PO DECREASED GLUCOSE; Start 02/11/19 at 07:30 Dextrose (D50w Syringe) 25 ml Q15M PRN IV DECREASED GLUCOSE; Start 02/11/19 at 07:30 Dextrose (D50w Syringe) 50 ml Q15M PRN IV DECREASED GLUCOSE; Start 02/11/19 at 07:30 Glucagon (Glucagen) 1 mg Q15M PRN IM DECREASED GLUCOSE; Start 02/11/19 at 07:30 Glucose (Glutose) 15 gm Q15M PRN BUCCAL DECREASED GLUCOSE; Start 02/11/19 at 07:30 Miscellaneous Information 1 ea NOTE XX ; Start 02/11/19 at 11:00 Glucose (Glutose) 15 gm Q15M PRN PO DECREASED GLUCOSE; Start 02/11/19 at 11:00 Glucose (Glutose) 22.5 gm Q15M PRN PO DECREASED GLUCOSE; Start 02/11/19 at 11:00 Dextrose (D50w Syringe) 25 ml Q15M PRN IV DECREASED GLUCOSE; Start 02/11/19 at 11:00 Dextrose (D50w Syringe) 50 ml Q15M PRN IV DECREASED GLUCOSE; Start 02/11/19 at 11:00 Glucagon (Glucagen) 1 mg Q15M PRN IM DECREASED GLUCOSE; Start 02/11/19 at 11:00 Glucose (Glutose) 15 gm Q15M PRN BUCCAL DECREASED GLUCOSE; Start 02/11/19 at 11:00 Insulin Glargine (Lantus) 11 units DAILY@2000 SC Last administered on 02/16/19 21:17; Admin Dose 11 UNITS; Start 02/11/19 at 20:00 Lactulose (Enulose) 20 gm BID PO Last administered on 02/16/19 21:13; Admin Dose 20 GM; Start 02/12/19 at 21:00 Colchicine (Colchicine) 0.6 mg BID PO Last administered on 02/16/19 21:13; Admin Dose 0.6 MG; Start 02/14/19 at 22:30 Insulin Aspart (Novolog Insulin Pen) NOVOLOG *MODERATE* ALGORITHM WITH MEALS BEDTIME SC Last administered on 02/17/19 07:52; Admin Dose 4 UNIT; Start 02/14/19 at 22:30 Lansoprazole (Prevacid) 30 mg BID@06,18 PO Last administered on 02/17/19 06:12; Admin Dose 30 MG; Start 02/16/19 at 18:00 Metoclopramide HCl (Reglan) 5 mg TID PO Last administered on 02/16/19 21:15; Admin Dose 5 MG; Start 02/16/19 at 21:00 Lactobacillus Acidophilus/ Rhamnosus (Culturelle) 1 cap BID PO Last adm inistered on 02/16/19at 21:13; Admin Dose 1 CAP; Start 02/16/19 at 21:00 Assessment/Plan Hospital Course (Demo Recall) 1. Nonoliguric acute kidney injury with previous baseline creatinine around 1.0 mg/dL. Etiology of acute kidney injury is secondary to hemodynamics, diuretic therapy, volume depletion. Possibility of tubular injury or interstitial nephritis is less likely given patient's clinical presentation. - improving over last 48 hours. nonoliguric with bland sediment. FENa >1 but may have residual effect of diuretics. - sp volume expansion with IV albumin. - continue supportive care, renally dose all meds, avoid nephrotoxins. continue off diuretics for time being. 2. Anemia. Monitor hemoglobin and hematocrit levels. 3. Mineral bone disorder. Monitor calcium and phosphorus levels. 4. Acute encephalopathy. Etiology is toxic metabolic, possible hapatic. Continue to monitor. 5. Acute gastrointestinal bleed, status post EGD which showed evidence of extensive ulceration. Continue PPI. 6. Arrhythmia. Continue to monitor. Follow up with cardiology. 7. Cryptogenic cirrhosis with ascites. Continue medical management. Holding diuretic therapy at this time in the setting of worsening renal function. Monitor closely. Follow up with GI. 8. Diabetes. Continue current insulin regimen. 9. Hypothyroidism. Continue Synthroid. 10. History of coronary artery disease. 11. Systemic inflammatory response syndrome. The patient has elevated white count with a recent history of urinary tract infection, remains on antibiotic therapy. Continue to monitor. WASHINGTON BAUTISTA MD Feb 17, 2019 09:51
[2019-02-17] MEDS: SALINE 0.65% 45 ML NAS SPRAY NASAL SCH ×2 (10:15→21:08)
[2019-02-17] MEDS: RIFAXIMIN 550 MG TAB NGT SCH ×2 (10:16→21:08)
[2019-02-17] MEDS: LACTOBACILLUS RHAMNOSUS CAP PO SCH ×2 (10:16→21:08)
[2019-02-17] MEDS: COLCHICINE 0.6 MG CAP PO SCH ×2 (10:16→21:08)
[2019-02-17] MEDS: SUCRALFATE (100 MG/ML) 10ML CUP NGT SCH ×4 (10:16→21:08)
[2019-02-17] MEDS: LACTULOSE 30ML CUP PO SCH ×2 (10:17→21:08)
[2019-02-17] MEDS: PROPRANOLOL 20 MG TAB PO SCH ×2 (10:17→21:08)
[2019-02-17] MEDS: METOCLOPRAMIDE 5 MG TAB PO SCH ×3 (10:18→21:08)
[2019-02-17] MEDS: BALSAM PERU/CASTOR OIL 60 GM TUBE TOP SCH ×2 (10:18→21:09)
--- NOTE | 2019-02-17 14:05 | CONS ---
Consult Date/Type/Reason Admit Date/Time Feb 03, 2019 at 09:30 Initial Consult Date 02/03/19 Requesting Provider: SUDHIR BARRIENTOS Date/Time of Note DATE: 02/17/19 TIME: 14:03 Subjective NO acute events - pt convered to a. fib (coarse) with variable rate - o symptoms - tolerated well - no anti-coagulation now with anemia - will monitor clinically now. ROS: No fever, no chills, no nausea, no vomiting, no diarrhea/constipation No recent weight changes No chest pain, no PND, no orthopnea - mild SOB No dizziness, blurred vision No thirst, no heat or cold intolerance ++ gout pain Objective Vitals Vital Signs Date Temp Pulse Resp B/P (MAP) Pulse Ox O2 O2 Flow FiO2 Time Delivery Rate 02/17/19 98.0 74 17 157/75 92 11:10 (102) 02/14/19 Nasal 2.0 20:59 Cannula Intake and Output 02/16/19 02/16/19 02/17/19 1515:00 23:00 07:00 IntakeIntake Total 1000 ml 440 ml 420 ml OutputOutput Total 700 ml 900 ml BalanceBalance 300 ml 440 ml -480 ml Exam General: WN/WD/NAD, AOx 2-3 HEENT: Unicetric/atraumatic/EOMI (follow commands) NECK: JVD elevated, no thyromegaly Lymph: no lymphadenopathy HEART: Ir Irregular with no S3, II/ systolic murmur at apex LUNGS: Coarse sounds ABD: soft, NT, ND, +BS : Intact Neuro: non focal SKIN: chronic changes EXT: trace edema Results/Medications Result Diagram: 02/17/1915 02/17/19 0515 Results 24 hrs Laboratory Tests Test 02/16/19 17:32 02/16/19 21:11 02/17/19 01:48 02/17/19 05:15 Bedside Glucose 256 H 204 159 White Blood Count 19.0 #H Red Blood Count 2.93 L Hemoglobin 9.0 L Hematocrit 28.5 L Mean Corpuscular 97.3 Volume Mean Corpuscular 30.7 Hemoglobin Mean Corpuscular 31.6 L Hemoglobin Concent Red Cell 16.7 H Distribution Width Platelet Count 242 # Mean Platelet Volume 12.6 H Immature 0.800 H Granulocytes % Neutrophils % 87.3 H Lymphocytes % 5.4 L Monocytes % 5.1 Eosinophils % 1.3 Basophils % 0.1 Nucleated Red Blood 0.0 Cells % Immature 0.150 H Granulocytes # Neutrophils # 16.6 H Lymphocytes # 1.0 Monocytes # 1.0 H Eosinophils # 0.3 Basophils # 0.0 Nucleated Red Blood 0.0 Cells # Sodium Level 145 H Potassium Level 3.6 Chloride Level 111 H Carbon Dioxide Level 26 Anion Gap 8 Blood Urea Nitrogen 44 H Creatinine 1.74 H Est Glomerular Filtrat Rate mL/min Glucose Level 149 Calcium Level 8.2 L Phosphorus Level 3.1 Total Bilirubin 1.0 Direct Bilirubin 0.00 Indirect Bilirubin 1.0 Aspartate Amino 32 Transf (AST/SGOT) Alanine 31 Aminotransferase (AL T/SGPT) Alkaline Phosphatase 184 H Total Protein 6.2 Albumin 2.9 L Globulin 3.30 H Albumin/Globulin 0.87 Ratio Thyroid Stimulating Pending Hormone (TSH) Test 02/17/19 07:44 02/17/19 11:36 Bedside Glucose 198 231 H Home Meds Reported Medications Spironolactone* (Aldactone*) 25 Mg Tablet, 25 MG PO DAILY, #30 TAB 02/03/19 Furosemide* (Furosemide*) 40 Mg Tablet, 40 MG PO DAILY, TAB 02/03/19 Levothyroxine Sodium* (Levoxyl*) 25 Mcg Tablet, 25 MCG PO BEFORE BREAKFAST, #30 TAB 02/03/19 Metformin Hcl* (Metformin Hcl*) 850 Mg Tablet, 850 MG PO WITH BREAKFAST, #30 TAB 02/03/19 Colchicine (Colchicine) 0.6 Mg Capsule, 0.6 MG PO BID for 50 Days, #100 TAKE 1 CAPSULE BY MOUTH TWICE A DAY 11/07/18 Medications Current Medications IV Flush (NS 3 ml) 3 ml PER PROTOCOL IV ; Start 02/03/19 at 14:00 Ondansetron HCl (Zofran Inj) 4 mg Q6H PRN IV NAUSEA/VOMITING; Start 02/03/19 at 14:00 Acetaminophen (Tylenol Tab) 650 mg Q6H PRN PO .PAIN 1-3 OR TEMP; Start 02/03/19 at 14:00 Acetaminophen/ Hydrocodone Bitart ([place] (5/325)) 1 tab Q6H PRN PO .MOD PAIN 4- 6 Last administered on 02/04/19at 06:09; Admin Dose 1 TAB; Start 02/03/19 at 14:00 Docusate Sodium (Colace) 100 mg Q12H PRN PO .CONSTIPATION; Start 02/03/19 at 14:00 Furosemide (Lasix) 40 mg DAILY PO Last administered on 02/04/19 09:24; Admin Dose 40 MG; Start 02/04/19 at 09:00; Status Hold Levothyroxine Sodium (Synthroid) 25 mcg BEFORE BREAKFAST PO Last administered on 02/17/19 06:12; Admin Dose 25 MCG; Start 02/04/19 at 07:00 Spironolactone (Aldactone) 25 mg DAILY PO Last administered on 02/12/19 08:57; Admin Dose 25 MG; Start 02/04/19 at 09:00; Status Hold Sodium Chloride (Deep Sea) 2 spray BID NASAL Last administered on 02/17/19 10 :15; Admin Dose 2 SPRAY; Start 02/04/19 at 11:00 Rifaximin (Xifaxan) 550 mg BID NGT Last administered on 02/17/19 10:16; Admin Dose 550 MG; Start 02/06/19 at 21:00 Sucralfate (Carafate Susp) 1 gm QID NGT Last administered on 02/17/19 10:16; Admin Dose 1 GM; Start 02/06/19 at 13:00 Propranolol HCl (Inderal) 20 mg BID PO Last administered on 02/17/19 10:17; Admin Dose 20 MG; Start 02/06/19 at 21:00 Metoprolol Tartrate (Lopressor) 5 mg Q4H PRN IV HR>110 Hold SBP<100 Last administered on 02/06/19 21:57; Admin Dose 5 MG; Start 02/06/19 at 17:30 Morphine Sulfate (morphine) 0.5 mg Q4H PRN IV .SEVERE PAIN 7-10 Last administered on 02/14/19 21:09; Admin Dose 0.5 MG; Start 02/07/19 at 14:00 Furosemide (Lasix) 20 mg DAILY IV Last administered on 02/11/19 08:26; Admin Dose 20 MG; Start 02/09/19 at 09:00; Status Hold Hydralazine HCl (Apresoline) 25 mg Q12 PO Last administered on 02/15/19 08:20; Admin Dose 25 MG; Start 02/08/19 at 21:00; Status Hold Piperacillin Sod/ Tazobactam Sod 100 ml @ 25 mls/hr TID@02,,18 IVPB Last administered on 02/17/19at 10:18; Admin Dose 25 MLS/HR; Start 02/10/19 at 10:00 Diagnostic Test (Pha) (Accu-Chek) 1 ea 02 XX Last administered on 02/17/19at 0 1:48; Admin Dose 1 EA; Start 02/12/19 at 02:00 Miscellaneous Information 1 ea NOTE XX ; Start 02/11/19 at 07:30 Glucose (Glutose) 15 gm Q15M PRN PO DECREASED GLUCOSE; Start 02/11/19 at 07:30 Glucose (Glutose) 22.5 gm Q15M PRN PO DECREASED GLUCOSE; Start 02/11/19 at 07:30 Dextrose (D50w Syringe) 25 ml Q15M PRN IV DECREASED GLUCOSE; Start 02/11/19 at 07:30 Dextrose (D50w Syringe) 50 ml Q15M PRN IV DECREASED GLUCOSE; Start 02/11/19 at 07:30 Glucagon (Glucagen) 1 mg Q15M PRN IM DECREASED GLUCOSE; Start 02/11/19 at 07:30 Glucose (Glutose) 15 gm Q15M PRN BUCCAL DECREASED GLUCOSE; Start 02/11/19 at 07:30 Miscellaneous Information 1 ea NOTE XX ; Start 02/11/19 at 11:00 Glucose (Glutose) 15 gm Q15M PRN PO DECREASED GLUCOSE; Start 02/11/19 at 11:00 Glucose (Glutose) 22.5 gm Q15M PRN PO DECREASED GLUCOSE; Start 02/11/19 at 11:00 Dextrose (D50w Syringe) 25 ml Q15M PRN IV DECREASED GLUCOSE; Start 02/11/19 at 11:00 Dextrose (D50w Syringe) 50 ml Q15M PRN IV DECREASED GLUCOSE; Start 02/11/19 at 11:00 Glucagon (Glucagen) 1 mg Q15M PRN IM DECREASED GLUCOSE; Start 02/11/19 at 11:00 Glucose (Glutose) 15 gm Q15M PRN BUCCAL DECREASED GLUCOSE; Start 02/11/19 at 11:00 Insulin Glargine (Lantus) 11 units DAILY@2000 SC Last administered on 02/16/19 21:17; Admin Dose 11 UNITS; Start 02/11/19 at 20:00 Lactulose (Enulose) 20 gm BID PO Last administered on 02/17/19 10:17; Admin Dose 20 GM; Start 02/12/19 at 21:00 Colchicine (Colchicine) 0.6 mg BID PO Last administered on 02/17/19 10:16; A dmin Dose 0.6 MG; Start 02/14/19 at 22:30 Insulin Aspart (Novolog Insulin Pen) NOVOLOG *MODERATE* ALGORITHM WITH MEALS BEDTIME SC Last administered on 02/17/19 11:42; Admin Dose 6 UNIT; Start 02/14 at 22:30 Lansoprazole (Prevacid) 30 mg BID@06,18 PO Last administered on 02/17/19 06:12; Admin Dose 30 MG; Start 02/16/19 at 18:00 Metoclopramide HCl (Reglan) 5 mg TID PO Last administered on 02/17/19 10:18; Admin Dose 5 MG; Start 02/16/19 at 21:00 Lactobacillus Acidophilus/ Rhamnosus (Culturelle) 1 cap BID PO Last administered on 02/17/19 10:16; Admin Dose 1 CAP; Start 02/16/19 at 21:00 Assessment/Plan Hospital Course (Demo Recall) 1. Wide complex tachycardia, likely consistent with supraventricular tachycardia with a baseline bundle branch block.-TSH WNL. NO recurrence. NL EF by echo this admit - no new WCT noted - on Rx now. STABLE NOW. Now coarse a. fib - rate controlled. 2. Abnormal electrocardiogram with baseline bundle branch block- stable. Treated. Will follow. 3. Syncope on admit. Rule out cardiac etiology. Rule out cardiac arrhythmia as etiology versus anemia. Replace blood Rx as needed. 4. Cirrhosis. 5. Gastrointestinal bleed with melenic stools. No anti-coag now. 6. Peptic ulcer disease by endoscopy - GI follows. 7. Renal failure-acute - Cr going up to 1.74 - avoid nephrotoxic meds - will follow - BETTER 8. Hyponatremia. 9. Thrombocytopenia- plt better 149. 10. Anemia. 11. Encephalopathy-ngoing 12. -mild to moderate by echo this admit - no intervention warranted - stable fluid status. LARISA MARADIAGA MD Feb 17, 2019 14:05
--- NOTE | 2019-02-17 15:49 | PN ---
Date/Time of Note Date/Time of Note DATE: 02/17/19 TIME: 15:47 Assessment/Plan VTE Prophylaxis Risk score (from Ns)>0 risk: 7 SCD applied (from Ns): Yes SCD contraindicated: low risk/ambulating Pharmacological prophylaxis: LMWH Lines/Catheters IV [facility] Type [facility]from [facility] [place] Urinary Cath still in place: Yes Reason Cath still needed: urinary retention Assessment/Plan Hospital Course Hospitalist coverage Assessment plan 1. Syncope, anemia related, stable resolved 2. Acute blood loss anemia, observe 3. GI bleed/jejunal ulcer noted sp EGD, cont supportive care. Peptic ulcer disease/type II/ gastrectomy status. 4. 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 5. Chronic liver disease sequently with ascites. liver MRI at some point? 6. CAD, CABG [] status. 7. Chr hypertension; if tolerable, start bb or ACEi. 8. Type 2 diabetes 9. Abd ventral umbilical hernia 10. Ho right inguinal hernia repair. Present hernia noted 11. History of prostate cancer surgery 12. Failure to thrive apathy? Observe treat renal failure 13. Acute renal failure, hydrate, watch for obstruction. Appreciate nephrology assistance 14. Chronic gout 15. Aortic stenosis mild to moderate 16. SVT with underlying bbb; they will watch electrolytes 17. Pulmonary hypertension? 18. Leukocytosis. Re-eval and lines. Change [place]? Gout? S: no distress. Not very interactive. 02/17: Not very interactive. No fever distress Objective: vss PE No pallor Regular systolic m. no r/g Clear bs+ nt nd no RRG No edema Result Diagram: 02/17/19 0515 02/17/19 0515 Results 24hrs Laboratory Tests Test 02/16/19 17:32 02/16/19 21:11 02/17/19 01:48 02/17/19 05:15 Bedside Glucose 256 H 204 159 White Blood Count 19.0 #H Red Blood Count 2.93 L Hemoglobin 9.0 L Hematocrit 28.5 L Mean Corpuscular 97.3 Volume Mean Corpuscular 30.7 Hemoglobin Mean Corpuscular 31.6 L Hemoglobin Concent Red Cell 16.7 H Distribution Width Platelet Count 242 # Mean Platelet Volume 12.6 H Immature 0.800 H Granulocytes % Neutrophils % 87.3 H Lymphocytes % 5.4 L Monocytes % 5.1 Eosinophils % 1.3 Basophils % 0.1 Nucleated Red Blood 0.0 Cells % Immature 0.150 H Granulocytes # Neutrophils # 16.6 H Lymphocytes # 1.0 Monocytes # 1.0 H Eosinophils # 0.3 Basophils # 0.0 Nucleated Red Blood 0.0 Cells # Sodium Level 145 H Potassium Level 3.6 Chloride Level 111 H Carbon Dioxide Level 26 Anion Gap 8 Blood Urea Nitrogen 44 H Creatinine 1.74 H Est Glomerular Filtrat Rate mL/min Glucose Level 149 Calcium Level 8.2 L Phosphorus Level 3.1 Total Bilirubin 1.0 Direct Bilirubin 0.00 Indirect Bilirubin 1.0 Aspartate Amino 32 Transf (AST/SGOT) Alanine 31 Aminotransferase (AL T/SGPT) Alkaline Phosphatase 184 H Total Protein 6.2 Albumin 2.9 L Globulin 3.30 H Albumin/Globulin 0.87 Ratio Thyroid Stimulating 2.650 Hormone (TSH) Test 02/17/19 07:44 02/17/19 11:36 Bedside Glucose 198 231 H Exam/Review of Systems Exam Vitals Vital Signs Date Temp Pulse Resp B/P (MAP) Pulse Ox O2 O2 Flow FiO2 Time Delivery Rate 02/17/19 97.4 56 16 127/66 96 15:20 (86) 02/14/19 Nasal 2.0 20:59 Cannula Intake and Output 02/16/19 02/16/19 02/17/19 1515:00 23:00 07:00 IntakeIntake Total 1000 ml 440 ml 420 ml OutputOutput Total 700 ml 900 ml BalanceBalance 300 ml 440 ml -480 ml Results Results 24hrs Laboratory Tests Test 02/16/19 17:32 02/16/19 21:11 02/17/19 01:48 02/17/19 05:15 Bedside Glucose 256 H 204 159 White Blood Count 19.0 #H Red Blood Count 2.93 L Hemoglobin 9.0 L Hematocrit 28.5 L Mean Corpuscular 97.3 Volume Mean Corpuscular 30.7 Hemoglobin Mean Corpuscular 31.6 L Hemoglobin Concent Red Cell 16.7 H Distribution Width Platelet Count 242 # Mean Platelet Volume 12.6 H Immature 0.800 H Granulocytes % Neutrophils % 87.3 H Lymphocytes % 5.4 L Monocytes % 5.1 Eosinophils % 1.3 Basophils % 0.1 Nucleated Red Blood 0.0 Cells % Immature 0.150 H Granulocytes # Neutrophils # 16.6 H Lymphocytes # 1.0 Monocytes # 1.0 H Eosinophils # 0.3 Basophils # 0.0 Nucleated Red Blood 0.0 Cells # Sodium Level 145 H Potassium Level 3.6 Chloride Level 111 H Carbon Dioxide Level 26 Anion Gap 8 Blood Urea Nitrogen 44 H Creatinine 1.74 H Est Glomerular Filtrat Rate mL/min Glucose Level 149 Calcium Level 8.2 L Phosphorus Level 3.1 Total Bilirubin 1.0 Direct Bilirubin 0.00 Indirect Bilirubin 1.0 Aspartate Amino 32 Transf (AST/SGOT) Alanine 31 Aminotransferase (AL T/SGPT) Alkaline Phosphatase 184 H Total Protein 6.2 Albumin 2.9 L Globulin 3.30 H Albumin/Globulin 0.87 Ratio Thyroid Stimulating 2.650 Hormone (TSH) Test 02/17/19 07:44 02/17/19 11:36 Bedside Glucose 198 231 H Medications Medication Current Medications IV Flush (NS 3 ml) 3 ml PER PROTOCOL IV ; Start 02/03/19 at 14:00 Ondansetron HCl (Zofran Inj) 4 mg Q6H PRN IV NAUSEA/VOMITING; Start 02/03/19 at 14:00 Acetaminophen (Tylenol Tab) 650 mg Q6H PRN PO .PAIN 1-3 OR TEMP; Start 02/03/19 at 14:00 Acetaminophen/ Hydrocodone Bitart ([place] (5/325)) 1 tab Q6H PRN PO .MOD PAIN 4- 6 Last administered on 02/04/19at 06:09; Admin Dose 1 TAB; Start 02/03/19 at 14:00 Docusate Sodium (Colace) 100 mg Q12H PRN PO .CONSTIPATION; Start 02/03/19 at 14:00 Furosemide (Lasix) 40 mg DAILY PO Last administered on 02/04/19at 09:24; Admin Dose 40 MG; Start 02/04/19 at 09:00; Status Hold Levothyroxine Sodium (Synthroid) 25 mcg BEFORE BREAKFAST PO Last administered on 02/17/19at 06:12; Admin Dose 25 MCG; Start 02/04/19 at 07:00 Spironolactone (Aldactone) 25 mg DAILY PO Last administered on 02/12/19at 08:57; Admin Dose 25 MG; Start 02/04/19 at 09:00; Status Hold Sodium Chloride (Deep Sea) 2 spray BID NASAL Last administered on 02/17/19at 10:15; Admin Dose 2 SPRAY; Start 02/04/19 at 11:00 Rifaximin (Xifaxan) 550 mg BID NGT Last administered on 02/17/19 10:16; Admin Dose 550 MG; Start 02/06/19 at 21:00 Sucralfate (Carafate Susp) 1 gm QID NGT Last administered on 02/17/19 14:16; Admin Dose 1 GM; Start 02/06/19 at 13:00 Propranolol HCl (Inderal) 20 mg BID PO Last administered on 02/17/19 10:17; Admin Dose 20 MG; Start 02/06/19 at 21:00 Metoprolol Tartrate (Lopressor) 5 mg Q4H PRN IV HR>110 Hold SBP<100 Last administered on 02/06/19 21:57; Admin Dose 5 MG; Start 02/06/19 at 17:30 Morphine Sulfate (morphine) 0.5 mg Q4H PRN IV .SEVERE PAIN 7-10 Last administered on 02/14/19 21:09; Admin Dose 0.5 MG; Start 02/07/19 at 14:00 Furosemide (Lasix) 20 mg DAILY IV Last administered on 02/11/19 08:26; Admin Dose 20 MG; Start 02/09/19 at 09:00; Status Hold Hydralazine HCl (Apresoline) 25 mg Q12 PO Last administered on 02/15/19 08:20; Admin Dose 25 MG; Start 02/08/19 at 21:00; Status Hold Piperacillin Sod/ Tazobactam Sod 100 ml @ 25 mls/hr TID@,18 IVPB Last administered on 02/17/19 10:18; Admin Dose 25 MLS/HR; Start 02/10/19 at 10:00 Diagnostic Test (Pha) (Accu-Chek) 1 ea 02 XX Last administered on 02/17/19at 01:48; Admin Dose 1 EA; Start 02/12/19 at 02:00 Miscellaneous Information 1 ea NOTE XX ; Start 02/11/19 at 07:30 Glucose (Glutose) 15 gm Q15M PRN PO DECREASED GLUCOSE; Start 02/11/19 at 07:30 Glucose (Glutose) 22.5 gm Q15M PRN PO DECREASED GLUCOSE; Start 02/11/19 at 07:30 Dextrose (D50w Syringe) 25 ml Q15M PRN IV DECREASED GLUCOSE; Start 02/11/19 at 07:30 Dextrose (D50w Syringe) 50 ml Q15M PRN IV DECREASED GLUCOSE; Start 02/11/19 at 07:30 Glucagon (Glucagen) 1 mg Q15M PRN IM DECREASED GLUCOSE; Start 02/11/19 at 07:30 Glucose (Glutose) 15 gm Q15M PRN BUCCAL DECREASED GLUCOSE; Start 02/11/19 at 07:30 Miscellaneous Information 1 ea NOTE XX ; Start 02/11/19 at 11:00 Glucose (Glutose) 15 gm Q15M PRN PO DECREASED GLUCOSE; Start 02/11/19 at 11:00 Glucose (Glutose) 22.5 gm Q15M PRN PO DECREASED GLUCOSE; Start 02/11/19 at 11:00 Dextrose (D50w Syringe) 25 ml Q15M PRN IV DECREASED GLUCOSE; Start 02/11/19 at 11:00 Dextrose (D50w Syringe) 50 ml Q15M PRN IV DECREASED GLUCOSE; Start 02/11/19 at 11:00 Glucagon (Glucagen) 1 mg Q15M PRN IM DECREASED GLUCOSE; Start 02/11/19 at 11:00 Glucose (Glutose) 15 gm Q15M PRN BUCCAL DECREASED GLUCOSE; Start 02/11/19 at 11:00 Insulin Glargine (Lantus) 11 units DAILY@1999 SC Last administered on 02/16/19at 21:17; Admin Dose 11 UNITS; Start 02/11/19 at 20:00 Lactulose (Enulose) 20 gm BID PO Last administered on 02/17/19at 10:17; Admin Dose 20 GM; Start 02/12/19 at 21:00 Colchicine (Colchicine) 0.6 mg BID PO Last administered on 02/17/19at 10:16; Admin Dose 0.6 MG; Start 02/14/19 at 22:30 Insulin Aspart (Novolog Insulin Pen) NOVOLOG *MODERATE* ALGORITHM WITH MEALS BEDTIME SC Last administered on 02/17/19at 11:42; Admin Dose 6 UNIT; Start 02/14/19 at 22:30 Lansoprazole (Prevacid) 30 mg BID@,18 PO Last administered on 02/17/19at 06:12; Admin Dose 30 MG; Start 02/16/19 at 18:00 Metoclopramide HCl (Reglan) 5 mg TID PO Last administered on 02/17/19at 14:16; Admin Dose 5 MG; Start 02/16/19 at 21:00 Lactobacillus Acidophilus/ Rhamnosus (Culturelle) 1 cap BID PO Last administered on 02/17/19at 10:16; Admin Dose 1 CAP; Start 02/16/19 at 21:00 GARRETT DIOR MD Feb 17, 2019 15:49
--- NOTE | 2019-02-17 18:17 | CONS ---
Assessment/Plan Assessment/Plan Hospital Course (Demo Recall) ID PROGRESS NOTE CURRENT ABX: DAY # =>Zosyn #8 24H INTERVAL SUMMARY * Awake -- WBC rising today on ABX -- 02/15/19 repeat UA C&S (-) * VSS, NAD, no fevers, frail elder without dyspnea on room air * Blood cultures negative. Urine culture grew Klebsiella and enterococcus species * WBC down today DIAGNOSTIC IMAGING * 02/15/19 CXR: Improving aeration with persistent retrocardiac infiltrate/pneumonia. PHYSICAL EXAMINATION: GENERAL: VSS, NAD HEENT: AT, NC, NECK: Supple, CHEST: Rise symmetrical HEART: Pulse RRR ABDOMEN: Distended EXTREMITIES: Warm, dry SKIN: No rash, no diaphoresis ID ASSESSMENT 78 yo M admit with: 1. SIRS with ongoing leukocytosis procalcitonin level 2.23 2. Possible aspiration 3. Polymicrobial UTI 4. Acute encephalopathy 5. Cryptogenic cirrhosis 6. Diabetes 7. Acute renal failure ABX ALLERGIES: KNDA INVASIVES: PIV CURRENT ABX: DAY # Zosyn #8 ID RECOMMENDATIONS/PLAN: 1. 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 ASP precautions . Consultation Date/Type/Reason Admit Date/Time Feb 03, 2019 at 09:30 Initial Consult Date 02/03/19 Requesting Provider: SUDHIR BARRIENTOS Date/Time of Note DATE: 02/17/19 TIME: 18:14 Exam/Review of Systems Exam Vitals Vital Signs Date Temp Pulse Resp B/P (MAP) Pulse Ox O2 O2 Flow FiO2 Time Delivery Rate 02/17/19 67 16:38 02/17/19 97.4 16 127/66 96 15:20 (86) 02/14/19 Nasal 2.0 20:59 Cannula Intake and Output 02/16/19 02/16/19 02/17/19 1515:00 23:00 07:00 IntakeIntake Total 1000 ml 440 ml 420 ml OutputOutput Total 700 ml 900 ml BalanceBalance 300 ml 440 ml -480 ml Results Result Diagram: 02/17/19 0515 02/17/19 0515 Results 24hrs Laboratory Tests Test 02/16/19 21:11 02/17/19 01:48 02/17/19 05:15 02/17/19 07:44 Bedside Glucose 204 159 198 White Blood Count 19.0 #H Red Blood Count 2.93 L Hemoglobin 9.0 L Hematocrit 28.5 L Mean Corpuscular 97.3 Volume Mean Corpuscular 30.7 Hemoglobin Mean Corpuscular 31.6 L Hemoglobin Concent Red Cell 16.7 H Distribution Width Platelet Count 242 # Mean Platelet Volume 12.6 H Immature 0.800 H Granulocytes % Neutrophils % 87.3 H Lymphocytes % 5.4 L Monocytes % 5.1 Eosinophils % 1.3 Basophils % 0.1 Nucleated Red Blood 0.0 Cells % Immature 0.150 H Granulocytes # Neutrophils # 16.6 H Lymphocytes # 1.0 Monocytes # 1.0 H Eosinophils # 0.3 Basophils # 0.0 Nucleated Red Blood 0.0 Cells # Sodium Level 145 H Potassium Level 3.6 Chloride Level 111 H Carbon Dioxide Level 26 Anion Gap 8 Blood Urea Nitrogen 44 H Creatinine 1.74 H Est Glomerular Filtrat Rate mL/min Glucose Level 149 Calcium Level 8.2 L Phosphorus Level 3.1 Total Bilirubin 1.0 Direct Bilirubin 0.00 Indirect Bilirubin 1.0 Aspartate Amino 32 Transf (AST/SGOT) Alanine 31 Aminotransferase (AL T/SGPT) Alkaline Phosphatase 184 H Total Protein 6.2 Albumin 2.9 L Globulin 3.30 H Albumin/Globulin 0.87 Ratio Thyroid Stimulating 2.650 Hormone (TSH) Test 02/17/19 11:36 02/17/19 17:45 Bedside Glucose 231 H 181 Medications Medication Current Medications IV Flush (NS 3 ml) 3 ml PER PROTOCOL IV ; Start 02/03/19 at 14:00 Ondansetron HCl (Zofran Inj) 4 mg Q6H PRN IV NAUSEA/VOMITING; Start 02/03/19 at 14:00 Acetaminophen (Tylenol Tab) 650 mg Q6H PRN PO .PAIN 1-3 OR TEMP; Start 02/03/19 at 14:00 Acetaminophen/ Hydrocodone Bitart ([place] (5/325)) 1 tab Q6H PRN PO .MOD PAIN 4- 6 Last administered on 02/04/19at 06:09; Admin Dose 1 TAB; Start 02/03/19 at 14:00 Docusate Sodium (Colace) 100 mg Q12H PRN PO .CONSTIPATION; Start 02/03/19 at 14:00 Furosemide (Lasix) 40 mg DAILY PO Last administered on 02/04/19at 09:24; Admin Dose 40 MG; Start 02/04/19 at 09:00; Status Hold Levothyroxine Sodium (Synthroid) 25 mcg BEFORE BREAKFAST PO Last administered on 02/17/19 06:12; Admin Dose 25 MCG; Start 02/04/19 at 07:00 Spironolactone (Aldactone) 25 mg DAILY PO Last administered on 02/12/19 08:57; Admin Dose 25 MG; Start 02/04/19 at 09:00; Status Hold Sodium Chloride (Deep Sea) 2 spray BID NASAL Last administered on 02/17/19 10:15; Admin Dose 2 SPRAY; Start 02/04/19 at 11:00 Rifaximin (Xifaxan) 550 mg BID NGT Last administered on 02/17/19 10:16; Admin Dose 550 MG; Start 02/06/19 at 21:00 Sucralfate (Carafate Susp) 1 gm QID NGT Last administered on 02/17/19 17:17; Admin Dose 1 GM; Start 02/06/19 at 13:00 Propranolol HCl (Inderal) 20 mg BID PO Last administered on 02/17/19 10:17; Admin Dose 20 MG; Start 02/06/19 at 21:00 Metoprolol Tartrate (Lopressor) 5 mg Q4H PRN IV HR>110 Hold SBP<100 Last ad ministered on 02/06/19 21:57; Admin Dose 5 MG; Start 02/06/19 at 17:30 Morphine Sulfate (morphine) 0.5 mg Q4H PRN IV .SEVERE PAIN 7-10 Last administered on 02/14/19 21:09; Admin Dose 0.5 MG; Start 02/07/19 at 14:00 Furosemide (Lasix) 20 mg DAILY IV Last administered on 02/11/19 08:26; Admin Dose 20 MG; Start 02/09/19 at 09:00; Status Hold Hydralazine HCl (Apresoline) 25 mg Q12 PO Last administered on 02/15/19 08:20; Admin Dose 25 MG; Start 02/08/19 at 21:00; Status Hold Piperacillin Sod/ Tazobactam Sod 100 ml @ 25 mls/hr TID@02,10,18 IVPB Last administered on 6/23/19at 17:17; Admin Dose 25 MLS/HR; Start 02/10/19 at 10:00 Diagnostic Test (Pha) (Accu-Chek) 1 ea 02 XX Last administered on 02/17/19at 01:48; Admin Dose 1 EA; Start 02/12/19 at 02:00 Miscellaneous Information 1 ea NOTE XX ; Start 02/11/19 at 07:30 Glucose (Glutose) 15 gm Q15M PRN PO DECREASED GLUCOSE; Start 02/11/19 at 07:30 Glucose (Glutose) 22.5 gm Q15M PRN PO DECREASED GLUCOSE; Start 02/11/19 at 07:30 Dextrose (D50w Syringe) 25 ml Q15M PRN IV DECREASED GLUCOSE; Start 02/11/19 at 07:30 Dextrose (D50w Syringe) 50 ml Q15M PRN IV DECREASED GLUCOSE; Start 02/11/19 at 07:30 Glucagon (Glucagen) 1 mg Q15M PRN IM DECREASED GLUCOSE; Start 02/11/19 at 07:30 Glucose (Glutose) 15 gm Q15M PRN BUCCAL DECREASED GLUCOSE; Start 02/11/19 at 07:30 Miscellaneous Information 1 ea NOTE XX ; Start 02/11/19 at 11:00 Glucose (Glutose) 15 gm Q15M PRN PO DECREASED GLUCOSE; Start 02/11/19 at 11:00 Glucose (Glutose) 22.5 gm Q15M PRN PO DECREASED GLUCOSE; Start 02/11/19 at 11:00 Dextrose (D50w Syringe) 25 ml Q15M PRN IV DECREASED GLUCOSE; Start 02/11/19 at 11:00 Dextrose (D50w Syringe) 50 ml Q15M PRN IV DECREASED GLUCOSE; Start 02/11/19 at 11:00 Glucagon (Glucagen) 1 mg Q15M PRN IM DECREASED GLUCOSE; Start 02/11/19 at 11:00 Glucose (Glutose) 15 gm Q15M PRN BUCCAL DECREASED GLUCOSE; Start 02/11/19 at 11:00 Insulin Glargine (Lantus) 11 units DAILY@2000 SC Last administered on 02/16/19at 21:17; Admin Dose 11 UNITS; Start 02/11/19 at 20:00 Lactulose (Enulose) 20 gm BID PO Last administered on 02/17/19at 10:17; Admin Dose 20 GM; Start 02/12/19 at 21:00 Colchicine (Colchicine) 0.6 mg BID PO Last administered on 02/17/19 10:16; Admin Dose 0.6 MG; Start 02/14/19 at 22:30 Insulin Aspart (Novolog Insulin Pen) NOVOLOG *MODERATE* ALGORITHM WITH MEALS BEDTIME SC Last administered on 02/17/19 17:53; Admin Dose 4 UNIT; Start 02/14/19 at 22:30 Lansoprazole (Prevacid) 30 mg BID@,18 PO Last administered on 02/17/19 17:17; Admin Dose 30 MG; Start 02/16/19 at 18:00 Metoclopramide HCl (Reglan) 5 mg TID PO Last administered on 02/17/19 14:16; Admin Dose 5 MG; Start 02/16/19 at 21:00 Lactobacillus Acidophilus/ Rhamnosus (Culturelle) 1 cap BID PO Last administered on 02/17/19 10:16; Admin Dose 1 CAP; Start 02/16/19 at 21:00 PURVI EVANS NP Feb 17, 2019 18:17
[2019-02-17] MEDS: INSULIN GLARGINE [LANTus] (100 UNITS/ML) SYG SC SCH (20:00)
[2019-02-18 00:19] VITALS: BP 128/65; PULSE 68; RESP 16
[2019-02-18 01:00] VITALS: BP 139/84; PULSE 61; RESP 20
[2019-02-18] MEDS: ACCU-CHEK XX SCH (02:00)
[2019-02-18] MEDS: PIPER-TAZO 3.375 GM IV (PMX) 100 ML IVPB SCH ×3 (02:22→17:04)
[2019-02-18] MEDS: LEVOTHYROXINE 25 MCG TAB PO SCH (05:22)
[2019-02-18] MEDS: LANSOPRAZOLE 30 MG CAP PO SCH ×2 (05:22→17:04)
[2019-02-18 08:01] VITALS: BP 103/54; PULSE 60; RESP 17
[2019-02-18] MEDS: INSULIN ASPART [NOVOLOG] 3 ML PEN SC SCH ×4 (08:24→21:38)
[2019-02-18] MEDS: LACTULOSE 30ML CUP PO SCH ×2 (08:25→21:40)
[2019-02-18] MEDS: COLCHICINE 0.6 MG CAP PO SCH ×2 (08:25→21:40)
[2019-02-18] MEDS: PROPRANOLOL 20 MG TAB PO SCH ×2 (08:25→21:41)
[2019-02-18] MEDS: SUCRALFATE (100 MG/ML) 10ML CUP NGT SCH ×4 (08:25→21:40)
[2019-02-18] MEDS: RIFAXIMIN 550 MG TAB NGT SCH ×2 (08:25→21:40)
[2019-02-18] MEDS: LACTOBACILLUS RHAMNOSUS CAP PO SCH ×2 (08:25→21:41)
[2019-02-18] MEDS: METOCLOPRAMIDE 5 MG TAB PO SCH ×3 (08:25→21:40)
[2019-02-18] MEDS: SALINE 0.65% 45 ML NAS SPRAY NASAL SCH ×2 (09:00→21:40)
[2019-02-18] MEDS ORDERED: POTASSIUM CHLORIDE (SR) 20 MEQ TAB PO STA (10:07)
[2019-02-18] MEDS: BALSAM PERU/CASTOR OIL 60 GM TUBE TOP SCH (10:29)
[2019-02-18] MEDS ORDERED: DEXTROSE 5% 1,000 ML IV SCH (10:30)
--- NOTE | 2019-02-18 13:25 | CONS ---
Assessment/Plan Assessment/Plan Hospital Course (Demo Recall) IMPRESSION: 1. Wide complex tachycardia, likely consistent with supraventricular tachycardia with a baseline bundle branch block.-TSH WNL. NO recurrence. NL EF by echo this admit 2. Abnormal electrocardiogram with baseline bundle branch block. 3. Syncope on admit. Rule out cardiac etiology. Rule out cardiac arrhythmia as etiology versus anemia. 4. Cirrhosis. 5. Gastrointestinal bleed with melenic stools. 6. Peptic ulcer disease by endoscopy. 7. Renal failure-slowly improving 8. Hyponatremia. 9. Thrombocytopenia. 10. Anemia. 11. Encephalopathy-ongoing but improving 12. -mild to moderate by echo this admit Recc: -Tele -Continue propranolol as tolerated -Contineu lactulose -Continue aldactone -lasix held in the setting of ARF -Follow MS -Follow HGb clsoely with further transfusions as necessary -continue abx'x and f/u cx data -started on colchicine Consultation Date/Type/Reason Admit Date/Time Feb 03, 2019 at 09:30 Initial Consult Date 02/03/19 Type of Consult Cardiology Reason for Consultation SVT Requesting Provider: SUDHIR BARRIENTOS Date/Time of Note DATE: 02/18/19 TIME: 13:23 Exam/Review of Systems Vital Signs Vitals Vital Signs Date Temp Pulse Resp B/P (MAP) Pulse Ox O2 O2 Flow FiO2 Time Delivery Rate 02/18/19 98.3 60 17 103/54 97 Room Air 08:01 (70) 02/14/19 2.0 20:59 Intake and Output 02/17/19 02/17/19 02/18/19 1515:00 23:00 07:00 IntakeIntake Total 850 ml 100 ml 100 ml OutputOutput Total 500 ml 450 ml 353 ml BalanceBalance 350 ml -350 ml -253 ml Exam Exam Review of Systems: CONSTITUTIONAL: No fevers, chills. PULMONARY: No sob CARDIOVASCULAR: No chest pain/palpitations GASTROINTESTINAL: No nausea/vomiting. GENITOURINARY: No hematuria/dysuria. MUSCULOSKELETAL: No myagias/arthalgias. PSYCHIATRIC: The patient denies depression. NEUROLOGIC: No weakness Constitutional: alert Psych: no complaints Head: normocephalic ENMT: mucosa pink and moist Neck: supple, jvd (9 cm water) Respiratory: diminished breath sounds Cardiovascular: regular rate and rhythm Gastrointestinal: soft, non-tender Musculoskeletal: muscle tone (normal) Extremities: edema (none) Neurological: other (No focal deficits) Labs Result Diagram: 02/18/19 0505 02/18/19 0505 Results 24hrs Laboratory Tests Test 02/17/19 17:45 02/17/19 21:12 02/18/19 02:21 02/18/19 05:05 Bedside Glucose 181 281 H 137 White Blood Count 14.2 #H Red Blood Count 2.79 L Hemoglobin 8.3 L Hematocrit 26.8 L Mean Corpuscular 96.1 Volume Mean Corpuscular 29.7 Hemoglobin Mean Corpuscular 31.0 L Hemoglobin Concent Red Cell 16.7 H Distribution Width Platelet Count 213 Mean Platelet Volume 12.8 H Immature 0.500 H Granulocytes % Neutrophils % 85.2 H Lymphocytes % 6.2 L Monocytes % 5.6 Eosinophils % 2.3 Basophils % 0.2 Nucleated Red Blood 0.0 Cells % Immature 0.070 H Granulocytes # Neutrophils # 12.1 H Lymphocytes # 0.9 Monocytes # 0.8 Eosinophils # 0.3 Basophils # 0.0 Nucleated Red Blood 0.0 Cells # Sodium Level 146 H Potassium Level 3.1 L Chloride Level 111 H Carbon Dioxide Level 26 Anion Gap 9 Blood Urea Nitrogen 37 H Creatinine 1.50 H Est Glomerular Filtrat Rate mL/min Glucose Level 151 Uric Acid 6.2 Calcium Level 8.3 L Magnesium Level 2.2 Test 02/18/19 07:45 02/18/19 11:50 Bedside Glucose 167 239 H Medications Medications Current Medications IV Flush (NS 3 ml) 3 ml PER PROTOCOL IV ; Start 02/03/19 at 14:00 Ondansetron HCl (Zofran Inj) 4 mg Q6H PRN IV NAUSEA/VOMITING; Start 02/03/19 at 14:00 Acetaminophen (Tylenol Tab) 650 mg Q6H PRN PO .PAIN 1-3 OR TEMP; Start 02/03/19 at 14:00 Acetaminophen/ Hydrocodone Bitart ([place] (5/325)) 1 tab Q6H PRN PO .MOD PAIN 4- 6 Last administered on 02/04/19at 06:09; Admin Dose 1 TAB; Start 02/03/19 at 14:00 Docusate Sodium (Colace) 100 mg Q12H PRN PO .CONSTIPATION; Start 02/03/19 at 14:00 Furosemide (Lasix) 40 mg DAILY PO Last administered on 02/04/19 09:24; Admin Dose 40 MG; Start 02/04/19 at 09:00; Status Hold Levothyroxine Sodium (Synthroid) 25 mcg BEFORE BREAKFAST PO Last administered on 02/18/19 05:22; Admin Dose 25 MCG; Start 02/04/19 at 07:00 Spironolactone (Aldactone) 25 mg DAILY PO Last administered on 02/12/19 08:57; Admin Dose 25 MG; Start 02/04/19 at 09:00; Status Hold Sodium Chloride (Deep Sea) 2 spray BID NASAL Last administered on 02/17/19 21:08; Admin Dose 2 SPRAY; Start 02/04/19 at 11:00 Rifaximin (Xifaxan) 550 mg BID NGT Last administered on 02/18/19 08:25; Admin Dose 550 MG; Start 02/06/19 at 21:00 Sucralfate (Carafate Susp) 1 gm QID NGT Last administered on 02/18/19 08:25; Admin Dose 1 GM; Start 02/06/19 at 13:00 Propranolol HCl (Inderal) 20 mg BID PO Last administered on 02/17/19 21:08; Admin Dose 20 MG; Start 02/06/19 at 21:00 Metoprolol Tartrate (Lopressor) 5 mg Q4H PRN IV HR>110 Hold SBP<100 Last administered on 02/06/19 21:57; Admin Dose 5 MG; Start 02/06/19 at 17:30 Morphine Sulfate (morphine) 0.5 mg Q4H PRN IV .SEVERE PAIN 7-10 Last administered on 02/14/19 21:09; Admin Dose 0.5 MG; Start 02/07/19 at 14:00 Furosemide (Lasix) 20 mg DAILY IV Last administered on 02/11/19 08:26; Admin Dose 20 MG; Start 02/09/19 at 09:00; Status Hold Hydralazine HCl (Apresoline) 25 mg Q12 PO Last administered on 02/15/19 08:20; Admin Dose 25 MG; Start 02/08/19 at 21:00; Status Hold Piperacillin Sod/ Tazobactam Sod 100 ml @ 25 mls/hr TID@02,10,18 IVPB Last administered on 02/18/19at 09:26; Admin Dose 25 MLS/HR; Start 02/10/19 at 10:00 Diagnostic Test (Pha) (Accu-Chek) 1 ea 02 XX Last administered on 02/17/19at 01:48; Admin Dose 1 EA; Start 02/12/19 at 02:00 Miscellaneous Information 1 ea NOTE XX ; Start 02/11/19 at 07:30 Glucose (Glutose) 15 gm Q15M PRN PO DECREASED GLUCOSE; Start 02/11/19 at 07:30 Glucose (Glutose) 22.5 gm Q15M PRN PO DECREASED GLUCOSE; Start 02/11/19 at 07:30 Dextrose (D50w Syringe) 25 ml Q15M PRN IV DECREASED GLUCOSE; Start 02/11/19 at 07:30 Dextrose (D50w Syringe) 50 ml Q15M PRN IV DECREASED GLUCOSE; Start 02/11/19 at 07:30 Glucagon (Glucagen) 1 mg Q15M PRN IM DECREASED GLUCOSE; Start 02/11/19 at 07:30 Glucose (Glutose) 15 gm Q15M PRN BUCCAL DECREASED GLUCOSE; Start 02/11/19 at 07:30 Miscellaneous Information 1 ea NOTE XX ; Start 02/11/19 at 11:00 Glucose (Glutose) 15 gm Q15M PRN PO DECREASED GLUCOSE; Start 02/11/19 at 11:00 Glucose (Glutose) 22.5 gm Q15M PRN PO DECREASED GLUCOSE; Start 02/11/19 at 11:00 Dextrose (D50w Syringe) 25 ml Q15M PRN IV DECREASED GLUCOSE; Start 02/11/19 at 11:00 Dextrose (D50w Syringe) 50 ml Q15M PRN IV DECREASED GLUCOSE; Start 02/11/19 at 11:00 Glucagon (Glucagen) 1 mg Q15M PRN IM DECREASED GLUCOSE; Start 02/11/19 at 11:00 Glucose (Glutose) 15 gm Q15M PRN BUCCAL DECREASED GLUCOSE; Start 02/11/19 at 11:00 Insulin Glargine (Lantus) 11 units DAILY@2000 SC Last administered on 02/17/19at 20:00; Admin Dose 11 UNITS; Start 02/11/19 at 20:00 Lactulose (Enulose) 20 gm BID PO Last administered on 02/18/19 08:25; Admin Dose 20 GM; Start 02/12/19 at 21:00 Colchicine (Colchicine) 0.6 mg BID PO Last administered on 02/18/19 08:25; Admin Dose 0.6 MG; Start 02/14/19 at 22:30 Insulin Aspart (Novolog Insulin Pen) NOVOLOG *MODERATE* ALGORITHM WITH MEALS BEDTIME SC Last administered on 02/18/19 12:08; Admin Dose 6 UNIT; Start 02/14/19 at 22:30 Lansoprazole (Prevacid) 30 mg BID@06,18 PO Last administered on 02/18/19 05:22; Admin Dose 30 MG; Start 02/16/19 at 18:00 Metoclopramide HCl (Reglan) 5 mg TID PO Last administered on 02/18/19 08:25; Admin Dose 5 MG; Start 02/16/19 at 21:00 Lactobacillus Acidophilus/ Rhamnosus (Culturelle) 1 cap BID PO Last administered on 02/18/19 08:25; Admin Dose 1 CAP; Start 02/16/19 at 21:00 Dextrose 1,000 ml @ 50 mls/hr Q20H IV Last administered on 02/18/19 10:28; Admin Dose 50 MLS/HR; Start 02/18/19 at 10:30 LUZMARIA KEVIN Feb 18, 2019 13:25
[2019-02-18] MEDS: HYDROCODONE/APAP (5/325) TAB PO PRN (13:30)
[2019-02-18] MEDS: SOD CHLORIDE 0.45% 1,000 ML IV SCH (13:38)
--- NOTE | 2019-02-18 15:08 | CONS ---
Assessment/Plan Assessment/Plan Hospital Course (Demo Recall) Patient is awake looks comfortable no fevers overnight WBC 14.2 platelets 213 neutrophils 85.2 BUN 37 creatinine 1.50 Antimicrobials: Zosyn day #9 Blood cultures negative. Urine culture grew Klebsiella and enterococcus species Physical examination: this is a chronically ill-appearing wasted elderly man who is awake, in no distress head atraumatic normocephalic sclera nonicteric vehicle mucosa dry neck is supple chest rise symmetrical breath sounds diminished bases heart: S1-S2 abdomen distended soft bowel sounds hypoactive extremities with trace edema and cyanosis Assessment: 1. SIRS with ongoing leukocytosis 2. Possible aspiration 3. Polymicrobial UTI 4. Acute encephalopathy 5. Cryptogenic cirrhosis 6. Diabetes 7. Acute renal failure Plan: Remains stable, repeat chest x-ray in a.m., add Flomax for urinary retention Consultation Date/Type/Reason Admit Date/Time Feb 03, 2019 at 09:30 Initial Consult Date 02/03/19 Type of Consult id Requesting Provider: SUDHIR BARRIENTOS Date/Time of Note DATE: 02/18/19 TIME: 15:07 Exam/Review of Systems Exam Vitals Vital Signs Date Temp Pulse Resp B/P (MAP) Pulse Ox O2 O2 Flow FiO2 Time Delivery Rate 02/18/19 98.3 60 17 103/54 97 Room Air 08:01 (70) 02/14/19 2.0 20:59 Intake and Output 02/17/19 02/17/19 02/18/19 1515:00 23:00 07:00 IntakeIntake Total 850 ml 100 ml 100 ml OutputOutput Total 500 ml 450 ml 353 ml BalanceBalance 350 ml -350 ml -253 ml Results Result Diagram: 02/18/19 0505 02/18/19 0505 Results 24hrs Laboratory Tests Test 02/17/19 17:45 02/17/19 21:12 02/18/19 02:21 02/18/19 05:05 Bedside Glucose 181 281 H 137 White Blood Count 14.2 #H Red Blood Count 2.79 L Hemoglobin 8.3 L Hematocrit 26.8 L Mean Corpuscular 96.1 Volume Mean Corpuscular 29.7 Hemoglobin Mean Corpuscular 31.0 L Hemoglobin Concent Red Cell 16.7 H Distribution Width Platelet Count 213 Mean Platelet Volume 12.8 H Immature 0.500 H Granulocytes % Neutrophils % 85.2 H Lymphocytes % 6.2 L Monocytes % 5.6 Eosinophils % 2.3 Basophils % 0.2 Nucleated Red Blood 0.0 Cells % Immature 0.070 H Granulocytes # Neutrophils # 12.1 H Lymphocytes # 0.9 Monocytes # 0.8 Eosinophils # 0.3 Basophils # 0.0 Nucleated Red Blood 0.0 Cells # Sodium Level 146 H Potassium Level 3.1 L Chloride Level 111 H Carbon Dioxide Level 26 Anion Gap 9 Blood Urea Nitrogen 37 H Creatinine 1.50 H Est Glomerular Filtrat Rate mL/min Glucose Level 151 Uric Acid 6.2 Calcium Level 8.3 L Magnesium Level 2.2 Test 02/18/19 07:45 02/18/19 11:50 Bedside Glucose 167 239 H Medications Medication Current Medications IV Flush (NS 3 ml) 3 ml PER PROTOCOL IV ; Start 02/03/19 at 14:00 Ondansetron HCl (Zofran Inj) 4 mg Q6H PRN IV NAUSEA/VOMITING; Start 02/03/19 at 14:00 Acetaminophen (Tylenol Tab) 650 mg Q6H PRN PO .PAIN 1-3 OR TEMP; Start 02/03/19 at 14:00 Acetaminophen/ Hydrocodone Bitart ([place] (5/325)) 1 tab Q6H PRN PO .MOD PAIN 4- 6 Last administered on 02/18/19at 13:30; Admin Dose 1 TAB; Start 02/03/19 at 14:00 Docusate Sodium (Colace) 100 mg Q12H PRN PO .CONSTIPATION; Start 02/03/19 at 14:00 Furosemide (Lasix) 40 mg DAILY PO Last administered on 02/04/19at 09:24; Admin Dose 40 MG; Start 02/04/19 at 09:00; Status Hold Levothyroxine Sodium (Synthroid) 25 mcg BEFORE BREAKFAST PO Last administered on 02/18/19at 05:22; Admin Dose 25 MCG; Start 02/04/19 at 07:00 Spironolactone (Aldactone) 25 mg DAILY PO Last administered on 02/12/19at 08:57; Admin Dose 25 MG; Start 02/04/19 at 09:00; Status Hold Sodium Chloride (Deep Sea) 2 spray BID NASAL Last administered on 02/17/19at 21:08; Admin Dose 2 SPRAY; Start 02/04/19 at 11:00 Rifaximin (Xifaxan) 550 mg BID NGT Last administered on 02/18/19 08:25; Admin Dose 550 MG; Start 02/06/19 at 21:00 Sucralfate (Carafate Susp) 1 gm QID NGT Last administered on 02/18/19 13:33; Admin Dose 1 GM; Start 02/06/19 at 13:00 Propranolol HCl (Inderal) 20 mg BID PO Last administered on 02/17/19at 21:08; Admin Dose 20 MG; Start 02/06/19 at 21:00 Metoprolol Tartrate (Lopressor) 5 mg Q4H PRN IV HR>110 Hold SBP<100 Last administered on 02/06/19 21:57; Admin Dose 5 MG; Start 02/06/19 at 17:30 Morphine Sulfate (morphine) 0.5 mg Q4H PRN IV .SEVERE PAIN 7-10 Last administered on 02/14/19 21:09; Admin Dose 0.5 MG; Start 02/07/19 at 14:00 Furosemide (Lasix) 20 mg DAILY IV Last administered on 02/11/19 08:26; Admin Dose 20 MG; Start 02/09/19 at 09:00; Status Hold Hydralazine HCl (Apresoline) 25 mg Q12 PO Last administered on 02/15/19 08:20; Admin Dose 25 MG; Start 02/08/19 at 21:00; Status Hold Piperacillin Sod/ Tazobactam Sod 100 ml @ 25 mls/hr TID@02,10,18 IVPB Last administered on 02/18/19 09:26; Admin Dose 25 MLS/HR; Start 02/10/19 at 10:00 Diagnostic Test (Pha) (Accu-Chek) 1 ea 02 XX Last administered on 02/17/19at 01:48; Admin Dose 1 EA; Start 02/12/19 at 02:00 Miscellaneous Information 1 ea NOTE XX ; Start 02/11/19 at 07:30 Glucose (Glutose) 15 gm Q15M PRN PO DECREASED GLUCOSE; Start 02/11/19 at 07:30 Glucose (Glutose) 22.5 gm Q15M PRN PO DECREASED GLUCOSE; Start 02/11/19 at 07:30 Dextrose (D50w Syringe) 25 ml Q15M PRN IV DECREASED GLUCOSE; Start 02/11/19 at 07:30 Dextrose (D50w Syringe) 50 ml Q15M PRN IV DECREASED GLUCOSE; Start 02/11/19 at 07:30 Glucagon (Glucagen) 1 mg Q15M PRN IM DECREASED GLUCOSE; Start 02/11/19 at 07:30 Glucose (Glutose) 15 gm Q15M PRN BUCCAL DECREASED GLUCOSE; Start 02/11/19 at 07:30 Miscellaneous Information 1 ea NOTE XX ; Start 02/11/19 at 11:00 Glucose (Glutose) 15 gm Q15M PRN PO DECREASED GLUCOSE; Start 02/11/19 at 11:00 Glucose (Glutose) 22.5 gm Q15M PRN PO DECREASED GLUCOSE; Start 02/11/19 at 11:00 Dextrose (D50w Syringe) 25 ml Q15M PRN IV DECREASED GLUCOSE; Start 02/11/19 at 11:00 Dextrose (D50w Syringe) 50 ml Q15M PRN IV DECREASED GLUCOSE; Start 02/11/19 at 11:00 Glucagon (Glucagen) 1 mg Q15M PRN IM DECREASED GLUCOSE; Start 02/11/19 at 11:00 Glucose (Glutose) 15 gm Q15M PRN BUCCAL DECREASED GLUCOSE; Start 02/11/19 at 11:00 Insulin Glargine (Lantus) 11 units DAILY@2000 SC Last administered on 02/17/19at 20:00; Admin Dose 11 UNITS; Start 02/11/19 at 20:00 Lactulose (Enulose) 20 gm BID PO Last administered on 02/18/19at 08:25; Admin D ose 20 GM; Start 02/12/19 at 21:00 Colchicine (Colchicine) 0.6 mg BID PO Last administered on 02/18/19at 08:25; Admin Dose 0.6 MG; Start 02/14/19 at 22:30 Insulin Aspart (Novolog Insulin Pen) NOVOLOG *MODERATE* ALGORITHM WITH MEALS BEDTIME SC Last administered on 02/18/19at 12:08; Admin Dose 6 UNIT; Start 02/14/19 at 22:30 Lansoprazole (Prevacid) 30 mg BID@06,18 PO Last administered on 02/18/19at 05:22; Admin Dose 30 MG; Start 02/16/19 at 18:00 Metoclopramide HCl (Reglan) 5 mg TID PO Last administered on 02/18/19at 13:30; Admin Dose 5 MG; Start 02/16/19 at 21:00 Lactobacillus Acidophilus/ Rhamnosus (Culturelle) 1 cap BID PO Last administered on 02/18/19at 08:25; Admin Dose 1 CAP; Start 02/16/19 at 21:00 Sodium Chloride 1,000 ml @ 50 mls/hr Q20H IV Last administered on 02/18/19at 13:38; Admin Dose 50 MLS/HR; Start 02/18/19 at 13:30 JIM ANTOINE NP Feb 18, 2019 15:08
--- NOTE | 2019-02-18 17:00 | PN ---
Date/Time of Note Date/Time of Note DATE: 02/18/19 TIME: 16:56 Assessment/Plan VTE Prophylaxis Risk score (from Nsg)>0 risk: 5 SCD applied (from Nsg): Yes Pharmacological prophylaxis: other (scds) Lines/Catheters IV Catheter Type (from Nrsg): Saline Lock Urinary Cath still in place: Yes Reason Cath still needed: other (indicate) (monitor output) Assessment/Plan Hospital Course Assessment: Anemia - suspected GI bleeding UTI- on Zosyn Melena-resolved -EGD 02/04/19 Extensive ulceration in the jejunal side of the gastrojejunal Billroth II anastomosis. No stigmata recent bleeding no visible vessel. Distal esophagitis with ulceration. No stigmata. Recent bleeding. 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 Patient seen in collaboration with Dr. Harvey Subjective: Course reviewed with nursing staff Patient interviewed and examined All labs, imaging and other results reviewed Pt transferred to med/surg- still with periods of confusion No overt signs of GI bleed, Hgb down today, Pt had x1 BM- brown in color Pt c/o BUE and BLE pain- working with P.T PHYSICAL EXAMINATION: GENERAL: Elderly, alert and oriented with periods of confusion SKIN: No lesions HEAD: Normocephalic, atraumatic, no tenderness. EYES: Pupils equal reactive to light and accommodation, no discharge. EARS/NOSE AND THROAT: Ears normal, nose normal, NG tube in place NECK: Supple, no masses. CHEST: Inspection within normal limits. CARDIOVASCULAR: Heart: Regular rate and rhythm RESPIRATORY: Lungs clear to auscultation GASTROINTESTINAL AND LIVER: Abdomen: Soft, epigastric tenderness- resolved, non- distended, no hernias, no masses, no organomegaly, no ascites, no guarding, no rebound tenderness, normoactive bowel sounds. Rectal: Deferred. GENITOURINARY: Male genitalia within normal limits. EXTREMITIES: No cyanosis, clubbing or edema. Result Diagram: 02/18/19 0505 02/18/19 0505 Results 24hrs Laboratory Tests Test 02/17/19 17:45 02/17/19 21:12 02/18/19 02:21 02/18/19 05:05 Bedside Glucose 181 281 H 137 White Blood Count 14.2 #H Red Blood Count 2.79 L Hemoglobin 8.3 L Hematocrit 26.8 L Mean Corpuscular 96.1 Volume Mean Corpuscular 29.7 Hemoglobin Mean Corpuscular 31.0 L Hemoglobin Concent Red Cell 16.7 H Distribution Width Platelet Count 213 Mean Platelet Volume 12.8 H Immature 0.500 H Granulocytes % Neutrophils % 85.2 H Lymphocytes % 6.2 L Monocytes % 5.6 Eosinophils % 2.3 Basophils % 0.2 Nucleated Red Blood 0.0 Cells % Immature 0.070 H Granulocytes # Neutrophils # 12.1 H Lymphocytes # 0.9 Monocytes # 0.8 Eosinophils # 0.3 Basophils # 0.0 Nucleated Red Blood 0.0 Cells # Sodium Level 146 H Potassium Level 3.1 L Chloride Level 111 H Carbon Dioxide Level 26 Anion Gap 9 Blood Urea Nitrogen 37 H Creatinine 1.50 H Est Glomerular Filtrat Rate mL/min Glucose Level 151 Uric Acid 6.2 Calcium Level 8.3 L Magnesium Level 2.2 Test 02/18/19 07:45 02/18/19 11:50 Bedside Glucose 167 239 H Exam/Review of Systems Exam Vitals Vital Signs Date Temp Pulse Resp B/P (MAP) Pulse Ox O2 O2 Flow FiO2 Time Delivery Rate 02/18/19 98.3 60 17 103/54 97 Room Air 08:01 (70) 02/14/19 2.0 20:59 Intake and Output 02/17/19 02/17/19 02/18/19 1515:00 23:00 07:00 IntakeIntake Total 850 ml 100 ml 100 ml OutputOutput Total 500 ml 450 ml 353 ml BalanceBalance 350 ml -350 ml -253 ml Results Results 24hrs Laboratory Tests Test 02/17/19 17:45 02/17/19 21:12 02/18/19 02:21 02/18/19 05:05 Bedside Glucose 181 281 H 137 White Blood Count 14.2 #H Red Blood Count 2.79 L Hemoglobin 8.3 L Hematocrit 26.8 L Mean Corpuscular 96.1 Volume Mean Corpuscular 29.7 Hemoglobin Mean Corpuscular 31.0 L Hemoglobin Concent Red Cell 16.7 H Distribution Width Platelet Count 213 Mean Platelet Volume 12.8 H Immature 0.500 H Granulocytes % Neutrophils % 85.2 H Lymphocytes % 6.2 L Monocytes % 5.6 Eosinophils % 2.3 Basophils % 0.2 Nucleated Red Blood 0.0 Cells % Immature 0.070 H Granulocytes # Neutrophils # 12.1 H Lymphocytes # 0.9 Monocytes # 0.8 Eosinophils # 0.3 Basophils # 0.0 Nucleated Red Blood 0.0 Cells # Sodium Level 146 H Potassium Level 3.1 L Chloride Level 111 H Carbon Dioxide Level 26 Anion Gap 9 Blood Urea Nitrogen 37 H Creatinine 1.50 H Est Glomerular Filtrat Rate mL/min Glucose Level 151 Uric Acid 6.2 Calcium Level 8.3 L Magnesium Level 2.2 Test 02/18/19 07:45 02/18/19 11:50 Bedside Glucose 167 239 H Medications Medication Current Medications IV Flush (NS 3 ml) 3 ml PER PROTOCOL IV ; Start 02/03/19 at 14:00 Ondansetron HCl (Zofran Inj) 4 mg Q6H PRN IV NAUSEA/VOMITING; Start 02/03/19 at 14:00 Acetaminophen (Tylenol Tab) 650 mg Q6H PRN PO .PAIN 1-3 OR TEMP; Start 02/03/19 at 14:00 Acetaminophen/ Hydrocodone Bitart ([place] (5/325)) 1 tab Q6H PRN PO .MOD PAIN 4- 6 Last administered on 02/18/19at 13:30; Admin Dose 1 TAB; Start 02/03/19 at 14:00 Docusate Sodium (Colace) 100 mg Q12H PRN PO .CONSTIPATION; Start 02/03/19 at 14:00 Furosemide (Lasix) 40 mg DAILY PO Last administered on 02/04/19at 09:24; Admin Dose 40 MG; Start 02/04/19 at 09:00; Status Hold Levothyroxine Sodium (Synthroid) 25 mcg BEFORE BREAKFAST PO Last administered on 02/18/19at 05:22; Admin Dose 25 MCG; Start 02/04/19 at 07:00 Spironolactone (Aldactone) 25 mg DAILY PO Last administered on 02/12/19at 08:57; Admin Dose 25 MG; Start 02/04/19 at 09:00; Status Hold Sodium Chloride (Deep Sea) 2 spray BID NASAL Last administered on 02/17/19 21:08; Admin Dose 2 SPRAY; Start 02/04/19 at 11:00 Rifaximin (Xifaxan) 550 mg BID NGT Last administered on 02/18/19 08:25; Admin Dose 550 MG; Start 02/06/19 at 21:00 Sucralfate (Carafate Susp) 1 gm QID NGT Last administered on 02/18/19 16:10; Admin Dose 1 GM; Start 02/06/19 at 13:00 Propranolol HCl (Inderal) 20 mg BID PO Last administered on 02/17/19 21:08; Admin Dose 20 MG; Start 02/06/19 at 21:00 Metoprolol Tartrate (Lopressor) 5 mg Q4H PRN IV HR>110 Hold SBP<100 Last administered on 02/06/19 21:57; Admin Dose 5 MG; Start 02/06/19 at 17:30 Morphine Sulfate (morphine) 0.5 mg Q4H PRN IV .SEVERE PAIN 7-10 Last administered on 02/14/19 21:09; Admin Dose 0.5 MG; Start 02/07/19 at 14:00 Furosemide (Lasix) 20 mg DAILY IV Last administered on 02/11/19 08:26; Admin Dose 20 MG; Start 02/09/19 at 09:00; Status Hold Hydralazine HCl (Apresoline) 25 mg Q12 PO Last administered on 02/15/19 08:20; Admin Dose 25 MG; Start 02/08/19 at 21:00; Status Hold Piperacillin Sod/ Tazobactam Sod 100 ml @ 25 mls/hr TID@02,10,18 IVPB Last administered on 02/18/19 09:26; Admin Dose 25 MLS/HR; Start 02/10/19 at 10:00 Diagnostic Test (Pha) (Accu-Chek) 1 ea 02 XX Last administered on 02/17/19 01:48; Admin Dose 1 EA; Start 02/12/19 at 02:00 Miscellaneous Information 1 ea NOTE XX ; Start 02/11/19 at 07:30 Glucose (Glutose) 15 gm Q15M PRN PO DECREASED GLUCOSE; Start 02/11/19 at 07:30 Glucose (Glutose) 22.5 gm Q15M PRN PO DECREASED GLUCOSE; Start 02/11/19 at 07:30 Dextrose (D50w Syringe) 25 ml Q15M PRN IV DECREASED GLUCOSE; Start 02/11/19 at 07:30 Dextrose (D50w Syringe) 50 ml Q15M PRN IV DECREASED GLUCOSE; Start 02/11/19 at 07:30 Glucagon (Glucagen) 1 mg Q15M PRN IM DECREASED GLUCOSE; Start 02/11/19 at 07:30 Glucose (Glutose) 15 gm Q15M PRN BUCCAL DECREASED GLUCOSE; Start 02/11/19 at 07:30 Miscellaneous Information 1 ea NOTE XX ; Start 02/11/19 at 11:00 Glucose (Glutose) 15 gm Q15M PRN PO DECREASED GLUCOSE; Start 02/11/19 at 11:00 Glucose (Glutose) 22.5 gm Q15M PRN PO DECREASED GLUCOSE; Start 02/11/19 at 11:00 Dextrose (D50w Syringe) 25 ml Q15M PRN IV DECREASED GLUCOSE; Start 02/11/19 at 11:00 Dextrose (D50w Syringe) 50 ml Q15M PRN IV DECREASED GLUCOSE; Start 02/11/19 at 11:00 Glucagon (Glucagen) 1 mg Q15M PRN IM DECREASED GLUCOSE; Start 02/11/19 at 11:00 Glucose (Glutose) 15 gm Q15M PRN BUCCAL DECREASED GLUCOSE; Start 02/11/19 at 11:00 Insulin Glargine (Lantus) 11 units DAILY@2000 SC Last administered on 02/17/19at 20:00; Admin Dose 11 UNITS; Start 02/11/19 at 20:00 Lactulose (Enulose) 20 gm BID PO Last administered on 02/18/19at 08:25; Admin Dose 20 GM; Start 02/12/19 at 21:00 Colchicine (Colchicine) 0.6 mg BID PO Last administered on 02/18/19at 08:25; Admin Dose 0.6 MG; Start 02/14/19 at 22:30 Insulin Aspart (Novolog Insulin Pen) NOVOLOG *MODERATE* ALGORITHM WITH MEALS BEDTIME SC Last administered on 02/18/19at 12:08; Admin Dose 6 UNIT; Start 02/14/19 at 22:30 Lansoprazole (Prevacid) 30 mg BID@06,18 PO Last administered on 02/18/19at 05:22; Admin Dose 30 MG; Start 02/16/19 at 18:00 Metoclopramide HCl (Reglan) 5 mg TID PO Last administered on 02/18/19 13:30; Admin Dose 5 MG; Start 02/16/19 at 21:00 Lactobacillus Acidophilus/ Rhamnosus (Culturelle) 1 cap BID PO Last administered on 02/18/19at 08:25; Admin Dose 1 CAP; Start 02/16/19 at 21:00 Sodium Chloride 1,000 ml @ 50 mls/hr Q20H IV Last administered on 02/18/19at 13:38; Admin Dose 50 MLS/HR; Start 02/18/19 at 13:30 Tamsulosin HCl (Flomax) 0.4 mg HS PO ; Start 02/18/19 at 21:00 INGRID MAST Feb 18, 2019 17:00
--- NOTE | 2019-02-18 19:01 | PN ---
Date/Time of Note Date/Time of Note DATE: 02/18/19 TIME: 18:59 Assessment/Plan VTE Prophylaxis Risk score (from [facility]0 risk: 5 SCD applied (from [facility] [place]): Yes SCD contraindicated: low risk/ambulating Pharmacological prophylaxis: NA/contraindicated Pharm contraindication: liver dx Lines/Catheters IV Catheter Type (from [facility]): [place] Urinary Cath still in place: Yes Reason Cath still needed: urinary retention Assessment/Plan Hospital Course Hospitalist coverage Assessment plan 1. Syncope, anemia related, stable resolved. 2. Acute blood loss anemia, stable, observe. 3. GI bleed/jejunal ulcer noted sp EGD, cont supportive care. Peptic ulcer disease/type II/ gastrectomy status. 4. 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 5. Chronic liver disease sequently with ascites. liver MRI at some point? 6. CAD, CABG [KP] status. 7. Chr hypertension; if tolerable, on bb. no ACEi. 8. Type 2 diabetes 9. Abd ventral umbilical hernia 10. Ho right inguinal hernia repair. Present hernia noted 11. H/o prostate ca surgery 12. Ftt/ apathy? Observe treat renal failure 13. Acute renal failure, hydrate, watch for obstruction. Appreciate nephrology assistance 14. Chr gout 15. Aortic stenosis mild to moderate 16. SVT with underlying bbb; watch electrolytes 17. Pulmonary hypertension? 18. Leukocytosis. Re-eval and lines. Change [place]? Gout? S: / no distress. Not very interactive. 02/17: Not very interactive. No fever distress 02/18: No events. Creatinine improved. May be discharged to SNF soon. O: vss PE No pallor Regular systolic m. no r/g Clear bs+ nt nd no RRG No edema Result Diagram: 02/18/19 0505 02/18/19 0505 Results 24hrs Laboratory Tests Test 02/17/19 21:12 02/18/19 02:21 02/18/19 05:05 02/18/19 07:45 Bedside Glucose 281 H 137 167 White Blood Count 14.2 #H Red Blood Count 2.79 L Hemoglobin 8.3 L Hematocrit 26.8 L Mean Corpuscular 96.1 Volume Mean Corpuscular 29.7 Hemoglobin Mean Corpuscular 31.0 L Hemoglobin Concent Red Cell 16.7 H Distribution Width Platelet Count 213 Mean Platelet Volume 12.8 H Immature 0.500 H Granulocytes % Neutrophils % 85.2 H Lymphocytes % 6.2 L Monocytes % 5.6 Eosinophils % 2.3 Basophils % 0.2 Nucleated Red Blood 0.0 Cells % Immature 0.070 H Granulocytes # Neutrophils # 12.1 H Lymphocytes # 0.9 Monocytes # 0.8 Eosinophils # 0.3 Basophils # 0.0 Nucleated Red Blood 0.0 Cells # Sodium Level 146 H Potassium Level 3.1 L Chloride Level 111 H Carbon Dioxide Level 26 Anion Gap 9 Blood Urea Nitrogen 37 H Creatinine 1.50 H Est Glomerular Filtrat Rate mL/min Glucose Level 151 Uric Acid 6.2 Calcium Level 8.3 L Magnesium Level 2.2 Test 02/18/19 11:50 02/18/19 16:57 Bedside Glucose 239 H 210 Exam/Review of Systems Exam Vitals Vital Signs Date Temp Pulse Resp B/P (MAP) Pulse Ox O2 O2 Flow FiO2 Time Delivery Rate 02/18/19 98.3 60 17 103/54 97 Room Air 08:01 (70) 02/14/19 2.0 20:59 Intake and Output 02/17/19 02/17/19 02/18/19 1515:00 23:00 07:00 IntakeIntake Total 850 ml 100 ml 100 ml OutputOutput Total 500 ml 450 ml 353 ml BalanceBalance 350 ml -350 ml -253 ml Results Results 24hrs Laboratory Tests Test 02/17/19 21:12 02/18/19 02:21 02/18/19 05:05 02/18/19 07:45 Bedside Glucose 281 H 137 167 White Blood Count 14.2 #H Red Blood Count 2.79 L Hemoglobin 8.3 L Hematocrit 26.8 L Mean Corpuscular 96.1 Volume Mean Corpuscular 29.7 Hemoglobin Mean Corpuscular 31.0 L Hemoglobin Concent Red Cell 16.7 H Distribution Width Platelet Count 213 Mean Platelet Volume 12.8 H Immature 0.500 H Granulocytes % Neutrophils % 85.2 H Lymphocytes % 6.2 L Monocytes % 5.6 Eosinophils % 2.3 Basophils % 0.2 Nucleated Red Blood 0.0 Cells % Immature 0.070 H Granulocytes # Neutrophils # 12.1 H Lymphocytes # 0.9 Monocytes # 0.8 Eosinophils # 0.3 Basophils # 0.0 Nucleated Red Blood 0.0 Cells # Sodium Level 146 H Potassium Level 3.1 L Chloride Level 111 H Carbon Dioxide Level 26 Anion Gap 9 Blood Urea Nitrogen 37 H Creatinine 1.50 H Est Glomerular Filtrat Rate mL/min Glucose Level 151 Uric Acid 6.2 Calcium Level 8.3 L Magnesium Level 2.2 Test 02/18/19 11:50 02/18/19 16:57 Bedside Glucose 239 H 210 Medications Medication Current Medications IV Flush (NS 3 ml) 3 ml PER PROTOCOL IV ; Start 02/03/19 at 14:00 Ondansetron HCl (Zofran Inj) 4 mg Q6H PRN IV NAUSEA/VOMITING; Start 02/03/19 at 14:00 Acetaminophen (Tylenol Tab) 650 mg Q6H PRN PO .PAIN 1-3 OR TEMP; Start 02/03/19 at 14:00 Acetaminophen/ Hydrocodone Bitart ([place] (5/325)) 1 tab Q6H PRN PO .MOD PAIN 4- 6 Last administered on 02/18/19at 13:30; Admin Dose 1 TAB; Start 02/03/19 at 14:00 Docusate Sodium (Colace) 100 mg Q12H PRN PO .CONSTIPATION; Start 02/03/19 at 14:00 Furosemide (Lasix) 40 mg DAILY PO Last administered on 02/04/19 09:24; Admin Dose 40 MG; Start 02/04/19 at 09:00; Status Hold Levothyroxine Sodium (Synthroid) 25 mcg BEFORE BREAKFAST PO Last administered on 02/18/19 05:22; Admin Dose 25 MCG; Start 02/04/19 at 07:00 Spironolactone (Aldactone) 25 mg DAILY PO Last administered on 02/12/19at 08:57; Admin Dose 25 MG; Start 02/04/19 at 09:00; Status Hold Sodium Chloride (Deep Sea) 2 spray BID NASAL Last administered on 02/17/19 21:08; Admin Dose 2 SPRAY; Start 02/04/19 at 11:00 Rifaximin (Xifaxan) 550 mg BID NGT Last administered on 02/18/19 08:25; Admin Dose 550 MG; Start 02/06/19 at 21:00 Sucralfate (Carafate Susp) 1 gm QID NGT Last administered on 02/18/19 16:10; Admin Dose 1 GM; Start 02/06/19 at 13:00 Propranolol HCl (Inderal) 20 mg BID PO Last administered on 02/17/19at 21:08; Admin Dose 20 MG; Start 02/06/19 at 21:00 Metoprolol Tartrate (Lopressor) 5 mg Q4H PRN IV HR>110 Hold SBP<100 Last administered on 02/06/19at 21:57; Admin Dose 5 MG; Start 02/06/19 at 17:30; Status Hold Morphine Sulfate (morphine) 0.5 mg Q4H PRN IV .SEVERE PAIN 7-10 Last administered on 02/14/19at 21:09; Admin Dose 0.5 MG; Start 02/07/19 at 14:00 Furosemide (Lasix) 20 mg DAILY IV Last administered on 02/11/19at 08:26; Admin Dose 20 MG; Start 02/09/19 at 09:00; Status Hold Hydralazine HCl (Apresoline) 25 mg Q12 PO Last administered on 02/15/19at 08:20; Admin Dose 25 MG; Start 02/08/19 at 21:00; Status Hold Piperacillin Sod/ Tazobactam Sod 100 ml @ 25 mls/hr TID@02,10,18 IVPB Last administered on 02/18/19at 17:04; Admin Dose 25 MLS/HR; Start 02/10/19 at 10:00 Diagnostic Test (Pha) (Accu-Chek) 1 ea 02 XX Last administered on 02/17/19at 01:48; Admin Dose 1 EA; Start 02/12/19 at 02:00 Miscellaneous Information 1 ea NOTE XX ; Start 02/11/19 at 07:30 Glucose (Glutose) 15 gm Q15M PRN PO DECREASED GLUCOSE; Start 02/11/19 at 07:30 Glucose (Glutose) 22.5 gm Q15M PRN PO DECREASED GLUCOSE; Start 02/11/19 at 07:30 Dextrose (D50w Syringe) 25 ml Q15M PRN IV DECREASED GLUCOSE; Start 02/11/19 at 07:30 Dextrose (D50w Syringe) 50 ml Q15M PRN IV DECREASED GLUCOSE; Start 02/11/19 at 07:30 Glucagon (Glucagen) 1 mg Q15M PRN IM DECREASED GLUCOSE; Start 02/11/19 at 07:30 Glucose (Glutose) 15 gm Q15M PRN BUCCAL DECREASED GLUCOSE; Start 02/11/19 at 07:30 Miscellaneous Information 1 ea NOTE XX ; Start 02/11/19 at 11:00 Glucose (Glutose) 15 gm Q15M PRN PO DECREASED GLUCOSE; Start 02/11/19 at 11:00 Glucose (Glutose) 22.5 gm Q15M PRN PO DECREASED GLUCOSE; Start 02/11/19 at 11:00 Dextrose (D50w Syringe) 25 ml Q15M PRN IV DECREASED GLUCOSE; Start 02/11/19 at 11:00 Dextrose (D50w Syringe) 50 ml Q15M PRN IV DECREASED GLUCOSE; Start 02/11/19 at 11:00 Glucagon (Glucagen) 1 mg Q15M PRN IM DECREASED GLUCOSE; Start 02/11/19 at 11:00 Glucose (Glutose) 15 gm Q15M PRN BUCCAL DECREASED GLUCOSE; Start 02/11/19 at 11:00 Insulin Glargine (Lantus) 11 units DAILY@2000 SC Last administered on 02/17/19at 20:00; Admin Dose 11 UNITS; Start 02/11/19 at 20:00 Lactulose (Enulose) 20 gm BID PO Last administered on 02/18/19 08:25; Admin Dose 20 GM; Start 02/12/19 at 21:00 Colchicine (Colchicine) 0.6 mg BID PO Last administered on 02/18/19 08:25; Admin Dose 0.6 MG; Start 02/14/19 at 22:30 Insulin Aspart (Novolog Insulin Pen) NOVOLOG *MODERATE* ALGORITHM WITH MEALS BEDTIME SC Last administered on 02/18/19at 17:11; Admin Dose 4 UNIT; Start 02/14/19 at 22:30 Lansoprazole (Prevacid) 30 mg BID@06,18 PO Last administered on 02/18/19 17:04; Admin Dose 30 MG; Start 02/16/19 at 18:00 Metoclopramide HCl (Reglan) 5 mg TID PO Last administered on 02/18/19 13:30; Admin Dose 5 MG; Start 02/16/19 at 21:00 Lactobacillus Acidophilus/ Rhamnosus (Culturelle) 1 cap BID PO Last administered on 02/18/19 08:25; Admin Dose 1 CAP; Start 02/16/19 at 21:00 Sodium Chloride 1,000 ml @ 50 mls/hr Q20H IV Last administered on 02/18/19at 13:38; Admin Dose 50 MLS/HR; Start 02/18/19 at 13:30 Tamsulosin HCl (Flomax) 0.4 mg HS PO ; Start 02/18/19 at 21:00 GARRETT DIOR MD Feb 18, 2019 19:01
[2019-02-18 20:00] VITALS: BP 166/89; PULSE 77; RESP 18
[2019-02-18] MEDS: INSULIN GLARGINE [LANTus] (100 UNITS/ML) SYG SC SCH (21:39)
[2019-02-18] MEDS: TAMSULOSIN (SR) 0.4 MG CAP PO SCH (21:40)
[2019-02-19] MEDS ORDERED: PENDING SANTYL ORDER FOR WOUND CARE XX PRN (01:30)
[2019-02-19 02:00] VITALS: BP 137/65; PULSE 66; RESP 18
[2019-02-19] MEDS: ACCU-CHEK XX SCH (02:00)
[2019-02-19] MEDS: PIPER-TAZO 3.375 GM IV (PMX) 100 ML IVPB SCH ×2 (02:50→11:50)
[2019-02-19] MEDS: BALSAM PERU/CASTOR OIL 60 GM TUBE TOP SCH ×3 (02:51→20:36)
[2019-02-19] MEDS: LEVOTHYROXINE 25 MCG TAB PO SCH (05:58)
[2019-02-19] MEDS: LANSOPRAZOLE 30 MG CAP PO SCH ×2 (05:58→17:25)
--- NOTE | 2019-02-19 06:57 | PN ---
DATE: 02/18/2019 SUBJECTIVE: The patient is stable, no events overnight. No history of , vomiting. PHYSICAL EXAMINATION: VITAL SIGNS: Blood pressure 154/ temperature, 98.3. HEAD: Normocephalic. NECK: Supple. HEART: Regular rate. LUNGS: Show at the base. ABDOMEN: Soft, nontender to palpation. No rebound or guarding. EXTREMITIES: Negative for clubbing, cyanosis, trace edema. DERMATOLOGIC: No rashes. MUSCULOSKELETAL: No joint effusion. NEUROLOGICAL: No change in exam. MEDICATIONS: Have been reviewed. LABORATORY DATA: Has been reviewed. IMAGING STUDIES: Have been reviewed. ASSESSMENT AND PLAN: 1. Nonoliguric acute kidney injury with previous baseline creatinine 1.0 mg/dL. Etiology of acute k idney injury is secondary to hemodynamics. Diuretic therapy. The patient's renal function has improv ed. Will give dialysis in 24-48 hours. renally dose all meds. 2. Hyponatremia. Will encourage free water intake. The patient will require a course of hypertoni c fluid. 3. Hypokalemia. Will replete with potassium chloride. 4. Anemia. Monitor hemoglobin and hematocrit levels. 5. Mineral bone disorder, monitor calcium and phosphorus levels. 6. Acute encephalopathy. Etiology is toxic metabolic. Continue to monitor. 7. Acute gastrointestinal bleed. Patient is status post EGD with evidence of ulceration. Continue proton pump inhibitor. 8. Arrhythmia. Continue to monitor. 9. Cryptogenic cirrhosis. , holding diuretic therapy at this time. Continue to monitor. 10. Diabetes, continue current insulin regimen. 11. status post . 12. . 13. Systemic inflammatory response syndrome. Continue antibiotic therapy. Dictated By: CLAYTON ARCOS/QUAN Conf#: [id number] DID#: [id number] CC: SUDHIR BARRIENTOS MD;*EndCC*
[2019-02-19 07:25] VITALS: BP 138/65; PULSE 58; RESP 16
[2019-02-19] MEDS: METOCLOPRAMIDE 5 MG TAB PO SCH ×3 (09:01→20:37)
[2019-02-19] MEDS: COLCHICINE 0.6 MG CAP PO SCH ×2 (09:01→20:37)
[2019-02-19] MEDS: RIFAXIMIN 550 MG TAB NGT SCH ×2 (09:01→20:37)
[2019-02-19] MEDS: SUCRALFATE (100 MG/ML) 10ML CUP NGT SCH ×4 (09:01→20:37)
[2019-02-19] MEDS: LACTOBACILLUS RHAMNOSUS CAP PO SCH ×2 (09:02→20:37)
[2019-02-19] MEDS: INSULIN ASPART [NOVOLOG] 3 ML PEN SC SCH ×4 (09:04→20:43)
[2019-02-19] MEDS: SALINE 0.65% 45 ML NAS SPRAY NASAL SCH ×2 (09:05→20:59)
--- NOTE | 2019-02-19 09:32 | PN ---
DATE: 02/19/2019 SUBJECTIVE: The patient remains stable. No events overnight. No fevers, chills, no nausea, vomitin g. OBJECTIVE: VITAL SIGNS: Blood pressure is 138/65, respirations 16, pulse 58, temperature 98.2. HEENT: Head is normocephalic. NECK: Supple. HEART: Regular rate. LUNGS: Show diminished breath sounds at the base. ABDOMEN: Soft, nontender to palpation without rebound or guarding. EXTREMITIES: Negative for clubbing, cyanosis, no edema. DERMATOLOGIC: No rashes. MUSCULOSKELETAL: No joint effusion. NEUROLOGIC: No change in exam. MEDICATIONS: The patient's medications have been reviewed. LABORATORY DATA: Has been reviewed. ASSESSMENT AND PLAN: 1. Nonoliguric acute kidney injury with previous baseline creatinine 1.0 mg/dL. Etiology of acute k idney injury is secondary to hemodynamics. Renal function is improved. Continue current treatment p ankita, supportive care, renally dose all meds. 2. Hyponatremia, improved. 3. Hyperkalemia. Continue to monitor and replete as needed. 4. Anemia. Monitor hemoglobin and hematocrit levels. 5. Mineral bone disorder, monitor calcium and phosphorus levels. 6. Acute encephalopathy, etiology is toxic metabolic, possible hepatic. Continue to monitor. 7. Acute gastrointestinal bleed status post EGD with evidence of peptic ulcer disease. Continue pro ton pump inhibitor. 8. Arrhythmia. Continue current treatment plan. 9. Cirrhosis cryptogenic. Continue current medical management. Holding diuretics at this time. 10. Diabetes. Continue current insulin regimen. 11. Systemic inflammatory response syndrome, Continue antibiotic therapy. Dictated By: CLAYTON RODRIGUEZ DO NR/NTS Conf#: [id number] DID#: [id number] CC: GARRETT DIOR MD; SUDHIR BARRIENTOS MD;*EndCC*
--- NOTE | 2019-02-19 11:34 | PN ---
Date/Time of Note Date/Time of Note DATE: 02/19/19 TIME: 11:28 Assessment/Plan VTE Prophylaxis Risk score (from [facility])>0 risk: 5 SCD applied (from [facility]): Yes Pharmacological prophylaxis: NA/contraindicated Pharm contraindication: bleeding Lines/Catheters IV C[facility] Type [facility]from [facility] Peripheral IV Urinary Cath still in place: Yes Reason Cath still needed: other (indicate) (monitor output) Assessment/Plan Hospital Course Assessment: Anemia UTI- on Zosyn Melena-resolved -EGD 02/04/19 Extensive ulceration in the jejunal side of the gastrojejunal Billroth II anastomosis. No stigmata recent bleeding no visible vessel. Distal esophagitis with ulceration. No stigmata. Recent bleeding. Post distal gastrectomy distal to anastomosis Hx of cryptogenic cirrhosis Hx of perforated gastric ulcer s/p repair Ventral hernia Acute encephalopathy- improved - Toxic metabolic- positive UTI jg antibiotics -Elevated ammonia noted - resolved Imaging suggestive of a nonspecific enteritis Leukocytosis - resolved ANTONIETTA- improving -Nephrology following Mild to moderate aortic stenosis -Cardiology following Plan: Continue current GI regimen Diet per ST recommendations Monitor H/H, transfuse as needed Continue supportive care. D/c planning per hospitalist Pt cleared for out-pt management from GI point of view. Patient seen in collaboration with Dr. Harvey Subjective: Course reviewed with nursing staff Patient interviewed and examined All labs, imaging and other results reviewed Pt resting in bed, awake alert and oriented Much more alert today, no overt signs of GI bleed, despite Hgd done today. Will maintain close observation. PHYSICAL EXAMINATION: GENERAL: Elderly, alert and oriented with periods of confusion- improved today SKIN: No lesions HEAD: Normocephalic, atraumatic, no tenderness. EYES: Pupils equal reactive to light and accommodation, no discharge. EARS/NOSE AND THROAT: Ears normal, nose normal, NG tube in place NECK: Supple, no masses. CHEST: Inspection within normal limits. CARDIOVASCULAR: Heart: Regular rate and rhythm RESPIRATORY: Lungs clear to auscultation GASTROINTESTINAL AND LIVER: Abdomen: Soft, epigastric tenderness- resolved, non- distended, no hernias, no masses, no organomegaly, no ascites, no guarding, no rebound tenderness, normoactive bowel sounds. Rectal: Deferred. GENITOURINARY: Male genitalia within normal limits. EXTREMITIES: No cyanosis, clubbing or edema. Result Diagram: 02/19/19 0552 02/19/19 0552 Results 24hrs Laboratory Tests Test 02/18/19 11:50 02/18/19 16:57 02/18/19 21:36 02/19/19 02:49 Bedside Glucose 239 H 210 240 H 143 Test 02/19/19 05:52 02/19/19 08:03 White Blood Count 9.8 # Red Blood Count 2.67 L Hemoglobin 8.0 L Hematocrit 26.2 L Mean Corpuscular 98.1 Volume Mean Corpuscular 30.0 Hemoglobin Mean Corpuscular 30.5 L Hemoglobin Concent Red Cell 16.7 H Distribution Width Platelet Count 191 Mean Platelet Volume 12.1 H Immature 0.500 H Granulocytes % Neutrophils % 81.8 H Lymphocytes % 8.6 L Monocytes % 5.0 Eosinophils % 3.8 Basophils % 0.3 Nucleated Red Blood 0.0 Cells % Immature 0.050 H Granulocytes # Neutrophils # 8.1 H Lymphocytes # 0.9 Monocytes # 0.5 Eosinophils # 0.4 Basophils # 0.0 Nucleated Red Blood 0.0 Cells # Sodium Level 144 Potassium Level 3.5 Chloride Level 112 H Carbon Dioxide Level 26 Anion Gap 6 Blood Urea Nitrogen 33 H Creatinine 1.38 H Est Glomerular Filtrat Rate mL/min Glucose Level 142 Calcium Level 7.9 L Phosphorus Level 3.0 Magnesium Level 2.0 Total Bilirubin 0.7 Direct Bilirubin 0.00 Indirect Bilirubin 0.7 Aspartate Amino 26 Transf (AST/SGOT) Alanine 28 Aminotransferase (AL T/SGPT) Alkaline Phosphatase 131 H Ammonia < 9 L Total Protein 5.6 L Albumin 2.4 L Bedside Glucose 219 Exam/Review of Systems Exam Vitals Vital Signs Date Temp Pulse Resp B/P (MAP) Pulse Ox O2 O2 Flow FiO2 Time Delivery Rate 02/19/19 98.2 58 16 138/65 98 Room Air 07:25 (89) Intake and Output 02/18/19 02/18/19 02/19/19 1515:00 23:00 07:00 IntakeIntake Total 620 ml 520 ml 1000 ml OutputOutput Total 500 ml 800 ml 700 ml BalanceBalance 120 ml -280 ml 300 ml Results Results 24hrs Laboratory Tests Test 02/18/19 11:50 02/18/19 16:57 02/18/19 21:36 02/19/19 02:49 Bedside Glucose 239 H 210 240 H 143 Test 02/19/19 05:52 02/19/19 08:03 White Blood Count 9.8 # Red Blood Count 2.67 L Hemoglobin 8.0 L Hematocrit 26.2 L Mean Corpuscular 98.1 Volume Mean Corpuscular 30.0 Hemoglobin Mean Corpuscular 30.5 L Hemoglobin Concent Red Cell 16.7 H Distribution Width Platelet Count 191 Mean Platelet Volume 12.1 H Immature 0.500 H Granulocytes % Neutrophils % 81.8 H Lymphocytes % 8.6 L Monocytes % 5.0 Eosinophils % 3.8 Basophils % 0.3 Nucleated Red Blood 0.0 Cells % Immature 0.050 H Granulocytes # Neutrophils # 8.1 H Lymphocytes # 0.9 Monocytes # 0.5 Eosinophils # 0.4 Basophils # 0.0 Nucleated Red Blood 0.0 Cells # Sodium Level 144 Potassium Level 3.5 Chloride Level 112 H Carbon Dioxide Level 26 Anion Gap 6 Blood Urea Nitrogen 33 H Creatinine 1.38 H Est Glomerular Filtrat Rate mL/min Glucose Level 142 Calcium Level 7.9 L Phosphorus Level 3.0 Magnesium Level 2.0 Total Bilirubin 0.7 Direct Bilirubin 0.00 Indirect Bilirubin 0.7 Aspartate Amino 26 Transf (AST/SGOT) Alanine 28 Aminotransferase (AL T/SGPT) Alkaline Phosphatase 131 H Ammonia < 9 L Total Protein 5.6 L Albumin 2.4 L Bedside Glucose 219 Medications Medication Current Medications IV Flush (NS 3 ml) 3 ml PER PROTOCOL IV ; Start 02/03/19 at 14:00 Ondansetron HCl (Zofran Inj) 4 mg Q6H PRN IV NAUSEA/VOMITING; Start 02/03/19 at 14:00 Acetaminophen (Tylenol Tab) 650 mg Q6H PRN PO .PAIN 1-3 OR TEMP; Start 02/03/19 at 14:00 Acetaminophen/ Hydrocodone Bitart ([place] (5/325)) 1 tab Q6H PRN PO .MOD PAIN 4- 6 Last administered on 02/18/19at 13:30; Admin Dose 1 TAB; Start 02/03/19 at 14:00 Docusate Sodium (Colace) 100 mg Q12H PRN PO .CONSTIPATION; Start 02/03/19 at 14:00 Furosemide (Lasix) 40 mg DAILY PO Last administered on 02/04/19at 09:24; Admin Dose 40 MG; Start 02/04/19 at 09:00; Status Hold Levothyroxine Sodium (Synthroid) 25 mcg BEFORE BREAKFAST PO Last administered on 02/19/19 05:58; Admin Dose 25 MCG; Start 02/04/19 at 07:00 Spironolactone (Aldactone) 25 mg DAILY PO Last administered on 02/12/19 08:57; Admin Dose 25 MG; Start 02/04/19 at 09:00; Status Hold Sodium Chloride (Deep Sea) 2 spray BID NASAL Last administered on 02/19/19 09:05; Admin Dose 2 SPRAY; Start 02/04/19 at 11:00 Rifaximin (Xifaxan) 550 mg BID NGT Last administered on 02/19/19 09:01; Admin Dose 550 MG; Start 02/06/19 at 21:00 Sucralfate (Carafate Susp) 1 gm QID NGT Last administered on 02/19/19 09:01; Admin Dose 1 GM; Start 02/06/19 at 13:00 Propranolol HCl (Inderal) 20 mg BID PO Last administered on 02/18/19 21:41; Admin Dose 20 MG; Start 02/06/19 at 21:00 Metoprolol Tartrate (Lopressor) 5 mg Q4H PRN IV HR>110 Hold SBP<100 Last administered on 02/06/19 21:57; Admin Dose 5 MG; Start 02/06/19 at 17:30; Status Hold Morphine Sulfate (morphine) 0.5 mg Q4H PRN IV .SEVERE PAIN 7-10 Last administered on 02/14/19 21:09; Admin Dose 0.5 MG; Start 02/07/19 at 14:00 Furosemide (Lasix) 20 mg DAILY IV Last administered on 02/11/19 08:26; Admin Dose 20 MG; Start 02/09/19 at 09:00; Status Hold Hydralazine HCl (Apresoline) 25 mg Q12 PO Last administered on 02/15/19 08:20; Admin Dose 25 MG; Start 02/08/19 at 21:00; Status Hold Piperacillin Sod/ Tazobactam Sod 100 ml @ 25 mls/hr TID@02,10,18 IVPB Last administered on 02/19/19 02:50; Admin Dose 25 MLS/HR; Start 02/10/19 at 10:00 Diagnostic Test (Pha) (Accu-Chek) 1 ea 02 XX Last administered on 02/17/19at 01:48; Admin Dose 1 EA; Start 02/12/19 at 02:00 Miscellaneous Information 1 ea NOTE XX ; Start 02/11/19 at 07:30 Glucose (Glutose) 15 gm Q15M PRN PO DECREASED GLUCOSE; Start 02/11/19 at 07:30 Glucose (Glutose) 22.5 gm Q15M PRN PO DECREASED GLUCOSE; Start 02/11/19 at 07:30 Dextrose (D50w Syringe) 25 ml Q15M PRN IV DECREASED GLUCOSE; Start 02/11/19 at 07:30 Dextrose (D50w Syringe) 50 ml Q15M PRN IV DECREASED GLUCOSE; Start 02/11/19 at 07:30 Glucagon (Glucagen) 1 mg Q15M PRN IM DECREASED GLUCOSE; Start 02/11/19 at 07:30 Glucose (Glutose) 15 gm Q15M PRN BUCCAL DECREASED GLUCOSE; Start 02/11/19 at 07:30 Miscellaneous Information 1 ea NOTE XX ; Start 02/11/19 at 11:00 Glucose (Glutose) 15 gm Q15M PRN PO DECREASED GLUCOSE; Start 02/11/19 at 11:00 Glucose (Glutose) 22.5 gm Q15M PRN PO DECREASED GLUCOSE; Start 02/11/19 at 11:00 Dextrose (D50w Syringe) 25 ml Q15M PRN IV DECREASED GLUCOSE; Start 02/11/19 at 11:00 Dextrose (D50w Syringe) 50 ml Q15M PRN IV DECREASED GLUCOSE; Start 02/11/19 at 11:00 Glucagon (Glucagen) 1 mg Q15M PRN IM DECREASED GLUCOSE; Start 02/11/19 at 11:00 Glucose (Glutose) 15 gm Q15M PRN BUCCAL DECREASED GLUCOSE; Start 02/11/19 at 11:00 Insulin Glargine (Lantus) 11 units DAILY@2000 SC Last administered on 02/18/19at 21:39; Admin Dose 11 UNITS; Start 02/11/19 at 20:00 Lactulose (Enulose) 20 gm BID PO Last administered on 02/18/19at 21:40; Admin Dose 20 GM; Start 02/12/19 at 21:00 Colchicine (Colchicine) 0.6 mg BID PO Last administered on 02/19/19 09:01; Admin Dose 0.6 MG; Start 02/14/19 at 22:30 Insulin Aspart (Novolog Insulin Pen) NOVOLOG *MODERATE* ALGORITHM WITH MEALS BEDTIME SC Last administered on 02/19/19 09:04; Admin Dose 4 UNIT; Start 02/14/19 at 22:30 Lansoprazole (Prevacid) 30 mg BID@06,18 PO Last administered on 02/19/19 05:58; Admin Dose 30 MG; Start 02/16/19 at 18:00 Metoclopramide HCl (Reglan) 5 mg TID PO Last administered on 02/19/19 09:01; Admin Dose 5 MG; Start 02/16/19 at 21:00 Lactobacillus Acidophilus/ Rhamnosus (Culturelle) 1 cap BID PO Last administered on 02/19/19 09:02; Admin Dose 1 CAP; Start 02/16/19 at 21:00 Sodium Chloride 1,000 ml @ 50 mls/hr Q20H IV Last administered on 02/18/19 13:38; Admin Dose 50 MLS/HR; Start 02/18/19 at 13:30 Tamsulosin HCl (Flomax) 0.4 mg HS PO Last administered on 02/18/19 21:40; Admin Dose 0.4 MG; Start 02/18/19 at 21:00 Miscellaneous Information (Pending [facility] Order For Wound Care) This patient serrato... PRN PRN XX WOUND CARE; Start 02/19/19 at 01:30 INGRID MAST Feb 19, 2019 11:34
[2019-02-19] MEDS: PROPRANOLOL 20 MG TAB PO SCH ×2 (11:53→20:37)
[2019-02-19] MEDS: LACTULOSE 30ML CUP PO SCH ×2 (11:56→20:37)
--- NOTE | 2019-02-19 13:11 | PN ---
Date/Time of Note Date/Time of Note DATE: 02/19/19 TIME: 13:05 Assessment/Plan VTE Prophylaxis Risk score (from Ns)>0 risk: 5 SCD applied (from Ns): Yes Pharmacological prophylaxis: NA/contraindicated Pharm contraindication: other (anemia) Lines/Catheters IV Catheter Type (from [facility] Peripheral IV Urinary Cath still in place: Yes Reason Cath still needed: other (indicate) (monitor I&O) Assessment/Plan Hospital Course Assessment and plan 1. Encephalopathy reorientation as needed. suspect from underlying UTI. improved 2. Acute GI bleed status post EGD. Improved at present. Alert and oriented. Patient did have EGD on February 04, 2019 that did show extensive ulcerations in the jejunal side of the GJ. Continue PPI medication. On Carafate. Monitor H&H. Transfuse blood products as needed. 3. SVT. Cardiology following. Improved at present. Monitor for now. 4. Symptomatic anemia. Likely from GI bleed. Monitor H&H. Improved at present. 5. Cryptogenic cirrhosis with refractory ascites. Per report patient does have cirrhosis from extensive use of Tylenol. Patient reportedly had previous work- up that was negative for autoimmune. Monitor now. 6. Hypothyroidism. Continue levothyroxine therapy 7. Diabetes. Continue insulin regimen. 8. Acute renal insufficiency. Avoid nephrotoxic medications. [employer] following. Monitor renal panel. Correct electrolytes as needed. 9. History of CAD. Continue medical optimization. 10. History of gout. On colchicine. 11. BPH. Continue Flomax. Disposition and plan. Continue with antibiotic regimen. We will follow-up with case finisher for possible [facility] facility transfer. Discussed POC with Dr. Phillips Result Diagram: 02/19/19 0552 02/19/19 0552 Results 24hrs Laboratory Tests Test 02/18/19 16:57 02/18/19 21:36 02/19/19 02:49 02/19/19 05:52 Bedside Glucose 210 240 H 143 White Blood Count 9.8 # Red Blood Count 2.67 L Hemoglobin 8.0 L Hematocrit 26.2 L Mean Corpuscular 98.1 Volume Mean Corpuscular 30.0 Hemoglobin Mean Corpuscular 30.5 L Hemoglobin Concent Red Cell 16.7 H Distribution Width Platelet Count 191 Mean Platelet Volume 12.1 H Immature 0.500 H Granulocytes % Neutrophils % 81.8 H Lymphocytes % 8.6 L Monocytes % 5.0 Eosinophils % 3.8 Basophils % 0.3 Nucleated Red Blood 0.0 Cells % Immature 0.050 H Granulocytes # Neutrophils # 8.1 H Lymphocytes # 0.9 Monocytes # 0.5 Eosinophils # 0.4 Basophils # 0.0 Nucleated Red Blood 0.0 Cells # Sodium Level 144 Potassium Level 3.5 Chloride Level 112 H Carbon Dioxide Level 26 Anion Gap 6 Blood Urea Nitrogen 33 H Creatinine 1.38 H Est Glomerular Filtrat Rate mL/min Glucose Level 142 Calcium Level 7.9 L Phosphorus Level 3.0 Magnesium Level 2.0 Total Bilirubin 0.7 Direct Bilirubin 0.00 Indirect Bilirubin 0.7 Aspartate Amino 26 Transf (AST/SGOT) Alanine 28 Aminotransferase (AL T/SGPT) Alkaline Phosphatase 131 H Ammonia < 9 L Total Protein 5.6 L Albumin 2.4 L Test 02/19/19 08:03 02/19/19 11:55 Bedside Glucose 219 199 Subjective 24 Hr Interval Summary Free Text/Dictation Comfortable present. Reports having just some pain on her lateral feet Exam/Review of Systems Exam Vitals Vital Signs Date Temp Pulse Resp B/P (MAP) Pulse Ox O2 O2 Flow FiO2 Time Delivery Rate 02/19/19 98.2 58 16 138/65 98 Room Air 07:25 (89) Intake and Output 02/18/19 02/18/19 02/19/19 1515:00 23:00 07:00 IntakeIntake Total 620 ml 520 ml 1000 ml OutputOutput Total 500 ml 800 ml 700 ml BalanceBalance 120 ml -280 ml 300 ml Constitutional: alert, oriented Psych: nl mood/affect Neck: supple, non-tender Respiratory: clear to auscultation Cardiovascular: regular rate and rhythm Gastrointestinal: soft, non-tender Musculoskeletal: swelling (bue and minimal swelling ble ) Neurological: nl mental status Results Results 24hrs Laboratory Tests Test 02/18/19 16:57 02/18/19 21:36 02/19/19 02:49 02/19/19 05:52 Bedside Glucose 210 240 H 143 White Blood Count 9.8 # Red Blood Count 2.67 L Hemoglobin 8.0 L Hematocrit 26.2 L Mean Corpuscular 98.1 Volume Mean Corpuscular 30.0 Hemoglobin Mean Corpuscular 30.5 L Hemoglobin Concent Red Cell 16.7 H Distribution Width Platelet Count 191 Mean Platelet Volume 12.1 H Immature 0.500 H Granulocytes % Neutrophils % 81.8 H Lymphocytes % 8.6 L Monocytes % 5.0 Eosinophils % 3.8 Basophils % 0.3 Nucleated Red Blood 0.0 Cells % Immature 0.050 H Granulocytes # Neutrophils # 8.1 H Lymphocytes # 0.9 Monocytes # 0.5 Eosinophils # 0.4 Basophils # 0.0 Nucleated Red Blood 0.0 Cells # Sodium Level 144 Potassium Level 3.5 Chloride Level 112 H Carbon Dioxide Level 26 Anion Gap 6 Blood Urea Nitrogen 33 H Creatinine 1.38 H Est Glomerular Filtrat Rate mL/min Glucose Level 142 Calcium Level 7.9 L Phosphorus Level 3.0 Magnesium Level 2.0 Total Bilirubin 0.7 Direct Bilirubin 0.00 Indirect Bilirubin 0.7 Aspartate Amino 26 Transf (AST/SGOT) Alanine 28 Aminotransferase (AL T/SGPT) Alkaline Phosphatase 131 H Ammonia < 9 L Total Protein 5.6 L Albumin 2.4 L Test 02/19/19 08:03 02/19/19 11:55 Bedside Glucose 219 199 Medications Medication Current Medications IV Flush (NS 3 ml) 3 ml PER PROTOCOL IV ; Start 02/03/19 at 14:00 Ondansetron HCl (Zofran Inj) 4 mg Q6H PRN IV NAUSEA/VOMITING; Start 02/03/19 at 14:00 Acetaminophen (Tylenol Tab) 650 mg Q6H PRN PO .PAIN 1-3 OR TEMP; Start 02/03/19 at 14:00 Acetaminophen/ Hydrocodone Bitart ([place] (5/325)) 1 tab Q6H PRN PO .MOD PAIN 4- 6 Last administered on 02/18/19at 13:30; Admin Dose 1 TAB; Start 02/03/19 at 14:00 Docusate Sodium (Colace) 100 mg Q12H PRN PO .CONSTIPATION; Start 02/03/19 at 14:00 Furosemide (Lasix) 40 mg DAILY PO Last administered on 02/04/19at 09:24; Admin Dose 40 MG; Start 02/04/19 at 09:00; Status Hold Levothyroxine Sodium (Synthroid) 25 mcg BEFORE BREAKFAST PO Last administered on 02/19/19at 05:58; Admin Dose 25 MCG; Start 02/04/19 at 07:00 Spironolactone (Aldactone) 25 mg DAILY PO Last administered on 02/12/19 08:57; Admin Dose 25 MG; Start 02/04/19 at 09:00; Status Hold Sodium Chloride (Deep Sea) 2 spray BID NASAL Last administered on 02/19/19 09:05; Admin Dose 2 SPRAY; Start 02/04/19 at 11:00 Rifaximin (Xifaxan) 550 mg BID NGT Last administered on 02/19/19 09:01; Admin Dose 550 MG; Start 02/06/19 at 21:00 Sucralfate (Carafate Susp) 1 gm QID NGT Last administered on 02/19/19 12:18; Admin Dose 1 GM; Start 02/06/19 at 13:00 Propranolol HCl (Inderal) 20 mg BID PO Last administered on 02/19/19 11:53; Admin Dose 20 MG; Start 02/06/19 at 21:00 Metoprolol Tartrate (Lopressor) 5 mg Q4H PRN IV HR>110 Hold SBP<100 Last administered on 02/06/19 21:57; Admin Dose 5 MG; Start 02/06/19 at 17:30; Status Hold Morphine Sulfate (morphine) 0.5 mg Q4H PRN IV .SEVERE PAIN 7-10 Last administered on 02/14/19 21:09; Admin Dose 0.5 MG; Start 02/07/19 at 14:00 Furosemide (Lasix) 20 mg DAILY IV Last administered on 02/11/19 08:26; Admin Dose 20 MG; Start 02/09/19 at 09:00; Status Hold Hydralazine HCl (Apresoline) 25 mg Q12 PO Last administered on 02/15/19 08:20; Admin Dose 25 MG; Start 02/08/19 at 21:00; Status Hold Piperacillin Sod/ Tazobactam Sod 100 ml @ 25 mls/hr TID@18 IVPB Last administered on 02/19/19 11:50; Admin Dose 25 MLS/HR; Start 02/10/19 at 10:00 Diagnostic Test (Pha) (Accu-Chek) 1 ea 02 XX Last administered on 02/17/19 01:48; Admin Dose 1 EA; Start 02/12/19 at 02:00 Miscellaneous Information 1 ea NOTE XX ; Start 02/11/19 at 07:30 Glucose (Glutose) 15 gm Q15M PRN PO DECREASED GLUCOSE; Start 02/11/19 at 07:30 Glucose (Glutose) 22.5 gm Q15M PRN PO DECREASED GLUCOSE; Start 02/11/19 at 07:30 Dextrose (D50w Syringe) 25 ml Q15M PRN IV DECREASED GLUCOSE; Start 02/11/19 at 07:30 Dextrose (D50w Syringe) 50 ml Q15M PRN IV DECREASED GLUCOSE; Start 02/11/19 at 07:30 Glucagon (Glucagen) 1 mg Q15M PRN IM DECREASED GLUCOSE; Start 02/11/19 at 07:30 Glucose (Glutose) 15 gm Q15M PRN BUCCAL DECREASED GLUCOSE; Start 02/11/19 at 07:30 Miscellaneous Information 1 ea NOTE XX ; Start 02/11/19 at 11:00 Lactulose (Enulose) 20 gm BID PO Last administered on 02/19/19at 11:56; Admin Dose 20 GM; Start 02/12/19 at 21:00 Colchicine (Colchicine) 0.6 mg BID PO Last administered on 02/19/19at 09:01; Admin Dose 0.6 MG; Start 02/14/19 at 22:30 Insulin Aspart (Novolog Insulin Pen) NOVOLOG *MODERATE* ALGORITHM WITH MEALS BEDTIME SC Last administered on 02/19/19 12:17; Admin Dose 4 UNIT; Start 02/14/19 at 22:30 Lansoprazole (Prevacid) 30 mg BID@06,18 PO Last administered on 02/19/19at 05:58; Admin Dose 30 MG; Start 02/16/19 at 18:00 Metoclopramide HCl (Reglan) 5 mg TID PO Last administered on 02/19/19at 12:18; Admin Dose 5 MG; Start 02/16/19 at 21:00 Lactobacillus Acidophilus/ Rhamnosus (Culturelle) 1 cap BID PO Last administered on 02/19/19 09:02; Admin Dose 1 CAP; Start 02/16/19 at 21:00 Sodium Chloride 1,000 ml @ 50 mls/hr Q20H IV Last administered on 02/18/19at 13:38; Admin Dose 50 MLS/HR; Start 02/18/19 at 13:30 Tamsulosin HCl (Flomax) 0.4 mg HS PO Last administered on 02/18/19at 21:40; Admin Dose 0.4 MG; Start 02/18/19 at 21:00 [facility]isc[facility] This patient serrato... PRN PRN XX WOUND CARE; Start 02/19/19 at 01:30 Insulin Glargine (Lantus) 15 units DAILY@2000 SC ; Start 02/19/19 at 20:00 MERLIN OCONNOR NP Feb 19, 2019 13:11
--- NOTE | 2019-02-19 13:36 | CONS ---
Consult Date/Type/Reason Admit Date/Time Feb 03, 2019 at 09:30 Initial Consult Date 02/03/19 Requesting Provider: SUDHIR BARRIENTOS Date/Time of Note DATE: 02/19/19 TIME: 13:34 Subjective NO acute events - pt off tele now - reasonably comfortable - not in CHF by exam. ROS: No fever, no chills, no nausea, no vomiting, no diarrhea/constipation - improved gout pains Objective Vitals Vital Signs Date Temp Pulse Resp B/P (MAP) Pulse Ox O2 O2 Flow FiO2 Time Delivery Rate 02/19/19 98.2 58 16 138/65 98 Room Air 07:25 (89) Intake and Output 02/18/19 02/18/19 02/19/19 1515:00 23:00 07:00 IntakeIntake Total 620 ml 520 ml 1000 ml OutputOutput Total 500 ml 800 ml 700 ml BalanceBalance 120 ml -280 ml 300 ml Exam General: WN/WD/NAD, AOx 2-3 HEENT: Unicetric/atraumatic/EOMI (follow commands) NECK: JVD elevated, no thyromegaly Lymph: no lymphadenopathy HEART: regular with no S3, II/ systolic murmur at apex LUNGS: Coarse sounds ABD: soft, NT, ND, +BS : Intact Neuro: non focal SKIN: chronic changes EXT: trace edema Results/Medications Result Diagram: 02/19/19 0552 02/19/19 0552 Results 24 hrs Laboratory Tests Test 02/18/19 16:57 02/18/19 21:36 02/19/19 02:49 02/19/19 05:52 Bedside Glucose 210 240 H 143 White Blood Count 9.8 # Red Blood Count 2.67 L Hemoglobin 8.0 L Hematocrit 26.2 L Mean Corpuscular 98.1 Volume Mean Corpuscular 30.0 Hemoglobin Mean Corpuscular 30.5 L Hemoglobin Concent Red Cell 16.7 H Distribution Width Platelet Count 191 Mean Platelet Volume 12.1 H Immature 0.500 H Granulocytes % Neutrophils % 81.8 H Lymphocytes % 8.6 L Monocytes % 5.0 Eosinophils % 3.8 Basophils % 0.3 Nucleated Red Blood 0.0 Cells % Immature 0.050 H Granulocytes # Neutrophils # 8.1 H Lymphocytes # 0.9 Monocytes # 0.5 Eosinophils # 0.4 Basophils # 0.0 Nucleated Red Blood 0.0 Cells # Sodium Level 144 Potassium Level 3.5 Chloride Level 112 H Carbon Dioxide Level 26 Anion Gap 6 Blood Urea Nitrogen 33 H Creatinine 1.38 H Est Glomerular Filtrat Rate mL/min Glucose Level 142 Calcium Level 7.9 L Phosphorus Level 3.0 Magnesium Level 2.0 Total Bilirubin 0.7 Direct Bilirubin 0.00 Indirect Bilirubin 0.7 Aspartate Amino 26 Transf (AST/SGOT) Alanine 28 Aminotransferase (AL T/SGPT) Alkaline Phosphatase 131 H Ammonia < 9 L Total Protein 5.6 L Albumin 2.4 L Test 02/19/19 08:03 02/19/19 11:55 Bedside Glucose 219 199 Home Meds Reported Medications Spironolactone* (Aldactone*) 25 Mg Tablet, 25 MG PO DAILY, #30 TAB 02/03/19 Furosemide* (Furosemide*) 40 Mg Tablet, 40 MG PO DAILY, TAB 02/03/19 Levothyroxine Sodium* (Levoxyl*) 25 Mcg Tablet, 25 MCG PO BEFORE BREAKFAST, #30 TAB 02/03/19 Metformin Hcl* (Metformin Hcl*) 850 Mg Tablet, 850 MG PO WITH BREAKFAST, #30 TAB 02/03/19 Colchicine (Colchicine) 0.6 Mg Capsule, 0.6 MG PO BID for 50 Days, #100 TAKE 1 CAPSULE BY MOUTH TWICE A DAY 11/07/18 Medications Current Medications IV Flush (NS 3 ml) 3 ml PER PROTOCOL IV ; Start 02/03/19 at 14:00 Ondansetron HCl (Zofran Inj) 4 mg Q6H PRN IV NAUSEA/VOMITING; Start 02/03/19 at 14:00 Acetaminophen (Tylenol Tab) 650 mg Q6H PRN PO .PAIN 1-3 OR TEMP; Start 02/03/19 at 14:00 Acetaminophen/ Hydrocodone Bitart ([place] (5/325)) 1 tab Q6H PRN PO .MOD PAIN 4- 6 Last administered on 02/18/19at 13:30; Admin Dose 1 TAB; Start 02/03/19 at 14:00 Docusate Sodium (Colace) 100 mg Q12H PRN PO .CONSTIPATION; Start 02/03/19 at 14:00 Furosemide (Lasix) 40 mg DAILY PO Last administered on 02/04/19at 09:24; Admin Dose 40 MG; Start 02/04/19 at 09:00; Status Hold Levothyroxine Sodium (Synthroid) 25 mcg BEFORE BREAKFAST PO Last administered on 02/19/19 05:58; Admin Dose 25 MCG; Start 02/04/19 at 07:00 Spironolactone (Aldactone) 25 mg DAILY PO Last administered on 02/12/19 08:57; Admin Dose 25 MG; Start 02/04/19 at 09:00; Status Hold Sodium Chloride (Deep Sea) 2 spray BID NASAL Last administered on 02/19/19 09:05; Admin Dose 2 SPRAY; Start 02/04/19 at 11:00 Rifaximin (Xifaxan) 550 mg BID NGT Last administered on 02/19/19 09:01; Admin Dose 550 MG; Start 02/06/19 at 21:00 Sucralfate (Carafate Susp) 1 gm QID NGT Last administered on 02/19/19 12:18; Admin Dose 1 GM; Start 02/06/19 at 13:00 Propranolol HCl (Inderal) 20 mg BID PO Last administered on 02/19/19 11:53; Admin Dose 20 MG; Start 02/06/19 at 21:00 Metoprolol Tartrate (Lopressor) 5 mg Q4H PRN IV HR>110 Hold SBP<100 Last administered on 02/06/19 21:57; Admin Dose 5 MG; Start 02/06/19 at 17:30; Status Hold Morphine Sulfate (morphine) 0.5 mg Q4H PRN IV .SEVERE PAIN 7-10 Last administered on 02/14/19 21:09; Admin Dose 0.5 MG; Start 02/07/19 at 14:00 Furosemide (Lasix) 20 mg DAILY IV Last administered on 02/11/19 08:26; Admin Dose 20 MG; Start 02/09/19 at 09:00; Status Hold Hydralazine HCl (Apresoline) 25 mg Q12 PO Last administered on 02/15/19 08:20; Admin Dose 25 MG; Start 02/08/19 at 21:00; Status Hold Piperacillin Sod/ Tazobactam Sod 100 ml @ 25 mls/hr TID@02,10,18 IVPB Last administered on 02/19/19 11:50; Admin Dose 25 MLS/HR; Start 02/10/19 at 10:00 Diagnostic Test (Pha) (Accu-Chek) 1 ea 02 XX Last administered on 02/17/19at 01:48; Admin Dose 1 EA; Start 02/12/19 at 02:00 Miscellaneous Information 1 ea NOTE XX ; Start 02/11/19 at 07:30 Glucose (Glutose) 15 gm Q15M PRN PO DECREASED GLUCOSE; Start 02/11/19 at 07:30 Glucose (Glutose) 22.5 gm Q15M PRN PO DECREASED GLUCOSE; Start 02/11/19 at 07:30 Dextrose (D50w Syringe) 25 ml Q15M PRN IV DECREASED GLUCOSE; Start 02/11/19 at 07:30 Dextrose (D50w Syringe) 50 ml Q15M PRN IV DECREASED GLUCOSE; Start 02/11/19 at 07:30 Glucagon (Glucagen) 1 mg Q15M PRN IM DECREASED GLUCOSE; Start 02/11/19 at 07:30 Glucose (Glutose) 15 gm Q15M PRN BUCCAL DECREASED GLUCOSE; Start 02/11/19 at 07:30 Miscellaneous Information 1 ea NOTE XX ; Start 02/11/19 at 11:00 Lactulose (Enulose) 20 gm BID PO Last administered on 02/19/19at 11:56; Admin Dose 20 GM; Start 02/12/19 at 21:00 Colchicine (Colchicine) 0.6 mg BID PO Last administered on 02/19/19at 09:01; Admin Dose 0.6 MG; Start 02/14/19 at 22:30 Insulin Aspart (Novolog Insulin Pen) NOVOLOG *MODERATE* ALGORITHM WITH MEALS BEDTIME SC Last administered on 02/19/19at 12:17; Admin Dose 4 UNIT; Start 02/14/19 at 22:30 Lansoprazole (Prevacid) 30 mg BID@,18 PO Last administered on 02/19/19at 05:58; Admin Dose 30 MG; Start 02/16/19 at 18:00 Metoclopramide HCl (Reglan) 5 mg TID PO Last administered on 02/19/19at 12:18; Admin Dose 5 MG; Start 02/16/19 at 21:00 Lactobacillus Acidophilus/ Rhamnosus (Culturelle) 1 cap BID PO Last administered on 02/19/19at 09:02; Admin Dose 1 CAP; Start 02/16/19 at 21:00 Sodium Chloride 1,000 ml @ 50 mls/hr Q20H IV Last administered on 02/18/19at 13:38; Admin Dose 50 MLS/HR; Start 02/18/19 at 13:30 Tamsulosin HCl (Flomax) 0.4 mg HS PO Last administered on 02/18/19at 21:40; Admin Dose 0.4 MG; Start 02/18/19 at 21:00 Miscellaneous Information (Pending [facility] Order For Wound Care) This patient serrato... PRN PRN XX WOUND CARE; Start 02/19/19 at 01:30 Insulin Glargine (Lantus) 15 units DAILY@2000 SC ; Start 02/19/19 at 20:00 Assessment/Plan Hospital Course (Demo Recall) 1. Wide complex tachycardia, likely consistent with supraventricular tachycardia with a baseline bundle branch block.-TSH WNL. NO recurrence. NL EF by echo this admit - no new WCT noted - on Rx now. STABLE NOW. Now coarse a. fib - rate controlled. Off tele - stable clinically, 2. Abnormal electrocardiogram with baseline bundle branch block- stable. Treated. Will follow. 3. Syncope on admit. Rule out cardiac etiology. Rule out cardiac arrhythmia as etiology versus anemia. Replace blood Rx as needed. Med follow up for now. 4. Cirrhosis. 5. Gastrointestinal bleed with melenic stools. No anti-coag now. 6. Peptic ulcer disease by endoscopy - GI follows. 7. Renal failure-acute - Cr going up to 1.74, now down to 1.38 - BETTER 8. Hyponatremia. 9. Thrombocytopenia- plt better 191 - H/H at 8.0 - no active bleeding 10. Anemia. 11. Encephalopathy-improved 12. -mild to moderate by echo this admit - no intervention warranted - stable fluid status. LARISA MARADIAGA MD Feb 19, 2019 13:36
[2019-02-19 14:06] VITALS: BP 124/59; PULSE 65; RESP 18
--- NOTE | 2019-02-19 15:42 | CONS ---
Assessment/Plan Assessment/Plan Hospital Course (Demo Recall) No acute changes patient is sleeping looks comfortable no fevers overnight WBC went down to 9.8 neutrophils 81.8 BUN 33 creatinine 1.38 Antimicrobials: Zosyn day #10 Blood cultures negative. Urine culture grew Klebsiella and enterococcus species Physical examination: this is a chronically ill-appearing wasted elderly man who is in no distress head atraumatic normocephalic sclera nonicteric vehicle mucosa dry neck is supple chest rise symmetrical breath sounds diminished bases heart: S1-S2 abdomen distended soft bowel sounds hypoactive extremities with trace edema and cyanosis Assessment: 1. SIRS with ongoing leukocytosis 2. Possible aspiration 3. Polymicrobial UTI 4. Acute encephalopathy 5. Cryptogenic cirrhosis 6. Diabetes 7. Acute renal failure Plan: Remains stable, will discontinue antibiotics and observe him Consultation Date/Type/Reason Admit Date/Time Feb 03, 2019 at 09:30 Initial Consult Date 02/03/19 Type of Consult id Requesting Provider: SUDHIR BARRIENTOS Date/Time of Note DATE: 02/19/19 TIME: 15:41 Exam/Review of Systems Exam Vitals Vital Signs Date Temp Pulse Resp B/P (MAP) Pulse Ox O2 O2 Flow FiO2 Time Delivery Rate 02/19/19 98.3 65 18 124/59 99 Room Air 14:06 (80) Intake and Output 02/18/19 02/18/19 02/19/19 1515:00 23:00 07:00 IntakeIntake Total 620 ml 520 ml 1000 ml OutputOutput Total 500 ml 800 ml 700 ml BalanceBalance 120 ml -280 ml 300 ml Results Result Diagram: 02/19/19 0552 02/19/19 0552 Results 24hrs Laboratory Tests Test 02/18/19 16:57 02/18/19 21:36 02/19/19 02:49 02/19/19 05:52 Bedside Glucose 210 240 H 143 White Blood Count 9.8 # Red Blood Count 2.67 L Hemoglobin 8.0 L Hematocrit 26.2 L Mean Corpuscular 98.1 Volume Mean Corpuscular 30.0 Hemoglobin Mean Corpuscular 30.5 L Hemoglobin Concent Red Cell 16.7 H Distribution Width Platelet Count 191 Mean Platelet Volume 12.1 H Immature 0.500 H Granulocytes % Neutrophils % 81.8 H Lymphocytes % 8.6 L Monocytes % 5.0 Eosinophils % 3.8 Basophils % 0.3 Nucleated Red Blood 0.0 Cells % Immature 0.050 H Granulocytes # Neutrophils # 8.1 H Lymphocytes # 0.9 Monocytes # 0.5 Eosinophils # 0.4 Basophils # 0.0 Nucleated Red Blood 0.0 Cells # Sodium Level 144 Potassium Level 3.5 Chloride Level 112 H Carbon Dioxide Level 26 Anion Gap 6 Blood Urea Nitrogen 33 H Creatinine 1.38 H Est Glomerular Filtrat Rate mL/min Glucose Level 142 Calcium Level 7.9 L Phosphorus Level 3.0 Magnesium Level 2.0 Total Bilirubin 0.7 Direct Bilirubin 0.00 Indirect Bilirubin 0.7 Aspartate Amino 26 Transf (AST/SGOT) Alanine 28 Aminotransferase (AL T/SGPT) Alkaline Phosphatase 131 H Ammonia < 9 L Total Protein 5.6 L Albumin 2.4 L Test 02/19/19 08:03 02/19/19 11:55 Bedside Glucose 219 199 Medications Medication Current Medications IV Flush (NS 3 ml) 3 ml PER PROTOCOL IV ; Start 02/03/19 at 14:00 Ondansetron HCl (Zofran Inj) 4 mg Q6H PRN IV NAUSEA/VOMITING; Start 02/03/19 at 14:00 Acetaminophen (Tylenol Tab) 650 mg Q6H PRN PO .PAIN 1-3 OR TEMP; Start 02/03/19 at 14:00 Acetaminophen/ Hydrocodone Bitart ([place] (5/325)) 1 tab Q6H PRN PO .MOD PAIN 4- 6 Last administered on 02/18/19at 13:30; Admin Dose 1 TAB; Start 02/03/19 at 14:00 Docusate Sodium (Colace) 100 mg Q12H PRN PO .CONSTIPATION; Start 02/03/19 at 14:00 Furosemide (Lasix) 40 mg DAILY PO Last administered on 02/04/19at 09:24; Admin Dose 40 MG; Start 02/04/19 at 09:00; Status Hold Levothyroxine Sodium (Synthroid) 25 mcg BEFORE BREAKFAST PO Last administered on 02/19/19at 05:58; Admin Dose 25 MCG; Start 02/04/19 at 07:00 Spironolactone (Aldactone) 25 mg DAILY PO Last administered on 02/12/19at 08:57; Admin Dose 25 MG; Start 02/04/19 at 09:00; Status Hold Sodium Chloride (Deep Sea) 2 spray BID NASAL Last administered on 02/19/19 09:05; Admin Dose 2 SPRAY; Start 02/04/19 at 11:00 Rifaximin (Xifaxan) 550 mg BID NGT Last administered on 02/19/19 09:01; Admin Dose 550 MG; Start 02/06/19 at 21:00 Sucralfate (Carafate Susp) 1 gm QID NGT Last administered on 02/19/19 12:18; Admin Dose 1 GM; Start 02/06/19 at 13:00 Propranolol HCl (Inderal) 20 mg BID PO Last administered on 02/19/19 11:53; Admin Dose 20 MG; Start 02/06/19 at 21:00 Metoprolol Tartrate (Lopressor) 5 mg Q4H PRN IV HR>110 Hold SBP<100 Last administered on 02/06/19 21:57; Admin Dose 5 MG; Start 02/06/19 at 17:30; Status Hold Morphine Sulfate (morphine) 0.5 mg Q4H PRN IV .SEVERE PAIN 7-10 Last administered on 02/14/19 21:09; Admin Dose 0.5 MG; Start 02/07/19 at 14:00 Furosemide (Lasix) 20 mg DAILY IV Last administered on 02/11/19 08:26; Admin Dose 20 MG; Start 02/09/19 at 09:00; Status Hold Hydralazine HCl (Apresoline) 25 mg Q12 PO Last administered on 02/15/19 08:20; Admin Dose 25 MG; Start 02/08/19 at 21:00; Status Hold Piperacillin Sod/ Tazobactam Sod 100 ml @ 25 mls/hr TID@,,18 IVPB Last administered on 02/19/19 11:50; Admin Dose 25 MLS/HR; Start 02/10/19 at 10:00 Diagnostic Test (Pha) (Accu-Chek) 1 ea 02 XX Last administered on 02/17/19 01:48; Admin Dose 1 EA; Start 02/12/19 at 02:00 Miscellaneous Information 1 ea NOTE XX ; Start 02/11/19 at 07:30 Glucose (Glutose) 15 gm Q15M PRN PO DECREASED GLUCOSE; Start 02/11/19 at 07:30 Glucose (Glutose) 22.5 gm Q15M PRN PO DECREASED GLUCOSE; Start 02/11/19 at 07:30 Dextrose (D50w Syringe) 25 ml Q15M PRN IV DECREASED GLUCOSE; Start 02/11/19 at 07:30 Dextrose (D50w Syringe) 50 ml Q15M PRN IV DECREASED GLUCOSE; Start 02/11/19 at 07:30 Glucagon (Glucagen) 1 mg Q15M PRN IM DECREASED GLUCOSE; Start 02/11/19 at 07:30 Glucose (Glutose) 15 gm Q15M PRN BUCCAL DECREASED GLUCOSE; Start 02/11/19 at 07:30 Miscellaneous Information 1 ea NOTE XX ; Start 02/11/19 at 11:00 Lactulose (Enulose) 20 gm BID PO Last administered on 02/19/19 11:56; Admin Dose 20 GM; Start 02/12/19 at 21:00 Colchicine (Colchicine) 0.6 mg BID PO Last administered on 02/19/19 09:01; Admin Dose 0.6 MG; Start 02/14/19 at 22:30 Insulin Aspart (Novolog Insulin Pen) NOVOLOG *MODERATE* ALGORITHM WITH MEALS BEDTIME SC Last administered on 02/19/19 12:17; Admin Dose 4 UNIT; Start 02/14/19 at 22:30 Lansoprazole (Prevacid) 30 mg BID@06,18 PO Last administered on 02/19/19 05:58; Admin Dose 30 MG; Start 02/16/19 at 18:00 Metoclopramide HCl (Reglan) 5 mg TID PO Last administered on 02/19/19 12:18; Admin Dose 5 MG; Start 02/16/19 at 21:00 Lactobacillus Acidophilus/ Rhamnosus (Culturelle) 1 cap BID PO Last administered on 02/19/19 09:02; Admin Dose 1 CAP; Start 02/16/19 at 21:00 Sodium Chloride 1,000 ml @ 50 mls/hr Q20H IV Last administered on 02/18/19 13:38; Admin Dose 50 MLS/HR; Start 02/18/19 at 13:30 Tamsulosin HCl (Flomax) 0.4 mg HS PO Last administered on 02/18/19 21:40; Admin Dose 0.4 MG; Start 02/18/19 at 21:00 Miscellaneous Information (Pending Santyl Order For Wound Care) This patient serrato... PRN PRN XX WOUND CARE; Start 02/19/19 at 01:30 Insulin Glargine (Lantus) 15 units DAILY@2000 SC ; Start 02/19/19 at 20:00 JIM ANTOINE NP Feb 19, 2019 15:42
[2019-02-19] MEDS: SOD CHLORIDE 0.45% 1,000 ML IV SCH (17:25)
[2019-02-19 20:00] VITALS: BP 122/72; PULSE 77; RESP 18
[2019-02-19] MEDS: TAMSULOSIN (SR) 0.4 MG CAP PO SCH (20:37)
[2019-02-19] MEDS: INSULIN GLARGINE [LANTus] (100 UNITS/ML) SYG SC SCH (20:41)
[2019-02-20 02:00] VITALS: BP 141/61; PULSE 73; RESP 18
[2019-02-20] MEDS: ACCU-CHEK XX SCH (02:00)
[2019-02-20] MEDS: SOD CHLORIDE 0.45% 1,000 ML IV SCH (04:56)
[2019-02-20] MEDS: LEVOTHYROXINE 25 MCG TAB PO SCH (06:01)
[2019-02-20] MEDS: LANSOPRAZOLE 30 MG CAP PO SCH ×2 (06:01→17:50)
[2019-02-20 07:21] VITALS: BP 112/60; PULSE 69; RESP 16
[2019-02-20] MEDS: INSULIN ASPART [NOVOLOG] 3 ML PEN SC SCH ×4 (08:08→20:23)
[2019-02-20] MEDS ORDERED: POTASSIUM CHLORIDE (SR) 20 MEQ TAB PO STA (08:36)
[2019-02-20] MEDS: SALINE 0.65% 45 ML NAS SPRAY NASAL SCH ×2 (09:00→20:24)
--- NOTE | 2019-02-20 09:04 | PN ---
DATE: 02/20/2019 SUBJECTIVE: The patient is stable, no events overnight. OBJECTIVE: VITAL SIGNS: Blood pressure is 112/60, pulse 69, respirations 16, temperature 98.5. HEENT: Head is normocephalic. NECK: Supple. HEART: Regular rate. LUNGS: Show diminished breath sounds at the base. ABDOMEN: Soft, nontender to palpation without rebound or guarding. EXTREMITIES: Negative for clubbing, cyanosis, no edema. DERMATOLOGIC: No rashes. MUSCULOSKELETAL: No joint effusion. NEUROLOGIC: No change in exam. MEDICATIONS: Reviewed. LABORATORY DATA: Reviewed. IMAGING STUDIES: Reviewed. ASSESSMENT AND PLAN: 1. Nonoliguric acute kidney injury with previous baseline creatinine of 1.0 mg/dL. Etiology of acut e kidney injury is secondary to hemodynamics. Renal function is improved. We will continue to monit or. Continue current treatment plan. Discontinue IV fluids. 2. Hypokalemia. Replete with potassium chloride. 3. Hypernatremia, resolved. 4. Anemia. Continue to monitor hemoglobin and hematocrit levels. 5. Mineral bone disorder. Monitor calcium and phosphorus levels. 6. Acute encephalopathy, etiology is toxic metabolic, possible hepatic. Continue to monitor. 7. Acute gastrointestinal bleed status post EGD with evidence of peptic ulcer disease. Continue pro ton pump inhibitor. 8. Arrhythmia. Continue current treatment plan. 9. Cirrhosis cryptogenic. Continue medical management. 10. Diabetes. Continue current insulin regimen. 11. Systemic inflammatory response syndrome. Continue current antibiotic regimen. Dictated By: CLAYTON RODRIGUEZ DO NR/NTS Conf#: [id number] DID#: [id number] CC: SUDHIR BARRIENTOS MD; CLAYTON RODRIGUEZ DO; GARRETT DIOR MD;*EndCC*
[2019-02-20] MEDS: RIFAXIMIN 550 MG TAB NGT SCH ×2 (09:51→20:19)
[2019-02-20] MEDS: LACTOBACILLUS RHAMNOSUS CAP PO SCH ×2 (09:51→20:19)
[2019-02-20] MEDS: COLCHICINE 0.6 MG CAP PO SCH ×2 (09:51→20:22)
[2019-02-20] MEDS: SUCRALFATE (100 MG/ML) 10ML CUP NGT SCH ×4 (09:51→20:19)
[2019-02-20] MEDS: LACTULOSE 30ML CUP PO SCH ×2 (09:51→20:20)
[2019-02-20] MEDS: PROPRANOLOL 20 MG TAB PO SCH ×2 (09:52→20:22)
[2019-02-20] MEDS: METOCLOPRAMIDE 5 MG TAB PO SCH ×3 (09:52→20:19)
[2019-02-20] MEDS: BALSAM PERU/CASTOR OIL 60 GM TUBE TOP SCH ×2 (09:53→20:25)
[2019-02-20] MEDS: MULTIVITAMINS THERAPEUTIC TAB PO SCH (09:53)
--- NOTE | 2019-02-20 11:12 | PN ---
Date/Time of Note Date/Time of Note DATE: 02/20/19 TIME: 11:10 Assessment/Plan VTE Prophylaxis Risk score (from Nsg)>0 risk: 5 SCD applied (from Nsg): Yes Pharmacological prophylaxis: NA/contraindicated Pharm contraindication: bleeding Lines/Catheters IV [facility]from [facility] Peripheral IV Urinary Cath still in place: Yes Reason Cath still needed: other (indicate) (monitor output) Assessment/Plan Hospital Course Assessment: Anemia UTI- on Zosyn Melena-resolved -EGD 02/04/19 Extensive ulceration in the jejunal side of the gastrojejunal Billroth II anastomosis. No stigmata recent bleeding no visible vessel. Distal esophagitis with ulceration. No stigmata. Recent bleeding. Post distal gastrectomy distal to anastomosis Hx of cryptogenic cirrhosis Hx of perforated gastric ulcer s/p repair Ventral hernia Acute encephalopathy- improved - Toxic metabolic- positive UTI jg antibiotics -Elevated ammonia noted - resolved Imaging suggestive of a nonspecific enteritis Leukocytosis - resolved [place]- improving -Nephrology following Mild to moderate aortic stenosis -Cardiology following Plan: Continue current GI regimen Diet per ST recommendations Monitor H/H, transfuse as needed Continue supportive care. D/c planning per hospitalist Pt to f/u with GI after discharge for on-going care of cryptogenic cirrhosis GI will sign off but will be available upon re-consult as needed Patient seen in collaboration with Dr. Harvey Subjective: Course reviewed with nursing staff Patient interviewed and examined All labs, imaging and other results reviewed Pt resting in bed, awake alert and oriented No overt signs of GI bleed, despite Hgd stable Will maintain close observation. PHYSICAL EXAMINATION: GENERAL: Elderly, alert and oriented with periods of confusion- improved today SKIN: No lesions HEAD: Normocephalic, atraumatic, no tenderness. EYES: Pupils equal reactive to light and accommodation, no discharge. EARS/NOSE AND THROAT: Ears normal, nose normal, NG tube in place NECK: Supple, no masses. CHEST: Inspection within normal limits. CARDIOVASCULAR: Heart: Regular rate and rhythm RESPIRATORY: Lungs clear to auscultation GASTROINTESTINAL AND LIVER: Abdomen: Soft, epigastric tenderness- resolved, non- distended, no hernias, no masses, no organomegaly, no ascites, no guarding, no rebound tenderness, normoactive bowel sounds. Rectal: Deferred. GENITOURINARY: Male genitalia within normal limits. EXTREMITIES: No cyanosis, clubbing or edema. Result Diagram: 02/20/19 0546 02/20/19 0546 Results 24hrs Laboratory Tests Test 02/19/19 11:55 02/19/19 17:29 02/19/19 20:39 02/20/19 01:26 Bedside Glucose 199 131 215 137 Test 02/20/19 05:46 02/20/19 08:06 White Blood Count 11.1 H Red Blood Count 2.77 L Hemoglobin 8.2 L Hematocrit 26.1 L Mean Corpuscular 94.2 Volume Mean Corpuscular 29.6 Hemoglobin Mean Corpuscular 31.4 L Hemoglobin Concent Red Cell 16.3 H Distribution Width Platelet Count 218 Mean Platelet Volume 12.6 H Immature 0.500 H Granulocytes % Neutrophils % 80.8 H Lymphocytes % 9.9 L Monocytes % 5.3 Eosinophils % 3.1 Basophils % 0.4 Nucleated Red Blood 0.0 Cells % Immature 0.060 H Granulocytes # Neutrophils # 9.0 H Lymphocytes # 1.1 Monocytes # 0.6 Eosinophils # 0.3 Basophils # 0.0 Nucleated Red Blood 0.0 Cells # Sodium Level 139 Potassium Level 3.3 L Chloride Level 111 H Carbon Dioxide Level 21 Anion Gap 7 Blood Urea Nitrogen 30 H Creatinine 1.18 Est Glomerular Filtrat Rate mL/min Glucose Level 175 Calcium Level 7.8 L Phosphorus Level 2.8 Magnesium Level 1.9 Prealbumin 5.3 L Bedside Glucose 209 Exam/Review of Systems Exam Vitals Vital Signs Date Temp Pulse Resp B/P (MAP) Pulse Ox O2 O2 Flow FiO2 Time Delivery Rate 02/20/19 98.5 69 16 112/60 95 Room Air 07:21 (77) Intake and Output 02/19/19 02/19/19 02/20/19 1515:00 23:00 07:00 IntakeIntake Total 590 ml 1105 ml 500 ml OutputOutput Total 800 ml BalanceBalance 590 ml 1105 ml -300 ml Results Results 24hrs Laboratory Tests Test 02/19/19 11:55 02/19/19 17:29 02/19/19 20:39 02/20/19 01:26 Bedside Glucose 199 131 215 137 Test 02/20/19 05:46 02/20/19 08:06 White Blood Count 11.1 H Red Blood Count 2.77 L Hemoglobin 8.2 L Hematocrit 26.1 L Mean Corpuscular 94.2 Volume Mean Corpuscular 29.6 Hemoglobin Mean Corpuscular 31.4 L Hemoglobin Concent Red Cell 16.3 H Distribution Width Platelet Count 218 Mean Platelet Volume 12.6 H Immature 0.500 H Granulocytes % Neutrophils % 80.8 H Lymphocytes % 9.9 L Monocytes % 5.3 Eosinophils % 3.1 Basophils % 0.4 Nucleated Red Blood 0.0 Cells % Immature 0.060 H Granulocytes # Neutrophils # 9.0 H Lymphocytes # 1.1 Monocytes # 0.6 Eosinophils # 0.3 Basophils # 0.0 Nucleated Red Blood 0.0 Cells # Sodium Level 139 Potassium Level 3.3 L Chloride Level 111 H Carbon Dioxide Level 21 Anion Gap 7 Blood Urea Nitrogen 30 H Creatinine 1.18 Est Glomerular Filtrat Rate mL/min Glucose Level 175 Calcium Level 7.8 L Phosphorus Level 2.8 Magnesium Level 1.9 Prealbumin 5.3 L Bedside Glucose 209 Medications Medication Current Medications IV Flush (NS 3 ml) 3 ml PER PROTOCOL IV ; Start 02/03/19 at 14:00 Ondansetron HCl (Zofran Inj) 4 mg Q6H PRN IV NAUSEA/VOMITING; Start 02/03/19 at 14:00 Acetaminophen (Tylenol Tab) 650 mg Q6H PRN PO .PAIN 1-3 OR TEMP; Start 02/03/19 at 14:00 Acetaminophen/ Hydrocodone Bitart ([place] (5/325)) 1 tab Q6H PRN PO .MOD PAIN 4- 6 Last administered on 02/18/19at 13:30; Admin Dose 1 TAB; Start 02/03/19 at 14:00 Docusate Sodium (Colace) 100 mg Q12H PRN PO .CONSTIPATION; Start 02/03/19 at 14:00 Furosemide (Lasix) 40 mg DAILY PO Last administered on 02/04/19at 09:24; Admin Dose 40 MG; Start 02/04/19 at 09:00; Status Hold Levothyroxine Sodium (Synthroid) 25 mcg BEFORE BREAKFAST PO Last administered on 02/20/19at 06:01; Admin Dose 25 MCG; Start 02/04/19 at 07:00 Spironolactone (Aldactone) 25 mg DAILY PO Last administered on 02/12/19at 08:57; Admin Dose 25 MG; Start 02/04/19 at 09:00; Status Hold Sodium Chloride (Deep Sea) 2 spray BID NASAL Last administered on 02/19/19 09:05; Admin Dose 2 SPRAY; Start 02/04/19 at 11:00 Rifaximin (Xifaxan) 550 mg BID NGT Last administered on 02/20/19 09:51; Admin Dose 550 MG; Start 02/06/19 at 21:00 Sucralfate (Carafate Susp) 1 gm QID NGT Last administered on 02/20/19 09:51; Admin Dose 1 GM; Start 02/06/19 at 13:00 Propranolol HCl (Inderal) 20 mg BID PO Last administered on 02/20/19 09:52; Admin Dose 20 MG; Start 02/06/19 at 21:00 Metoprolol Tartrate (Lopressor) 5 mg Q4H PRN IV HR>110 Hold SBP<100 Last administered on 02/06/19 21:57; Admin Dose 5 MG; Start 02/06/19 at 17:30; Status Hold Morphine Sulfate (morphine) 0.5 mg Q4H PRN IV .SEVERE PAIN 7-10 Last administered on 02/14/19 21:09; Admin Dose 0.5 MG; Start 02/07/19 at 14:00 Furosemide (Lasix) 20 mg DAILY IV Last administered on 02/11/19 08:26; Admin Dose 20 MG; Start 02/09/19 at 09:00; Status Hold Hydralazine HCl (Apresoline) 25 mg Q12 PO Last administered on 02/15/19 08:20; Admin Dose 25 MG; Start 02/08/19 at 21:00; Status Hold Diagnostic Test (Pha) (Accu-Chek) 1 ea 02 XX Last administered on 02/17/19at 01:48; Admin Dose 1 EA; Start 02/12/19 at 02:00 Miscellaneous Information 1 ea NOTE XX ; Start 02/11/19 at 07:30 Glucose (Glutose) 15 gm Q15M PRN PO DECREASED GLUCOSE; Start 02/11/19 at 07:30 Glucose (Glutose) 22.5 gm Q15M PRN PO DECREASED GLUCOSE; Start 02/11/19 at 07:30 Dextrose (D50w Syringe) 25 ml Q15M PRN IV DECREASED GLUCOSE; Start 02/11/19 at 07:30 Dextrose (D50w Syringe) 50 ml Q15M PRN IV DECREASED GLUCOSE; Start 02/11/19 at 07:30 Glucagon (Glucagen) 1 mg Q15M PRN IM DECREASED GLUCOSE; Start 02/11/19 at 07:30 Glucose (Glutose) 15 gm Q15M PRN BUCCAL DECREASED GLUCOSE; Start 02/11/19 at 07:30 Miscellaneous Information 1 ea NOTE XX ; Start 02/11/19 at 11:00 Lactulose (Enulose) 20 gm BID PO Last administered on 02/20/19 09:51; Admin Dose 20 GM; Start 02/12/19 at 21:00 Colchicine (Colchicine) 0.6 mg BID PO Last administered on 02/20/19 09:51; Admin Dose 0.6 MG; Start 02/14/19 at 22:30 Insulin Aspart (Novolog Insulin Pen) NOVOLOG *MODERATE* ALGORITHM WITH MEALS BEDTIME SC Last administered on 02/20/19at 08:08; Admin Dose 4 UNIT; Start 02/14/19 at 22:30 Lansoprazole (Prevacid) 30 mg BID@06,18 PO Last administered on 02/20/19 06:01; Admin Dose 30 MG; Start 02/16/19 at 18:00 Metoclopramide HCl (Reglan) 5 mg TID PO Last administered on 02/20/19 09:52; Admin Dose 5 MG; Start 02/16/19 at 21:00 Lactobacillus Acidophilus/ Rhamnosus (Culturelle) 1 cap BID PO Last administered on 02/20/19 09:51; Admin Dose 1 CAP; Start 02/16/19 at 21:00 Tamsulosin HCl (Flomax) 0.4 mg HS PO Last administered on 02/19/19at 20:37; Admin Dose 0.4 MG; Start 02/18/19 at 21:00 Miscellaneous Information (Pending [facility] Order For Wound Care) This patient serrato... PRN PRN XX WOUND CARE; Start 02/19/19 at 01:30 Insulin Glargine (Lantus) 15 units DAILY@2000 SC Last administered on 02/19/19at 20:41; Admin Dose 15 UNITS; Start 02/19/19 at 20:00 Multivitamins Therapeutic (Theragran) 1 tab DAILY PO Last administered on 02/20/19at 09:53; Admin Dose 1 TAB; Start 02/20/19 at 09:00 INGRID MAST Feb 20, 2019 11:12
[2019-02-20 14:06] VITALS: BP 130/68; PULSE 70; RESP 16
--- NOTE | 2019-02-20 15:45 | CONS ---
Assessment/Plan Assessment/Plan Hospital Course (Demo Recall) IMPRESSION: 1. Wide complex tachycardia, likely consistent with supraventricular tachycardia with a baseline bundle branch block.-TSH WNL. NO recurrence. NL EF by echo this admit 2. Abnormal electrocardiogram with baseline bundle branch block. 3. Syncope on admit. Rule out cardiac etiology. Rule out cardiac arrhythmia as etiology versus anemia. 4. Cirrhosis. 5. Gastrointestinal bleed with melenic stools. 6. Peptic ulcer disease by endoscopy. 7. Renal failure-slowly improving further 8. Hyponatremia. 9. Thrombocytopenia. 10. Anemia. 11. Encephalopathy-ongoing but improving 12. -mild to moderate by echo this admit Recc: -Tele -Continue propranolol as tolerated -Contineu lactulose -lasix held in the setting of ARF -Follow MS -Follow HGb clsoely with further transfusions as necessary -continue abx'x and f/u cx data -Continue colchicine -Lasix and aldactone held in setting of renal failure which is improving Consultation Date/Type/Reason Admit Date/Time Feb 03, 2019 at 09:30 Initial Consult Date 02/03/19 Type of Consult Cardiology Reason for Consultation SVT Requesting Provider: SUDHIR BARRIENTOS Date/Time of Note DATE: 02/20/19 TIME: 15:38 Exam/Review of Systems Vital Signs Vitals Vital Signs Date Temp Pulse Resp B/P (MAP) Pulse Ox O2 O2 Flow FiO2 Time Delivery Rate 02/20/19 98.7 70 16 130/68 96 Room Air 14:06 (88) Intake and Output 02/19/19 02/19/19 02/20/19 1515:00 23:00 07:00 IntakeIntake Total 590 ml 1105 ml 500 ml OutputOutput Total 800 ml BalanceBalance 590 ml 1105 ml -300 ml Exam Exam Review of Systems: CONSTITUTIONAL: No fevers, chills. PULMONARY: No sob CARDIOVASCULAR: No chest pain/palpitations GASTROINTESTINAL: No nausea/vomiting. GENITOURINARY: No hematuria/dysuria. MUSCULOSKELETAL: No myagias/arthalgias. PSYCHIATRIC: The patient denies depression. NEUROLOGIC: lethargic somewhat Constitutional: other (sleeping, arousable) Psych: no complaints Head: normocephalic ENMT: mucosa pink and moist Neck: supple, jvd (9 cm water) Respiratory: clear to auscultation Cardiovascular: regular rate and rhythm Gastrointestinal: soft, non-tender Musculoskeletal: muscle tone (normal) Extremities: edema (none) Neurological: other (No focal deficits) Labs Result Diagram: 02/20/19 0546 02/20/19 0546 Results 24hrs Laboratory Tests Test 02/19/19 17:29 02/19/19 20:39 02/20/19 01:26 02/20/19 05:46 Bedside Glucose 131 215 137 White Blood Count 11.1 H Red Blood Count 2.77 L Hemoglobin 8.2 L Hematocrit 26.1 L Mean Corpuscular 94.2 Volume Mean Corpuscular 29.6 Hemoglobin Mean Corpuscular 31.4 L Hemoglobin Concent Red Cell 16.3 H Distribution Width Platelet Count 218 Mean Platelet Volume 12.6 H Immature 0.500 H Granulocytes % Neutrophils % 80.8 H Lymphocytes % 9.9 L Monocytes % 5.3 Eosinophils % 3.1 Basophils % 0.4 Nucleated Red Blood 0.0 Cells % Immature 0.060 H Granulocytes # Neutrophils # 9.0 H Lymphocytes # 1.1 Monocytes # 0.6 Eosinophils # 0.3 Basophils # 0.0 Nucleated Red Blood 0.0 Cells # Sodium Level 139 Potassium Level 3.3 L Chloride Level 111 H Carbon Dioxide Level 21 Anion Gap 7 Blood Urea Nitrogen 30 H Creatinine 1.18 Est Glomerular Filtrat Rate mL/min Glucose Level 175 Calcium Level 7.8 L Phosphorus Level 2.8 Magnesium Level 1.9 Prealbumin 5.3 L Test 02/20/19 08:06 02/20/19 12:08 Bedside Glucose 209 242 H Medications Medications Current Medications IV Flush (NS 3 ml) 3 ml PER PROTOCOL IV ; Start 02/03/19 at 14:00 Ondansetron HCl (Zofran Inj) 4 mg Q6H PRN IV NAUSEA/VOMITING; Start 02/03/19 at 14:00 Acetaminophen (Tylenol Tab) 650 mg Q6H PRN PO .PAIN 1-3 OR TEMP; Start 02/03/19 at 14:00 Acetaminophen/ Hydrocodone Bitart ([place] (5/325)) 1 tab Q6H PRN PO .MOD PAIN 4- 6 Last administered on 02/18/19at 13:30; Admin Dose 1 TAB; Start 02/03/19 at 14:00 Docusate Sodium (Colace) 100 mg Q12H PRN PO .CONSTIPATION; Start 02/03/19 at 14:00 Furosemide (Lasix) 40 mg DAILY PO Last administered on 02/04/19 09:24; Admin Dose 40 MG; Start 02/04/19 at 09:00; Status Hold Levothyroxine Sodium (Synthroid) 25 mcg BEFORE BREAKFAST PO Last administered on 02/20/19 06:01; Admin Dose 25 MCG; Start 02/04/19 at 07:00 Spironolactone (Aldactone) 25 mg DAILY PO Last administered on 02/12/19 08:57; Admin Dose 25 MG; Start 02/04/19 at 09:00; Status Hold Sodium Chloride (Deep Sea) 2 spray BID NASAL Last administered on 02/19/19 09:05; Admin Dose 2 SPRAY; Start 02/04/19 at 11:00 Rifaximin (Xifaxan) 550 mg BID NGT Last administered on 02/20/19 09:51; Admin Dose 550 MG; Start 02/06/19 at 21:00 Sucralfate (Carafate Susp) 1 gm QID NGT Last administered on 02/20/19 12:10; Admin Dose 1 GM; Start 02/06/19 at 13:00 Propranolol HCl (Inderal) 20 mg BID PO Last administered on 02/20/19 09:52; Admin Dose 20 MG; Start 02/06/19 at 21:00 Metoprolol Tartrate (Lopressor) 5 mg Q4H PRN IV HR>110 Hold SBP<100 Last administered on 02/06/19 21:57; Admin Dose 5 MG; Start 02/06/19 at 17:30; Status Hold Morphine Sulfate (morphine) 0.5 mg Q4H PRN IV .SEVERE PAIN 7-10 Last administered on 02/14/19 21:09; Admin Dose 0.5 MG; Start 02/07/19 at 14:00 Furosemide (Lasix) 20 mg DAILY IV Last administered on 02/11/19 08:26; Admin Dose 20 MG; Start 02/09/19 at 09:00; Status Hold Hydralazine HCl (Apresoline) 25 mg Q12 PO Last administered on 02/15/19 08:20; Admin Dose 25 MG; Start 02/08/19 at 21:00; Status Hold Diagnostic Test (Pha) (Accu-Chek) 1 ea 02 XX Last administered on 02/17/19at 01:48; Admin Dose 1 EA; Start 02/12/19 at 02:00 Miscellaneous Information 1 ea NOTE XX ; Start 02/11/19 at 07:30 Glucose (Glutose) 15 gm Q15M PRN PO DECREASED GLUCOSE; Start 02/11/19 at 07:30 Glucose (Glutose) 22.5 gm Q15M PRN PO DECREASED GLUCOSE; Start 02/11/19 at 07:30 Dextrose (D50w Syringe) 25 ml Q15M PRN IV DECREASED GLUCOSE; Start 02/11/19 at 07:30 Dextrose (D50w Syringe) 50 ml Q15M PRN IV DECREASED GLUCOSE; Start 02/11/19 at 07:30 Glucagon (Glucagen) 1 mg Q15M PRN IM DECREASED GLUCOSE; Start 02/11/19 at 07:30 Glucose (Glutose) 15 gm Q15M PRN BUCCAL DECREASED GLUCOSE; Start 02/11/19 at 07:30 Miscellaneous Information 1 ea NOTE XX ; Start 02/11/19 at 11:00 Lactulose (Enulose) 20 gm BID PO Last administered on 02/20/19 09:51; Admin Dose 20 GM; Start 02/12/19 at 21:00 Colchicine (Colchicine) 0.6 mg BID PO Last administered on 02/20/19 09:51; Admin Dose 0.6 MG; Start 02/14/19 at 22:30 Insulin Aspart (Novolog Insulin Pen) NOVOLOG *MODERATE* ALGORITHM WITH MEALS BEDTIME SC Last administered on 02/20/19at 12:12; Admin Dose 6 UNIT; Start 02/14/19 at 22:30 Lansoprazole (Prevacid) 30 mg BID@06,18 PO Last administered on 02/20/19at 06:01; Admin Dose 30 MG; Start 02/16/19 at 18:00 Metoclopramide HCl (Reglan) 5 mg TID PO Last administered on 02/20/19at 12:10; Admin Dose 5 MG; Start 02/16/19 at 21:00 Lactobacillus Acidophilus/ Rhamnosus (Culturelle) 1 cap BID PO Last administered on 02/20/19 09:51; Admin Dose 1 CAP; Start 02/16/19 at 21:00 Tamsulosin HCl (Flomax) 0.4 mg HS PO Last administered on 02/19/19at 20:37; A dmin Dose 0.4 MG; Start 02/18/19 at 21:00 Miscellaneous Information [facility] This patient serrato... PRN PRN XX WOUND CARE; Start 02/19/19 at 01:30 Insulin Glargine (Lantus) 15 units DAILY@2000 SC Last administered on 02/19/19at 20:41; Admin Dose 15 UNITS; Start 02/19/19 at 20:00 Multivitamins Therapeutic (Theragran) 1 tab DAILY PO Last administered on 02/20/19at 09:53; Admin Dose 1 TAB; Start 02/20/19 at 09:00 LUZMARIA EKVIN Feb 20, 2019 15:45
--- NOTE | 2019-02-20 15:50 | CONS ---
Assessment/Plan Assessment/Plan Hospital Course (Demo Recall) No acute changes patient is sleeping looks comfortable no fevers overnight Blood cultures negative. Urine culture grew Klebsiella and enterococcus species Physical examination: this is a chronically ill-appearing wasted elderly man who is in no distress head atraumatic normocephalic sclera nonicteric vehicle mucosa dry neck is supple chest rise symmetrical breath sounds diminished bases heart: S1-S2 abdomen distended soft bowel sounds hypoactive extremities with trace edema and cyanosis Assessment: 1. SIRS 2. Possible aspiration 3. Polymicrobial UTI 4. Acute encephalopathy 5. Cryptogenic cirrhosis 6. Diabetes 7. Acute renal failure Plan: Remains stable, completed antibiotics, will reculture prn Consultation Date/Type/Reason Admit Date/Time Feb 03, 2019 at 09:30 Initial Consult Date 02/03/19 Type of Consult id Requesting Provider: SUDHIR BARRIENTOS Date/Time of Note DATE: 02/20/19 TIME: 15:50 Exam/Review of Systems Exam Vitals Vital Signs Date Temp Pulse Resp B/P (MAP) Pulse Ox O2 O2 Flow FiO2 Time Delivery Rate 02/20/19 98.7 70 16 130/68 96 Room Air 14:06 (88) Intake and Output 02/19/19 02/19/19 02/20/19 1515:00 23:00 07:00 IntakeIntake Total 590 ml 1105 ml 500 ml OutputOutput Total 800 ml BalanceBalance 590 ml 1105 ml -300 ml Results Result Diagram: 02/20/19 0546 02/20/19 0546 Results 24hrs Laboratory Tests Test 02/19/19 17:29 02/19/19 20:39 02/20/19 01:26 02/20/19 05:46 Bedside Glucose 131 215 137 White Blood Count 11.1 H Red Blood Count 2.77 L Hemoglobin 8.2 L Hematocrit 26.1 L Mean Corpuscular 94.2 Volume Mean Corpuscular 29.6 Hemoglobin Mean Corpuscular 31.4 L Hemoglobin Concent Red Cell 16.3 H Distribution Width Platelet Count 218 Mean Platelet Volume 12.6 H Immature 0.500 H Granulocytes % Neutrophils % 80.8 H Lymphocytes % 9.9 L Monocytes % 5.3 Eosinophils % 3.1 Basophils % 0.4 Nucleated Red Blood 0.0 Cells % Immature 0.060 H Granulocytes # Neutrophils # 9.0 H Lymphocytes # 1.1 Monocytes # 0.6 Eosinophils # 0.3 Basophils # 0.0 Nucleated Red Blood 0.0 Cells # Sodium Level 139 Potassium Level 3.3 L Chloride Level 111 H Carbon Dioxide Level 21 Anion Gap 7 Blood Urea Nitrogen 30 H Creatinine 1.18 Est Glomerular Filtrat Rate mL/min Glucose Level 175 Calcium Level 7.8 L Phosphorus Level 2.8 Magnesium Level 1.9 Prealbumin 5.3 L Test 02/20/19 08:06 02/20/19 12:08 Bedside Glucose 209 242 H Medications Medication Current Medications IV Flush (NS 3 ml) 3 ml PER PROTOCOL IV ; Start 02/03/19 at 14:00 Ondansetron HCl (Zofran Inj) 4 mg Q6H PRN IV NAUSEA/VOMITING; Start 02/03/19 at 14:00 Acetaminophen (Tylenol Tab) 650 mg Q6H PRN PO .PAIN 1-3 OR TEMP; Start 02/03/19 at 14:00 Acetaminophen/ Hydrocodone Bitart ([place] (5/325)) 1 tab Q6H PRN PO .MOD PAIN 4- 6 Last administered on 02/18/19at 13:30; Admin Dose 1 TAB; Start 02/03/19 at 14:00 Docusate Sodium (Colace) 100 mg Q12H PRN PO .CONSTIPATION; Start 02/03/19 at 14:00 Furosemide (Lasix) 40 mg DAILY PO Last administered on 02/04/19at 09:24; Admin Dose 40 MG; Start 02/04/19 at 09:00; Status Hold Levothyroxine Sodium (Synthroid) 25 mcg BEFORE BREAKFAST PO Last administered on 02/20/19at 06:01; Admin Dose 25 MCG; Start 02/04/19 at 07:00 Spironolactone (Aldactone) 25 mg DAILY PO Last administered on 02/12/19at 08:57; Admin Dose 25 MG; Start 02/04/19 at 09:00; Status Hold Sodium Chloride (Deep Sea) 2 spray BID NASAL Last administered on 02/19/19 09:05; Admin Dose 2 SPRAY; Start 02/04/19 at 11:00 Rifaximin (Xifaxan) 550 mg BID NGT Last administered on 02/20/19at 09:51; Admin Dose 550 MG; Start 02/06/19 at 21:00 Sucralfate (Carafate Susp) 1 gm QID NGT Last administered on 02/20/19at 12:10; Admin Dose 1 GM; Start 02/06/19 at 13:00 Propranolol HCl (Inderal) 20 mg BID PO Last administered on 02/20/19at 09:52; Admin Dose 20 MG; Start 02/06/19 at 21:00 Metoprolol Tartrate (Lopressor) 5 mg Q4H PRN IV HR>110 Hold SBP<100 Last administered on 02/06/19at 21:57; Admin Dose 5 MG; Start 02/06/19 at 17:30; Status Hold Morphine Sulfate (morphine) 0.5 mg Q4H PRN IV .SEVERE PAIN 7-10 Last administered on 02/14/19at 21:09; Admin Dose 0.5 MG; Start 02/07/19 at 14:00 Furosemide (Lasix) 20 mg DAILY IV Last administered on 02/11/19at 08:26; Admin Dose 20 MG; Start 02/09/19 at 09:00; Status Hold Hydralazine HCl (Apresoline) 25 mg Q12 PO Last administered on 02/15/19at 08:20; Admin Dose 25 MG; Start 02/08/19 at 21:00; Status Hold Diagnostic Test (Pha) (Accu-Chek) 1 ea 02 XX Last administered on 02/17/19at 01:48; Admin Dose 1 EA; Start 02/12/19 at 02:00 Miscellaneous Information 1 ea NOTE XX ; Start 02/11/19 at 07:30 Glucose (Glutose) 15 gm Q15M PRN PO DECREASED GLUCOSE; Start 02/11/19 at 07:30 Glucose (Glutose) 22.5 gm Q15M PRN PO DECREASED GLUCOSE; Start 02/11/19 at 07: 30 Dextrose (D50w Syringe) 25 ml Q15M PRN IV DECREASED GLUCOSE; Start 02/11/19 at 07:30 Dextrose (D50w Syringe) 50 ml Q15M PRN IV DECREASED GLUCOSE; Start 02/11/19 at 07:30 Glucagon (Glucagen) 1 mg Q15M PRN IM DECREASED GLUCOSE; Start 02/11/19 at 07:30 Glucose (Glutose) 15 gm Q15M PRN BUCCAL DECREASED GLUCOSE; Start 02/11/19 at 07:30 Miscellaneous Information 1 ea NOTE XX ; Start 02/11/19 at 11:00 Lactulose (Enulose) 20 gm BID PO Last administered on 02/20/19 09:51; Admin Dose 20 GM; Start 02/12/19 at 21:00 Colchicine (Colchicine) 0.6 mg BID PO Last administered on 02/20/19 09:51; Admin Dose 0.6 MG; Start 02/14/19 at 22:30 Insulin Aspart (Novolog Insulin Pen) NOVOLOG *MODERATE* ALGORITHM WITH MEALS BEDTIME SC Last administered on 02/20/19 12:12; Admin Dose 6 UNIT; Start 02/14/19 at 22:30 Lansoprazole (Prevacid) 30 mg BID@06,18 PO Last administered on 02/20/19 06:01; Admin Dose 30 MG; Start 02/16/19 at 18:00 Metoclopramide HCl (Reglan) 5 mg TID PO Last administered on 02/20/19 12:10; Admin Dose 5 MG; Start 02/16/19 at 21:00 Lactobacillus Acidophilus/ Rhamnosus (Culturelle) 1 cap BID PO Last administered on 02/20/19 09:51; Admin Dose 1 CAP; Start 02/16/19 at 21:00 Tamsulosin HCl (Flomax) 0.4 mg HS PO Last administered on 02/19/19 20:37; Admin Dose 0.4 MG; Start 02/18/19 at 21:00 [facility]isc[facility] This patient serrato... PRN PRN XX WOUND CARE; Start 02/19/19 at 01:30 Insulin Glargine (Lantus) 15 units DAILY@1999 SC Last administered on 02/19/19 20:41; Admin Dose 15 UNITS; Start 02/19/19 at 20:00 Multivitamins Therapeutic (Theragran) 1 tab DAILY PO Last administered on 02/20/19 09:53; Admin Dose 1 TAB; Start 02/20/19 at 09:00 JIM ANTOINE NP Feb 20, 2019 15:50
--- NOTE | 2019-02-20 18:55 | PN ---
Date/Time of Note Date/Time of Note DATE: 02/20/19 TIME: 18:44 Assessment/Plan VTE Prophylaxis Risk score (from Nsg)>0 risk: 5 SCD applied (from Ns): Yes Pharmacological prophylaxis: NA/contraindicated Pharm contraindication: other Lines/Catheters IV Catheter Type (from Nrs): Peripheral IV Urinary Cath still in place: Yes Reason Cath still needed: other (indicate) (monitor I&O) Assessment/Plan Hospital Course Assessment and plan 1. Encephalopathy reorientation as needed. suspect from underlying UTI. improved 2. Acute GI bleed status post EGD. Improved at present. Alert and oriented. Patient did have EGD on February 04, 2019 that did show extensive ulcerations in the jejunal side of the GJ. Continue PPI medication. On Carafate. Monitor H&H. Transfuse blood products as needed. 3. SVT. Cardiology following. Improved at present. Monitor for now. 4. Symptomatic anemia. Likely from GI bleed. Monitor H&H. Improved at present. 5. Cryptogenic cirrhosis with refractory ascites. Per report patient does have cirrhosis from extensive use of Tylenol. Patient reportedly had previous work- up that was negative for autoimmune. Monitor now. 6. Hypothyroidism. Continue levothyroxine therapy 7. Diabetes. Continue insulin regimen. 8. Acute renal insufficiency. Avoid nephrotoxic medications. [employer] Person marcin best. Monitor renal panel. Correct electrolytes as needed. 9. History of CAD. Continue medical optimization. 10. History of gout. On colchicine. 11. BPH. Continue Flomax. Disposition and plan. Still noted with difficulty ambulation. PT following. Awaiting possible snf placement Discussed POC with Dr. Phillips Result Diagram: 02/20/1946 02/20/1946 Results 24hrs Laboratory Tests Test 02/19/19 20:39 02/20/19 01:26 02/20/19 05:46 02/20/19 08:06 Bedside Glucose 215 137 209 White Blood Count 11.1 H Red Blood Count 2.77 L Hemoglobin 8.2 L Hematocrit 26.1 L Mean Corpuscular 94.2 Volume Mean Corpuscular 29.6 Hemoglobin Mean Corpuscular 31.4 L Hemoglobin Concent Red Cell 16.3 H Distribution Width Platelet Count 218 Mean Platelet Volume 12.6 H Immature 0.500 H Granulocytes % Neutrophils % 80.8 H Lymphocytes % 9.9 L Monocytes % 5.3 Eosinophils % 3.1 Basophils % 0.4 Nucleated Red Blood 0.0 Cells % Immature 0.060 H Granulocytes # Neutrophils # 9.0 H Lymphocytes # 1.1 Monocytes # 0.6 Eosinophils # 0.3 Basophils # 0.0 Nucleated Red Blood 0.0 Cells # Sodium Level 139 Potassium Level 3.3 L Chloride Level 111 H Carbon Dioxide Level 21 Anion Gap 7 Blood Urea Nitrogen 30 H Creatinine 1.18 Est Glomerular Filtrat Rate mL/min Glucose Level 175 Calcium Level 7.8 L Phosphorus Level 2.8 Magnesium Level 1.9 Prealbumin 5.3 L Test 02/20/19 12:08 02/20/19 17:49 Bedside Glucose 242 H 128 Subjective 24 Hr Interval Summary Free Text/Dictation no reports of pain at this time. no s/s of distress Exam/Review of Systems Exam Vitals Vital Signs Date Temp Pulse Resp B/P (MAP) Pulse Ox O2 O2 Flow FiO2 Time Delivery Rate 02/20/19 98.7 70 16 130/68 96 Room Air 14:06 (88) Intake and Output 02/19/19 02/19/19 02/20/19 1515:00 23:00 07:00 IntakeIntake Total 590 ml 1105 ml 500 ml OutputOutput Total 800 ml BalanceBalance 590 ml 1105 ml -300 ml Exam Constitutional: alert, oriented Psych: nl mood/affect Neck: supple, non-tender Respiratory: clear to auscultation Cardiovascular: regular rate and rhythm Gastrointestinal: soft, non-tender Musculoskeletal: swelling (bue and minimal swelling ble ) Neurological: nl mental status Results Results 24hrs Laboratory Tests Test 02/19/19 20:39 02/20/19 01:26 02/20/19 05:46 02/20/19 08:06 Bedside Glucose 215 137 209 White Blood Count 11.1 H Red Blood Count 2.77 L Hemoglobin 8.2 L Hematocrit 26.1 L Mean Corpuscular 94.2 Volume Mean Corpuscular 29.6 Hemoglobin Mean Corpuscular 31.4 L Hemoglobin Concent Red Cell 16.3 H Distribution Width Platelet Count 218 Mean Platelet Volume 12.6 H Immature 0.500 H Granulocytes % Neutrophils % 80.8 H Lymphocytes % 9.9 L Monocytes % 5.3 Eosinophils % 3.1 Basophils % 0.4 Nucleated Red Blood 0.0 Cells % Immature 0.060 H Granulocytes # Neutrophils # 9.0 H Lymphocytes # 1.1 Monocytes # 0.6 Eosinophils # 0.3 Basophils # 0.0 Nucleated Red Blood 0.0 Cells # Sodium Level 139 Potassium Level 3.3 L Chloride Level 111 H Carbon Dioxide Level 21 Anion Gap 7 Blood Urea Nitrogen 30 H Creatinine 1.18 Est Glomerular Filtrat Rate mL/min Glucose Level 175 Calcium Level 7.8 L Phosphorus Level 2.8 Magnesium Level 1.9 Prealbumin 5.3 L Test 02/20/19 12:08 02/20/19 17:49 Bedside Glucose 242 H 128 Medications Medication Current Medications IV Flush (NS 3 ml) 3 ml PER PROTOCOL IV ; Start 02/03/19 at 14:00 Ondansetron HCl (Zofran Inj) 4 mg Q6H PRN IV NAUSEA/VOMITING; Start 02/03/19 at 14:00 Acetaminophen (Tylenol Tab) 650 mg Q6H PRN PO .PAIN 1-3 OR TEMP; Start 02/03/19 at 14:00 Acetaminophen/ Hydrocodone Bitart ([place] (5/325)) 1 tab Q6H PRN PO .MOD PAIN 4- 6 Last administered on 02/18/19 13:30; Admin Dose 1 TAB; Start 02/03/19 at 14:00 Docusate Sodium (Colace) 100 mg Q12H PRN PO .CONSTIPATION; Start 02/03/19 at 14:00 Furosemide (Lasix) 40 mg DAILY PO Last administered on 02/04/19 09:24; Admin Dose 40 MG; Start 02/04/19 at 09:00; Status Hold Levothyroxine Sodium (Synthroid) 25 mcg BEFORE BREAKFAST PO Last administered on 02/20/19at 06:01; Admin Dose 25 MCG; Start 02/04/19 at 07:00 Spironolactone (Aldactone) 25 mg DAILY PO Last administered on 02/12/19 08:57; Admin Dose 25 MG; Start 02/04/19 at 09:00; Status Hold Sodium Chloride (Deep Sea) 2 spray BID NASAL Last administered on 02/19/19 09:05; Admin Dose 2 SPRAY; Start 02/04/19 at 11:00 Rifaximin (Xifaxan) 550 mg BID NGT Last administered on 02/20/19 09:51; Admin Dose 550 MG; Start 02/06/19 at 21:00 Sucralfate (Carafate Susp) 1 gm QID NGT Last administered on 02/20/19at 17:50; Admin Dose 1 GM; Start 02/06/19 at 13:00 Propranolol HCl (Inderal) 20 mg BID PO Last administered on 02/20/19at 09:52; Admin Dose 20 MG; Start 02/06/19 at 21:00 Metoprolol Tartrate (Lopressor) 5 mg Q4H PRN IV HR>110 Hold SBP<100 Last administered on 02/06/19at 21:57; Admin Dose 5 MG; Start 02/06/19 at 17:30; Status Hold Morphine Sulfate (morphine) 0.5 mg Q4H PRN IV .SEVERE PAIN 7-10 Last administered on 02/14/19at 21:09; Admin Dose 0.5 MG; Start 02/07/19 at 14:00 Furosemide (Lasix) 20 mg DAILY IV Last administered on 02/11/19at 08:26; Admin Dose 20 MG; Start 02/09/19 at 09:00; Status Hold Hydralazine HCl (Apresoline) 25 mg Q12 PO Last administered on 02/15/19at 08:20; Admin Dose 25 MG; Start 02/08/19 at 21:00; Status Hold Diagnostic Test (Pha) (Accu-Chek) 1 ea 02 XX Last administered on 02/17/19at 01:48; Admin Dose 1 EA; Start 02/12/19 at 02:00 Miscellaneous Information 1 ea NOTE XX ; Start 02/11/19 at 07:30 Glucose (Glutose) 15 gm Q15M PRN PO DECREASED GLUCOSE; Start 02/11/19 at 07:30 Glucose (Glutose) 22.5 gm Q15M PRN PO DECREASED GLUCOSE; Start 02/11/19 at 07:30 Dextrose (D50w Syringe) 25 ml Q15M PRN IV DECREASED GLUCOSE; Start 02/11/19 at 07:30 Dextrose (D50w Syringe) 50 ml Q15M PRN IV DECREASED GLUCOSE; Start 02/11/19 at 07:30 Glucagon (Glucagen) 1 mg Q15M PRN IM DECREASED GLUCOSE; Start 02/11/19 at 07:30 Glucose (Glutose) 15 gm Q15M PRN BUCCAL DECREASED GLUCOSE; Start 02/11/19 at 07:30 Miscellaneous Information 1 ea NOTE XX ; Start 02/11/19 at 11:00 Lactulose (Enulose) 20 gm BID PO Last administered on 02/20/19 09:51; Admin Dose 20 GM; Start 02/12/19 at 21:00 Colchicine (Colchicine) 0.6 mg BID PO Last administered on 02/20/19 09:51; Admin Dose 0.6 MG; Start 02/14/19 at 22:30 Insulin Aspart (Novolog Insulin Pen) NOVOLOG *MODERATE* ALGORITHM WITH MEALS BEDTIME SC Last administered on 02/20/19 12:12; Admin Dose 6 UNIT; Start 02/14/19 at 22:30 Lansoprazole (Prevacid) 30 mg BID@06,18 PO Last administered on 02/20/19 17:50; Admin Dose 30 MG; Start 02/16/19 at 18:00 Metoclopramide HCl (Reglan) 5 mg TID PO Last administered on 02/20/19 12:10; Admin Dose 5 MG; Start 02/16/19 at 21:00 Lactobacillus Acidophilus/ Rhamnosus (Culturelle) 1 cap BID PO Last administered on 02/20/19 09:51; Admin Dose 1 CAP; Start 02/16/19 at 21:00 Tamsulosin HCl (Flomax) 0.4 mg HS PO Last administered on 02/19/19 20:37; Admin Dose 0.4 MG; Start 02/18/19 at 21:00 Miscellaneous Information (Pending [facility] Order For Wound Care) This patient serrato... PRN PRN XX WOUND CARE; Start 02/19/19 at 01:30 Insulin Glargine (Lantus) 15 units DAILY@1999 SC Last administered on 02/19/19 20:41; Admin Dose 15 UNITS; Start 02/19/19 at 20:00 Multivitamins Therapeutic (Theragran) 1 tab DAILY PO Last administered on 02/20/19 09:53; Admin Dose 1 TAB; Start 02/20/19 at 09:00 MERLIN OCONNOR NP Feb 20, 2019 18:55
[2019-02-20 20:00] VITALS: BP 125/57; PULSE 70; RESP 18
[2019-02-20] MEDS: TAMSULOSIN (SR) 0.4 MG CAP PO SCH (20:20)
[2019-02-20] MEDS: INSULIN GLARGINE [LANTus] (100 UNITS/ML) SYG SC SCH (20:24)
[2019-02-20] MEDS: HYDROCODONE/APAP (5/325) TAB PO PRN (20:27)
[2019-02-21] MEDS: ACCU-CHEK XX SCH (02:00)
[2019-02-21 02:05] VITALS: BP 130/62; PULSE 68; RESP 19
[2019-02-21] MEDS: LEVOTHYROXINE 25 MCG TAB PO SCH (06:13)
[2019-02-21] MEDS: LANSOPRAZOLE 30 MG CAP PO SCH ×2 (06:13→17:30)
[2019-02-21 08:06] VITALS: BP 131/66; PULSE 80; RESP 18
[2019-02-21] MEDS: BALSAM PERU/CASTOR OIL 60 GM TUBE TOP SCH ×2 (08:33→22:25)
[2019-02-21] MEDS: INSULIN ASPART [NOVOLOG] 3 ML PEN SC SCH ×4 (08:36→21:25)
[2019-02-21] MEDS: SUCRALFATE (100 MG/ML) 10ML CUP NGT SCH ×4 (08:36→21:20)
[2019-02-21] MEDS: COLCHICINE 0.6 MG CAP PO SCH ×2 (08:36→21:14)
[2019-02-21] MEDS: LACTULOSE 30ML CUP PO SCH ×2 (08:36→21:15)
[2019-02-21] MEDS: LACTOBACILLUS RHAMNOSUS CAP PO SCH ×2 (08:37→21:15)
[2019-02-21] MEDS: RIFAXIMIN 550 MG TAB NGT SCH ×2 (08:37→21:14)
[2019-02-21] MEDS: METOCLOPRAMIDE 5 MG TAB PO SCH ×3 (08:37→21:15)
[2019-02-21] MEDS: PROPRANOLOL 20 MG TAB PO SCH ×2 (08:37→21:15)
[2019-02-21] MEDS: MULTIVITAMINS THERAPEUTIC TAB PO SCH (08:37)
[2019-02-21] MEDS: SALINE 0.65% 45 ML NAS SPRAY NASAL SCH ×2 (08:38→21:00)
--- NOTE | 2019-02-21 09:09 | PN ---
DATE: 02/21/2019 SUBJECTIVE: The patient is stable, no events overnight. OBJECTIVE: VITAL SIGNS: Blood pressure is 131/66, respirations 18, pulse 80, temperature 98.0. HEENT: Head is normocephalic. NECK: Supple. HEART: Regular rate. LUNGS: Show diminished breath sounds at the base. ABDOMEN: Soft, nontender to palpation without rebound or guarding. EXTREMITIES: Negative for clubbing, cyanosis, no edema. DERMATOLOGIC: No rashes. MUSCULOSKELETAL: No joint effusion. NEUROLOGIC: No change in exam. MEDICATIONS: The patient's medications have been reviewed. LABORATORY DATA: Has been reviewed. ASSESSMENT AND PLAN: 1. Nonoliguric acute kidney injury with previous baseline creatinine of 1.0 mg/dL. Etiology of acut e kidney injury is secondary to hemodynamics. Renal function is improved. Continue to monitor. 2. Hypokalemia. Continue to monitor and replete as needed. 3. Hypernatremia, improved. Continue to encourage free water intake. 4. Anemia. Monitor hemoglobin and hematocrit levels. 5. Mineral bone disorder. Monitor calcium and phosphorus levels. 6. Acute encephalopathy. Etiology is toxic metabolic. Continue to monitor. 7. Acute gastrointestinal bleed. The patient is status post EGD with evidence of peptic ulcer disea se. Continue proton pump inhibitor. 8. Arrhythmia. Continue current treatment plan. 9. Cirrhosis cryptogenic. Continue medical management. 10. Diabetes. Continue current insulin regimen. 11. Systemic inflammatory response syndrome. Continue current antibiotic regimen. Dictated By: CLAYTON ARCOS/QUAN Conf#: [id number] DID#: [id number]
--- NOTE | 2019-02-21 12:16 | PN ---
Date/Time of Note Date/Time of Note DATE: 02/21/19 TIME: 12:10 Assessment/Plan VTE Prophylaxis Risk score (from Ns)>0 risk: 7 SCD applied (from Ns): Yes Pharmacological prophylaxis: NA/contraindicated Pharm contraindication: bleeding Lines/Catheters IV [facility]from [facility] Peripheral IV Urinary Cath still in place: No Assessment/Plan Assessment/Plan 1. Encephalopathy: suspect from underlying sepsis. Head CT negative for acute findings. Improved 2. Acute GI bleed, status post EGD with a finding of extensive ulcerations in the jejunal side of GJ. -Continue PPI, Carafate -Monitor H&H and transfuse as needed 3. SVT: Resolved. Cardiology following. 4. Symptomatic anemia.: See #2 5. Cryptogenic cirrhosis with refractory ascites. Per report patient does have cirrhosis from extensive use of Tylenol. Patient reportedly had previous work- up that was negative for autoimmune. Monitor now. 6. Hypothyroidism. Continue levothyroxine 7. Diabetes. Continue insulin regimen. 8. Acute renal insufficiency: Resolving. Nephrology on board. Avoid nephrotoxic medications. 9. History of CAD. Continue current medical management 10. History of gout. On colchicine. 11. BPH. Continue Flomax. Disposition and plan. Still noted with difficulty ambulation. PT following. Awaiting possible SNF placement Result Diagram: 02/20/19 0546 02/20/19 0546 Results 24hrs Laboratory Tests Test 02/20/19 17:49 02/20/19 20:18 02/21/19 02:22 02/21/19 08:10 Bedside Glucose 128 206 131 164 Subjective 24 Hr Interval Summary Free Text/Dictation pt asked to go home. He appears to be still confused. Exam/Review of Systems Exam Vitals Vital Signs Date Temp Pulse Resp B/P (MAP) Pulse Ox O2 O2 Flow FiO2 Time Delivery Rate 02/21/19 98.0 80 18 131/66 96 Room Air 08:06 (87) Intake and Output 02/20/19 02/20/19 02/21/19 1515:00 23:00 07:00 IntakeIntake Total 930 ml 400 ml OutputOutput Total 600 ml 700 ml BalanceBalance 930 ml -200 ml -700 ml Constitutional: other (No acute distress) Head: normocephalic Eyes: PERRL Respiratory: clear to auscultation Cardiovascular: regular rate and rhythm, nl pulses Gastrointestinal: soft Extremities: normal pulses Results Results 24hrs Laboratory Tests Test 02/20/19 17:49 02/20/19 20:18 02/21/19 02:22 02/21/19 08:10 Bedside Glucose 128 206 131 164 Medications Medication Current Medications IV Flush (NS 3 ml) 3 ml PER PROTOCOL IV ; Start 02/03/19 at 14:00 Ondansetron HCl (Zofran Inj) 4 mg Q6H PRN IV NAUSEA/VOMITING; Start 02/03/19 at 14:00 Acetaminophen (Tylenol Tab) 650 mg Q6H PRN PO .PAIN 1-3 OR TEMP; Start 02/03/19 at 14:00 Acetaminophen/ Hydrocodone Bitart ([place] (5/325)) 1 tab Q6H PRN PO .MOD PAIN 4- 6 Last administered on 02/20/19at 20:27; Admin Dose 1 TAB; Start 02/03/19 at 14:00 Docusate Sodium (Colace) 100 mg Q12H PRN PO .CONSTIPATION; Start 02/03/19 at 14:00 Furosemide (Lasix) 40 mg DAILY PO Last administered on 02/04/19at 09:24; Admin Dose 40 MG; Start 02/04/19 at 09:00; Status Hold Levothyroxine Sodium (Synthroid) 25 mcg BEFORE BREAKFAST PO Last administered on 02/21/19at 06:13; Admin Dose 25 MCG; Start 02/04/19 at 07:00 Spironolactone (Aldactone) 25 mg DAILY PO Last administered on 02/12/19at 08:57; Admin Dose 25 MG; Start 02/04/19 at 09:00; Status Hold Sodium Chloride (Deep Sea) 2 spray BID NASAL Last administered on 02/19/19 09:05; Admin Dose 2 SPRAY; Start 02/04/19 at 11:00 Rifaximin (Xifaxan) 550 mg BID NGT Last administered on 02/21/19at 08:37; Admin Dose 550 MG; Start 02/06/19 at 21:00 Sucralfate (Carafate Susp) 1 gm QID NGT Last administered on 02/21/19at 08:36; Admin Dose 1 GM; Start 02/06/19 at 13:00 Propranolol HCl (Inderal) 20 mg BID PO Last administered on 02/21/19 08:37; Admin Dose 20 MG; Start 02/06/19 at 21:00 Metoprolol Tartrate (Lopressor) 5 mg Q4H PRN IV HR>110 Hold SBP<100 Last administered on 02/06/19at 21:57; Admin Dose 5 MG; Start 02/06/19 at 17:30; Status Hold Morphine Sulfate (morphine) 0.5 mg Q4H PRN IV .SEVERE PAIN 7-10 Last administered on 02/14/19 21:09; Admin Dose 0.5 MG; Start 02/07/19 at 14:00 Furosemide (Lasix) 20 mg DAILY IV Last administered on 02/11/19 08:26; Admin Dose 20 MG; Start 02/09/19 at 09:00; Status Hold Hydralazine HCl (Apresoline) 25 mg Q12 PO Last administered on 02/15/19 08:20; Admin Dose 25 MG; Start 02/08/19 at 21:00; Status Hold Diagnostic Test (Pha) (Accu-Chek) 1 ea 02 XX Last administered on 02/17/19at 01:48; Admin Dose 1 EA; Start 02/12/19 at 02:00 Miscellaneous Information 1 ea NOTE XX ; Start 02/11/19 at 07:30 Glucose (Glutose) 15 gm Q15M PRN PO DECREASED GLUCOSE; Start 02/11/19 at 07:30 Glucose (Glutose) 22.5 gm Q15M PRN PO DECREASED GLUCOSE; Start 02/11/19 at 07:30 Dextrose (D50w Syringe) 25 ml Q15M PRN IV DECREASED GLUCOSE; Start 02/11/19 at 07:30 Dextrose (D50w Syringe) 50 ml Q15M PRN IV DECREASED GLUCOSE; Start 02/11/19 at 07:30 Glucagon (Glucagen) 1 mg Q15M PRN IM DECREASED GLUCOSE; Start 02/11/19 at 07:30 Glucose (Glutose) 15 gm Q15M PRN BUCCAL DECREASED GLUCOSE; Start 02/11/19 at 07:30 Miscellaneous Information 1 ea NOTE XX ; Start 02/11/19 at 11:00 Lactulose (Enulose) 20 gm BID PO Last administered on 02/21/19 08:36; Admin Dose 20 GM; Start 02/12/19 at 21:00 Colchicine (Colchicine) 0.6 mg BID PO Last administered on 02/21/19 08:36; Admin Dose 0.6 MG; Start 02/14/19 at 22:30 Insulin Aspart (Novolog Insulin Pen) NOVOLOG *MODERATE* ALGORITHM WITH MEALS BEDTIME SC Last administered on 02/21/19 08:36; Admin Dose 2 UNIT; Start 02/14/19 at 22:30 Lansoprazole (Prevacid) 30 mg BID@06,18 PO Last administered on 02/21/19 06:13; Admin Dose 30 MG; Start 02/16/19 at 18:00 Metoclopramide HCl (Reglan) 5 mg TID PO Last administered on 02/21/19 08:37; Admin Dose 5 MG; Start 02/16/19 at 21:00 Lactobacillus Acidophilus/ Rhamnosus (Culturelle) 1 cap BID PO Last administe red on 02/21/19 08:37; Admin Dose 1 CAP; Start 02/16/19 at 21:00 Tamsulosin HCl (Flomax) 0.4 mg HS PO Last administered on 02/20/19 20:20; Admin Dose 0.4 MG; Start 02/18/19 at 21:00 Miscellaneous Information (Pending [facility] Order For Wound Care) This patient serrato... PRN PRN XX WOUND CARE; Start 02/19/19 at 01:30 Insulin Glargine (Lantus) 15 units DAILY@2000 SC Last administered on 02/20/19 20:24; Admin Dose 15 UNITS; Start 02/19/19 at 20:00 Multivitamins Therapeutic (Theragran) 1 tab DAILY PO Last administered on 02/21/19 08:37; Admin Dose 1 TAB; Start 02/20/19 at 09:00 CURT COTA MD Feb 21, 2019 12:16
--- NOTE | 2019-02-21 13:58 | CONS ---
Assessment/Plan Assessment/Plan Hospital Course (Demo Recall) IMPRESSION: 1. Wide complex tachycardia, likely consistent with supraventricular tachycardia with a baseline bundle branch block.-TSH WNL. NO recurrence. NL EF by echo this admit 2. Abnormal electrocardiogram with baseline bundle branch block. 3. Syncope on admit. Rule out cardiac etiology. Rule out cardiac arrhythmia as etiology versus anemia. 4. Cirrhosis. 5. Gastrointestinal bleed with melenic stools. 6. Peptic ulcer disease by endoscopy. 7. Renal failure-slowly improving further 8. Hyponatremia. 9. Thrombocytopenia. 10. Anemia. 11. Encephalopathy-ongoing but improving 12. -mild to moderate by echo this admit Recc: -Now on med-surg -Continue propranolol as tolerated -Contineu lactulose -lasix held in the setting of ARF -Follow MS -Follow HGb clsoely with further transfusions as necessary -continue abx'x and f/u cx data -Continue colchicine -Lasix and aldactone held in setting of renal failure which ihas improved. Follow volume statu closely Consultation Date/Type/Reason Admit Date/Time Feb 03, 2019 at 09:30 Initial Consult Date 02/03/19 Type of Consult Cardiology Reason for Consultation SVT Requesting Provider: SUDHIR BARRIENTOS Date/Time of Note DATE: 02/21/19 TIME: 13:56 Exam/Review of Systems Vital Signs Vitals Vital Signs Date Temp Pulse Resp B/P (MAP) Pulse Ox O2 O2 Flow FiO2 Time Delivery Rate 02/21/19 98.0 80 18 131/66 96 Room Air 08:06 (87) Intake and Output 02/20/19 02/20/19 02/21/19 1515:00 23:00 07:00 IntakeIntake Total 930 ml 400 ml OutputOutput Total 600 ml 700 ml BalanceBalance 930 ml -200 ml -700 ml Exam Exam Review of Systems: CONSTITUTIONAL: No fevers, chills. PULMONARY: No sob CARDIOVASCULAR: No chest pain/palpitations GASTROINTESTINAL: No nausea/vomiting. GENITOURINARY: No hematuria/dysuria. MUSCULOSKELETAL: No myagias/arthalgias. PSYCHIATRIC: The patient denies depression. NEUROLOGIC: lethargic Constitutional: alert Psych: no complaints Head: normocephalic ENMT: mucosa pink and moist Neck: supple, jvd (9 cm water) Respiratory: clear to auscultation Cardiovascular: regular rate and rhythm Gastrointestinal: soft, non-tender Musculoskeletal: muscle tone (normal) Extremities: edema (trace/B LE) Neurological: lethargic Labs Result Diagram: 02/20/19 0546 02/20/19 0546 Results 24hrs Laboratory Tests Test 02/20/19 17:49 02/20/19 20:18 02/21/19 02:22 02/21/19 08:10 Bedside Glucose 128 206 131 164 Test 02/21/19 12:17 Bedside Glucose 236 H Medications Medications Current Medications IV Flush (NS 3 ml) 3 ml PER PROTOCOL IV ; Start 02/03/19 at 14:00 Ondansetron HCl (Zofran Inj) 4 mg Q6H PRN IV NAUSEA/VOMITING; Start 02/03/19 at 14:00 Acetaminophen (Tylenol Tab) 650 mg Q6H PRN PO .PAIN 1-3 OR TEMP; Start 02/03/19 at 14:00 Acetaminophen/ Hydrocodone Bitart ([place] (5/325)) 1 tab Q6H PRN PO .MOD PAIN 4- 6 Last administered on 02/20/19at 20:27; Admin Dose 1 TAB; Start 02/03/19 at 14:00 Docusate Sodium (Colace) 100 mg Q12H PRN PO .CONSTIPATION; Start 02/03/19 at 14:00 Furosemide (Lasix) 40 mg DAILY PO Last administered on 02/04/19at 09:24; Admin Dose 40 MG; Start 02/04/19 at 09:00; Status Hold Levothyroxine Sodium (Synthroid) 25 mcg BEFORE BREAKFAST PO Last administered on 02/21/19at 06:13; Admin Dose 25 MCG; Start 02/04/19 at 07:00 Spironolactone (Aldactone) 25 mg DAILY PO Last administered on 02/12/19at 08:57; Admin Dose 25 MG; Start 02/04/19 at 09:00; Status Hold Sodium Chloride (Deep Sea) 2 spray BID NASAL Last administered on 02/19/19at 09:05; Admin Dose 2 SPRAY; Start 02/04/19 at 11:00 Rifaximin (Xifaxan) 550 mg BID NGT Last administered on 02/21/19at 08:37; Admin Dose 550 MG; Start 02/06/19 at 21:00 Sucralfate (Carafate Susp) 1 gm QID NGT Last administered on 02/21/19at 12:24; Admin Dose 1 GM; Start 02/06/19 at 13:00 Propranolol HCl (Inderal) 20 mg BID PO Last administered on 02/21/19at 08:37; Admin Dose 20 MG; Start 02/06/19 at 21:00 Metoprolol Tartrate (Lopressor) 5 mg Q4H PRN IV HR>110 Hold SBP<100 Last administered on 02/06/19at 21:57; Admin Dose 5 MG; Start 02/06/19 at 17:30; Status Hold Morphine Sulfate (morphine) 0.5 mg Q4H PRN IV .SEVERE PAIN 7-10 Last administered on 02/14/19at 21:09; Admin Dose 0.5 MG; Start 02/07/19 at 14:00 Furosemide (Lasix) 20 mg DAILY IV Last administered on 02/11/19at 08:26; Admin Dose 20 MG; Start 02/09/19 at 09:00; Status Hold Hydralazine HCl (Apresoline) 25 mg Q12 PO Last administered on 02/15/19at 08:20; Admin Dose 25 MG; Start 02/08/19 at 21:00; Status Hold Diagnostic Test (Pha) (Accu-Chek) 1 ea 02 XX Last administered on 02/17/19at 01:48; Admin Dose 1 EA; Start 02/12/19 at 02:00 Miscellaneous Information 1 ea NOTE XX ; Start 02/11/19 at 07:30 Glucose (Glutose) 15 gm Q15M PRN PO DECREASED GLUCOSE; Start 02/11/19 at 07:30 Glucose (Glutose) 22.5 gm Q15M PRN PO DECREASED GLUCOSE; Start 02/11/19 at 07:30 Dextrose (D50w Syringe) 25 ml Q15M PRN IV DECREASED GLUCOSE; Start 02/11/19 at 07:30 Dextrose (D50w Syringe) 50 ml Q15M PRN IV DECREASED GLUCOSE; Start 02/11/19 at 07:30 Glucagon (Glucagen) 1 mg Q15M PRN IM DECREASED GLUCOSE; Start 02/11/19 at 07:30 Glucose (Glutose) 15 gm Q15M PRN BUCCAL DECREASED GLUCOSE; Start 02/11/19 at 07:30 Miscellaneous Information 1 ea NOTE XX ; Start 02/11/19 at 11:00 Lactulose (Enulose) 20 gm BID PO Last administered on 02/21/19 08:36; Admin D ose 20 GM; Start 02/12/19 at 21:00 Colchicine (Colchicine) 0.6 mg BID PO Last administered on 02/21/19 08:36; Admin Dose 0.6 MG; Start 02/14/19 at 22:30 Insulin Aspart (Novolog Insulin Pen) NOVOLOG *MODERATE* ALGORITHM WITH MEALS BEDTIME SC Last administered on 02/21/19 12:23; Admin Dose 6 UNIT; Start 02/14/19 at 22:30 Lansoprazole (Prevacid) 30 mg BID@06,18 PO Last administered on 02/21/19 06:13; Admin Dose 30 MG; Start 02/16/19 at 18:00 Metoclopramide HCl (Reglan) 5 mg TID PO Last administered on 02/21/19 12:24; Admin Dose 5 MG; Start 02/16/19 at 21:00 Lactobacillus Acidophilus/ Rhamnosus (Culturelle) 1 cap BID PO Last administered on 02/21/19 08:37; Admin Dose 1 CAP; Start 02/16/19 at 21:00 Tamsulosin HCl (Flomax) 0.4 mg HS PO Last administered on 02/20/19 20:20; Admin Dose 0.4 MG; Start 02/18/19 at 21:00 Miscellaneous Information (Pending [facility] Order For Wound Care) This patient serrato... PRN PRN XX WOUND CARE; Start 02/19/19 at 01:30 Insulin Glargine (Lantus) 15 units DAILY@1999 SC Last administered on 02/20/19 20:24; Admin Dose 15 UNITS; Start 02/19/19 at 20:00 Multivitamins Therapeutic (Theragran) 1 tab DAILY PO Last administered on 02/21/19 08:37; Admin Dose 1 TAB; Start 02/20/19 at 09:00 LUZMARIA KEVIN Feb 21, 2019 13:58
--- NOTE | 2019-02-21 14:31 | CONS ---
Assessment/Plan Assessment/Plan Hospital Course (Demo Recall) No acute changes Blood cultures negative. Urine culture grew Klebsiella and enterococcus species Physical examination: this is a chronically ill-appearing wasted elderly man who is in no distress head atraumatic normocephalic sclera nonicteric vehicle mucosa dry neck is supple chest rise symmetrical breath sounds diminished bases heart: S1-S2 abdomen distended soft bowel sounds hypoactive extremities with trace edema and cyanosis Assessment: 1. SIRS 2. Possible aspiration 3. Polymicrobial UTI 4. Acute encephalopathy 5. Cryptogenic cirrhosis 6. Diabetes 7. Acute renal failure Plan: Remains stable, completed antibiotics, continue present care Consultation Date/Type/Reason Admit Date/Time Feb 03, 2019 at 09:30 Initial Consult Date 02/03/19 Type of Consult id Requesting Provider: SUDHIR BARRIENTOS Date/Time of Note DATE: 02/21/19 TIME: 14:31 Exam/Review of Systems Exam Vitals Vital Signs Date Temp Pulse Resp B/P (MAP) Pulse Ox O2 O2 Flow FiO2 Time Delivery Rate 02/21/19 98.0 80 18 131/66 96 Room Air 08:06 (87) Intake and Output 02/20/19 02/20/19 02/21/19 1515:00 23:00 07:00 IntakeIntake Total 930 ml 400 ml OutputOutput Total 600 ml 700 ml BalanceBalance 930 ml -200 ml -700 ml Results Result Diagram: 02/20/19 0546 02/20/19 0546 Results 24hrs Laboratory Tests Test 02/20/19 17:49 02/20/19 20:18 02/21/19 02:22 02/21/19 08:10 Bedside Glucose 128 206 131 164 Test 02/21/19 12:17 Bedside Glucose 236 H Medications Medication Current Medications IV Flush (NS 3 ml) 3 ml PER PROTOCOL IV ; Start 02/03/19 at 14:00 Ondansetron HCl (Zofran Inj) 4 mg Q6H PRN IV NAUSEA/VOMITING; Start 02/03/19 at 14:00 Acetaminophen (Tylenol Tab) 650 mg Q6H PRN PO .PAIN 1-3 OR TEMP; Start 02/03/19 at 14:00 Acetaminophen/ Hydrocodone Bitart ([place] (5/325)) 1 tab Q6H PRN PO .MOD PAIN 4- 6 Last administered on 02/20/19 20:27; Admin Dose 1 TAB; Start 02/03/19 at 14:00 Docusate Sodium (Colace) 100 mg Q12H PRN PO .CONSTIPATION; Start 02/03/19 at 14:00 Furosemide (Lasix) 40 mg DAILY PO Last administered on 02/04/19 09:24; Admin Dose 40 MG; Start 02/04/19 at 09:00; Status Hold Levothyroxine Sodium (Synthroid) 25 mcg BEFORE BREAKFAST PO Last administered on 02/21/19 06:13; Admin Dose 25 MCG; Start 02/04/19 at 07:00 Spironolactone (Aldactone) 25 mg DAILY PO Last administered on 02/12/19 08:57; Admin Dose 25 MG; Start 02/04/19 at 09:00; Status Hold Sodium Chloride (Deep Sea) 2 spray BID NASAL Last administered on 02/19/19 09:05; Admin Dose 2 SPRAY; Start 02/04/19 at 11:00 Rifaximin (Xifaxan) 550 mg BID NGT Last administered on 02/21/19 08:37; Admin Dose 550 MG; Start 02/06/19 at 21:00 Sucralfate (Carafate Susp) 1 gm QID NGT Last administered on 02/21/19 12:24; Admin Dose 1 GM; Start 02/06/19 at 13:00 Propranolol HCl (Inderal) 20 mg BID PO Last administered on 02/21/19 08:37; Admin Dose 20 MG; Start 02/06/19 at 21:00 Metoprolol Tartrate (Lopressor) 5 mg Q4H PRN IV HR>110 Hold SBP<100 Last administered on 02/06/19 21:57; Admin Dose 5 MG; Start 02/06/19 at 17:30; Status Hold Morphine Sulfate (morphine) 0.5 mg Q4H PRN IV .SEVERE PAIN 7-10 Last administered on 02/14/19 21:09; Admin Dose 0.5 MG; Start 02/07/19 at 14:00 Furosemide (Lasix) 20 mg DAILY IV Last administered on 02/11/19 08:26; Admin D ose 20 MG; Start 02/09/19 at 09:00; Status Hold Hydralazine HCl (Apresoline) 25 mg Q12 PO Last administered on 02/15/19at 08:20; Admin Dose 25 MG; Start 02/08/19 at 21:00; Status Hold Diagnostic Test (Pha) (Accu-Chek) 1 ea 02 XX Last administered on 02/17/19at 01:48; Admin Dose 1 EA; Start 02/12/19 at 02:00 Miscellaneous Information 1 ea NOTE XX ; Start 02/11/19 at 07:30 Glucose (Glutose) 15 gm Q15M PRN PO DECREASED GLUCOSE; Start 02/11/19 at 07:30 Glucose (Glutose) 22.5 gm Q15M PRN PO DECREASED GLUCOSE; Start 02/11/19 at 07:30 Dextrose (D50w Syringe) 25 ml Q15M PRN IV DECREASED GLUCOSE; Start 02/11/19 at 07:30 Dextrose (D50w Syringe) 50 ml Q15M PRN IV DECREASED GLUCOSE; Start 02/11/19 at 07:30 Glucagon (Glucagen) 1 mg Q15M PRN IM DECREASED GLUCOSE; Start 02/11/19 at 07:30 Glucose (Glutose) 15 gm Q15M PRN BUCCAL DECREASED GLUCOSE; Start 02/11/19 at 07:30 Miscellaneous Information 1 ea NOTE XX ; Start 02/11/19 at 11:00 Lactulose (Enulose) 20 gm BID PO Last administered on 02/21/19at 08:36; Admin Dose 20 GM; Start 02/12/19 at 21:00 Colchicine (Colchicine) 0.6 mg BID PO Last administered on 02/21/19at 08:36; Admin Dose 0.6 MG; Start 02/14/19 at 22:30 Insulin Aspart (Novolog Insulin Pen) NOVOLOG *MODERATE* ALGORITHM WITH MEALS BEDTIME SC Last administered on 02/21/19at 12:23; Admin Dose 6 UNIT; Start 02/14/19 at 22:30 Lansoprazole (Prevacid) 30 mg BID@,18 PO Last administered on 02/21/19at 06:13; Admin Dose 30 MG; Start 02/16/19 at 18:00 Metoclopramide HCl (Reglan) 5 mg TID PO Last administered on 02/21/19at 12:24; Admin Dose 5 MG; Start 02/16/19 at 21:00 Lactobacillus Acidophilus/ Rhamnosus (Culturelle) 1 cap BID PO Last administered on 02/21/19at 08:37; Admin Dose 1 CAP; Start 02/16/19 at 21:00 Tamsulosin HCl (Flomax) 0.4 mg HS PO Last administered on 02/20/19at 20:20; Admin Dose 0.4 MG; Start 02/18/19 at 21:00 [facility]isc[facility] This patient serrato... PRN PRN XX WOUND CARE; Start 02/19/19 at 01:30 Insulin Glargine (Lantus) 15 units DAILY@2000 SC Last administered on 02/20/19at 20:24; Admin Dose 15 UNITS; Start 02/19/19 at 20:00 Multivitamins Therapeutic (Theragran) 1 tab DAILY PO Last administered on 02/21/19at 08:37; Admin Dose 1 TAB; Start 02/20/19 at 09:00 JIM ANTOINE NP Feb 21, 2019 14:31
[2019-02-21 14:51] VITALS: BP 126/67; PULSE 70; RESP 16
[2019-02-21 20:25] VITALS: BP 145/70; PULSE 69; RESP 18
[2019-02-21] MEDS: TAMSULOSIN (SR) 0.4 MG CAP PO SCH (21:15)
[2019-02-21] MEDS: INSULIN GLARGINE [LANTus] (100 UNITS/ML) SYG SC SCH (21:26)
[2019-02-22] MEDS: ACCU-CHEK XX SCH (02:00)
[2019-02-22 02:16] VITALS: BP 129/68; PULSE 72; RESP 18
[2019-02-22] MEDS: LEVOTHYROXINE 25 MCG TAB PO SCH (06:08)
[2019-02-22] MEDS: LANSOPRAZOLE 30 MG CAP PO SCH (06:08)
[2019-02-22] MEDS ORDERED: FUROSEMIDE 20 MG TAB PO SCH (08:00)
[2019-02-22] MEDS: LACTOBACILLUS RHAMNOSUS CAP PO SCH (08:02)
[2019-02-22] MEDS: COLCHICINE 0.6 MG CAP PO SCH (08:02)
[2019-02-22] MEDS: SUCRALFATE (100 MG/ML) 10ML CUP NGT SCH ×2 (08:02→12:27)
[2019-02-22] MEDS: LACTULOSE 30ML CUP PO SCH (08:02)
[2019-02-22] MEDS: SALINE 0.65% 45 ML NAS SPRAY NASAL SCH (08:03)
[2019-02-22] MEDS: MULTIVITAMINS THERAPEUTIC TAB PO SCH (08:03)
[2019-02-22] MEDS: BALSAM PERU/CASTOR OIL 60 GM TUBE TOP SCH (08:03)
[2019-02-22] MEDS: METOCLOPRAMIDE 5 MG TAB PO SCH ×2 (08:03→12:27)
[2019-02-22] MEDS: RIFAXIMIN 550 MG TAB NGT SCH (08:03)
[2019-02-22] MEDS: INSULIN ASPART [NOVOLOG] 3 ML PEN SC SCH ×2 (08:06→12:29)
[2019-02-22] MEDS: PROPRANOLOL 20 MG TAB PO SCH (08:07)
--- NOTE | 2019-02-22 08:33 | PN ---
DATE: 02/22/2019 SUBJECTIVE: The patient remains stable. No events overnight. OBJECTIVE: VITAL SIGNS: Blood pressure is 129/68, respirations 18, pulse 72, temperature 97.6. HEENT: Head is normocephalic. NECK: Supple. HEART: Regular rate. LUNGS: Show diminished breath sounds at the base. ABDOMEN: Soft, nontender to palpation without rebound or guarding. EXTREMITIES: Negative for clubbing, cyanosis, no edema. DERMATOLOGIC: No rashes. MUSCULOSKELETAL: No joint effusion. NEUROLOGIC: No change in exam. MEDICATIONS: Reviewed. LABORATORY DATA: Reviewed. IMAGING STUDIES: Reviewed. ASSESSMENT AND PLAN: 1. Nonoliguric acute kidney injury with previous baseline creatinine of 1.0 mg/dL. Etiology of acut e kidney injury is secondary to hemodynamics. Renal function is improved. Continue to monitor. 2. Anemia. Continue to monitor hemoglobin and hematocrit levels. Iron panel suggests iron deficien cy, we will start the patient on IV Ferrlecit. 3. Mineral bone disorder, monitor calcium and phosphorus levels. 4. Acute encephalopathy, etiology is toxic metabolic. 5. Acute gastrointestinal bleed. The patient is status post EGD with evidence of peptic ulcer disea se. Continue proton pump inhibitor. 6. Arrhythmia. Continue current treatment plan. 7. Cirrhosis cryptogenic. We will continue to monitor. We will resume low dose diuretic therapy as renal function has stabilized. 8. Diabetes. Continue current insulin regimen. 9. Systemic inflammatory response syndrome. Continue to monitor. The patient has completed antibio tic course. Dictated By: CLAYTON RODRIGUEZ DO NR/NTS Conf#: [id number] DID#: [id number] CC: CLAYTON RODRIGUEZ DO; GARRETT DIOR MD; SUDHIR BARRIENTOS MD;*EndCC*
[2019-02-22 09:01] VITALS: BP 131/61; PULSE 62; RESP 16
--- NOTE | 2019-02-22 11:24 | PDOCDIS ---
Discharge Instructions CONDITION [id number] Patient Condition: [id number] Stable LORRIE HOUGH Feb 22, 2019 11:24
--- NOTE | 2019-02-22 11:28 | DS ---
Date/Time of Note Date/Time of Note DATE: 02/22/19 TIME: 11:24 Discharge Summary Admission/Discharge Info Admit Date/Time Feb 03, 2019 at 09:30 Discharge Date/Time Discharge Diagnosis 1. Encephalopathy: Improving now, suspect from underlying sepsis. Head CT ne gative for acute findings. Improved 2. Acute GI bleed, status post EGD with a finding of extensive ulcerations in the jejunal side of GJ. -Continue PPI, Carafate 3. SVT: Resolved. 4. Symptomatic anemia. See #2 5. Cryptogenic cirrhosis with refractory ascites. Per report patient does have cirrhosis from extensive use of Tylenol. Patient reportedly had previous work- up that was negative for autoimmune. Monitor now. 6. Hypothyroidism. Continue levothyroxine 7. Diabetes. Continue insulin regimen. 8. Acute renal insufficiency: Resolving. Nephrology on board. 9. History of CAD. Continue current medical management 10. History of gout. On colchicine. 11. BPH. Continue Flomax. Patient Condition: Stable Hx of Present Illness 78-year-old male with a history of cryptogenic cirrhosis with ascites status post paracentesis in the past, diabetes, hypertension, CAD status post CABG, right inguinal hernia repair, prostate cancer surgery, gout, peptic ulcer disease, hypertension. Patient presents with abdominal pain and weakness and had a syncopal episode in triage. Patient was noted to be anemic and was given 1 unit of blood in the ER. Patient states that he has been having abdominal pain for the past month and been taking an Alleve nightly, patient denies any melena or sohail bleed. Patient has no other complaints this time. Hospital Course Patient was admitted and seen by GI team in this hospital stay. Patient was found with Acute GI bleed, status post EGD with a finding of extensive ulcerations in the jejunal side of GJ. Patient also seen by ID, cardiology, renal teams during his hospital stay. He was treated for SVT, wide-complex tachycardia which resolved. His encephalopathy also improved. He was also treated for his other medical conditions including cryptogenic cirrhosis, diabetes, hypothyroidism, and renal insufficiency. His symptoms slowly improved including his renal insufficiency which resolved. He was tolerating modified diet, vital signs are stable on day of discharge. After getting clearance from the medical cost consultant teams patient will be discharged [facility] facility later today in improved condition. See printed medicine reconciliation sheet for full list of discharge medications. Home Meds Reported Medications Spironolactone* (Aldactone*) 25 Mg Tablet, 25 MG PO DAILY, #30 TAB 02/03/19 Furosemide* (Furosemide*) 40 Mg Tablet, 40 MG PO DAILY, TAB 02/03/19 Levothyroxine Sodium* (Levoxyl*) 25 Mcg Tablet, 25 MCG PO BEFORE BREAKFAST, #30 TAB 02/03/19 Metformin Hcl* (Metformin Hcl*) 850 Mg Tablet, 850 MG PO WITH BREAKFAST, #30 TAB 02/03/19 Colchicine (Colchicine) 0.6 Mg Capsule, 0.6 MG PO BID for 50 Days, #100 TAKE 1 CAPSULE BY MOUTH TWICE A DAY 11/07/18 Primary Care Provider Dionicio Casas MD Time spent on discharge: > 30 minutes Pending Labs Laboratory Tests Test 02/21/19 12:17 02/21/19 17:20 02/21/19 20:58 02/22/19 02:32 Bedside 236 125 207 139 Glucose mg/dL (70-220) mg/dL (70-220) mg/dL (70-220) mg/dL (70-220) Test 02/22/19 05:11 02/22/19 05:12 02/22/19 07:50 White Blood 10.9 Count 10^3/ul (4.8-10 .8) Red Blood 2.73 Count 10^6/ul (4.70-6 .10) Hemoglobin 8.2 g/dl (14.0-18.0 ) Hematocrit 25.5 % (42.0-52.0) Mean 93.4 Corpuscular fl (82.0-101.0) Volume Mean 30.0 Corpuscular pg (29.0-33.0) Hemoglobin Mean 32.2 Corpuscular g/dl (32.0-37.0 Hemoglobin Conc ) ent Red Cell 16.5 Distribution % (11.5-14.5) Width Platelet Count 244 10^3/UL (140-41 5) Mean Platelet 12.4 Volume fl (7.4-10.4) Immature 0.400 Granulocytes % % (0.001-0.429) Neutrophils % 79.8 % (39.0-77.0) Lymphocytes % 12.6 % (15.0-51.0) Monocytes % 4.5 % (0.0-11.0) Eosinophils % 2.2 % (0.0-7.0) Basophils % 0.5 % (0.0-2.0) Nucleated Red 0.0 Blood Cells % /100WBC (0.0-0. 0) Immature 0.040 Granulocytes # 10^3/ul (0.0-0. 031) Neutrophils # 8.7 10^3/ul (1.6-7. 5) Lymphocytes # 1.4 10^3/ul (0.8-2. 9) Monocytes # 0.5 10^3/ul (0.3-0. 9) Eosinophils # 0.2 10^3/ul (0.0-0. 5) Basophils # 0.1 10^3/ul (0.0-0. 1) Nucleated Red 0.0 Blood Cells # 10^3/ul (0.0-0. 0) Sodium Level 141 mmol/L (135-14 4) Potassium 3.8 Level mmol/L (3.5-5. 1) Chloride Level 109 mmol/L (97-110 ) Carbon Dioxide 25 Level mmol/L (21-31) Anion Gap 7 (5-13) Blood Urea 23 Nitrogen mg/dl (7-20) Creatinine 0.99 mg/dl (0.61-1. 24) Est Glomerular mL/min (>60) Filtrat Rate mL/min Glucose Level 110 mg/dl (70-220) Calcium Level 8.2 mg/dl (8.4-10. 2) Phosphorus 2.7 Level mg/dl (2.5-4.9 ) Magnesium 1.8 Level mg/dl (1.7-2.5 ) Iron Level 12 ug/dl (35-150) Total Iron 194 Binding ug/dl (241-421 Capacity ) Percent Iron 6 % Saturation SAT (22-52) Ferritin 34.5 ng/ml (11.1-26 4.0) Bedside 169 Glucose mg/dL (70-220) LORRIE HOUGH Feb 22, 2019 11:28
[2019-02-22] MEDS ORDERED: SOD FERRIC GLUC COMPLX 125 MG in SOD CHLORIDE 0.9% 100 ML IVPB SCH (13:00)
--- NOTE | 2019-02-22 13:10 | CONS ---
Consult Date/Type/Reason Admit Date/Time Feb 03, 2019 at 09:30 Initial Consult Date 02/03/19 Requesting Provider: SUDHIR BRARIENTOS Date/Time of Note DATE: 02/22/19 TIME: 13:08 Subjective NO acute events - pt comfortable - off tele -no CP now - dispo planned today. ROS: No fever, no chills, no nausea, no vomiting, no diarrhea/constipation - improved gout No recent weight changes No chest pain, no PND, no orthopnea No dizziness, blurred vision No thirst, no heat or cold intolerance Objective Vitals Vital Signs Date Temp Pulse Resp B/P (MAP) Pulse Ox O2 O2 Flow FiO2 Time Delivery Rate 02/22/19 98.1 62 16 131/61 96 09:01 (84) 02/21/19 Room Air 14:51 Intake and Output 02/21/19 02/21/19 02/22/19 1515:00 23:00 07:00 IntakeIntake Total 240 ml 160 ml 240 ml OutputOutput Total 450 ml BalanceBalance 240 ml -290 ml 240 ml Exam General: WN/WD/NAD, AOx 2-3 comfortable HEENT: Unicetric/atraumatic/EOMI ( follow commands) NECK: JVD elevated, no thyromegaly Lymph: no lymphadenopathy HEART: regular with no S3, II/ systolic murmur at apex LUNGS: Coarse sounds ABD: soft, NT, ND, +BS : Intact Neuro: non focal SKIN: chronic changes EXT: trace edema Results/Medications Result Diagram: 02/22/19 0511 02/22/19 0512 Results 24 hrs Laboratory Tests Test 02/21/19 17:20 02/21/19 20:58 02/22/19 02:32 02/22/19 05:11 Bedside Glucose 125 207 139 White Blood Count 10.9 H Red Blood Count 2.73 L Hemoglobin 8.2 L Hematocrit 25.5 L Mean Corpuscular 93.4 Volume Mean Corpuscular 30.0 Hemoglobin Mean Corpuscular 32.2 Hemoglobin Concent Red Cell 16.5 H Distribution Width Platelet Count 244 Mean Platelet Volume 12.4 H Immature 0.400 Granulocytes % Neutrophils % 79.8 H Lymphocytes % 12.6 L Monocytes % 4.5 Eosinophils % 2.2 Basophils % 0.5 Nucleated Red Blood 0.0 Cells % Immature 0.040 H Granulocytes # Neutrophils # 8.7 H Lymphocytes # 1.4 Monocytes # 0.5 Eosinophils # 0.2 Basophils # 0.1 Nucleated Red Blood 0.0 Cells # Test 02/22/19 05:12 02/22/19 07:50 02/22/19 12:20 Sodium Level 141 Potassium Level 3.8 Chloride Level 109 Carbon Dioxide Level 25 Anion Gap 7 Blood Urea Nitrogen 23 H Creatinine 0.99 Est Glomerular Filtrat Rate mL/min Glucose Level 110 # Calcium Level 8.2 L Phosphorus Level 2.7 Magnesium Level 1.8 Iron Level 12 L Total Iron Binding 194 L Capacity Percent Iron 6 L Saturation Ferritin 34.5 Bedside Glucose 169 175 Home Meds Reported Medications Spironolactone* (Aldactone*) 25 Mg Tablet, 25 MG PO DAILY, #30 TAB 02/03/19 Furosemide* (Furosemide*) 40 Mg Tablet, 40 MG PO DAILY, TAB 02/03/19 Levothyroxine Sodium* (Levoxyl*) 25 Mcg Tablet, 25 MCG PO BEFORE BREAKFAST, #30 TAB 02/03/19 Metformin Hcl* (Metformin Hcl*) 850 Mg Tablet, 850 MG PO WITH BREAKFAST, #30 TAB 02/03/19 Colchicine (Colchicine) 0.6 Mg Capsule, 0.6 MG PO BID for 50 Days, #100 TAKE 1 CAPSULE BY MOUTH TWICE A DAY 11/07/18 Medications Current Medications IV Flush (NS 3 ml) 3 ml PER PROTOCOL IV ; Start 02/03/19 at 14:00 Ondansetron HCl (Zofran Inj) 4 mg Q6H PRN IV NAUSEA/VOMITING; Start 02/03/19 at 14:00 Acetaminophen (Tylenol Tab) 650 mg Q6H PRN PO .PAIN 1-3 OR TEMP; Start 02/03/19 at 14:00 Acetaminophen/ Hydrocodone Bitart ([place] (5/325)) 1 tab Q6H PRN PO .MOD PAIN 4- 6 Last administered on 02/20/19at 20:27; Admin Dose 1 TAB; Start 02/03/19 at 14:00 Docusate Sodium (Colace) 100 mg Q12H PRN PO .CONSTIPATION; Start 02/03/19 at 14:00 Levothyroxine Sodium (Synthroid) 25 mcg BEFORE BREAKFAST PO Last administered on 02/22/19at 06:08; Admin Dose 25 MCG; Start 02/04/19 at 07:00 Spironolactone (Aldactone) 25 mg DAILY PO Last administered on 02/12/19 08:57; Admin Dose 25 MG; Start 02/04/19 at 09:00; Status Hold Sodium Chloride ([place]) 2 spray BID NASAL Last administered on 02/21/19 21:00; Admin Dose 2 SPRAY; Start 02/04/19 at 11:00 Rifaximin (Xifaxan) 550 mg BID NGT Last administered on 02/22/19 08:03; Admin Dose 550 MG; Start 02/06/19 at 21:00 Sucralfate (Carafate Susp) 1 gm QID NGT Last administered on 02/22/19 12:27; Admin Dose 1 GM; Start 02/06/19 at 13:00 Propranolol HCl (Inderal) 20 mg BID PO Last administered on 02/22/19 08:07; Admin Dose 20 MG; Start 02/06/19 at 21:00 Metoprolol Tartrate (Lopressor) 5 mg Q4H PRN IV HR>110 Hold SBP<100 Last administered on 02/06/19 21:57; Admin Dose 5 MG; Start 02/06/19 at 17:30; Sta tus Hold Morphine Sulfate (morphine) 0.5 mg Q4H PRN IV .SEVERE PAIN 7-10 Last administered on 02/14/19 21:09; Admin Dose 0.5 MG; Start 02/07/19 at 14:00 Hydralazine HCl (Apresoline) 25 mg Q12 PO Last administered on 02/15/19 08:20; Admin Dose 25 MG; Start 02/08/19 at 21:00; Status Hold Diagnostic Test (Pha) (Accu-Chek) 1 ea 02 XX Last administered on 02/17/19 01:48; Admin Dose 1 EA; Start 02/12/19 at 02:00 Miscellaneous Information 1 ea NOTE XX ; Start 02/11/19 at 07:30 Glucose (Glutose) 15 gm Q15M PRN PO DECREASED GLUCOSE; Start 02/11/19 at 07:30 Glucose (Glutose) 22.5 gm Q15M PRN PO DECREASED GLUCOSE; Start 02/11/19 at 07:30 Dextrose (D50w Syringe) 25 ml Q15M PRN IV DECREASED GLUCOSE; Start 02/11/19 at 07:30 Dextrose (D50w Syringe) 50 ml Q15M PRN IV DECREASED GLUCOSE; Start 02/11/19 at 07:30 Glucagon (Glucagen) 1 mg Q15M PRN IM DECREASED GLUCOSE; Start 02/11/19 at 07:30 Glucose (Glutose) 15 gm Q15M PRN BUCCAL DECREASED GLUCOSE; Start 02/11/19 at 07:30 Miscellaneous Information 1 ea NOTE XX ; Start 02/11/19 at 11:00 Lactulose (Enulose) 20 gm BID PO Last administered on 02/22/19 08:02; Admin Dose 20 GM; Start 02/12/19 at 21:00 Colchicine (Colchicine) 0.6 mg BID PO Last administered on 02/22/19 08:02; Admin Dose 0.6 MG; Start 02/14/19 at 22:30 Insulin Aspart (Novolog Insulin Pen) NOVOLOG *MODERATE* ALGORITHM WITH MEALS BEDTIME SC Last administered on 02/22/19 12:29; Admin Dose 2 UNIT; Start 02/14/19 at 22:30 Lansoprazole (Prevacid) 30 mg BID@06,18 PO Last administered on 02/22/19 06:08; Admin Dose 30 MG; Start 02/16/19 at 18:00 Metoclopramide HCl (Reglan) 5 mg TID PO Last administered on 02/22/19 12:27; Admin Dose 5 MG; Start 02/16/19 at 21:00 Lactobacillus Acidophilus/ Rhamnosus (Culturelle) 1 cap BID PO Last administered on 02/22/19 08:02; Admin Dose 1 CAP; Start 02/16/19 at 21:00 Tamsulosin HCl (Flomax) 0.4 mg HS PO Last administered on 02/21/19 21:15; Admin Dose 0.4 MG; Start 02/18/19 at 21:00 Miscellaneous Information (Pending [facility] Order For Wound Care) This patient serrato... PRN PRN XX WOUND CARE; Start 02/19/19 at 01:30 Insulin Glargine (Lantus) 15 units DAILY@2000 SC Last administered on 02/21/19at 21:26; Admin Dose 15 UNITS; Start 02/19/19 at 20:00 Multivitamins Therapeutic (Theragran) 1 tab DAILY PO Last administered on 01/27 04/15at 08:03; Admin Dose 1 TAB; Start 02/20/19 at 09:00 Furosemide (Lasix) 20 mg DAILY@0600 PO Last administered on 02/22/19at 08:10; Admin Dose 20 MG; Start 02/22/19 at 08:00 Ferric Sodium Gluconate Complex 125 mg/Sodium Chloride 110 ml @ 110 mls/hr DAILY@1300 IVPB Last administered on 02/22/19at 12:27; Admin Dose 110 MLS/HR; Start 02/22/19 at 13:00; Stop 02/26/19 at 13:59 Assessment/Plan Hospital Course (Demo Recall) 1. Wide complex tachycardia, likely consistent with supraventricular tachycardia with a baseline bundle branch block.-TSH WNL. NO recurrence. NL EF by echo this admit - no new WCT noted - on Rx now. STABLE NOW. Now coarse a. fib - rate controlled. Off tele - stable clinically, Consecrative Rx planned. 2. Abnormal electrocardiogram with baseline bundle branch block- stable. Treated. Will follow. 3. Syncope on admit. Rule out cardiac etiology. Rule out cardiac arrhythmia as etiology versus anemia. Replace blood Rx as needed. Med follow up for now. Now stable. 4. Cirrhosis - avoid nephrotoxic meds. 5. Gastrointestinal bleed with melenic stools. No anti-coag now. 6. Peptic ulcer disease by endoscopy - GI follows. 7. Renal failure-acute - Cr going up to 1.74, now down to 1.38 - BETTER 8. Hyponatremia. 9. Thrombocytopenia- improved - no active bleeding 10. Anemia. 11. Encephalopathy-improved 12. -mild to moderate by echo this admit - no intervention warranted - stable fluid status. Will follow as outpt. LARISA MARADIAGA MD Feb 22, 2019 13:10
--- NOTE | 2019-02-22 14:58 | CONS ---
Assessment/Plan Assessment/Plan Hospital Course (Demo Recall) 1200 Alert, feels good Blood cultures negative. Urine culture grew Klebsiella and enterococcus species Physical examination: this is a chronically ill-appearing wasted elderly man who is in no distress head atraumatic normocephalic sclera nonicteric vehicle mucosa dry neck is supple chest rise symmetrical breath sounds diminished bases heart: S1-S2 abdomen distended soft bowel sounds hypoactive extremities with trace edema and cyanosis Assessment: 1. SIRS 2. Possible aspiration 3. Polymicrobial UTI 4. Acute encephalopathy 5. Cryptogenic cirrhosis 6. Diabetes 7. Acute renal failure Plan: Remains stable, completed antibiotics, pending discharge arrangements Consultation Date/Type/Reason Admit Date/Time Feb 03, 2019 at 09:30 Initial Consult Date 02/03/19 Type of Consult id Requesting Provider: SUDHIR BARRIENTOS Date/Time of Note DATE: 02/22/19 TIME: 14:57 Exam/Review of Systems Exam Vitals Vital Signs Date Temp Pulse Resp B/P (MAP) Pulse Ox O2 O2 Flow FiO2 Time Delivery Rate 02/22/19 98.1 62 16 131/61 96 09:01 (84) 02/21/19 Room Air 14:51 Intake and Output 02/21/19 02/21/19 02/22/19 1515:00 23:00 07:00 IntakeIntake Total 240 ml 160 ml 240 ml OutputOutput Total 450 ml BalanceBalance 240 ml -290 ml 240 ml Results Result Diagram: 02/22/19 0511 02/22/19 0512 Results 24hrs Laboratory Tests Test 02/21/19 17:20 02/21/19 20:58 02/22/19 02:32 02/22/19 05:11 Bedside Glucose 125 207 139 White Blood Count 10.9 H Red Blood Count 2.73 L Hemoglobin 8.2 L Hematocrit 25.5 L Mean Corpuscular 93.4 Volume Mean Corpuscular 30.0 Hemoglobin Mean Corpuscular 32.2 Hemoglobin Concent Red Cell 16.5 H Distribution Width Platelet Count 244 Mean Platelet Volume 12.4 H Immature 0.400 Granulocytes % Neutrophils % 79.8 H Lymphocytes % 12.6 L Monocytes % 4.5 Eosinophils % 2.2 Basophils % 0.5 Nucleated Red Blood 0.0 Cells % Immature 0.040 H Granulocytes # Neutrophils # 8.7 H Lymphocytes # 1.4 Monocytes # 0.5 Eosinophils # 0.2 Basophils # 0.1 Nucleated Red Blood 0.0 Cells # Test 02/22/19 05:12 02/22/19 07:50 02/22/19 12:20 Sodium Level 141 Potassium Level 3.8 Chloride Level 109 Carbon Dioxide Level 25 Anion Gap 7 Blood Urea Nitrogen 23 H Creatinine 0.99 Est Glomerular Filtrat Rate mL/min Glucose Level 110 # Calcium Level 8.2 L Phosphorus Level 2.7 Magnesium Level 1.8 Iron Level 12 L Total Iron Binding 194 L Capacity Percent Iron 6 L Saturation Ferritin 34.5 Bedside Glucose 169 175 JIM ANTOINE NP Feb 22, 2019 14:58
== END 2019-02-22 14:41 | DRG 377 ==
LOC: E/R 07:31 → 6WM 09:30 → PP2 02-18 01:07
PROVIDERS: ADMIT Internal Medicine; ATTEND Internal Medicine
PROC: 30233N1 Transfusion of Nonautologous Red Blood Cells into Peripheral Vein, Percutaneous Approach (ICD-10-PCS; 2019-02-03)
PROC: 0DBA8ZX Excision of Jejunum, Via Natural or Artificial Opening Endoscopic, Diagnostic (ICD-10-PCS; 2019-02-04)
PROC: 0DB68ZX Excision of Stomach, Via Natural or Artificial Opening Endoscopic, Diagnostic (ICD-10-PCS; principal; 2019-02-04 15:00)
DX: K28.4 Chronic or unspecified gastrojejunal ulcer with hemorrhage (principal); G92 Toxic encephalopathy; K72.00 Acute and subacute hepatic failure without coma; A41.9 Sepsis, unspecified organism; D62 Acute posthemorrhagic anemia; N17.9 Acute kidney failure, unspecified; I47.1 Supraventricular tachycardia; R18.8 Other ascites; N39.0 Urinary tract infection, site not specified; E87.0 Hyperosmolality and hypernatremia; K22.11 Ulcer of esophagus with bleeding; K92.1 Melena; D69.6 Thrombocytopenia, unspecified; B96.1 Klebsiella pneumoniae [K. pneumoniae] as the cause of diseases classified elsewhere; B95.2 Enterococcus as the cause of diseases classified elsewhere; E03.9 Hypothyroidism, unspecified; E78.5 Hyperlipidemia, unspecified; E11.9 Type 2 diabetes mellitus without complications; I10 Essential (primary) hypertension; I25.10 Atherosclerotic heart disease of native coronary artery without angina pectoris; I44.7 Left bundle-branch block, unspecified; I35.0 Nonrheumatic aortic (valve) stenosis; K74.69 Other cirrhosis of liver; K75.81 Nonalcoholic steatohepatitis (NASH); K52.9 Noninfective gastroenteritis and colitis, unspecified; K43.9 Ventral hernia without obstruction or gangrene; M10.9 Gout, unspecified; N40.0 Benign prostatic hyperplasia without lower urinary tract symptoms; R94.31 Abnormal electrocardiogram [ECG] [EKG]; R55 Syncope and collapse; Z90.3 Acquired absence of stomach [part of]; Z95.1 Presence of aortocoronary bypass graft; Z79.4 Long term (current) use of insulin; Z79.82 Long term (current) use of aspirin
CPT/HCPCS: 36415; 36430; 36600; 70450; 71045; 74018; 74019; 74177; 76705; 80048; 80053; 80069; 80076; 81003; 82043; 82140; 82270; 82728; 82803; 82962; 83036; 83540; 83690; 83735; 84100; 84134; 84145; 84155; 84300; 84436; 84443; 84479; 84484; 84560; 85014; 85018; 85025; 85610; 86850; 86900; 86901; 86920; 87086; 88305; 88312; 92526; 92610; 93005; 93306; 96374; 97110; 97162; 97167; 97530; 97535; A4310; C9113; J0153; J1630; J1815; J1940; J2060; J2270; J2370; J2405; J2543; J2765; J2916; J3480; J7030; J7040; J7042; J7050; J7070; P9016; P9047; Q9967

== ENCOUNTER 2019-06-19 21:13 | Inpatient (IN) | payer MEDICARE ==
[~2019-06-19] VITALS: Ht 172.7 cm; Wt 65.5 kg
[~2019-06-19 21:13] MED LIST changes: +ACET325T45 PO; +ALLO100T PO; +ARGI1POW19 PO; +ASCO500C7 PO; -ASPI-1046 PO; +CARAS PO; -CARV3.1260 PO; +DOCU-159 PO; +FER325 PO; +FURO40TA4 PO; +HYDR-3671 PO; +HYDR-4011 PO; +INSU100C3 SQ; +INSU100I33 SC; +LACT20SO2 PO; +LANS30TA6 PO; +LEVO25TA50 PO; -METF500T24 PO; +METF850T13 PO; +MULT-105 PO; +PEG15DRO4 OP; +PROP20TA4 PO; -SIME80TA60 PO; +SPIR25TA PO; +TAMS-14 PO; -THIA100T56 PO
[2019-06-19] MEDS ORDERED: CEFTRIAXONE 1 GM/50 ML (PMX) 50 ML IVPB ONE (23:00)
[2019-06-19] MEDS ORDERED: ONDANSETRON 4 MG INJ IV PRN (23:30)
[2019-06-19] MEDS ORDERED: ACETAMINOPHEN 325 MG TAB PO PRN (23:30)
[2019-06-20] MEDS ORDERED: NACL 0.9% 3 ML SYG IV SCH (03:00)
[2019-06-20] MEDS ORDERED: HYDROCODONE/APAP (5/325) TAB PO PRN ×2 (03:00)
[2019-06-20] MEDS: ACETAMINOPHEN 325 MG TAB PO SCH ×4 (03:00→20:53)
[2019-06-20] MEDS ORDERED: ONDANSETRON 4 MG INJ IV PRN (03:00)
[2019-06-20] MEDS ORDERED: ALBUTEROL/IPRATROPIUM (NEB) 3 ML AMP HHN PRN (03:00)
[2019-06-20 03:46] VITALS: Ht 172.7 cm; Wt 65.5 kg
[2019-06-20] MEDS: LEVOTHYROXINE 25 MCG TAB PO SCH (07:02)
[2019-06-20 07:52] VITALS: BP 116/63; PULSE 71; RESP 18
[2019-06-20] MEDS: CEFTRIAXONE 1 GM/50 ML (PMX) 50 ML IVPB SCH (08:44)
[2019-06-20] MEDS: COLCHICINE 0.6 MG CAP PO SCH ×2 (08:44→20:52)
[2019-06-20] MEDS: LACTULOSE 30ML CUP PO SCH ×2 (08:44→20:52)
[2019-06-20] MEDS: SUCRALFATE (100 MG/ML) 10ML CUP PO SCH ×4 (08:44→20:53)
[2019-06-20] MEDS: SPIRONOLACTONE 25 MG TAB PO SCH (08:45)
[2019-06-20] MEDS: ALLOPURINOL 100 MG TAB PO SCH ×2 (08:45→20:53)
[2019-06-20] MEDS: FUROSEMIDE 20 MG TAB PO SCH (08:45)
[2019-06-20] MEDS: LANSOPRAZOLE (SOLTAB) 30 MG TAB PO SCH ×2 (08:45→20:52)
[2019-06-20] MEDS: ASCORBIC ACID 500 MG TAB PO SCH ×2 (08:46→20:54)
[2019-06-20] MEDS: DOCUSATE SODIUM 100 MG CAP PO SCH ×2 (08:46→20:52)
[2019-06-20] MEDS: FERROUS SULFATE (EC) 325 MG TAB PO SCH ×2 (08:46→20:52)
[2019-06-20] MEDS ORDERED: ARTIFICIAL TEARS 15 ML OPH BOTH EYES SCH (09:00)
[2019-06-20] MEDS ORDERED: hydrOXYzine HCL 25 MG TAB PO PRN (10:30)
[2019-06-20] MEDS: PROPRANOLOL 20 MG TAB PO SCH ×2 (11:03→20:59)
[2019-06-20] MEDS: ARTIFICIAL TEARS 15 ML OPH BOTH EYES SCH ×2 (11:03→12:51)
[2019-06-20] MEDS ORDERED: morphine 2 MG INJ IV PRN (13:30)
[2019-06-20 14:29] VITALS: BP 136/75; PULSE 71; RESP 18
[2019-06-20] MEDS ORDERED: HYDROmorphONE 0.5 MG/0.5 ML SYG IV STA (15:04)
[2019-06-20] MEDS: DIPHENHYDRAMINE 25 MG CAP PO PRN ×2 (16:09→22:18)
[2019-06-20] MEDS ORDERED: HYDROmorphONE 0.5 MG/0.5 ML SYG IV PRN (17:00)
[2019-06-20 19:38] VITALS: BP 147/76; PULSE 72; RESP 18
[2019-06-20] MEDS: TAMSULOSIN (SR) 0.4 MG CAP PO SCH (20:55)
[2019-06-20] MEDS ORDERED: VANCOMYCIN 1 GM 250 ML IVPB SCH (21:00)
[2019-06-20] MEDS ORDERED: INSULIN GLARGINE [LANtus] 3 ML PEN SC SCH (21:00)
[2019-06-20] MEDS: INSULIN GLARGINE [LANTus] (100 UNITS/ML) SYG SC SCH (21:00)
[2019-06-21 02:01] VITALS: BP 114/63; PULSE 56; RESP 17
[2019-06-21] MEDS: ACETAMINOPHEN 325 MG TAB PO SCH ×4 (03:00→20:40)
[2019-06-21 03:02] VITALS: PULSE 65
[2019-06-21] MEDS: LEVOTHYROXINE 25 MCG TAB PO SCH (06:43)
[2019-06-21] MEDS: ACCU-CHEK XX SCH ×4 (07:00→20:45)
[2019-06-21] MEDS: SUCRALFATE (100 MG/ML) 10ML CUP PO SCH ×4 (09:25→20:40)
[2019-06-21] MEDS: ARTIFICIAL TEARS 15 ML OPH BOTH EYES SCH ×3 (09:25→20:41)
[2019-06-21] MEDS: COLCHICINE 0.6 MG CAP PO SCH ×2 (09:29→20:39)
[2019-06-21] MEDS: FUROSEMIDE 20 MG TAB PO SCH (09:29)
[2019-06-21] MEDS: LANSOPRAZOLE (SOLTAB) 30 MG TAB PO SCH ×2 (09:30→20:39)
[2019-06-21] MEDS: SPIRONOLACTONE 25 MG TAB PO SCH (09:30)
[2019-06-21] MEDS: ASCORBIC ACID 500 MG TAB PO SCH ×2 (09:30→20:39)
[2019-06-21] MEDS: LACTULOSE 30ML CUP PO SCH ×2 (09:30→20:41)
[2019-06-21] MEDS: DOCUSATE SODIUM 100 MG CAP PO SCH ×2 (09:30→20:44)
[2019-06-21] MEDS: PROPRANOLOL 20 MG TAB PO SCH ×2 (09:30→20:39)
[2019-06-21] MEDS: ALLOPURINOL 100 MG TAB PO SCH ×2 (09:30→20:40)
[2019-06-21] MEDS: FERROUS SULFATE (EC) 325 MG TAB PO SCH ×2 (09:30→20:39)
[2019-06-21] MEDS: CEFTRIAXONE 1 GM/50 ML (PMX) 50 ML IVPB SCH (09:31)
[2019-06-21 15:00] VITALS: BP 130/62; PULSE 72; RESP 16
[2019-06-21] MEDS: DIPHENHYDRAMINE 25 MG CAP PO PRN (15:47)
[2019-06-21 20:21] VITALS: BP 120/68; PULSE 74; RESP 18
[2019-06-21] MEDS: TAMSULOSIN (SR) 0.4 MG CAP PO SCH (20:39)
[2019-06-21] MEDS: INSULIN GLARGINE [LANTus] (100 UNITS/ML) SYG SC SCH (20:44)
[2019-06-22 01:11] VITALS: BP 114/67; PULSE 67; RESP 16
[2019-06-22] MEDS: ACETAMINOPHEN 325 MG TAB PO SCH ×4 (03:25→21:27)
[2019-06-22] MEDS: ACCU-CHEK XX SCH ×4 (06:01→21:00)
[2019-06-22] MEDS: LEVOTHYROXINE 25 MCG TAB PO SCH (06:01)
[2019-06-22 07:57] VITALS: BP 110/65; PULSE 78; RESP 20
[2019-06-22] MEDS: ARTIFICIAL TEARS 15 ML OPH BOTH EYES SCH ×3 (09:07→21:26)
[2019-06-22] MEDS: CEFTRIAXONE 1 GM/50 ML (PMX) 50 ML IVPB SCH (09:07)
[2019-06-22] MEDS: FUROSEMIDE 20 MG TAB PO SCH (09:08)
[2019-06-22] MEDS: LACTULOSE 30ML CUP PO SCH ×2 (09:08→21:00)
[2019-06-22] MEDS: SPIRONOLACTONE 25 MG TAB PO SCH (09:08)
[2019-06-22] MEDS: SUCRALFATE (100 MG/ML) 10ML CUP PO SCH ×4 (09:08→21:26)
[2019-06-22] MEDS: FERROUS SULFATE (EC) 325 MG TAB PO SCH ×2 (09:08→21:28)
[2019-06-22] MEDS: ALLOPURINOL 100 MG TAB PO SCH ×2 (09:08→21:27)
[2019-06-22] MEDS: COLCHICINE 0.6 MG CAP PO SCH ×2 (09:09→21:28)
[2019-06-22] MEDS: PROPRANOLOL 20 MG TAB PO SCH ×2 (09:09→21:31)
[2019-06-22] MEDS: ASCORBIC ACID 500 MG TAB PO SCH ×2 (09:09→21:27)
[2019-06-22] MEDS: LANSOPRAZOLE (SOLTAB) 30 MG TAB PO SCH ×2 (09:09→21:28)
[2019-06-22] MEDS: DOCUSATE SODIUM 100 MG CAP PO SCH ×2 (09:10→21:00)
[2019-06-22 13:59] VITALS: BP 104/61; PULSE 69; RESP 20
[2019-06-22 20:20] VITALS: BP 120/63; PULSE 73
[2019-06-22] MEDS: INSULIN GLARGINE [LANTus] (100 UNITS/ML) SYG SC SCH (21:00)
[2019-06-22] MEDS: BALSAM PERU/CASTOR OIL 60 GM TUBE TOP SCH (21:28)
[2019-06-22] MEDS: TAMSULOSIN (SR) 0.4 MG CAP PO SCH (21:28)
[2019-06-23] MEDS: ACETAMINOPHEN 325 MG TAB PO SCH ×4 (02:52→20:39)
[2019-06-23 02:59] VITALS: BP 109/70; PULSE 77; RESP 18
[2019-06-23] MEDS: LEVOTHYROXINE 25 MCG TAB PO SCH (06:26)
[2019-06-23] MEDS: ACCU-CHEK XX SCH ×4 (07:00→20:45)
[2019-06-23 07:56] VITALS: BP 118/69; PULSE 78; RESP 20
[2019-06-23] MEDS: FUROSEMIDE 20 MG TAB PO SCH (08:38)
[2019-06-23] MEDS: FERROUS SULFATE (EC) 325 MG TAB PO SCH ×2 (08:38→20:39)
[2019-06-23] MEDS: SUCRALFATE (100 MG/ML) 10ML CUP PO SCH ×4 (08:38→20:39)
[2019-06-23] MEDS: PROPRANOLOL 20 MG TAB PO SCH ×2 (08:40→20:44)
[2019-06-23] MEDS: SPIRONOLACTONE 25 MG TAB PO SCH (08:40)
[2019-06-23] MEDS: ALLOPURINOL 100 MG TAB PO SCH ×2 (08:40→20:39)
[2019-06-23] MEDS: COLCHICINE 0.6 MG CAP PO SCH ×2 (08:40→20:39)
[2019-06-23] MEDS: DOCUSATE SODIUM 100 MG CAP PO SCH ×2 (08:40→20:40)
[2019-06-23] MEDS: LANSOPRAZOLE (SOLTAB) 30 MG TAB PO SCH ×2 (08:40→20:39)
[2019-06-23] MEDS: BALSAM PERU/CASTOR OIL 60 GM TUBE TOP SCH ×2 (08:41→20:45)
[2019-06-23] MEDS: CEFTRIAXONE 1 GM/50 ML (PMX) 50 ML IVPB SCH (08:41)
[2019-06-23] MEDS: ASCORBIC ACID 500 MG TAB PO SCH ×2 (08:49→20:39)
[2019-06-23] MEDS: LACTULOSE 30ML CUP PO SCH ×2 (08:49→20:43)
[2019-06-23] MEDS: ARTIFICIAL TEARS 15 ML OPH BOTH EYES SCH ×3 (08:50→20:39)
[2019-06-23 13:51] VITALS: BP 106/60; PULSE 64; RESP 20
[2019-06-23 20:05] VITALS: BP 104/63; PULSE 70; RESP 18
[2019-06-23] MEDS: TAMSULOSIN (SR) 0.4 MG CAP PO SCH (20:39)
[2019-06-23] MEDS: INSULIN GLARGINE [LANTus] (100 UNITS/ML) SYG SC SCH (20:44)
[2019-06-24] MEDS: ACETAMINOPHEN 325 MG TAB PO SCH ×4 (02:07→20:56)
[2019-06-24 02:27] VITALS: BP 113/62; PULSE 78; RESP 18
[2019-06-24] MEDS: LEVOTHYROXINE 25 MCG TAB PO SCH (06:29)
[2019-06-24] MEDS: ACCU-CHEK XX SCH ×4 (07:00→20:58)
[2019-06-24 07:53] VITALS: BP 122/66; PULSE 75; RESP 20
[2019-06-24] MEDS: CEFTRIAXONE 1 GM/50 ML (PMX) 50 ML IVPB SCH (08:35)
[2019-06-24] MEDS: ARTIFICIAL TEARS 15 ML OPH BOTH EYES SCH ×3 (08:35→20:57)
[2019-06-24] MEDS: PROPRANOLOL 20 MG TAB PO SCH ×2 (08:36→20:58)
[2019-06-24] MEDS: FERROUS SULFATE (EC) 325 MG TAB PO SCH ×2 (08:36→20:56)
[2019-06-24] MEDS: SUCRALFATE (100 MG/ML) 10ML CUP PO SCH ×4 (08:36→20:56)
[2019-06-24] MEDS: LANSOPRAZOLE (SOLTAB) 30 MG TAB PO SCH ×2 (08:36→20:56)
[2019-06-24] MEDS: FUROSEMIDE 20 MG TAB PO SCH (08:36)
[2019-06-24] MEDS: ASCORBIC ACID 500 MG TAB PO SCH ×2 (08:36→20:56)
[2019-06-24] MEDS: SPIRONOLACTONE 25 MG TAB PO SCH (08:36)
[2019-06-24] MEDS: ALLOPURINOL 100 MG TAB PO SCH ×2 (08:36→20:56)
[2019-06-24] MEDS: COLCHICINE 0.6 MG CAP PO SCH ×2 (08:36→20:57)
[2019-06-24] MEDS: BALSAM PERU/CASTOR OIL 60 GM TUBE TOP SCH ×2 (08:37→20:58)
[2019-06-24] MEDS: LACTULOSE 30ML CUP PO SCH ×2 (08:37→20:57)
[2019-06-24] MEDS: DOCUSATE SODIUM 100 MG CAP PO SCH ×2 (08:37→20:56)
[2019-06-24 14:40] VITALS: BP 114/67; PULSE 61; RESP 18
[2019-06-24 19:49] VITALS: BP 122/67; PULSE 55; RESP 19
[2019-06-24] MEDS: TAMSULOSIN (SR) 0.4 MG CAP PO SCH (20:56)
[2019-06-24] MEDS: DIPHENHYDRAMINE 25 MG CAP PO PRN (20:56)
[2019-06-24] MEDS: INSULIN GLARGINE [LANTus] (100 UNITS/ML) SYG SC SCH (20:58)
[2019-06-25 02:24] VITALS: BP 100/57; PULSE 73; RESP 18
[2019-06-25] MEDS: ACETAMINOPHEN 325 MG TAB PO SCH ×4 (02:35→20:41)
[2019-06-25] MEDS: LEVOTHYROXINE 25 MCG TAB PO SCH (06:16)
[2019-06-25] MEDS: ACCU-CHEK XX SCH ×4 (07:00→20:49)
[2019-06-25 07:31] VITALS: BP 120/68; PULSE 74; RESP 16
[2019-06-25] MEDS: LACTULOSE 30ML CUP PO SCH ×2 (09:32→20:50)
[2019-06-25] MEDS: CEFTRIAXONE 1 GM/50 ML (PMX) 50 ML IVPB SCH (09:32)
[2019-06-25] MEDS: SUCRALFATE (100 MG/ML) 10ML CUP PO SCH ×4 (09:32→20:41)
[2019-06-25] MEDS: ARTIFICIAL TEARS 15 ML OPH BOTH EYES SCH ×3 (09:32→20:40)
[2019-06-25] MEDS: PROPRANOLOL 20 MG TAB PO SCH ×2 (09:33→20:41)
[2019-06-25] MEDS: FERROUS SULFATE (EC) 325 MG TAB PO SCH ×2 (09:33→20:40)
[2019-06-25] MEDS: ALLOPURINOL 100 MG TAB PO SCH ×2 (09:33→20:41)
[2019-06-25] MEDS: SPIRONOLACTONE 25 MG TAB PO SCH (09:33)
[2019-06-25] MEDS: FUROSEMIDE 20 MG TAB PO SCH (09:33)
[2019-06-25] MEDS: LANSOPRAZOLE (SOLTAB) 30 MG TAB PO SCH ×2 (09:33→20:41)
[2019-06-25] MEDS: DOCUSATE SODIUM 100 MG CAP PO SCH ×2 (09:33→20:51)
[2019-06-25] MEDS: COLCHICINE 0.6 MG CAP PO SCH ×2 (09:34→20:40)
[2019-06-25] MEDS: BALSAM PERU/CASTOR OIL 60 GM TUBE TOP SCH ×2 (09:34→20:47)
[2019-06-25] MEDS: ASCORBIC ACID 500 MG TAB PO SCH ×2 (09:34→20:40)
[2019-06-25 13:58] VITALS: BP 90/50; PULSE 53; RESP 16
[2019-06-25 19:33] VITALS: BP 126/64; PULSE 70; RESP 17
[2019-06-25] MEDS: TAMSULOSIN (SR) 0.4 MG CAP PO SCH (20:40)
[2019-06-25] MEDS: INSULIN GLARGINE [LANTus] (100 UNITS/ML) SYG SC SCH (20:50)
[2019-06-26 01:56] VITALS: BP 120/66; PULSE 68; RESP 18
[2019-06-26] MEDS: ACETAMINOPHEN 325 MG TAB PO SCH ×3 (03:42→15:18)
[2019-06-26] MEDS: LEVOTHYROXINE 25 MCG TAB PO SCH (06:18)
[2019-06-26] MEDS: ACCU-CHEK XX SCH ×3 (07:00→17:30)
[2019-06-26 07:37] VITALS: BP 125/72; PULSE 66; RESP 18
[2019-06-26] MEDS: LANSOPRAZOLE (SOLTAB) 30 MG TAB PO SCH (09:00)
[2019-06-26] MEDS: DOCUSATE SODIUM 100 MG CAP PO SCH (09:00)
[2019-06-26] MEDS: LACTULOSE 30ML CUP PO SCH (09:00)
[2019-06-26] MEDS: CEFTRIAXONE 1 GM/50 ML (PMX) 50 ML IVPB SCH (10:01)
[2019-06-26] MEDS: ARTIFICIAL TEARS 15 ML OPH BOTH EYES SCH ×2 (10:01→13:19)
[2019-06-26] MEDS: FUROSEMIDE 20 MG TAB PO SCH (10:03)
[2019-06-26] MEDS: ASCORBIC ACID 500 MG TAB PO SCH (10:03)
[2019-06-26] MEDS: COLCHICINE 0.6 MG CAP PO SCH (10:03)
[2019-06-26] MEDS: FERROUS SULFATE (EC) 325 MG TAB PO SCH (10:04)
[2019-06-26] MEDS: ALLOPURINOL 100 MG TAB PO SCH (10:04)
[2019-06-26] MEDS: BALSAM PERU/CASTOR OIL 60 GM TUBE TOP SCH (10:04)
[2019-06-26] MEDS: SUCRALFATE (100 MG/ML) 10ML CUP PO SCH ×3 (10:21→17:00)
[2019-06-26] MEDS: SPIRONOLACTONE 25 MG TAB PO SCH (10:21)
[2019-06-26] MEDS: PROPRANOLOL 20 MG TAB PO SCH (10:22)
[2019-06-26 13:14] VITALS: BP 129/58; PULSE 54; RESP 18
[2019-06-26 15:18] VITALS: BP 120/68; PULSE 65
== END 2019-06-26 19:50 | DRG 690 ==
LOC: E/R 21:13 → 2NE 23:15 → OBSVTOIN 06-20 11:23 → INTOOBSV 06-20 12:20 → OBSVTOIN 06-20 12:20 → 2NE 06-20 15:25
PROVIDERS: ADMIT Internal Medicine; ATTEND Internal Medicine
DX: N39.0 Urinary tract infection, site not specified (principal); R18.8 Other ascites; L89.310 Pressure ulcer of right buttock, unstageable; D69.6 Thrombocytopenia, unspecified; D63.8 Anemia in other chronic diseases classified elsewhere; B96.4 Proteus (mirabilis) (morganii) as the cause of diseases classified elsewhere; K74.69 Other cirrhosis of liver; E11.9 Type 2 diabetes mellitus without complications; B96.1 Klebsiella pneumoniae [K. pneumoniae] as the cause of diseases classified elsewhere; I25.10 Atherosclerotic heart disease of native coronary artery without angina pectoris; M1A.9XX0 Chronic gout, unspecified, without tophus (tophi); R62.7 Adult failure to thrive; N40.0 Benign prostatic hyperplasia without lower urinary tract symptoms; E03.9 Hypothyroidism, unspecified; Z79.4 Long term (current) use of insulin
CPT/HCPCS: 36415; 80053; 81001; 82962; 83036; 83690; 83735; 84100; 84443; 85025; 87081; 87086; 93005; 96374; G0378; J0696; J1170; J1815; J2270; J2405